=== PATIENT | male | born 1940 | race Caucasian/White ===

== ENCOUNTER 2022-04-19 12:48 | Emergency (ER) | payer MEDICARE, SELFPAY ==
--- NOTE | ~2022-04-19 | XR_ITS ---
Clinical Indication: Chest pain PA and lateral views of the chest: Comparison: None Findings: The lungs are clear, without evidence of focal consolidation or pleural effusion. Cardiome diastinal silhouette is within normal limits. Fracture of the posterior left eighth rib noted.. Impression: Posterior left eighth rib fracture, possibly acute. Correlate for point tenderness. Clear lungs. Reviewed, dictated and finalized at [facility]. Impression: Posterior left eighth rib fracture, possibly acute. Correlate for point tendern ess. Clear lungs.
--- NOTE | 2022-04-19 12:52 | ECG_ITS ---
Measurements Intervals [place] Rate: 122 P: 26 WI: 182 QRS: 7 QRSD: 82 T: 56 QT: 299 QTc: 428 Interpretive Statements SINUS TACHYCARDIA LOW QRS VOLTAGE IN PRECORDIAL LEADS ABNORMAL ECG NO PREVIOUS ECG AVAILABLE FOR COMPARISON Electronically Signed On 04-19-2022 13:22:03 CDT by Parminder Flores D.O.
[2022-04-19 12:53] VITALS: BP 155/84; PULSE 123; RESP 16; TEMP 37.3; O2SAT 99
[2022-04-19 13:11] LABS: Basophils Absolute Auto 0.1 K/mm3 (0.0-0.1); Basophils Percent Auto 0.6 % (0.2-1.2); Eosinophils Percent Auto 0.1 % (0-4.4); Hematocrit 39.6 % (42.0-52.0); Hemoglobin 13.5 g/dL (14.0-18.0); Immature Granulocyte Absolute 0.05 K/mm3 (0.00-0.031); Immature Granulocyte Percent A 0.5 % (0-0.5); Lymphocytes Absolute Auto 0.89 K/mm3 (0.9-3.2); Lymphocytes Percent Auto 8.6 % (18.3-44.2); Mean Corpuscular HGB Conc 34.1 g/dl (32-36); Mean Corpuscular Hemoglobin 34.6 pg (26-34); Mean Corpuscular Volume 101.5 fl (80-100); Mean Platelet Volume 9.6 fl (7.4-10.4); Monocytes Absolute Auto 0.9 K/mm3 (0.1-0.6); Neutrophils Absolute Auto 8.4 K/mm3 (1.3-6.7); Neutrophils Percent Auto 81.2 % (45.5-73.1); Platelet Count Result 250 k/mm3 (150-375); Red Cell Distribution Width 14.8 % (11.5-14.5); White Blood Count 10.3 K/mm3 (4.5-10.0)
[2022-04-19 13:25] LABS: Alanine Aminotransferase 11 U/L (6-50); Albumin Level 4.5 g/dL (3.5-5.1); Alkaline Phosphatase 73 U/L (38-126); Anion Gap 10 mmol/L (8-16); Aspartate Amino Transferase 27 U/L (17-59); Bilirubin,Total 1.3 mg/dL (0.2-1.3); Blood Urea Nitrogen 8 mg/dL (9-20); Calcium 8.7 mg/dL (8.4-10.2); Carbon Dioxide 25 mmol/L (22-30); Chloride 92 mmol/L (98-107); Estimated CRCL calculation 81 ml/min; Estimated Glomerular Filt Rate > 60; Glucose 102 mg/dL (65-110); Potassium 3.8 mmol/L (3.4-5.0); Sodium 127 mmol/L (137-145)
[2022-04-19 14:30] VITALS: BP 148/98; PULSE 98; RESP 16; O2SAT 100
[2022-04-19] MEDS: SODIUM CHLORIDE 0.9% IV 1,000 ML 999 ML IV CONT (15:00)
--- NOTE | 2022-04-19 15:11 | ED.GENADULT ---
HPI - General Adult General Chief complaint: Weakness Stated complaint: weak, dizzy Time Seen by Provider: 04/19/22 14:27 History of Present Illness HPI narrative: 81-year-old male presenting to the ED for evaluation of increased shakiness and weakness. Patient states he often does have some tremor but that the tremor has been acutely worsened today. Patient states this morning he was attempting to walk back to the bedroom when he felt dizzy lightheaded and fell striking his left chest on a chair. Patient reports he was ultimately able to stand up using his own strength and use the chair to get back to bed. Patient did rest for a period of time and later in the morning he went to go use a computer and noticed that he was having increased shakiness of bilateral hands. Patient called a friend to give him a ride to lunch and his friend brought him to the emergency department. Upon arrival to the ED patient states he does feel somewhat improved as far as his shakiness. Patient does complain of intermittent left-sided chest wall pain that is only exacerbated with movement. Patient denies any shortness of breath. Patient states he does have a history of urinary retention but denies any incidence of urinary tract infection. Patient reports he does take Flomax intermittently. Patient also has reported history of hyponatremia for which he does take increased salt. Related Data Home Medications Medication Instructions Recorded Confirmed etodolac 400 mg tablet mg 04/19/22 04/19/22 gabapentin 300 mg capsule mg 04/19/22 Allergies Allergy/AdvReac Type Severity Reaction Status Date / Time No Known Allergies Allergy Verified 04/19/22 15:09 Review of Systems Review of Systems: All systems reviewed & are unremarkable except as noted in HPI and below Exam Narrative: APPEARANCE: Well appearing, no pain, no distress, well-nourished. HEAD: normocephalic, atraumatic. EYES: PERRLA/EOMI, conjunctivae clear. NOSE: Normal no drainage EARS:TMS clear with good light reflex. THROAT: Pharynx clear, no exudate. NECK: Supple. No adenopathy, no masses. RESPIRATORY: Airway patent, respirations nonlabored. Clear to auscultation bilaterally, no rales, rhonchi, wheezing. CARDIOVASCULAR: Regular rate and rhythm without murmurs rubs or gallops. Minimal chest wall tenderness to palpation ABDOMINAL: Soft, nontender, nondistended, normal bowel sounds MUSCULOSKELETAL: Moves all extremities. Strength/ROM intact, No edema, No calf tenderness. NEURO: Alert. Cranial nerves II through XII intact. Grossly intact with no tremor in the emergency department. SKIN: Warm, dry. Normal Color Course Course Emergency Course: 81-year-old male with evaluation of increased shakiness. Patient is afebrile with no leukocytosis. Patient's hemoglobin is stable at 13.5. Patient is hyponatremic at 127, no other sodium levels are on file. Patient's creatinine is 0.6. Patient was tachycardic at 120s on arrival. EKG shows sinus tachycardia with low QRS voltage, no ectopy, normal axis, nonspecific ST changes. Patient was treated with 1 L of normal saline. UA was ordered along with a bladder scan to evaluate for acute urinary retention. UA showed no evidence of urinary obstruction. Patient did feel significantly improved with rehydration. Patient denies any shakiness or queasiness. Patient is afebrile but does have a leukocytosis of 10.3. Patient's potassium was 127 but this was prior to treatment with 1 L of normal saline. Patient also reports he does have prior history of hyponatremia. Patient was negative for influenza and RSV and for COVID. Chest x-ray does show evidence of a left eighth rib fracture. No evidence of pneumothorax or pneumonia. Patient was provided Tylenol 3 for pain control and incentive spirometer to help limit his risk for developing pneumonia. Both patient and friend were updated on the results of the work-up and on importance of close follow-up with her pr
[2022-04-19 15:38] LABS: Influenza A QL RT-PCR Negative (Negative); Influenza B QL RT-PCR Negative (Negative); RSV RNA, RT-PCR Negative (Negative); SARS-CoV-2 RNA PCR Negative
[2022-04-19 15:57] LABS: Appearance Urine Clear (Clear); Bacteria Urine None Seen /hpf; Bilirubin Urine Negative (Negative); Blood Urine Negative (Negative); Color Urine Yellow (Yellow); Glucose Urine UA Negative (Negative); Ketones Urine 1+ mg/dL (Negative); Leukocyte Esterase Ur 1+ LEU/UL (Negative); Need Manual Microscopic Reviewed; Nitrate Urine Negative (Negative); Non Pathogenic Casts 0-2; Protein Urine Trace mg/dL (Negative); RBC Urine 0-2 /hpf (0-2); Specific Grav Ur 1.016 (1.001-1.035); Squamous Epithelial Cell Urine Occasional /hpf (Few); WBC Urine 0-5 /hpf
[2022-04-19 15:58] LABS: Add Urine Microscopic? YES
[2022-04-19 16:00] VITALS: BP 150/90; PULSE 98; RESP 20; O2SAT 100
[2022-04-19] MEDS: ACETAMINOPHEN/CODEINE (*CRX) 300/30 MG TABLET 1 TAB PO (17:12)
[2022-04-19 17:25] VITALS: BP 153/99; PULSE 100; RESP 16; O2SAT 100
== END 2022-04-19 17:30 | disposition home or self-care (01) ==
PROVIDERS: Emergency Provider Emergency Medicine
DX: E87.1 Hypo-osmolality and hyponatremia (principal); S22.32XA Fracture of one rib, left side, initial encounter for closed fracture; R53.1 Weakness; Z20.822 Contact with and (suspected) exposure to COVID-19; W18.39XA Other fall on same level, initial encounter
CPT/HCPCS: 36415; 71046; 80053; 81001; 85025; 87637; 93005; 96360; 99283; A9270; J7030

== ENCOUNTER 2022-05-28 10:22 | Emergency (ER) | payer MEDICARE, SELFPAY ==
[2022-05-28] VITALS (23 sets, daily range): BP systolic 124–157; BP diastolic 76–103; PULSE 91–134; RESP 12–26; TEMP 36.8; O2SAT 97–100
--- NOTE | ~2022-05-28 | XR_ITS ---
AP view of the pelvis and AP and lateral views of the left hip Clinical history: Pain Findings: No acute fracture or dislocation is seen. Osseous alignment is anatomic. Minimal degenerati ve change noted of both hip joints. SI joints are intact. Vascular calcifications are noted. Impression: Minimal osteoarthritis of both hip joints. No fracture or dislocation. Reviewed, dictated and finalized at location . Impression: Minimal osteoarthritis of both hip joints. No fracture or dislocation.
--- NOTE | ~2022-05-28 | CT_ITS ---
EXAMINATION: CT pelvis w con DATE: 05/28/2022 13:23 INDICATION: Left hip pain after fall 2 weeks ago. Left hip swelling. TECHNIQUE: Computed tomography (CT) of the pelvis was performed with 100 cc Omnipaque 350 intravenous contrast. The dose-length product was 401.77 mGy-cm. Automated exposure control and iterative recons truction technique were employed. COMPARISON: Left hip series dated 05/28/2022 FINDINGS: There is a large soft tissue mass in the superficial soft tissues lateral to the left hip m easuring approximately 9.3 x 8.1 x 5.5 cm, consistent with hematoma. There is surrounding subcutaneou s edema. There are areas of serpiginous hyperdensity along the inferior margin of the mass, consisten t with active hemorrhage. There is mild-moderate osteoarthritis of the hips. There is advanced lower lumbar spondylosis partially visualized. The pelvic rings are intact. No acute fracture or traumatic malalignment. Nonobstructive bowel pattern. Prostate gland is enlarged. Mild bladder wall thickening, likely due to outlet obstruction. There is atherosclerosis of the aorta. No lymphadenopathy. No free air or free fluid. IMPRESSION: 1. Large soft tissue mass lateral to the left hip, consistent with hemorrhage with probable active ex travasation along the inferior aspect of the mass as evidenced by serpiginous contrast enhancement. 2: No acute fracture. Reviewed, dictated and finalized at location A. IMPRESSION: 1. Large soft tissue mass lateral to the left hip, consistent with hemorrhage w ith probable active extravasation along the inferior aspect of the mass as evid enced by serpiginous contrast enhancement. 2: No acute fracture.
--- NOTE | 2022-05-28 10:38 | ECG_ITS ---
Measurements Intervals [place] Rate: 128 P: 42 [place]: 185 QRS: 20 QRSD: 81 T: 67 QT: 278 QTc: 406 Interpretive Statements SINUS TACHYCARDIA WITH OCCASIONAL VENTRICULAR PREMATURE COMPLEXES LOW QRS VOLTAGE IN PRECORDIAL LEADS [QRS DEFLECTION < 1.0 mV IN CHEST LEADS] ABNORMAL RHYTHM ECG COMPARED TO ECG 04/19/2022 12:57:26 NO SIGNIFICANT CHANGES Electronically Signed On 05-28-2022 18:31:55 CDT by Cj Durán M.D.
--- NOTE | 2022-05-28 12:32 | ED.FALL ---
HPI - Fall General Chief Complaint: Fall <GUNNER Carey Last Filed: 05/28/22 18:16> Stated Complaint: left hip pain last PM, fall 2 weeks ago <GUNNER Carey Last Filed: 05/28/22 18:16> Time Seen by Provider: 05/28/22 11:28 <GUNNER Craey Last Filed: 05/28/22 18:16> Source: patient and old records reviewed <GUNNER Carey Last Filed: 05/28/22 18:16> Mode of arrival: ambulatory <GUNNER Carey Last Filed: 05/28/22 18:16> Limitations: no limitations <GUNNER Carey Last Filed: 05/28/22 18:16> History of Present Illness HPI Narrative: Patient is an 81-year-old male who presents to the ED with report of left lateral hip pain and swelling. Patient reports he was visiting his daughter in [place] 2 weeks ago and tripped and fell, landing on his left hip. He had pain for a couple of days then, but was able to ambulate normally. He states since then he has been feeling fine without significant pain. Last night while sleeping, patient woke up and had increased pain in his left hip with swelling noted to his left lateral hip. When he woke up this morning he states the swelling was improved, but then developed again later throughout the day, along with increased pain. He then decided to come to the ED. Patient denies any other injuries from the initial fall. Denies any further falls or injuries. Denies significant pain with movement of leg. Denies any numbness or tingling. He is not anticoagulated. Patient's heart rate was noted to be elevated in the 130s upon arrival. He reports that he chronically has tachycardia. Per records, does appear consistent with previous ED visits. Denies any chest pain, shortness of breath, palpitations. <GUNNER Carey Last Filed: 05/28/22 18:16> Related Data Home Medications: Home Medications Medication Instructions Recorded Confirmed etodolac 400 mg tablet mg 04/19/22 04/19/22 gabapentin 300 mg capsule mg 04/19/22 <Khadra Atkinson PA-C - Last Filed: 05/28/22 18:16> Allergies/Adverse Reactions: Allergies Allergy/AdvReac Type Severity Reaction Status Date / Time No Known Allergies Allergy Verified 04/19/22 15:09 <Khadra Atkinson PA-C - Last Filed: 05/28/22 18:16> Review of Systems Review of Systems: CONSTITUTIONAL: Denies fever, chills, or sweats. CARDIOVASCULAR: See HPI. RESPIRATORY: Denies dyspnea. SKIN: See HPI. MUSCULOSKELETAL: See HPI. NEUROLOGIC: Denies tingling, numbness, or weakness. <Khadra Atkinson PA-C - Last Filed: 05/28/22 18:16> All systems reviewed & are unremarkable except as noted in HPI and below <Khadra Atkinson PA-C - Last Filed: 05/28/22 18:16> PMFSH Past Medical History Medical History: Medical History BPH (benign prostatic hyperplasia) HTN (hypertension) <Khadra Atkinson PA-C - Last Filed: 05/28/22 18:16> Surgical History Surgical History: Surgical History No pertinent past surgical history <Khadra Atkinson PA-C - Last Filed: 05/28/22 18:16> Social History Social History: Social History Smoking status: Never smoker <Khadra Atkinson PA-C - Last Filed: 05/28/22 18:16> Exam Narrative: GENERAL: Well appearing, well-nourished, non-toxic, in no acute distress. HEAD: Normocephalic, atraumatic. NECK: Supple. No adenopathy, no masses. RESPIRATORY: Airway patent, respirations nonlabored. Clear to auscultation bilaterally, no rales, rhonchi, wheezing. CARDIOVASCULAR: Borderline tachycardic with regular rhythm without murmurs, rubs, or gallops. Pedal pulses 2+ and equal bilaterally. ABDOMINAL: Soft, no tenderness throughout abdomen, nondistended, no hepatosplenomegaly
[2022-05-28 12:41] LABS: Basophils Absolute Auto 0.1 K/mm3 (0.0-0.1); Basophils Percent Auto 0.6 % (0.2-1.2); Eosinophils Percent Auto 0.1 % (0-4.4); Hematocrit 38.6 % (42.0-52.0); Immature Granulocyte Absolute 0.04 K/mm3 (0.00-0.031); Immature Granulocyte Percent A 0.4 % (0-0.5); Lymphocytes Absolute Auto 1.12 K/mm3 (0.9-3.2); Lymphocytes Percent Auto 10.6 % (18.3-44.2); Mean Corpuscular HGB Conc 33.7 g/dl (32-36); Mean Corpuscular Hemoglobin 34.3 pg (26-34); Mean Corpuscular Volume 101.8 fl (80-100); Mean Platelet Volume 9.7 fl (7.4-10.4); Monocytes Absolute Auto 0.8 K/mm3 (0.1-0.6); Monocytes Percent Auto 7.3 % (2.6-8.5); Neutrophils Absolute Auto 8.5 K/mm3 (1.3-6.7); Platelet Count Result 266 k/mm3 (150-375); Red Blood Count 3.79 M/mm3 (4.6-6.20); Red Cell Distribution Width 13.7 % (11.5-14.5); White Blood Count 10.5 K/mm3 (4.5-10.0)
[2022-05-28] MEDS: SODIUM CHLORIDE 0.9% IV 1,000 ML 999 ML IV CONT (12:50)
[2022-05-28 12:51] LABS: Alanine Aminotransferase 15 U/L (6-50); Albumin Level 4.1 g/dL (3.5-5.1); Alkaline Phosphatase 93 U/L (38-126); Anion Gap 6 mmol/L (8-16); Aspartate Amino Transferase 25 U/L (17-59); Bilirubin,Total 1.5 mg/dL (0.2-1.3); Blood Urea Nitrogen 13 mg/dL (9-20); Calcium 8.9 mg/dL (8.4-10.2); Carbon Dioxide 32 mmol/L (22-30); Chloride 97 mmol/L (98-107); Estimated CRCL calculation 78 ml/min; Estimated Glomerular Filt Rate > 60; Glucose 113 mg/dL (65-110); Potassium 3.9 mmol/L (3.4-5.0); Sodium 135 mmol/L (137-145)
[2022-05-28 13:02] LABS: Magnesium 1.7 mg/dL (1.6-2.3)
[2022-05-28 15:27] LABS: Appearance Urine Clear (Clear); Bacteria Urine 2+ /hpf; Bilirubin Urine Negative (Negative); Blood Urine Negative (Negative); Color Urine Yellow (Yellow); Glucose Urine UA Negative (Negative); Ketones Urine Negative (Negative); Leukocyte Esterase Ur Trace LEU/UL (Negative); Nitrate Urine Negative (Negative); Non Pathogenic Casts 0-2; Protein Urine Negative (Negative); RBC Urine 0-2 /hpf (0-2); Squamous Epithelial Cell Urine Occasional /hpf (Few); pH Urine 7.5 (5.0-9.0)
[2022-05-28 15:29] LABS: Add Urine Microscopic? YES
== END 2022-05-28 17:00 | disposition short-term general hospital (02) ==
PROVIDERS: Emergency Provider Physician Assistant
DX: S70.02XA Contusion of left hip, initial encounter (principal); N30.00 Acute cystitis without hematuria; M16.0 Bilateral primary osteoarthritis of hip; W01.0XXA Fall on same level from slipping, tripping and stumbling without subsequent striking against object, initial encounter
CPT/HCPCS: 36415; 72193; 73502; 80053; 81001; 83735; 85025; 87086; 87088; 93005; 96361; 96365; 99285; J0696; J7030; Q9967

== ENCOUNTER 2022-07-17 09:47 | Emergency (ER) | payer OTHER, MEDICARE, SELFPAY ==
--- NOTE | ~2022-07-17 | CT_ITS ---
EXAMINATION: CT lumbar spine wo con DATE: 07/17/2022 10:43 INDICATION: Low back pain radiating to the legs. TECHNIQUE: Computed tomography (CT) of the lumbar spine was performed without intravenous contrast. A utomated exposure control and iterative reconstruction technique were employed. The dose-length produ ct was 905.22 mGy-cm. COMPARISON: None FINDINGS: There is 7 degrees levocurvature of lumbar spine. There is a compression fracture of inferi or endplate of L2 with 1/5 loss of height. There is a compression fracture of superior endplate of L3 with 2/5 loss of height centrally. There is mildly decreased disc height at L1-L2 and severely decre ased disc height from L2-L3 through L5-S1. The following disc levels are specifically discussed: L1-L2: The disc is bulging. There is severe right and moderate left facet joint osteoarthritis. There is mild bilateral neural foraminal stenosis. There is mild central canal stenosis. L2-L3: The disc is bulging. There is severe bilateral facet joint osteoarthritis. There is moderate b ilateral neural foraminal stenosis. There is mild central canal stenosis. L3-L4: The disc is bulging. There is severe right and moderate left facet joint osteoarthritis. There is moderate bilateral neural foraminal stenosis. There is mild central canal stenosis. L4-L5: The disc is bulging. There is severe bilateral facet joint osteoarthritis. There is moderate b ilateral neural foraminal stenosis. There is mild central canal stenosis. L5-S1: The disc is bulging. There is severe bilateral facet joint osteoarthritis. There is moderate b ilateral neural foraminal stenosis. There is mild central canal stenosis. IMPRESSION: 1. Compression fractures of L2 and L3, likely subacute or chronic. 2. Severe lumbar spondylosis. Reviewed, dictated and finalized at location A.
[2022-07-17 09:53] VITALS: BP 151/71; PULSE 112; RESP 18; TEMP 36.8; O2SAT 100
--- NOTE | 2022-07-17 10:03 | PC.NURSE ---
Pt has a hx of lower back pain and has received steroid injections for the issues. Pt states that last night the pain became so great that he had difficulty moving at all. States normally the pain is only felt when stopping movement or changing positions. States he used a heating pad, and used a prescribed steroid (prednisone 10mg) that he stopped taking last week due to medication running out with little relief. States he has been seeing a physical therapist for the issues. Pt needed a lot of assistance from one RN to transfer from wheelchair to bed. States he is taking an antibiotic for a UTI at this time.
--- NOTE | 2022-07-17 10:15 | PC.NURSE ---
States the weekend before [facility] this year, pt fell onto his left hip and had a hematoma develop on his left hip which he was seen at the ED here. States he was transferred to [facility] where pt was monitored and had a pressure bandage applied to the area.
--- NOTE | 2022-07-17 10:42 | ED.BACK ---
HPI - Back Pain/Injury General Chief Complaint: Back Pain/Injury Stated Complaint: back pain Time Seen by Provider: 07/17/22 09:55 History of Present Illness HPI Narrative: This very pleasant 81-year-old male patient with no significant past medical history related to today's complaint other than chronic back pain from chronic arthritis presents to the emergency room with complaints of having difficulty getting out of bed this morning secondary to the amount of pain he was experiencing in his back. He has most recently been seeing Dr. Schwab and has underwent injections in his back without notable relief of his discomfort. Patient has also been in physical therapy and has not had any notable relief with that as well. Patient denies any acute injury or acute exacerbation in any way. He states the pain is in the low back and this morning it did radiate down the outside the thigh on the left side but it stopped before wait any further. There is no loss of bowel or bladder control there is no saddle anesthesia. Patient has been taking [id number] medications at home for pain and he states that just has not been helping. He does note that he took a friend's hydrocodone x1 and it did relieve some of the pain however it quickly returns. He denies any other symptoms such as chest pain, dyspnea, nausea, vomiting, diarrhea, urinary complaints, dizziness, headache or lightheadedness. Related Data Home Medications Medication Instructions Recorded Confirmed etodolac 400 mg tablet mg 04/19/22 04/19/22 gabapentin 300 mg capsule mg 04/19/22 Allergies Allergy/AdvReac Type Severity Reaction Status Date / Time No Known Allergies Allergy Verified 07/17/22 10:01 Review of Systems Review of Systems: A full 12 point review of systems was completed and is otherwise negative except as not All systems reviewed & are unremarkable except as noted in HPI and below PMFSH Past Medical History Medical History BPH (benign prostatic hyperplasia) HTN (hypertension) Surgical History Surgical History No pertinent past surgical history Social History Social History Smoking status: Never smoker Exam Const: General: healthy appearing and alert Nutritional Appearance: well nourished Orientation/consciousness: patient oriented x3 Limitations: no limitations and No altered mental status HENMT: Head: normal to inspection Ears: external ears normal Face/Nose/Sinus: Normal external nose present and no nasal discharge noted Face and sinus: normal facial exam Mouth: Yes Normal oral and palatal mucosa present Eyes: Conjunctivae: conjunctivae normal Pupils: Equal, round and reactive pupils present Neck: Neck: normal visual inspection and no lymphadenopathy Chest: Chest palpation & inspection: normal inspection of the chest Resp: Effort & Inspection: normal respiratory effort Auscultation: clear to auscultation bilaterally Cardio: Rate: regular rate Rhythm: regular rhythm Heart sounds: no murmurs GI: Inspection: non-distended GI Palp: Yes Soft to palpation and No Tenderness to palpation present (GI) Auscultation: normal bowel sounds Back/Spine/Pelvis: Back: no CVA tenderness Other: There is bilateral paraspinal tenderness at the lumbar level. No palpable spasm. No midline tenderness appreciated. Skin: General skin exam: normal color Rashes: no rashes Wounds: no wounds Neuro: General: patient oriented x3, moves all extremities and no focal motor deficits Cranial nerves: Yes Nystagmus not present Speech: normal speech Gait exam (Neuro): Normal gait present Other: This provider witness patient walk from his room to the restroom without any deficits of gait Extrem: General: normal to inspection, no clubbing, cyanosis or edema and n
[2022-07-17] MEDS: ORPHENADRINE CITRATE 100 MG TABLET.ER PO (11:02)
[2022-07-17] MEDS: KETOROLAC 30 MG/ML VIAL (*BKC) 15 MG IM (11:04)
== END 2022-07-17 13:41 | disposition home or self-care (01) ==
PROVIDERS: Emergency Provider Nurse Practitioner Adult Health; PCP Family Medicine
DX: S32.020A Wedge compression fracture of second lumbar vertebra, initial encounter for closed fracture (principal); S32.030A Wedge compression fracture of third lumbar vertebra, initial encounter for closed fracture; M47.816 Spondylosis without myelopathy or radiculopathy, lumbar region; I10 Essential (primary) hypertension; N40.0 Benign prostatic hyperplasia without lower urinary tract symptoms; X58.XXXA Exposure to other specified factors, initial encounter
CPT/HCPCS: 72131; 96372; 99284; A9270; J1885

== ENCOUNTER 2022-07-18 08:50 | Emergency (ER) | payer OTHER, MEDICARE, SELFPAY ==
[2022-07-18 08:53] VITALS: BP 130/65; PULSE 112; RESP 18; TEMP 36.4; O2SAT 98
--- NOTE | 2022-07-18 09:29 | ED.GENADULT ---
HPI - General Adult General Chief complaint: Back Pain/Injury Stated complaint: back pain Time Seen by Provider: 07/18/22 09:02 History of Present Illness HPI narrative: Vincenzo Glaser is an 81 y/o male who presents today for continued lower back pain. He reports he was evaluated here yesterday diagnosed with two compression fractures. He was sent home with Flexeril 5mg every 8 hours, a TLSO brace and a referral with neurosurgery and pain management. He denies any new trauma/injury/fall since evaluation yesterday. He reports that when he got up this morning his pain felt worse and it takes several steps to start feeling any relief. He is concerned that the Flexeril is not helping his pain enough. Denies any loss of bowel or bladder, denies saddle paraesthesia. He reports he has made an appointment with Neuro surgery in 2 weeks, he has an appointment with his PCP in 5 days and he is planning on calling pain management Wednesday. Related Data Home Medications Medication Instructions Recorded Confirmed etodolac 400 mg tablet mg 04/19/22 04/19/22 gabapentin 300 mg capsule mg 04/19/22 Allergies Allergy/AdvReac Type Severity Reaction Status Date / Time No Known Allergies Allergy Verified 07/18/22 08:51 Review of Systems Review of Systems: CONSTITUTIONAL: Denies fever, chills, or sweats. EYES: Denies visual changes, redness, or discharge. ENT: Denies rhinorrhea, congestion, sore throat, or otalgia. CARDIOVASCULAR: Denies chest pain, palpitations, or edema. RESPIRATORY: Denies cough or dyspnea. GASTROINTESTINAL: Denies abdominal pain, nausea, vomiting, or diarrhea. GENITOURINARY: Denies dysuria or hematuria. SKIN: Denies rash or itching. MUSCULOSKELETAL: Reports with certain movements pain is to mid lower back , denies pain while sitting NEUROLOGIC: Denies headache, numbness, dizziness, or weakness. PSYCHIATRIC: Denies anxiety or depression. [facility] Past Medical History Medical History BPH (benign prostatic hyperplasia) HTN (hypertension) Surgical History Surgical History No pertinent past surgical history Social History Social History Smoking status: Never smoker Exam Narrative: GENERAL: Well-appearing, well-nourished, and in no acute distress. HEAD: Normocephalic, atraumatic. EYES: PERRLA and EOMI. ENT: Nares clear, no rhinorrhea or epistaxis. Mucous membranes moist. Oropharynx without tonsillar hypertrophy exudate or other lesions. NECK: Supple. No adenopathy or masses. No carotid bruits or JVD CHEST: Clear to auscultation. No respiratory distress. No wheezes rales or rhonchi HEART: Regular rate and rhythm. No murmur heard. Normal peripheral pulses. ABDOMEN: Soft, nontender, nondistended, normal active bowel sounds. EXTREMITIES: Normal range of motion. No edema. SKIN: Warm, dry, no rash. NEURO: No focal deficits. Alert and oriented x3. PSYCH: Normal mood and affect. Back/Spine/Pelvis: Other: Mid lower back pain, while resting on stretcher he reports the pain is not there, but with certain movements of his legs or early in the AM the pain feels worse. Course Vital Signs Vital signs: Vital Signs Temperature 36.4 C L 07/18/22 08:53 Pulse Rate 112 H 07/18/22 08:53 Respiratory Rate 18 07/18/22 08:53 Blood Pressure 130/65 07/18/22 08:53 Pulse Oximetry 98 07/18/22 08:53 Oxygen Delivery Room Air 07/18/22 08:53 Temperature 36.4 C L 07/18/22 08:53 Pulse Rate 112 H 07/18/22 08:53 Respiratory Rate 18 07/18/22 08:53 Blood Pressure 130/65 07/18/22 08:53 Pulse Oximetry 98 07/18/22 08:53 Oxygen Delivery Room Air 07/18/22 08:53 Vitals reviewed by me. Medical Decision Making MDM Narrative Medical decision making narrative: Patient is alert and oriented X4 Denies any numbness/tingling to
[2022-07-18] MEDS: LIDOCAINE 5% PATCH 1 PATCH TRANSDERM (09:39)
[2022-07-18] MEDS: MELOXICAM 7.5 MG TABLET 15 MG PO (09:40)
[2022-07-18] MEDS: CYCLOBENZAPRINE HCL 5 MG TABLET PO (09:40)
[2022-07-18] MEDS: HYDROcodone/acetaminophen (*CRX) 5-325 MG TABLET 1 TAB PO (09:40)
== END 2022-07-18 10:04 | disposition home or self-care (01) ==
PROVIDERS: Emergency Provider Nurse Practitioner Family; PCP Family Medicine
DX: M54.50 Low back pain, unspecified (principal); M48.56XA Collapsed vertebra, not elsewhere classified, lumbar region, initial encounter for fracture; I10 Essential (primary) hypertension; N40.0 Benign prostatic hyperplasia without lower urinary tract symptoms
CPT/HCPCS: 99283; A9270

== ENCOUNTER 2022-12-15 20:10 | Emergency (ER) | payer OTHER, MEDICARE, SELFPAY ==
[2022-12-15] VITALS (30 sets, daily range): BP systolic 70–134; BP diastolic 38–79; PULSE 81–107; RESP 11–20; TEMP 36.1; O2SAT 97–100
--- NOTE | ~2022-12-15 | XR_ITS ---
EXAMINATION: XR chest 1V portable Exam Date/Time: 12/15/2022 20:35 [employer]GER HISTORY: low blood pressure FEELING LETHARGIC X 1 DAY Comparison: 04/27/2022. RESULT: Lines, tubes, and devices: None. Lungs and pleura: Clear. Cardiomediastinal silhouette: Stable. Other: No acute osseous or upper abdominal finding. IMPRESSION: No acute cardiopulmonary process. Reviewed, dictated and finalized at location K. 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
--- NOTE | 2022-12-15 20:23 | ECG_ITS ---
Measurements Intervals [place] Rate: 102 P: -60 [place]: 189 QRS: -1 QRSD: 82 T: 59 QT: 346 QTc: 453 Interpretive Statements SINUS TACHYCARDIA EARLY PRECORDIAL R/S TRANSITION BASELINE ARTIFACT- III, AVR BORDERLINE ECG COMPARED TO ECG 05/28/2022 10:46:42 HEART RATE HAS DECREASED Electronically Signed On 12-16-2022 6:51:34 ENROLLER by Parminder Flores D.O.
[2022-12-15 20:40] LABS: Basophils Absolute Auto 0.1 K/mm3 (0.0-0.1); Basophils Percent Auto 0.8 % (0.2-1.2); Eosinophils Percent Auto 0.4 % (0-4.4); Hematocrit 37.5 % (42.0-52.0); Hemoglobin 12.4 g/dL (14.0-18.0); Immature Granulocyte Absolute 0.02 K/mm3 (0.00-0.031); Immature Granulocyte Percent A 0.3 % (0-0.5); Lymphocytes Absolute Auto 1.79 K/mm3 (0.9-3.2); Lymphocytes Percent Auto 25.1 % (18.3-44.2); Mean Corpuscular HGB Conc 33.1 g/dl (32-36); Mean Corpuscular Hemoglobin 33.7 pg (26-34); Mean Corpuscular Volume 101.9 fl (80-100); Mean Platelet Volume 9.7 fl (7.4-10.4); Monocytes Percent Auto 13.4 % (2.6-8.5); Neutrophils Absolute Auto 4.3 K/mm3 (1.3-6.7); Platelet Count Result 274 k/mm3 (150-375); Red Blood Count 3.68 M/mm3 (4.6-6.20); White Blood Count 7.1 K/mm3 (4.5-10.0)
[2022-12-15 20:47] LABS: Alanine Aminotransferase 10 U/L (6-50); Albumin Level 4.3 g/dL (3.5-5.1); Alkaline Phosphatase 56 U/L (38-126); Anion Gap 11 mmol/L (8-16); Aspartate Amino Transferase 22 U/L (17-59); Bilirubin,Total 1.5 mg/dL (0.2-1.3); Blood Urea Nitrogen 19 mg/dL (9-20); Calcium 8.8 mg/dL (8.4-10.2); Carbon Dioxide 26 mmol/L (22-30); Chloride 92 mmol/L (98-107); Estimated CRCL calculation 55 ml/min; Estimated Glomerular Filt Rate > 60; Glucose 95 mg/dL (65-110); Potassium 3.6 mmol/L (3.4-5.0); Sodium 129 mmol/L (137-145)
--- NOTE | 2022-12-15 21:04 | ED.GENADULT ---
HPI - General Adult General Chief complaint: Recheck/Abnormal Lab/Rx Stated complaint: low BP/high HR Time Seen by Provider: 12/15/22 20:22 History of Present Illness HPI narrative: this is an 82-year-old male presenting ED with chief complaint of low blood pressure. Patient checks his blood pressure every morning and it was normal when he woke up. However later that day started feel lightheaded and he had multiple readings that were around 7/40 with heart rate about 110. Patient denies fever chills chest pain difficulty breathing abdominal pain nausea vomiting diarrhea or urinary trouble. He says he has had low blood pressures like this 3 times in the last month. Patient does not know his medications but per the pharmacy records he is on losartan 100 mg once daily. Related Data Home Medications Medication Instructions Recorded Confirmed etodolac 400 mg tablet mg 04/19/22 11/25/22 gabapentin 300 mg capsule mg 04/19/22 11/25/22 acetaminophen 500 mg tablet 500 mg PO Q6H PRN 11/25/22 11/25/22 (Tylenol Extra Strength) ciprofloxacin HCl 500 mg tablet 500 mg PO Q12H 11/25/22 11/25/22 losartan 100 mg tablet 100 mg PO DAILY 11/25/22 11/25/22 pantoprazole 40 mg tablet,delayed 40 mg PO QAM 11/25/22 11/25/22 release prednisone 10 mg tablet 10 mg PO DIRECTED 11/25/22 11/25/22 tamsulosin 0.4 mg capsule 0.4 mg PO DAILY 11/25/22 11/25/22 valsartan 80 mg tablet 80 mg PO DAILY 11/25/22 11/25/22 Allergies Allergy/AdvReac Type Severity Reaction Status Date / Time No Known Allergies Allergy Verified 11/25/22 13:03 [facility] Past Medical History Medical History BPH (benign prostatic hyperplasia) HTN (hypertension) Surgical History Surgical History No pertinent past surgical history Family History Family History Father Heart attack Other Heart disease Social History Social History (Updated 11/25/22 @ 13:07 by [facility]enz [facility] Smoking status: Never smoker Alcohol intake: current Substance use: current Substance use type: marijuana Other substance usage details: gummies for sleep Lack of Transportation: No Lack of Food: Never True Current Housing: I Have Housing Concerned About Future Housing: No Difficulty Paying Gas/Electric Bills: No Difficulty Paying for Meds: No Currently Unemployed: No Education: Master's Degree or Higher Difficulty w/ Childcare or Family Care: No Living arrangements: alone Occupation/Education: retired Exam Narrative: APPEARANCE: No apparent distress. Head: atraumatic. EYES: EOMI, NOSE: Atraumatic NECK: Trachea midline RESPIRATORY: No increased rate of breathing Clear to auscultation CARDIOVASCULAR: RRR, no peripheral edema ABDOMINAL: Non-distended, soft nontender no guarding or rebound MUSCULOSKELETAl: No obvious deformities NEURO: Alert. Moving 4/4 extremities SKIN:: Warm, dry. Normal color PSYCHIATRIC: Normal affect point of care cardiac thoracic ultrasound: Poor cardiac windows, however the patient does have a flat IVC and internal jugular. Consistent with dehydration. Course Vital Signs Vital signs: Vital Signs Temperature 96.9 F L 12/15/22 20:14 Pulse Rate 107 H 12/15/22 20:14 Respiratory Rate 16 12/15/22 20:14 Blood Pressure 94/45 L 12/15/22 20:14 Pulse Oximetry 100 12/15/22 20:14 Oxygen Delivery Room Air 12/15/22 20:14 Temperature 96.9 F L 12/15/22 20:14 Pulse Rate 91 12/15/22 23:31 Respiratory Rate 14 12/15/22 23:31 Blood Pressure 122/71 12/15/22 23:31 Pulse Oximetry 98 12/15/22 23:31 Oxygen Delivery Room Air 12/15/22 20:14 Medical Decision Making [facility] Narrative Medical decision making narrative: -Course: 82-year-old male presenting with low blood pressure readings. Outside of some mild lightheadedness he
[2022-12-15] MEDS: SODIUM CHLORIDE 0.9% IV 2,000 ML 999 ML (21:05)
[2022-12-15 21:40] LABS: Lactic Acid Reflex 3.7 mmol/L (0.7-2.0)
[2022-12-15 22:06] LABS: Influenza A QL RT-PCR Negative (Negative); Influenza B QL RT-PCR Negative (Negative); RSV RNA, RT-PCR Negative (Negative); SARS-CoV-2 RNA PCR Negative (Negative)
--- NOTE | 2022-12-15 22:35 | PC.NURSE ---
Pt attempted to provided urine sample, unsuccessful.
[2022-12-15] MEDS: SODIUM CHLORIDE 0.9% IV 1,000 ML 999 ML IV CONT (22:36)
--- NOTE | 2022-12-15 23:24 | PC.NURSE ---
Pt ambulatory to restroom with steady gait for BM.
[2022-12-15 23:41] LABS: Appearance Urine Clear (Clear); Bacteria Urine Rare /hpf; Bilirubin Urine Negative (Negative); Blood Urine Negative (Negative); Color Urine Yellow (Yellow); Glucose Urine UA Negative (Negative); Ketones Urine Negative (Negative); Leukocyte Esterase Ur Trace LEU/UL (Negative); Nitrate Urine Negative (Negative); Protein Urine Negative (Negative); RBC Urine 0-2 /hpf (0-2); Specific Grav Ur 1.012 (1.001-1.035); Squamous Epithelial Cell Urine Occasional /hpf (Few); WBC Urine 0-5 /hpf; pH Urine 6.5 (5.0-9.0)
[2022-12-15 23:47] LABS: Add Urine Microscopic? YES
[2022-12-16] VITALS (12 sets, daily range): BP systolic 129–151; BP diastolic 75–87; PULSE 89–98; RESP 11–28; TEMP 36.6–37.1; O2SAT 96–99
[2022-12-16 00:28] LABS: Reflex Lactic Acid Yes or No Add Lactic
[2022-12-16 00:54] LABS: Lactic Acid Reflex 2.6 mmol/L (0.7-2.0)
--- NOTE | 2022-12-16 00:58 | PC.NURSE ---
Pt ambulatory with cane to restroom with steady gait.
== END 2022-12-16 01:28 | disposition home or self-care (01) ==
LOC: ANHED 21:36
PROVIDERS: Emergency Provider Emergency Medicine; PCP Family Medicine
DX: I95.9 Hypotension, unspecified (principal); E86.0 Dehydration; Z20.822 Contact with and (suspected) exposure to COVID-19; I10 Essential (primary) hypertension; N40.0 Benign prostatic hyperplasia without lower urinary tract symptoms; R00.0 Tachycardia, unspecified
CPT/HCPCS: 36415; 71045; 80053; 81001; 83605; 85025; 87040; 87147; 87181; 87186; 87637; 93005; 96360; 96361; 99283; J7030

== ENCOUNTER 2023-04-29 14:44 | Day surgery (SDC) | payer OTHER, MEDICARE, SELFPAY ==
[2023-04-29] VITALS (7 sets, daily range): BP systolic 116–151; BP diastolic 59–97; PULSE 86–120; RESP 16–23; TEMP 36.8; O2SAT 94–99
--- NOTE | 2023-04-29 17:21 | ECG_ITS ---
Measurements Intervals [place] Rate: 102 P: NC: 0 QRS: -6 QRSD: 76 T: 36 QT: 318 QTc: 414 Interpretive Statements SINUS TACHYCARDIA ATRIAL PREMATURE COMPLEXES BORDERLINE AV CONDUCTION DELAY BASELINE ARTIFACT- I, II, AVR, AVF ABNORMAL ECG COMPARED TO ECG 12/15/2022 20:28:18 ATRIAL PREMATURE COMPLEXES NOW PRESENT Electronically Signed On 04-29-2023 18:31:09 CDT by Parminder Flores D.O.
[2023-04-29] MEDS: GLUCAGON FOR INJ 1 MG VIAL IM (17:35)
--- NOTE | 2023-04-29 17:36 | ED.GENADULT ---
HPI - General Adult General Chief complaint: Skin/Abscess/Foreign Body Stated complaint: CHICKEN STUCK IN ESOPHAGUS Time Seen by Provider: 04/29/23 17:12 History of Present Illness HPI narrative: 82-year-old male presented to the emergency department for evaluation of difficulty swallowing. Patient does have history of GERD. Patient states that today at lunch she had some chicken and feels he is unable to pass the chicken. Patient is unable to handle his own secretions. Related Data Home Medications Medication Instructions Recorded Confirmed etodolac 400 mg tablet mg 04/19/22 04/14/23 gabapentin 300 mg capsule mg 04/19/22 04/14/23 acetaminophen 500 mg tablet 500 mg PO Q6H PRN 11/25/22 04/14/23 (Tylenol Extra Strength) losartan 100 mg tablet 100 mg PO DAILY 11/25/22 04/14/23 pantoprazole 40 mg tablet,delayed 40 mg PO QAM 11/25/22 04/14/23 release tamsulosin 0.4 mg capsule 0.4 mg PO DAILY 11/25/22 04/14/23 diclofenac sodium 75 mg 75 mg PO BID 01/13/23 04/14/23 tablet,delayed release hydrocodone 5 mg-acetaminophen 325 1 tablet PO Q8H PRN 01/13/23 04/14/23 mg tablet Allergies Allergy/AdvReac Type Severity Reaction Status Date / Time No Known Allergies Allergy Verified 04/29/23 19:16 Review of Systems Review of Systems: All systems reviewed & are unremarkable except as noted in HPI and below PMFSH Past Medical History Medical History (Updated 04/29/23 @ 23:31 by Jorge Luis Rodriguez MD) Alcohol abuse BPH (benign prostatic hyperplasia) Chronic a-fib Esophageal obstruction due to food impaction GERD (gastroesophageal reflux disease) HTN (hypertension) Primary osteoarthritis, right shoulder Surgical History Surgical History No pertinent past surgical history Family History Family History Father Heart attack Other Heart disease Social History Social History Smoking status: Never smoker Alcohol intake: current Substance use: current Substance use type: marijuana Other substance usage details: gummies for sleep Current Housing: Decline to Answer Concerned About Future Housing: Decline to Answer Difficulty Paying Gas/Electric Bills: Decline to Answer Difficulty Paying for Meds: Decline to Answer Currently Unemployed: Decline to Answer Education: Decline to Answer Difficulty w/ Childcare or Family Care: Decline to Answer Living arrangements: alone Occupation/Education: retired Exam Narrative: APPEARANCE: Well appearing, no pain, no distress, well-nourished. HEAD: normocephalic, atraumatic. EYES: PERRLA/EOMI, conjunctivae clear. NOSE: Normal no drainage EARS:TMS clear with good light reflex. THROAT: Not tolerating his own secretions NECK: Supple. No adenopathy, no masses. RESPIRATORY: Airway patent, respirations nonlabored. Clear to auscultation bilaterally, no rales, rhonchi, wheezing. CARDIOVASCULAR: Regular rate and rhythm without murmurs rubs or gallops. ABDOMINAL: Soft, nontender, nondistended, normal bowel sounds MUSCULOSKELETAL: Moves all extremities. Strength/ROM intact, No edema, No calf tenderness. NEURO: Alert. Cranial nerves II through XII intact. Good gait. Good coordination SKIN: Warm, dry. Normal Color Course Course Emergency Course: patient was transferred to the GI lab Vital Signs Vital signs: Vital Signs Temperature 98.2 F 04/29/23 14:45 Pulse Rate 120 H 04/29/23 14:45 Respiratory Rate 16 04/29/23 14:45 Blood Pressure 130/70 04/29/23 14:45 Pulse Oximetry 98 04/29/23 14:45 Oxygen Delivery Room Air 04/29/23 14:45 Temperature 98.2 F 04/29/23 19:26 Pulse Rate 104 H 04/29/23 20:11 Respiratory Rate 19 04/29/23 20:11 Blood Pressure 130/70 04/29/23 20:11 Pulse Oximetry 97 04/29/23 20:11 Oxygen Delivery Room Air 04/29/23 20:11
[2023-04-29 17:55] LABS: Basophils Absolute Auto 0.1 K/mm3 (0.0-0.1); Basophils Percent Auto 0.4 % (0.2-1.2); Eosinophils Percent Auto 0.1 % (0-4.4); Hematocrit 39.8 % (42.0-52.0); Hemoglobin 13.4 g/dL (14.0-18.0); Immature Granulocyte Absolute 0.06 K/mm3 (0.00-0.031); Immature Granulocyte Percent A 0.4 % (0-0.5); Lymphocytes Absolute Auto 0.91 K/mm3 (0.9-3.2); Lymphocytes Percent Auto 6.7 % (18.3-44.2); Mean Corpuscular HGB Conc 33.7 g/dl (32-36); Mean Corpuscular Hemoglobin 33.6 pg (26-34); Mean Corpuscular Volume 99.7 fl (80-100); Mean Platelet Volume 10.1 fl (7.4-10.4); Monocytes Absolute Auto 1.2 K/mm3 (0.1-0.6); Monocytes Percent Auto 8.9 % (2.6-8.5); Neutrophils Absolute Auto 11.3 K/mm3 (1.3-6.7); Neutrophils Percent Auto 83.5 % (45.5-73.1); Platelet Count Result 251 k/mm3 (150-375); Red Blood Count 3.99 M/mm3 (4.6-6.20); Red Cell Distribution Width 14.5 % (11.5-14.5); White Blood Count 13.5 K/mm3 (4.5-10.0)
[2023-04-29 18:10] LABS: Alanine Aminotransferase 10 U/L (6-50); Albumin Level 4.4 g/dL (3.5-5.1); Alkaline Phosphatase 62 U/L (38-126); Anion Gap 9 mmol/L (8-16); Aspartate Amino Transferase 23 U/L (17-59); Blood Urea Nitrogen 20 mg/dL (9-20); Calcium 9.3 mg/dL (8.4-10.2); Carbon Dioxide 26 mmol/L (22-30); Chloride 95 mmol/L (98-107); Estimated CRCL calculation 46 ml/min; Estimated Glomerular Filt Rate > 60; Glucose 100 mg/dL (65-110); Potassium 4.3 mmol/L (3.4-5.0); Sodium 130 mmol/L (137-145)
[2023-04-29] MEDS: LACTATED RINGERS 1,000 ML 150 ML IV CONT (19:28)
--- NOTE | 2023-04-29 19:28 | WPDANESEPP ---
Anes - Eval Pre Procedure Procedure: Operation Date: 04/29/23 07:30 Proposed Procedures p Esophagogastroduodenoscopy EGD - Sincere Campa MD Date/Time: 04/29/23 19:28 Surgeon: Daniel Preop Diagnosis: Esophageal food bolus Pre Op Diagnosis: CHICKEN STUCK IN ESOPHAGUS Patient Data Age: 82 Gender: M Height: 1.74 m Weight: 79.5 kg Last Vital Signs Temp 98.2 F 04/29/23 19:26 Pulse 120 H 04/29/23 19:26 Resp 18 04/29/23 19:26 BP 151/97 H 04/29/23 19:26 Pulse Ox 94 04/29/23 19:26 O2 Del Method Room Air 04/29/23 19:26 Allergies Allergy/AdvReac Type Severity Reaction Status Date / Time No Known Allergies Allergy Verified 04/29/23 19:16 Home Medications Medication Instructions Recorded Confirmed Type etodolac 400 mg tablet mg 04/19/22 04/14/23 History gabapentin 300 mg capsule mg 04/19/22 04/14/23 History acetaminophen 500 mg tablet 500 mg PO Q6H PRN 11/25/22 04/14/23 History (Tylenol Extra Strength) losartan 100 mg tablet 100 mg PO DAILY 11/25/22 04/14/23 History pantoprazole 40 mg tablet,delayed 40 mg PO QAM 11/25/22 04/14/23 History release tamsulosin 0.4 mg capsule 0.4 mg PO DAILY 11/25/22 04/14/23 History diclofenac sodium 75 mg 75 mg PO BID 01/13/23 04/14/23 History tablet,delayed release hydrocodone 5 mg-acetaminophen 325 1 tablet PO Q8H PRN 01/13/23 04/14/23 History mg tablet Laboratory Tests 04/29/23 17:34 WBC 13.5 H K/mm3 (4.5-10.0) RBC 3.99 L M/mm3 (4.6-6.20) Hgb 13.4 L g/dL (14.0-18.0) Hct 39.8 L % (42.0-52.0) MCV 99.7 fl (80-100) MCH 33.6 pg (26-34) MCHC 33.7 g/dl (32-36) RDW 14.5 % (11.5-14.5) Plt Count 251 k/mm3 (150-375) MPV 10.1 fl (7.4-10.4) Immature Gran % (Auto) 0.4 % (0-0.5) Neut % (Auto) 83.5 H % (45.5-73.1) Lymph % (Auto) 6.7 L % (18.3-44.2) [place] % (Auto) 8.9 H % (2.6-8.5) Eos % (Auto) 0.1 % (0-4.4) Baso % (Auto) 0.4 % (0.2-1.2) Lymph # (Auto) 0.91 K/mm3 (0.9-3.2) [place] # (Auto) 1.2 H K/mm3 (0.1-0.6) Eos # (Auto) 0.0 K/mm3 (0-0.3) Baso # (Auto) 0.1 K/mm3 (0.0-0.1) Abs Immat Gran (auto) 0.06 H K/mm3 (0.00-0.031) Absolute Neuts (auto) 11.3 H K/mm3 (1.3-6.7) Absolute Nucleated RBC 0.000 K/mm3 (0.0-0.012) Nucleated RBC % 0.0 % (0.0-0.2) Sodium 130 L mmol/L (137-145) Potassium 4.3 mmol/L (3.4-5.0) Chloride 95 L mmol/L (98-107) Carbon Dioxide 26 mmol/L (22-30) Anion Gap 9 mmol/L (8-16) BUN 20 mg/dL (9-20) Creatinine 1.10 mg/dL (0.7-1.3) Estim Creat Clear Calc 46 ml/min Estimated GFR > 60 (59 - ) Glucose 100 mg/dL (65-110) Calcium 9.3 mg/dL (8.4-10.2) Total Bilirubin 2.0 H mg/dL (0.2-1.3) AST 23 U/L (17-59) ALT 10 U/L (6-50) Alkaline Phosphatase 62 U/L (38-126) Total Protein 7.0 g/dL (6.3-8.2) Albumin 4.4 g/dL (3.5-5.1) Patient hx anesthesia problems: none Family hx anesthesia problems: none Results Review: All pre-operative results and documents have been reviewed as part of the pre-operative evaluation. [facility] Past Medical History Medical History Alcohol abuse BPH (benign prostatic hyperplasia) Chronic a-fib GERD (gastroesophageal reflux disease) HTN (hypertension) Primary osteoarthritis, right shoulder Surgical History Surgical History No pertinent past surgical history Family History Family History Father Heart attack Other Heart disease Social History Social History Smoking status: Never smoker Alcohol intake: current Substance use: current Substance use type: marijuana Other substance usage details: gummies for sleep Current Housing:
--- NOTE | 2023-04-29 19:37 | PM.HPGS ---
History of Present Illness History of Present Illness Consent: Risks, benefits, and alternatives have been discussed and questions answered. Patient agrees to proceed with procedure. Chief complaint: CHICKEN STUCK IN ESOPHAGUS Narrative: Vincenzo Glaser Sr. is a 82 year old male with intermittent dysphagia on pantoprazole, he had chicken for lunch and got stuck, he came to ER and still unable to handle own secretions, did not respond to medical management and now we are going to do urgent EGD. He thinks that had one more than 3 years ago. Review of Systems Review of Systems: All systems reviewed & are unremarkable except as noted in HPI and below PMFSH Past Medical History Medical History (Updated 04/29/23 @ 19:39 by Sincere Campa MD) Alcohol abuse BPH (benign prostatic hyperplasia) Chronic a-fib Esophageal obstruction due to food impaction GERD (gastroesophageal reflux disease) HTN (hypertension) Primary osteoarthritis, right shoulder Surgical History Surgical History No pertinent past surgical history Family History Family History Father Heart attack Other Heart disease Social History Social History Smoking status: Never smoker Alcohol intake: current Substance use: current Substance use type: marijuana Other substance usage details: gummies for sleep Current Housing: Decline to Answer Concerned About Future Housing: Decline to Answer Difficulty Paying Gas/Electric Bills: Decline to Answer Difficulty Paying for Meds: Decline to Answer Currently Unemployed: Decline to Answer Education: Decline to Answer Difficulty w/ Childcare or Family Care: Decline to Answer Living arrangements: alone Occupation/Education: retired Meds Home Medications and Allergies Home Medications Medication Instructions Recorded Confirmed Type etodolac 400 mg tablet mg 04/19/22 04/14/23 History gabapentin 300 mg capsule mg 04/19/22 04/14/23 History acetaminophen 500 mg tablet 500 mg PO Q6H PRN 11/25/22 04/14/23 History (Tylenol Extra Strength) losartan 100 mg tablet 100 mg PO DAILY 11/25/22 04/14/23 History pantoprazole 40 mg tablet,delayed 40 mg PO QAM 11/25/22 04/14/23 History release tamsulosin 0.4 mg capsule 0.4 mg PO DAILY 11/25/22 04/14/23 History diclofenac sodium 75 mg 75 mg PO BID 01/13/23 04/14/23 History tablet,delayed release hydrocodone 5 mg-acetaminophen 325 1 tablet PO Q8H PRN 01/13/23 04/14/23 History mg tablet Allergies Allergy/AdvReac Type Severity Reaction Status Date / Time No Known Allergies Allergy Verified 04/29/23 19:16 Vital Signs Vital Signs - 24 hr 04/29/23 14:45 04/29/23 17:13 04/29/23 18:47 Temperature 98.2 F Pulse Rate 120 H 104 H 115 H Respiratory Rate 16 19 16 Blood Pressure 130/70 144/82 H 122/90 Pulse Oximetry 98 99 99 Oxygen Delivery Room Air 04/29/23 19:26 Temperature 98.2 F Pulse Rate 120 H Respiratory Rate 18 Blood Pressure 151/97 H Pulse Oximetry 94 Oxygen Delivery Room Air Exam Const: General: no acute distress Other: unable to swallow own saliva HENMT: Face/Nose/Sinus: Normal nares present Eyes: General: appearance normal, both eyes and all related structures Neck: Neck: no JVD Resp: Auscultation: clear to auscultation bilaterally Cardio: Rate: regular rate Rhythm: regular rhythm GI: Inspection: non-distended GI Palp: Yes Soft to palpation Skin: General skin exam: normal color Neuro: General: gait normal Speech: normal speech Extrem: General: normal to inspection Psych: Mental Status: mental status grossly normal Assessment and Plan Assessment and plan (1) Esophageal obstruction due to food impaction: Code(s): T18.128A - Food in esophagus causing other injury, initial encounter; [id number].[id number] - F
== END 2023-04-29 20:21 | disposition home or self-care (01) ==
LOC: ANHED 18:05 → ANHENDO 19:13
PROVIDERS: Emergency Provider Emergency Medicine; PCP Family Medicine; Visit Provider Internal Medicine Gastroenterology
PROC: 0DJ08ZZ Inspection of Upper Intestinal Tract, Via Natural or Artificial Opening Endoscopic (ICD-10-PCS; CPT 43235; principal; 2023-04-29 07:30)
DX: T18.128A Food in esophagus causing other injury, initial encounter (principal); K29.50 Unspecified chronic gastritis without bleeding; W44.F3XA Food entering into or through a natural orifice, initial encounter; K22.2 Esophageal obstruction; K44.9 Diaphragmatic hernia without obstruction or gangrene; K21.9 Gastro-esophageal reflux disease without esophagitis; I48.20 Chronic atrial fibrillation, unspecified; I10 Essential (primary) hypertension; N40.0 Benign prostatic hyperplasia without lower urinary tract symptoms; F12.90 Cannabis use, unspecified, uncomplicated; Z79.891 Long term (current) use of opiate analgesic
CPT/HCPCS: 43247; 43239; 36415; 80053; 85025; 88305; 93005; 96372; 99285; J0330; J1610; J2704; J7120

== ENCOUNTER 2023-06-03 08:55 | Day surgery (SDC) | payer OTHER, MEDICARE, SELFPAY ==
[2023-04-30 11:02] VITALS: BMI 28.1
[2023-05-20 09:09] VITALS: BMI 26.6
[2023-06-03 09:44] VITALS: BP 140/85; PULSE 95; RESP 20; TEMP 37.2; O2SAT 100; BMI 27.1
--- NOTE | 2023-06-03 09:50 | WPDANESEPPF ---
Anes - Initial Pre Proc Eval Procedure: Operation Date: 06/03/23 10:30 Proposed Procedures p Esophagogastroduodenoscopy - Jim Beck MD Date/Time: 06/03/23 09:50 Surgeon: Jim Beck MD Pre Op Diagnosis: GERD without esophagitis Patient Data Age: 82 Gender: M Height: 1.73 m Weight: 80.9 kg Last Vital Signs Temp 37.2 C 06/03/23 09:44 Pulse 95 06/03/23 09:44 Resp 20 06/03/23 09:44 BP 140/85 06/03/23 09:44 Pulse Ox 100 06/03/23 09:44 O2 Del Method Room Air 06/03/23 09:44 Allergies Allergy/AdvReac Type Severity Reaction Status Date / Time No Known Allergies Allergy Verified 06/03/23 09:34 Home Medications Medication Instructions Recorded Confirmed Type etodolac 400 mg tablet 400 mg PO BID PRN Pain 04/19/22 06/03/23 History gabapentin 300 mg capsule 300 mg PO DAILY 04/19/22 06/03/23 History acetaminophen 500 mg tablet 500 mg PO Q6H PRN Pain 11/25/22 05/20/23 History (Tylenol Extra Strength) losartan 100 mg tablet 100 mg PO DAILY 11/25/22 06/03/23 History tamsulosin 0.4 mg capsule 0.4 mg PO DAILY 11/25/22 06/03/23 History diclofenac sodium 75 mg 75 mg PO DAILY 01/13/23 06/03/23 History tablet,delayed release hydrocodone 5 mg-acetaminophen 325 1 tablet PO Q8H PRN Pain 01/13/23 06/03/23 History mg tablet pantoprazole 40 mg tablet,delayed 40 mg PO QAM #30 tabs 04/30/23 06/03/23 Rx release omega-3 fatty acids 1,000 mg PO DAILY 05/20/23 06/03/23 History omeprazole 20 mg tablet,delayed 20 mg PO DAILY PRN Indigestion 05/20/23 06/03/23 History release Patient hx anesthesia problems: none Family hx anesthesia problems: none Results Review: All pre-operative results and documents have been reviewed as part of the pre-operative evaluation. [facility] Past Medical History Medical History (Updated 04/29/23 @ 23:31 by Jorge Luis Rodriguez MD) Alcohol abuse BPH (benign prostatic hyperplasia) Chronic a-fib Esophageal obstruction due to food impaction GERD (gastroesophageal reflux disease) HTN (hypertension) Primary osteoarthritis, right shoulder Surgical History Surgical History No pertinent past surgical history Family History Family History Father Heart attack Other Heart disease Social History Social History Smoking status: Never smoker Alcohol intake: current Alcohol use details: Daily- number of drinks depends; 2-8 drinks per day Substance use: current Substance use type: marijuana Other substance usage details: gummies for sleep Last use: for sleep occasionally Current Housing: Decline to Answer Concerned About Future Housing: Decline to Answer Difficulty Paying Gas/Electric Bills: Decline to Answer Difficulty Paying for Meds: Decline to Answer Currently Unemployed: Decline to Answer Education: Decline to Answer Difficulty w/ Childcare or Family Care: Decline to Answer Living arrangements: alone Occupation/Education: retired Spiritual care concerns: No Anes - Eval Final PreProcedure Day of Procedure 06/03/23 09:50 Patient weight: overweight Heart: regular rate and rhythm Lungs: clear to auscultation Airway: Mallampati scale class II Neurological: alert and oriented Last oral intake: >/= 8 hours ASA classification: III Emergent: no Anesthetic plan: proceed Anesthesia type and monitoring: general GIVS and standard monitoring Results Review: All pre-operative results and documents have been reviewed as part of the pre-operative evaluation. Informed Consent: The patient's anesthetic plan and its attendant risks and benefits were discussed with the patient/family/POA. Questions were solicited and answers provided to the satisfaction of the patient/family/POA.
[2023-06-03] MEDS: LACTATED RINGERS 1,000 ML 150 ML IV CONT (10:00)
--- NOTE | 2023-06-03 10:11 | PM.HPGS ---
History of Present Illness History of Present Illness Consent: Risks, benefits, and alternatives have been discussed and questions answered. Patient agrees to proceed with procedure. Chief complaint: GERD without esophagitis Narrative: Vincenzo Glaser Sr. is a 82 year old male presents for EGD. Patient has a history of food impaction 1 month ago. Food was disimpacted at [facility]. Patient reports a distant history of acid reflux. He has been maintained on omeprazole 20mg p.o. daily for 3-4 years. Currently denies any heartburn. He does have difficulty with bread and also larger pieces of meat. Family history noncontributory. Patient denies any weight loss or bleeding. Patient referred today for EGD. Review of Systems Review of Systems: Review of systems is noncontributory. [facility] Past Medical History Medical History (Updated 04/29/23 @ 23:31 by Jorge Luis Rodriguez MD) Alcohol abuse BPH (benign prostatic hyperplasia) Chronic a-fib Esophageal obstruction due to food impaction GERD (gastroesophageal reflux disease) HTN (hypertension) Primary osteoarthritis, right shoulder Surgical History Surgical History No pertinent past surgical history Family History Family History Father Heart attack Other Heart disease Social History Social History Smoking status: Never smoker Alcohol intake: current Alcohol use details: Daily- number of drinks depends; 2-8 drinks per day Substance use: current Substance use type: marijuana Other substance usage details: gummies for sleep Last use: for sleep occasionally Current Housing: Decline to Answer Concerned About Future Housing: Decline to Answer Difficulty Paying Gas/Electric Bills: Decline to Answer Difficulty Paying for Meds: Decline to Answer Currently Unemployed: Decline to Answer Education: Decline to Answer Difficulty w/ Childcare or Family Care: Decline to Answer Living arrangements: alone Occupation/Education: retired Spiritual care concerns: No Meds Home Medications and Allergies Home Medications Medication Instructions Recorded Confirmed Type etodolac 400 mg tablet 400 mg PO BID PRN Pain 04/19/22 06/03/23 History gabapentin 300 mg capsule 300 mg PO DAILY 04/19/22 06/03/23 History acetaminophen 500 mg tablet 500 mg PO Q6H PRN Pain 11/25/22 05/20/23 History (Tylenol Extra Strength) losartan 100 mg tablet 100 mg PO DAILY 11/25/22 06/03/23 History tamsulosin 0.4 mg capsule 0.4 mg PO DAILY 11/25/22 06/03/23 History diclofenac sodium 75 mg 75 mg PO DAILY 01/13/23 06/03/23 History tablet,delayed release hydrocodone 5 mg-acetaminophen 325 1 tablet PO Q8H PRN Pain 01/13/23 06/03/23 History mg tablet pantoprazole 40 mg tablet,delayed 40 mg PO QAM #30 tabs 04/30/23 06/03/23 Rx release omega-3 fatty acids 1,000 mg PO DAILY 05/20/23 06/03/23 History omeprazole 20 mg tablet,delayed 20 mg PO DAILY PRN Indigestion 05/20/23 06/03/23 History release Allergies Allergy/AdvReac Type Severity Reaction Status Date / Time No Known Allergies Allergy Verified 06/03/23 09:34 Vital Signs Vital Signs - 24 hr 06/03/23 09:44 Temperature 98.9 F Pulse Rate 95 Respiratory Rate 20 Blood Pressure 140/85 Pulse Oximetry 100 Oxygen Delivery Room Air Exam Narrative: Physical exam reveals patient vital signs stable. HEENT is unremarkable. Patient is anicteric. Lungs are clear to auscultation and to percussion this without murmur or extra sounds. Abdomen bowel sounds are present soft nontender with no organomegaly. Assessment and Plan Assessment and plan (1) GERD (gastroesophageal reflux disease): Code(s): K21.9 - Gastro-esophageal reflux disease without esophagitis Status: Acute Assessment and Plan: Patient
[2023-06-03 11:17] VITALS: BP 112/78; PULSE 78; RESP 17; O2SAT 100
--- NOTE | 2023-06-03 11:24 | WPDANESPN ---
Anes - Prog Note Post-Op Date/Time: 06/03/23 11:24 Cardiovascular status: normal Respiratory status: normal Airway patency: baseline Mental status: baseline Post-Op hydration status: normal Vital Signs: Last Vital Signs Temp 37.2 C 06/03/23 09:44 Pulse 78 06/03/23 11:17 Resp 17 06/03/23 11:17 BP 112/78 06/03/23 11:17 Pulse Ox 100 06/03/23 11:17 O2 Del Method Room Air 06/03/23 11:17 Pain Score (VAS): 0 I/O: Intake & Output 06/02/23 06/03/23 06/03/23 23:59 07:59 15:59 Intake Total 300 Balance 300 Post-procedural complaints: none Patient Feedback: Patient satisfied with anesthetic care. Other Findings: Patient vital signs back to baseline. Patient denies nausea and vomiting. Patient's pain under control. Patient OK for discharge.
[2023-06-03 11:27] VITALS: BP 155/79; PULSE 82; RESP 16; O2SAT 98
[2023-06-03 11:37] VITALS: BP 147/71; PULSE 83; RESP 16; O2SAT 100
== END 2023-06-03 11:41 | disposition home or self-care (01) ==
PROVIDERS: PCP Family Medicine; Visit Provider Internal Medicine Gastroenterology
PROC: 0DJ08ZZ Inspection of Upper Intestinal Tract, Via Natural or Artificial Opening Endoscopic (ICD-10-PCS; CPT 43235; principal; 2023-06-03 10:30)
DX: K21.9 Gastro-esophageal reflux disease without esophagitis (principal); R13.19 Other dysphagia; K22.2 Esophageal obstruction
CPT/HCPCS: 43450

== ENCOUNTER → 2023-07-20 15:32 | Outpatient (REF) | payer OTHER, MEDICARE, SELFPAY | LOC: ANHLAB 15:32 | PROVIDERS: PCP Family Medicine; Visit Provider Plastic Surgery | DX: C44.519 Basal cell carcinoma of skin of other part of trunk (principal) | CPT/HCPCS: 88305 ==

== ENCOUNTER 2023-08-20 15:09 | Emergency (ER) | payer MEDICARE, OTHER, SELFPAY ==
[2023-08-20 15:21] VITALS: BP 144/78; PULSE 108; RESP 16; TEMP 36.9; O2SAT 98
--- NOTE | 2023-08-20 15:52 | ED.SKABFB ---
HPI - Skin/Abscess/Foreign Bdy General Chief complaint: Skin/Abscess/Foreign Body Stated complaint: Bite Left Thigh Source: patient Mode of arrival: ambulatory Limitations: no limitations History of Present Illness HPI narrative: 82-year-old male presented for complaint of an insect bite to the left inner thigh for 3 days. He applied Prid ointment to the site at onset because it had a small white head but is unsure if it drained; also applied prescribed anti-itch cream. Denies significant itching or pain. Denies lip, tongue, or throat swelling, shortness of breath or wheezing. Denies changes to soap, detergent, lotion, or any other exposures. No one else in the house or any contacts with similar symptoms. Related Data Home Medications Medication Instructions Recorded Confirmed etodolac 400 mg tablet 400 mg PO BID PRN Pain 04/19/22 08/20/23 gabapentin 300 mg capsule 300 mg PO DAILY 04/19/22 08/20/23 acetaminophen 500 mg tablet 500 mg PO Q6H PRN Pain 11/25/22 08/20/23 (Tylenol Extra Strength) losartan 100 mg tablet 100 mg PO DAILY 11/25/22 08/20/23 tamsulosin 0.4 mg capsule 0.4 mg PO DAILY 11/25/22 08/20/23 diclofenac sodium 75 mg 75 mg PO DAILY 01/13/23 07/13/23 tablet,delayed release hydrocodone 5 mg-acetaminophen 325 1 tablet PO Q8H PRN Pain 01/13/23 08/20/23 mg tablet omega-3 fatty acids 1,000 mg PO DAILY 05/20/23 08/20/23 omeprazole 20 mg tablet,delayed 20 mg PO DAILY PRN Indigestion 05/20/23 08/20/23 release Allergies Allergy/AdvReac Type Severity Reaction Status Date / Time No Known Allergies Allergy Verified 08/20/23 15:42 Review of Systems Review of Systems: CONSTITUTIONAL: Denies body aches, fever, chills, or sweats. EYES: Denies visual changes, redness, or discharge. ENT: Denies rhinorrhea, congestion CARDIOVASCULAR: Denies chest pain, palpitations, or edema. RESPIRATORY: Denies cough or dyspnea. GASTROINTESTINAL: Denies abdominal pain, nausea, vomiting, or diarrhea. SKIN: reports insect bite left leg MUSCULOSKELETAL: Denies back pain, joint pain, or myalgia. NEUROLOGIC: Denies headache [facility] Past Medical History Medical History Alcohol abuse BPH (benign prostatic hyperplasia) Chronic a-fib Esophageal obstruction due to food impaction GERD (gastroesophageal reflux disease) HTN (hypertension) Primary osteoarthritis, right shoulder Surgical History Surgical History No pertinent past surgical history Family History Family History Father Heart attack Other Heart disease Social History Social History Smoking status: Never smoker Alcohol intake: current Alcohol use details: Daily- number of drinks depends; 2-8 drinks per day Substance use: current Substance use type: marijuana Other substance usage details: gummies for sleep Last use: for sleep occasionally Current Housing: Decline to Answer Concerned About Future Housing: Decline to Answer Difficulty Paying Gas/Electric Bills: Decline to Answer Difficulty Paying for Meds: Decline to Answer Currently Unemployed: Decline to Answer Education: Decline to Answer Difficulty w/ Childcare or Family Care: Decline to Answer Living arrangements: alone Occupation/Education: retired Spiritual care concerns: No Comments At time of signature, I have reviewed and agree with nursing past medical, surgical, social and family history unless otherwise noted. Please see nursing chart for further information. There is no relevant family history pertinent to the presenting complaint Exam Narrative: GENERAL: Well-appearing EYES: conjunctivae clear, and EOMI. ENT: Mucous membranes moist. Oropharynx without edema, erythema or lesions. NECK: Supple. No lymphadenopathy CHEST: Clear to ausculta
== END 2023-08-20 16:00 | disposition home or self-care (01) ==
PROVIDERS: Emergency Provider Nurse Practitioner Family; PCP Nurse Practitioner Family
DX: S70.362A Insect bite (nonvenomous), left thigh, initial encounter (principal); W57.XXXA Bitten or stung by nonvenomous insect and other nonvenomous arthropods, initial encounter; F12.90 Cannabis use, unspecified, uncomplicated; N40.0 Benign prostatic hyperplasia without lower urinary tract symptoms; I48.20 Chronic atrial fibrillation, unspecified; K21.9 Gastro-esophageal reflux disease without esophagitis; I10 Essential (primary) hypertension; M19.011 Primary osteoarthritis, right shoulder
CPT/HCPCS: 99211; G0463

== ENCOUNTER 2023-08-27 14:47 | Emergency (ER) | payer OTHER, MEDICARE, SELFPAY ==
[2023-08-27 14:56] VITALS: BP 127/79; PULSE 99; RESP 16; TEMP 36.7; O2SAT 99
--- NOTE | 2023-08-27 15:40 | ED.SKABFB ---
HPI - Skin/Abscess/Foreign Bdy General Chief complaint: Skin/Abscess/Foreign Body Stated complaint: INSECT BITE L LEG Time Seen by Provider: 08/27/23 15:36 Source: patient, family (Significant other) and RN notes reviewed Mode of arrival: ambulatory Limitations: no limitations History of Present Illness HPI narrative: Patient presents today complaining of a worsening wound to the left inner thigh. He was seen initially at [facility] on 08/20/2023 for same complaint. Review of note shows scabbed area was approximately 1 cm. Instructed to apply some topical Neosporin and monitor the area. Today patient states his scabbed area has become larger some redness around it. States the redness comes and goes. He did apply some Neosporin intermittently. He has not been cleaning the area. Related Data Home Medications Medication Instructions Recorded Confirmed etodolac 400 mg tablet 400 mg PO BID PRN Pain 04/19/22 08/27/23 gabapentin 300 mg capsule 300 mg PO DAILY 04/19/22 08/27/23 acetaminophen 500 mg tablet 500 mg PO Q6H PRN Pain 11/25/22 08/27/23 (Tylenol Extra Strength) losartan 100 mg tablet 100 mg PO DAILY 11/25/22 08/27/23 tamsulosin 0.4 mg capsule 0.4 mg PO DAILY 11/25/22 08/27/23 omega-3 fatty acids 1,000 mg PO DAILY 05/20/23 08/27/23 omeprazole 20 mg tablet,delayed 20 mg PO DAILY PRN Indigestion 05/20/23 08/27/23 release Allergies Allergy/AdvReac Type Severity Reaction Status Date / Time No Known Allergies Allergy Verified 08/27/23 15:08 Review of Systems Review of Systems: CONSTITUTIONAL: Denies body aches, fever, chills, or sweats. EYES: Denies visual changes, redness, or discharge. ENT: Denies rhinorrhea, congestion, sore throat, or otalgia. CARDIOVASCULAR: Denies chest pain, palpitations, or edema. RESPIRATORY: Denies cough or dyspnea. GASTROINTESTINAL: Denies abdominal pain, nausea, vomiting, or diarrhea. GENITOURINARY: Denies dysuria or hematuria. SKIN: + thigh wound MUSCULOSKELETAL: Denies back pain, joint pain, or myalgia. NEUROLOGIC: Denies headache, numbness, tingling, or weakness. PSYCH: Denies depression or anxiety. [facility] Past Medical History Medical History Alcohol abuse BPH (benign prostatic hyperplasia) Chronic a-fib Esophageal obstruction due to food impaction GERD (gastroesophageal reflux disease) HTN (hypertension) Primary osteoarthritis, right shoulder Surgical History Surgical History (Reviewed 08/27/23 @ 15:42 by Amaris Coello, [facility] [place], ) No pertinent past surgical history Family History Family History Father Heart attack Other Heart disease Social History Social History (Reviewed 08/27/23 @ 15:42 by Amaris Coello, [facility] [place], ) Smoking status: Never smoker Alcohol intake: current Alcohol use details: Daily- number of drinks depends; 2-8 drinks per day Substance use: current Substance use type: marijuana Other substance usage details: gummies for sleep Last use: for sleep occasionally Current Housing: Decline to Answer Concerned About Future Housing: Decline to Answer Difficulty Paying Gas/Electric Bills: Decline to Answer Difficulty Paying for Meds: Decline to Answer Currently Unemployed: Decline to Answer Education: Decline to Answer Difficulty w/ Childcare or Family Care: Decline to Answer Living arrangements: alone Occupation/Education: retired Spiritual care concerns: No Comments At time of signature, I have reviewed and agree with nursing past medical, surgical, social and family history unless otherwise noted. Please see nursing chart for further information. There is no relevant family history pertinent to the presenting complaint Exam Narrative: GENERAL: Well-appearing, well-nourished, and in no acute distress. HEAD: Normocephalic, atraumatic. EYES: EOMI. No redness or drainage. Conjun
== END 2023-08-27 15:47 | disposition home or self-care (01) ==
PROVIDERS: Emergency Provider Nurse Practitioner; PCP Nurse Practitioner Family
DX: L03.116 Cellulitis of left lower limb (principal); F12.90 Cannabis use, unspecified, uncomplicated; N40.0 Benign prostatic hyperplasia without lower urinary tract symptoms; I48.20 Chronic atrial fibrillation, unspecified; K21.9 Gastro-esophageal reflux disease without esophagitis; I10 Essential (primary) hypertension; M19.011 Primary osteoarthritis, right shoulder
CPT/HCPCS: 99213; G0463

== ENCOUNTER 2023-09-14 12:38 | Emergency (ER) | payer OTHER, MEDICARE, SELFPAY ==
[2023-09-14 12:49] VITALS: BP 144/75; PULSE 97; RESP 16; TEMP 37.1; O2SAT 99
--- NOTE | 2023-09-14 12:49 | ED.WOUNDLAC ---
HPI - Wound/Laceration General Chief Complaint: Wound/Laceration Stated Complaint: wound care Time Seen by Provider: 09/14/23 12:55 Source: patient and family Mode of arrival: ambulatory Limitations: no limitations History of Present Illness HPI narrative: Vincenzo is an 82-year-old male patient presenting to the clinic today with request for wound care to his right wrist and right forearm. He reports he had a ground level fall on concrete on Wednesday morning. Has a laceration to the right wrist and a skin tear to the right forearm. States his granddaughter cleaned it up and applied a gauze bandage at that time. He has not change the bandage since Wednesday at the time of injury. Bleeding is controlled does not take any blood thinners. Denies any wrist pain or forearm pain. Denies any other injury that occurred during his fall. Today is the 1st time he is seeking medical attention. Related Data Home Medications Medication Instructions Recorded Confirmed etodolac 400 mg tablet 400 mg PO BID PRN Pain 04/19/22 09/14/23 gabapentin 300 mg capsule 300 mg PO DAILY 04/19/22 09/14/23 losartan 100 mg tablet 100 mg PO DAILY 11/25/22 09/14/23 tamsulosin 0.4 mg capsule 0.4 mg PO DAILY 11/25/22 09/14/23 omega-3 fatty acids 1,000 mg PO DAILY 05/20/23 09/14/23 omeprazole 20 mg tablet,delayed 20 mg PO DAILY PRN Indigestion 05/20/23 09/14/23 release Allergies Allergy/AdvReac Type Severity Reaction Status Date / Time No Known Allergies Allergy Verified 09/14/23 12:50 Review of Systems Review of Systems: Pertinent positives per HPI. Patient denies any fever, chills, rash, headache, visual changes, dizziness, cough, runny nose, sore throat, shortness of breath, chest pain, palpitations, nausea, vomiting, diarrhea, constipation, abdominal pain, or any urinary issues. [facility] Past Medical History Medical History Alcohol abuse BPH (benign prostatic hyperplasia) Chronic a-fib Esophageal obstruction due to food impaction GERD (gastroesophageal reflux disease) HTN (hypertension) Primary osteoarthritis, right shoulder Surgical History Surgical History No pertinent past surgical history Family History Family History Father Heart attack Other Heart disease Social History Social History Smoking status: Never smoker Alcohol intake: current Alcohol use details: Daily- number of drinks depends; 2-8 drinks per day Substance use: current Substance use type: marijuana Other substance usage details: gummies for sleep Last use: for sleep occasionally Current Housing: Decline to Answer Concerned About Future Housing: Decline to Answer Difficulty Paying Gas/Electric Bills: Decline to Answer Difficulty Paying for Meds: Decline to Answer Currently Unemployed: Decline to Answer Education: Decline to Answer Difficulty w/ Childcare or Family Care: Decline to Answer Living arrangements: alone Occupation/Education: retired Spiritual care concerns: No Comments At the time of my signature, I reviewed and agree with the nursing past medical, surgical, social, and family history. There is no relevant family history pertinent to the patient complaint. Exam Narrative: General: Well-developed, well nourished, in no apparent distress Head: Normocephalic, atraumatic. Cardio: Regular rate and rhythm, s1 and s2 normal, no murmur appreciated. Resp: Clear to auscultation bilaterally, no rhonchi, rales, wheezing or rubs. Integumentary: [place], warm, and dry, 6.5 cm laceration by 1 cm gaped to the right volar wrist, 1 cm skin tear to the posterior mid forearm. No tenderness to palpation over the elbow, forearm, or wrist, has full range of motion of the wrist, forearm, and elbow, old
[2023-09-14] MEDS: TETANUS,DIPHTHERIA,AC PERTUSSIS ADULT (0.5 ML) BOOSTRIX IM (13:10)
== END 2023-09-14 13:30 | disposition home or self-care (01) ==
PROVIDERS: Emergency Provider Nurse Practitioner Family; PCP Nurse Practitioner Family
DX: S61.511A Laceration without foreign body of right wrist, initial encounter (principal); S51.811A Laceration without foreign body of right forearm, initial encounter; W19.XXXA Unspecified fall, initial encounter; Z23 Encounter for immunization; N40.0 Benign prostatic hyperplasia without lower urinary tract symptoms; I48.20 Chronic atrial fibrillation, unspecified; K21.9 Gastro-esophageal reflux disease without esophagitis; I10 Essential (primary) hypertension; M19.011 Primary osteoarthritis, right shoulder
CPT/HCPCS: 90471; 90715; 99213; G0463

== ENCOUNTER → 2023-09-20 11:26 | Outpatient (REF) | payer OTHER, MEDICARE, SELFPAY | LOC: ANHLAB 11:26 | PROVIDERS: PCP Nurse Practitioner Family; Visit Provider Physician Assistant Surgical | DX: C44.91 Basal cell carcinoma of skin, unspecified (principal) | CPT/HCPCS: 88305 ==

== ENCOUNTER 2023-11-08 12:21 | Emergency (ER) | payer OTHER, MEDICARE, SELFPAY ==
--- NOTE | ~2023-11-08 | CT_ITS ---
EXAMINATION: CT brain wo con DATE: 11/08/2023 14:21 INDICATION: Head injury. TECHNIQUE: Computed tomography (CT) of the head was performed without intravenous contrast. The mA wa s adjusted according to patient size. Iterative reconstruction technique was employed. The dose-lengt h product was 756.67 mGy-cm. COMPARISON: None FINDINGS: There are scattered areas of low attenuation in the cerebral white matter. There is no intr acranial hemorrhage, acute infarction, or abnormal intracranial mass lesion. 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 The ventricles are normal in size. There is mild mucosal thickening in the ethmoi d sinuses. There are likely changes of ocular lens replacement surgeries. The mastoid air cells are n ormal. There is a laceration of right frontal lateral scalp. IMPRESSION: 1. Old infarct in left cerebellum. 2. Moderate nonspecific cerebral white matter disease, which likely represents chronic small vessel i schemic disease. Reviewed, dictated and finalized at location A. IMPRESSION: 1. Old infarct in left cerebellum. 2. Moderate nonspecific cerebral white matter disease, which likely represents chronic small vessel ischemic disease.
[2023-11-08 12:22] VITALS: BP 179/88; PULSE 80; RESP 20; TEMP 36.8; O2SAT 99
--- NOTE | 2023-11-08 14:13 | ED.HEATRA ---
HPI - Head Injury General Chief complaint: Head Injury Stated complaint: fall, [place] - head lac Time Seen by Provider: 11/08/23 13:49 History of Present Illness HPI Narrative: Pt tripped over rug and fell and struck head causing laceration. tetanus UTD. Pt denies LOC or HANDLEY or neck pain. Pt has laceration above right eye and skin tear to elbow. Related Data Home Medications Medication Instructions Recorded Confirmed losartan 100 mg tablet 100 mg PO DAILY 11/25/22 09/21/23 tamsulosin 0.4 mg capsule 0.4 mg PO DAILY 11/25/22 09/21/23 omega-3 fatty acids 1,000 mg PO DAILY 05/20/23 09/21/23 ciprofloxacin HCl 500 mg tablet mg PO 10/18/23 cyclobenzaprine 5 mg tablet mg PO 10/18/23 erythromycin 5 mg/gram (0.5 %) eye 3.5 mg ophthalmic (eye) 10/18/23 ointment sucralfate 1 gram tablet PO 10/18/23 Allergies Allergy/AdvReac Type Severity Reaction Status Date / Time No Known Allergies Allergy Verified 10/18/23 14:35 Review of Systems Review of Systems: All systems reviewed & are unremarkable except as noted in HPI and below PMFSH Past Medical History Medical History Alcohol abuse BPH (benign prostatic hyperplasia) Chronic a-fib Esophageal obstruction due to food impaction Esophageal obstruction due to food impaction GERD (gastroesophageal reflux disease) HTN (hypertension) Primary osteoarthritis, right shoulder Surgical History Surgical History No pertinent past surgical history Family History Family History Father Heart attack Other Heart disease Social History Social History Smoking status: Never smoker Alcohol intake: current Alcohol use details: Daily- number of drinks depends; 2-8 drinks per day Substance use: current Substance use type: marijuana Other substance usage details: gummies for sleep Last use: for sleep occasionally Current Housing: Decline to Answer Concerned About Future Housing: Decline to Answer Difficulty Paying Gas/Electric Bills: Decline to Answer Difficulty Paying for Meds: Decline to Answer Currently Unemployed: Decline to Answer Education: Decline to Answer Difficulty w/ Childcare or Family Care: Decline to Answer Living arrangements: alone Occupation/Education: retired Spiritual care concerns: No Exam Const: General: healthy appearing and no acute distress Nutritional Appearance: well nourished Orientation/consciousness: patient oriented x3 Limitations: no limitations HENMT: Head: laceration Eyes: Conjunctivae: conjunctivae normal EOM: EOMs intact bilaterally Neck: Neck: normal visual inspection and no meningeal signs Other: no midline pain Resp: Effort & Inspection: normal respiratory effort Cardio: Rate: regular rate Rhythm: regular rhythm GI: GI Palp: Yes Soft to palpation and No Tenderness to palpation present (GI) Auscultation: normal bowel sounds Skin: Wounds: wounds noted (skin tear right elbow) Neuro: General: patient oriented x3, moves all extremities and no focal motor deficits Speech: normal speech Extrem: General: normal to inspection and no clubbing, cyanosis or edema Psych: Mental Status: mental status grossly normal Affect: normal affect Attitude: cooperative Course Vital Signs Vital signs: Vital Signs Temperature 98.2 F 11/08/23 12:22 Pulse Rate 80 11/08/23 12:22 Respiratory Rate 20 11/08/23 12:22 Blood Pressure 179/88 H 11/08/23 12:22 Pulse Oximetry 99 11/08/23 12:22 Oxygen Delivery Room Air 11/08/23 12:22 Temperature 98.2 F 11/08/23 12:22 Pulse Rate 88 11/08/23 14:24 Respiratory Rate 16 11/08/23 14:24 Blood Pressure 189/106 H 11/08/23 14:24 Pulse Oximetry 99 11/08/23 14:24 Oxygen Delivery Room Air 11/08/23 12:22
[2023-11-08 14:24] VITALS: BP 189/106; PULSE 88; RESP 16; O2SAT 99
== END 2023-11-08 16:11 | disposition home or self-care (01) ==
PROVIDERS: Emergency Provider Emergency Medicine; PCP Family Medicine
DX: S01.111A Laceration without foreign body of right eyelid and periocular area, initial encounter (principal); S51.011A Laceration without foreign body of right elbow, initial encounter; I48.20 Chronic atrial fibrillation, unspecified; I10 Essential (primary) hypertension; N40.0 Benign prostatic hyperplasia without lower urinary tract symptoms; K21.9 Gastro-esophageal reflux disease without esophagitis; M19.011 Primary osteoarthritis, right shoulder; W18.09XA Striking against other object with subsequent fall, initial encounter
CPT/HCPCS: 12013; 70450; 99284

== ENCOUNTER 2023-12-13 13:51 | Outpatient (CLI) | payer OTHER, MEDICARE, SELFPAY ==
--- NOTE | ~2023-12-13 | XR_ITS ---
Left Shoulder Technique: AP and scapular Y views were obtained. Clinical History: Pain Findings: No fracture or dislocation is seen. Osseous alignment is anatomic. The glenohumeral and AC joints demonstrate moderate degenerative change. Soft tissues are unremarkable. Impression: Degenerative change, as above. Reviewed, dictated and finalized at [facility]. ATRIC NURSE Impression: Degenerative change, as above.
--- NOTE | ~2023-12-13 | XR_ITS ---
[id number] Ordering provider: Steven Senior MD History: . RADICULOPATHY CERVICAL REGION . Comparison: None. FINDINGS: VERTEBRAL BODIES: Normal height and alignment. No visible fracture or subluxation. The dens is intact . DISK SPACES: Well maintained. Multilevel facet joint disease. PARASPINOUS SOFT TISSUES: No prevertebral soft tissue swelling. IMPRESSION: No acute osseous abnormality cervical spine. Multilevel facet joint disease. Reviewed, dictated and finalized at location A. LE PREP TECHNICIAN
--- NOTE | ~2023-12-13 | XR_ITS ---
Right Knee Technique: AP, lateral, and sunrise views were obtained. Clinical History: Pain Findings: No fracture or dislocation is seen. Osseous alignment is anatomic. Joint spaces are preserv ed without degenerative or erosive change. Soft tissues are unremarkable. No joint effusion is seen. Impression: Unremarkable right knee radiographs. Reviewed, dictated and finalized at location . RUCTIONAL MATERIAL DIRECTOR Impression: Unremarkable right knee radiographs.
--- NOTE | ~2023-12-13 | XR_ITS ---
XR shoulder RT min 2V Ordering provider: Steven Senior MD History: . GENERAL BILATERAL SHOULDER PAIN . Comparison: None. FINDINGS: BONES: No acute fracture or dislocation. JOINT SPACES: The acromioclavicular joint is normal. The glenohumeral joint shows osteoarthritic lockhart ges with inferior marginal osteophytes. SOFT TISSUES: Soft tissue calcification is seen in the area of the scapula. IMPRESSION: No acute osseous abnormality right shoulder. Osteoarthritic changes of the glenohumeral joint. Reviewed, dictated and finalized at location A. ADJUSTER
--- NOTE | ~2023-12-13 | XR_ITS ---
Thoracic spine: Clinical Indication: Radiculopathy AP and lateral views were performed. No fracture is seen. There is normal alignment of the vertebrae. There is moderate degenerative disc change throughout the thoracic spine. Paravertebral soft tissues appear normal. Impression: Moderate degenerative disc change throughout the thoracic spine. Reviewed, dictated and finalized at [facility]. CIATE VICE PRESIDENT Impression: Moderate degenerative disc change throughout the thoracic spine.
--- NOTE | ~2023-12-13 | XR_ITS ---
Lumbosacral Spine: AP and lateral views Clinical History: Pain Findings: The normal lordotic curve is maintained. No fracture or dislocation seen. There is severe d egenerative disc narrowing from L2 through S1. There is moderate degenerative disc narrowing at L1-L2 . There is moderate to advanced facet arthropathy throughout the lumbar spine, worst at L4-L5 and L5- S1. The sacroiliac joints are normally outlined. Impression: Severe degenerative spondylosis diffusely involving the lumbar spine, as above. Reviewed, dictated and finalized at location M. JOINER Impression: Severe degenerative spondylosis diffusely involving the lumbar spine, as above.
--- NOTE | ~2023-12-13 | XR_ITS ---
Left Knee Technique: AP, lateral, and sunrise views were obtained. Clinical History: Pain Findings: No fracture or dislocation is seen. Osseous alignment is anatomic. Joint spaces are preserv ed without degenerative or erosive change. Soft tissues are unremarkable. No joint effusion is seen. Impression: Unremarkable left knee radiographs. Reviewed, dictated and finalized at location . PROFESSIONAL Impression: Unremarkable left knee radiographs.
== END 2023-12-13 13:52 | disposition home or self-care (01) ==
PROVIDERS: PCP Family Medicine; Visit Provider Pain Medicine Interventional Pain Medicine
DX: F41.1 Generalized anxiety disorder (principal); F33.1 Major depressive disorder, recurrent, moderate; M51.34 Other intervertebral disc degeneration, thoracic region; M47.26 Other spondylosis with radiculopathy, lumbar region; M19.012 Primary osteoarthritis, left shoulder; M50.30 Other cervical disc degeneration, unspecified cervical region; M19.011 Primary osteoarthritis, right shoulder
CPT/HCPCS: 72040; 72072; 72100; 73030; 73562

== ENCOUNTER 2024-01-25 13:05 | Outpatient (CLI) | payer OTHER, MEDICARE, SELFPAY ==
[2024-01-25 13:39] LABS: Hematocrit 35.4 % (42.0-52.0); Hemoglobin 12.2 g/dL (14.0-18.0); Mean Corpuscular HGB Conc 34.5 g/dl (32-36); Mean Corpuscular Hemoglobin 32.6 pg (26-34); Mean Corpuscular Volume 94.7 fl (80-100); Mean Platelet Volume 9.4 fl (7.4-10.4); Platelet Count Result 306 k/mm3 (150-375); Red Blood Count 3.74 M/mm3 (4.6-6.20); Red Cell Distribution Width 14.1 % (11.5-14.5); White Blood Count 9.1 K/mm3 (4.5-10.0)
== END 2024-01-25 13:06 | disposition home or self-care (01) ==
PROVIDERS: PCP Family Medicine; Visit Provider Nurse Practitioner
DX: K21.9 Gastro-esophageal reflux disease without esophagitis (principal); K92.1 Melena
CPT/HCPCS: 36415; 85027

== ENCOUNTER 2024-03-15 14:49 | Outpatient (CLI) | payer OTHER, MEDICARE, SELFPAY ==
[2024-03-15 15:31] LABS: Add Urine Microscopic? YES; Appearance Urine Clear (Clear); Bacteria Urine 4+ /hpf; Bilirubin Urine Negative (Negative); Blood Urine Negative (Negative); Color Urine Yellow (Yellow); Glucose Urine UA Negative (Negative); Ketones Urine Negative (Negative); Leukocyte Esterase Ur 1+ LEU/UL (Negative); Nitrate Urine Positive (Negative); Non Pathogenic Casts 0-2; Protein Urine Negative (Negative); RBC Urine 0-2 /hpf (0-2); Specific Grav Ur 1.012 (1.001-1.035); Squamous Epithelial Cell Urine None Seen /hpf (Few); WBC Urine 21-50 /hpf (0-3)
--- OUTSIDE RECORDS SUMMARY | 2024-03-15 15:34 | XMS_ITS | Referral Summary ---
Author Organization [facility] Address [address] [place] [address] Care Team Providers Care Stunner Animal Name Role Phone Unavailable Primary Care Provider Unavailabl e Source Comments [facility],non-owned Affiliates and Associated Physician Practices is amultiple site organization consisting of ambulatory clinics and hospital sitesin [place], [place], [place] and [place]. This disclosure is being madepursuant to the Care Everywhere program and may not contain all information available regarding this patient. Last updated 17.[facility] [employer] Allergies No known active allergies Medications * Be aware that medications may not be up to date on this document. Alwaysverify current medications with the patient. Medication Sig Dispensed Refills Start Date End Date Status folic acid (Folvite) 1 MG tablet Take 1 (one) tablet by mouth once daily 05/31/2022 Active acetaminophen (Tylenol) 325 MG tablet Take 2 (two) tablets by mouth every 6 hours as needed Maximum allowable Acetaminophen amount = 4 Grams (4000 mg) / 24 hours. 05/30/2022 Active polyethylene glycol 3350 (Miralax) 17 g packet Take 17 (seventeen) g by mouth once daily as needed for Constipation 05/30/2022 Active Active Problems Problem Noted Date Diagnosed Date Macrocytic anemia 05/29/2022 Hypomagnesemia 05/29/2022 Hyponatremia 05/29/2022 Hematoma of left hip, initial encounter 05/29/19 Primary hypertension 05/28/2022 Benign prostatic hyperplasia without lower urinary tract symptoms 05/28/2022 Gastroesophageal reflux disease without esophagi tis 05/28/2022 Social History Tobacco Use Types Packs/Day Years Used Date Smoking Tobacco: Never Assessed AUDIT-C Answer Date Recorded Q1: How often do you have a drink containing alcohol? 4 or more times a week 05/30/2022 Q2: How many drinks containi ng alcohol do you have on a typical day when you are drinking? 3 or 4 3 Q3: How often do you have si x or more drinks on one occasion? Less than monthly 05/30/2022 Overall Financial Resource Strain (CARDIA) Answe r Date Recorded How hard is it for you to pa y for the very basics like food, housing, medical care, and heating? Not hard at all 05/30/2022 [facility] - Occupational Stress Questionnaire Answer Date Recorded Do you feel stress - tense, restless, nervous, or anxious, or unable to sleep at night because your mind is troubled all the time - these days? Not at all 05/30/2022 Hunger Vital Sign Answer Date Recorded Within the past 12 months, y ou worried that your food would run out before you got the money to buy more. Never true 05/31/19 23 Within the past 12 months, t he food you bought just didn't last and you didn't have money to get more. Never true 05/30/2022 PRAPARE - Transportation Answer Date Re corded In the past 12 months, has l ack of transportation kept you from medical appointments or from getting medications? No 05/10 In the past 12 months, has l ack of transportation kept you from meetings, work, or from getting things needed for daily living? No 05/30/2022 Housing Stability Vital Sign Answer Saul e Recorded In the last 12 months, was t here a time when you were not able to pay the mortgage or rent on time? No 05/30/2022 In the last 12 months, how many places have you lived? 1 05/30/2022 In the last 12 months, was t here a time when you did not have a steady place to sleep or slept in a senior care (including now)? No 05/30/2022 Sex and Gender Information Value Date Recorded Sex Assigned at Not on file Gender Identity Not on file Sexual Orientation Not on file Last Filed Vital Signs Vital Sign Reading Time Taken Comments Blood Pressure 141/83 05/30/2022 6:30 AM CDT Pulse 106 05/30/2022 6:30 AM CDT Temperature 36.7 C (98.1 F) 05/30/2022 6:30 AM CDT Respiratory Rate 18 05/30/2022 6:30 AM CDT Oxygen Saturation 100% 05/30/2022 6:30 AM CDT Inhaled Oxygen Concentration - - Weight 82.8 kg (182 lb 8 oz) 05/28/2022 7:10 PM CDT Height 175.3 cm (5' 9 ) 05/28/2022 7:10 PM CDT Body Mass Index 26.95 05/28/2022 7:10 PM CDT Functional Status Functional Status Response Date of Assess ment Is person deaf or have serious hearing difficult y? Yes 05/29/2022 Is person blind or have serious difficulty seein g? No 05/29/2022 Does person have serious dif ficulty walking/climbing stairs? No 05/29/2022 Does person have difficulty dressing/bathing? Ye s 05/29/2022 Does person have difficulty doing errands alone? No 05/29/2022 Cognitive Status Response Date of Assessm ent Does person have difficulty concentrating/remembering/making decisions? No 05/29/2022 Plan of Treatment Not on file Insurance Payer Benefit Plan / Group Subscriber ID Effective Dates Phone Address Type MEDICARE MEDICARE PART A AND B [id number] 11/08/2006-Pre sent [phone] [place] [address] Medicare [employer] UHC CHOICE/SELECT /CHOICE PLUS/ALL PAYORS [id number] 02/08/2023-Pres ent [address] [address] [place] [address] HMO SELF PAY NO INSURANCE SELF PAY NO INSURANCE Effective for all dates [place], [place] Self Pay MEDICARE MEDICARE PART A AND B [id number] Effective for all dates [phone] [place] [address] Medicare [employer] UHC MEDICARE SUPP GENERIC Effective for all dates Commercial MEDICARE MEDICARE PART A AND B [id number] Effective for all dates [phone] [address] [place] [address] Medicare [employer] UHC MEDICARE SUPP GENERIC Effective for all dates Commercial MEDICARE MEDICARE PART A AND B [id number] Effective for all dates [phone] [address] [place] [address] Medicare [employer] UHC MEDICARE SUPP GENERIC Effective for all dates Commercial [facility] MEDICARE SUPP GENERIC [id number] Effective for all dates Commercial MEDICARE MEDICARE PART A AND B Effective for all dates [address] [place] [address] Medicare [employer] UHC MEDICARE SUPP GENERIC [id number] Effective for all dates Commercial MEDICARE MEDICARE PART A AND B Effective for all dates [address] [place] [address] Medicare [employer] UHC MEDICARE SUPP GENERIC [id number] Effective for all dates Commercial MEDICARE MEDICARE PART A AND B Effective for all dates [address] [place] [address] Medicare [employer] UHC CHOICE/SELECT /CHOICE PLUS/ALL PAYORS [id number] 02/08/2022-Pres ent [address] [address] [place] [address] O MEDICARE WPS MEDICARE PART B [id number] 11/08/2006-Pre sent [address] [address] [place] [address] Medicare Advance Directives * Full Code (Latest Code Status on File) Date Activated Date Inactivated Comments 05/28/2022 6:57 PM 05/30/2022 9:34 AM
--- OUTSIDE RECORDS SUMMARY | 2024-03-15 15:34 | XMS_ITS | Clinical Summary ---
Author Organization [facility] Address [address] [place] [address] Care Team Providers Care Maintenance Person Name Role Phone Unavailable Primary Care Provider Unavailabl e Source Comments [facility],non-owned Affiliates and Associated Physician Practices is amultiple site organization consisting of ambulatory clinics and hospital sitesin [place], [place], [place] and [place]. This disclosure is being madepursuant to the Care Everywhere program and may not contain all information available regarding this patient. Last updated 17.[facility] [employer] Allergies No known active allergies Medications * [...] and heating? Not hard at all 05/30/2022 [facility] - Occupational Stress Questionnaire Answer Date [...] place to sleep or slept in a penitentiary (including now)? No 05/30/2022 Sex and Gender [...] Mass Index 26.95 05/28/2022 7:10 PM CDT Plan of Treatment Health Maintenance Due Date Last Done Comments MEDICARE AWV 12 MONTHS 1940 DTAP/TDAP/TD VACCINES (1 - Tdap) 1960 PNEUMOCOCCAL VACCINE 50+ (1 of 1 - PCV) 11/18/1991 ZOSTER VACCINE (1 of 2) 11/18/1991 Respiratory Syncytial Virus (RSV) Vaccine Pt: or over 60 yrs (1 - 1-dose 75+ series) 2016 COVID-19 VACCINE ( - 2023-2 5 season) 2023 INFLUENZA VACCINE (#1) 2023 DEPRESSION SCREENING 02/09/2024 HEPATITIS B VACCINE Aged Out No longe r eligible based on patient's age to complete this topic HIB VACCINE Aged Out No longer eligi ble based on patient's age to complete this topic HPV VACCINE Aged Out No longer eligi ble based on patient's age to complete this topic MENINGOCOCCAL (Group B) VACCINE Aged Out No longer eligible based on patient's age to complete this topic MENINGOCOCCAL VACCINE Aged Out No vonda georgiana eligible based on patient's age to complete this topic Insurance Payer Benefit Plan / Group Subscriber ID Effective Dates Phone Address Type MEDICARE MEDICARE PART A AND B [id number] 11/08/2006-Pre sent [phone] [place] [address] Medicare [employer] UHC CHOICE/SELECT /CHOICE PLUS/ALL PAYORS [id number] 02/08/2023-Pres ent [address] [address] [place] [address] HMO SELF PAY NO INSURANCE SELF PAY NO INSURANCE Effective for all dates [place] Self Pay MEDICARE MEDICARE PART A AND B [id number] Effective for all dates [address] [place] [address] Medicare [employer] UHC MEDICARE SUPP GENERIC Effective for all dates Commercial MEDICARE MEDICARE PART A AND B [id number] Effective for all dates [address] [place] [address] Medicare [employer] UHC MEDICARE SUPP GENERIC Effective for all dates Commercial MEDICARE MEDICARE PART A AND B [id number] Effective for all dates [address] [place] [address] Medicare [employer] UHC MEDICARE SUPP GENERIC Effective for all dates Commercial [facility] MEDICARE SUPP GENERIC [id number] Effective for all dates Commercial MEDICARE MEDICARE PART A AND B Effective for all dates [address] [place] [address] Medicare [employer] UHC MEDICARE SUPP GENERIC [id number] Effective for all dates Commercial MEDICARE MEDICARE PART A AND B Effective for all dates [address] [place] [address] Medicare [employer] UHC MEDICARE SUPP GENERIC [id number] Effective for all dates Commercial MEDICARE MEDICARE PART A AND B Effective for all dates [address] [place] [address] Medicare [employer] UHC CHOICE/SELECT /CHOICE PLUS/ALL PAYORS [id number] 02/08/2022-Pres ent [address] [address] [place] [address] O MEDICARE WPS MEDICARE PART B [id number] 11/08/2006-Pre sent [address] [address] [place] [address] Medicare Advance Directives * Full Code (Latest Code Status on File) Date Activated Date Inactivated Comments 05/28/2022 6:57 PM 05/30/2022 9:34 AM
--- OUTSIDE RECORDS SUMMARY | 2024-03-15 15:34 | XMS_ITS | Data Portability ---
Author Organization [facility], Main Office Address [address] [place] [address] Assessment No assessment recorded. Plan of Treatment Reminders Order Date Submit Date Provider Last Modified By Organization Details Last Modified Time Details Appointments None recorded. Lab CBC w/ auto diff [address] (Lab), [address] [place], [address], 4 09:46:38 BMP, serum or plasma [address] (Lab), [address] [place], [address], 4 09:46:48 lipid panel, serum [address] (Lab), [address] [place], [address], 4 09:46:59 TSH, serum or plasma [address] (Lab), [address] [place], [address], 4 09:47:10 vitamin B12, serum [address] (Lab), [address] [place], [address], 4 09:46:19 folate, serum [address] ([facility]), [address] [place], [address], 4 09:46:29 Referral None recorded. Procedures None recorded. Surgeries None recorded. Imaging None recorded. Medication Orders mupirocin 2 % topical ointment 2023 024 [id number], [address], [place], [id number], 4 09:25:44 doxycycline hyclate 100 mg tablet 2023 024 [facility][id number], [address], [place], [id number], 4 09:25:45 Patient TargetsNo targets recorded. Patient InstructionsNo instructions recorded. Reason for Referral None Reported. Results Created Date Observation Date Name Description Value Unit Range Abnormal Flag Note LastModifiedBy Organization Detail LastModifiedTime 07/18/19 24 07/18/2023 DRUG MONIT OR, PANEL 3, W/CON F, URINE amphetamines NEGATI VE CONFIR MED NG/mL <500 Not Available [employer] [facility] [address] [address] [place], [address], 07/18/2023 01:59:01 07/18/19 24 07/18/2023 DRUG MONIT OR, PANEL 3, W/CON F, URINE amphetamine NEGATI VE NG/mL <250 Not Available [employer] [address] [address] [place], [address], 07/18/2023 01:59:01 07/18/19 24 07/18/2023 DRUG MONIT OR, PANEL 3, W/CON F, URINE methamphetam ine NEGATI VE NG/mL <250 Not Available [employer] [address] [address] [place], [address], 07/18/2023 01:59:01 07/18/19 24 07/18/2023 DRUG MONIT OR, PANEL 3, W/CON F, URINE amphetamines comments See LDT Notes Not Available [address] [address], [place], [address], 07/18/2023 01:59:01 07/18/19 24 07/18/2023 DRUG MONIT OR, PANEL 3, W/CON F, URINE benzodiazepi jean-paul NEGATI VE NG/mL <100 Not Available [address] [address] [place], [address], 07/18/2023 01:59:01 07/18/19 24 07/18/2023 DRUG MONIT OR, PANEL 3, W/CON F, URINE cocaine metabolite NEGATI VE NG/mL <150 Not Available [address] , [place], [address], 07/18/2023 01:59:01 07/18/19 24 07/18/2023 DRUG MONIT OR, PANEL 3, W/CON F, URINE marijuana metabolite POSITI VE NG/mL <20 abnormal Not Available [address] [address] , [place], [address], 07/18/2023 01:59:01 07/18/19 24 07/18/2023 DRUG MONIT OR, PANEL 3, W/CON F, URINE marijuana metabolite 112 NG/mL <5 high Not Available [address] [address] [place], [address], 07/18/2023 01:59:01 07/18/19 24 07/18/2023 DRUG MONIT OR, PANEL 3, W/CON F, URINE marijuana comments See Nesha kim Notes , LDT Notes Not Available [address], [place], [address], 07/18/2023 01:59:01 07/18/19 24 07/18/2023 DRUG MONIT OR, PANEL 3, W/CON F, URINE opiates POSITI VE NG/mL <100 abnormal Not Available [address] [address] [place], [address], 07/18/2023 01:59:01 07/18/19 24 07/18/2023 DRUG MONIT OR, PANEL 3, W/CON F, URINE codeine NEGATI VE NG/mL <50 Not Available [address] , [place], [address], 07/18/2023 01:59:01 07/18/19 24 07/18/2023 DRUG MONIT OR, PANEL 3, W/CON F, URINE hydrocodone 411 NG/mL <50 high Not Available [address] , [place], [address], 07/18/2023 01:59:01 07/18/19 24 07/18/2023 DRUG MONIT OR, PANEL 3, W/CON F, URINE hydromorphon e 517 NG/mL <50 high Not Available [address] [address] [place], [address], 07/18/2023 01:59:01 07/18/19 24 07/18/2023 DRUG MONIT OR, PANEL 3, W/CON F, URINE morphine NEGATI VE NG/mL <50 Not Available [address] [address] [place], [address], 07/18/2023 01:59:01 07/18/19 24 07/18/2023 DRUG MONIT OR, PANEL 3, W/CON F, URINE norhydrocodo ne 445 NG/mL <50 high Not Available [address] [address] [place], [address], 07/18/2023 01:59:01 07/18/19 24 07/18/2023 DRUG MONIT OR, PANEL 3, W/CON F, URINE opiates comments See Opiat es Notes , LDT Notes Not Available [address] [address] [place], [address], 07/18/2023 01:59:01 07/18/19 24 07/18/2023 DRUG MONIT OR, PANEL 3, W/CON F, URINE oxycodone NEGATI VE NG/mL <100 Not Available [address] [address] [place], [address], 07/18/2023 01:59:01 07/18/19 24 07/18/2023 DRUG MONIT OR, PANEL 3, W/CON F, URINE creatinine 84.7 mg/dL > or = 20.0 Not Available [facility] [address] [address] [place], [address], 07/18/2023 01:59:01 07/18/19 24 07/18/2023 DRUG MONIT OR, PANEL 3, W/CON F, URINE pH 8.5 4.5-9. 0 Not Available [address] , [place], [address], 07/18/2023 01:59:01 07/18/19 24 07/18/2023 DRUG MONIT OR, PANEL 3, W/CON F, URINE oxidant NEGATI VE mcg/m L <200 Not Available [facility] [address] [address] [place], [address], 07/18/2023 01:59:01 07/18/1907/18/2023 DRUG MONIT ORING TEMPL ATE notes and comments This drug testi ng is for medic al treat ment only. Rosibel sis was perfo rmed as non-f orens ic testi ng and these resul ts shoul d be used only by healt hcare provi ders to rende r diagn osis or treat ment, or to monit or progr ess of medic al condi tions . Marij uana Notes : Marij uana Metab olite detec gus is consi stent with expos ure to Marij uana (THC) and/o r hemp deriv ed produ cts. Some juris dicti ons do not inclu de hemp withi n the defin ition of Marij uana. Opiat es Notes : [place] codon e, Norhy droco done, [place] morph one detec gus is consi stent with the use of the drug [place] codon e. [place] morph one detec gus is consi stent with the use of the drug [place] morph one. [place] morph one can be a presc ribed drug and is also a metab olite of [place] codon e. LDT Notes : Confi rmati on tests were devel oped and their rosibel tical perfo rmanc e barbra cteri stics have been deter mined by [facility] ostic s. It has not been clear ed or appro loy by the FDA. This assay has been valid ated pursu ant to the CLIA regul ation s and is used for clini alex purpo ses. Healt hcare Provi ders needi ng Inter preta tion анна tance , pleas e conta ct us at 1.877 .40.R XTOX (1.87 [phone] ) M-F, 8am to 10pm EST Not Available [employer] [address] [address] [place], [address], 07/18/2023 01:59:03 07/18/19 24 07/18/2023 DRUG MONIT OR, PANEL 3, W/CON F, URINE amphetamines NEGATI VE CONFIR MED NG/mL <500 Not Available [employer] [address] [address] [place], [address], 07/18/2023 01:59:04 07/18/19 24 07/18/2023 DRUG MONIT OR, PANEL 3, W/CON F, URINE amphetamine NEGATI VE NG/mL <250 Not Available [employer] [address] [address] [place], [address], 07/18/2023 01:59:04 07/18/19 24 07/18/2023 DRUG MONIT OR, PANEL 3, W/CON F, URINE methamphetam ine NEGATI VE NG/mL <250 Not Available [employer] [address] [address] [place], [address], 07/18/2023 01:59:04 07/18/19 24 07/18/2023 DRUG MONIT OR, PANEL 3, W/CON F, URINE amphetamines comments See LDT Notes Not Available [address] [address], [place], [address], 07/18/2023 01:59:04 07/18/19 24 07/18/2023 DRUG MONIT OR, PANEL 3, W/CON F, URINE benzodiazepi jean-paul NEGATI VE NG/mL <100 Not Available [address] [address] [place], [address], 07/18/2023 01:59:04 07/18/19 24 07/18/2023 DRUG MONIT OR, PANEL 3, W/CON F, URINE cocaine metabolite NEGATI VE NG/mL <150 Not Available [address] , [place], [address], 07/18/2023 01:59:04 07/18/19 24 07/18/2023 DRUG MONIT OR, PANEL 3, W/CON F, URINE marijuana metabolite POSITI VE NG/mL <20 abnormal Not Available [address], [place], [address], 07/18/2023 01:59:04 07/18/19 24 07/18/2023 DRUG MONIT OR, PANEL 3, W/CON F, URINE marijuana metabolite 112 NG/mL <5 high Not Available [address], [place], [address], 07/18/2023 01:59:04 07/18/19 24 07/18/2023 DRUG MONIT OR, PANEL 3, W/CON F, URINE marijuana comments See Nesha kim Notes , LDT Notes Not Available [address], [place], [address], 07/18/2023 01:59:04 07/18/19 24 07/18/2023 DRUG MONIT OR, PANEL 3, W/CON F, URINE opiates POSITI VE NG/mL <100 abnormal Not Available [address] [address] [place], [address], 07/18/2023 01:59:04 07/18/19 24 07/18/2023 DRUG MONIT OR, PANEL 3, W/CON F, URINE codeine NEGATI VE NG/mL <50 Not Available [address], [address], 07/18/2023 01:59:04 07/18/19 24 07/18/2023 DRUG MONIT OR, PANEL 3, W/CON F, URINE hydrocodone 411 NG/mL <50 high Not Available [address], [address], 07/18/2023 01:59:04 07/18/19 24 07/18/2023 DRUG MONIT OR, PANEL 3, W/CON F, URINE hydromorphon e 517 NG/mL <50 high Not Available [address], [address], 07/18/2023 01:59:04 07/18/19 24 07/18/2023 DRUG MONIT OR, PANEL 3, W/CON F, URINE morphine NEGATI VE NG/mL <50 Not Available [address], [address], 07/18/2023 01:59:04 07/18/19 24 07/18/2023 DRUG MONIT OR, PANEL 3, W/CON F, URINE norhydrocodo ne 445 NG/mL <50 high Not Available [address], [address], 07/18/2023 01:59:04 07/18/19 24 07/18/2023 DRUG MONIT OR, PANEL 3, W/CON F, URINE opiates comments See Opiat es Notes , LDT Notes Not Available [address], [address], 07/18/2023 01:59:04 07/18/19 24 07/18/2023 DRUG MONIT OR, PANEL 3, W/CON F, URINE oxycodone NEGATI VE NG/mL <100 Not Available [address] [address] [place], [address], 07/18/2023 01:59:04 07/18/19 24 07/18/2023 DRUG MONIT OR, PANEL 3, W/CON F, URINE creatinine 84.7 mg/dL > or = 20.0 Not Available [address] [address] [place], [address], 07/18/2023 01:59:04 07/18/19 24 07/18/2023 DRUG MONIT OR, PANEL 3, W/CON F, URINE pH 8.5 4.5-9. 0 Not Available [address] [address] [place], [address], 07/18/2023 01:59:04 07/18/19 24 07/18/2023 DRUG MONIT OR, PANEL 3, W/CON F, URINE oxidant NEGATI VE mcg/m L <200 Not Available [address] [address] [place], [address], 07/18/2023 01:59:04 03/10/19 24 03/11/2023 CBC WITH DIFFE RENTI AL/PL ATELE T WBC 6.2 x10e3 /uL 3.4-10 .8 Not Available [facility] ([facility]) [address] [place], [address], 03/11/2023 16:14:15 03/10/19 24 03/11/2023 CBC WITH DIFFE RENTI AL/PL ATELE T RBC 3.84 x10e6 /uL 4.14-5 .80 below low normal Not Available [facility] ([facility]) [address] [facility], [place], [address], 03/11/2023 16:14:15 03/10/19 24 03/11/2023 CBC WITH DIFFE RENTI AL/PL ATELE T hemoglobin 12.8 g/dL 13.0-1 7.7 below low normal Not Available [facility] ([facility]) [address] [facility], [place], [address], 03/11/2023 16:14:15 03/10/19 24 03/11/2023 CBC WITH DIFFE RENTI AL/PL ATELE T hematocrit 37.3 % 37.5-5 1.0 below low normal Not Available [facility] ([facility]) [address] [facility], [place], [address], 03/11/2023 16:14:15 03/10/19 24 03/11/2023 CBC WITH DIFFE RENTI AL/PL ATELE T MCV 97 fL 79-97 Not Available [facility] ([facility]) [address] [facility], [place], [address], 03/11/2023 16:14:15 03/10/19 24 03/11/2023 CBC WITH DIFFE RENTI AL/PL ATELE T MCH 33.3 pg 26.6-3 3.0 above high normal Not Available [facility] ([facility]) [address] [place], [address], 03/11/2023 16:14:15 03/10/19 24 03/11/2023 CBC WITH DIFFE RENTI AL/PL ATELE T MCHC 34.3 g/dL 31.5-3 5.7 Not Available [facility] ([facility]) [address] [facility], [place], [address], 03/11/2023 16:14:15 03/10/19 24 03/11/2023 CBC WITH DIFFE RENTI AL/PL ATELE T RDW 12.9 % 11.6-1 5.4 Not Available [facility] ([facility]) [address] [place], [address], 03/11/2023 16:14:15 03/10/19 24 03/11/2023 CBC WITH DIFFE RENTI AL/PL ATELE T platelets 249 x10e3 /uL 150-45 0 Not Available [facility] ([facility]) [address], [place], [address], 03/11/2023 16:14:15 03/10/19 24 03/11/2023 CBC WITH DIFFE RENTI AL/PL ATELE T neutrophils 74 % not estab. Not Available [facility] ([facility]) [address], [place], [address], 03/11/2023 16:14:15 03/10/19 24 03/11/2023 CBC WITH DIFFE RENTI AL/PL ATELE T lymphs 14 % not estab. Not Available [facility] ([facility]) [address] [facility], [place], [address], 03/11/2023 16:14:15 03/10/19 24 03/11/2023 CBC WITH DIFFE RENTI AL/PL ATELE T monocytes 11 % not estab. Not Available [facility] ([facility]) [address] [facility], [place], [address], 03/11/2023 16:14:15 03/10/19 24 03/11/2023 CBC WITH DIFFE RENTI AL/PL ATELE T eos 0 % not estab. Not Available [facility] ([facility]) [address] [facility], [place], [address], 03/11/2023 16:14:15 03/10/19 24 03/11/2023 CBC WITH DIFFE RENTI AL/PL ATELE T basos 1 % not estab. 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 0 Not Available [facility] ([facility]) [address] [facility], [place], [address], 03/11/2023 16:14:15 03/10/19 24 03/11/2023 CBC WITH DIFFE RENTI AL/PL ATELE T lymphs (absolute) 0.9 x10e3 /uL 0.7-3. 1 Not Available [facility] ([facility]) [address] [place], [address], 03/11/2023 16:14:15 03/10/19 24 03/11/2023 CBC WITH DIFFE RENTI AL/PL ATELE T monocytes(ab solute) 0.7 x10e3 /uL 0.1-0. 9 Not Available [facility] ([facility]) [address] [place], [address], 03/11/2023 16:14:15 03/10/19 24 03/11/2023 CBC WITH DIFFE RENTI AL/PL ATELE T eos (absolute) 0.0 x10e3 /uL 0.0-0. 4 Not Available [facility] ([facility]) [address] [place], [address], 03/11/2023 16:14:15 03/10/19 24 03/11/2023 CBC WITH DIFFE RENTI AL/PL ATELE T baso (absolute) 0.1 x10e3 /uL 0.0-0. 2 Not Available [facility] ([facility]) [address] [place], [address], 03/11/2023 16:14:15 03/10/19 24 03/11/2023 CBC WITH DIFFE RENTI AL/PL ATELE T immature granulocytes 0 % not estab. Not Available [facility] ([facility]) [address] [facility] [place], [address], 03/11/2023 16:14:15 03/10/19 24 03/11/2023 CBC WITH DIFFE RENTI AL/PL ATELE T immature grans (abs) 0.0 x10e3 /uL 0.0-0. 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 Not Available [facility] ([facility]) [address] [facility], [place], [address], 03/11/2023 16:14:15 03/10/19 24 03/11/2023 BASIC METAB OLIC PANEL (8) glucose 113 mg/dL 70-99 above high normal Not Available [facility] ([facility]) [address] [facility], [place], [address], 03/11/2023 16:14:16 03/10/19 24 03/11/2023 BASIC METAB OLIC PANEL (8) BUN 10 mg/dL 8-27 Not Available [facility] ([facility]) [address] [facility], [place], [address], 03/11/2023 16:14:16 03/10/19 24 03/11/2023 BASIC METAB OLIC PANEL (8) creatinine 1.03 mg/dL 0.76-1 .27 Not Available [facility] ([facility]) [address] [facility], [place], [address], 03/11/2023 16:14:16 03/10/19 24 03/11/2023 BASIC METAB OLIC PANEL (8) eGFR 73 mL/mi n/1.7 3 >59 Not Available [facility] ([facility]) [address] [facility], [place], [address], 03/11/2023 16:14:16 03/10/19 24 03/11/2023 BASIC METAB OLIC PANEL (8) BUN/creatini ne ratio 10 10-24 Not Available [facility] ([facility]) [address] [facility], [place], [address], 03/11/2023 16:14:16 03/10/19 24 03/11/2023 BASIC METAB OLIC PANEL (8) sodium 132 mmol/ L 134-14 4 below low normal Not Available [facility] ([facility]) [address] [facility], [place], [address], 03/11/2023 16:14:16 03/10/19 24 03/11/2023 BASIC METAB OLIC PANEL (8) potassium 4.1 mmol/ L 3.5-5. 2 Not Available [facility] ([facility]) [address] [facility], [place], [address], 03/11/2023 16:14:16 03/10/19 24 03/11/2023 BASIC METAB OLIC PANEL (8) chloride 94 mmol/ L 96-106 below low normal Not Available [facility] ([facility]) [address] [place], [address], 03/11/2023 16:14:16 03/10/19 24 03/11/2023 BASIC METAB OLIC PANEL (8) carbon dioxide, total 24 mmol/ L 20-29 Not Available [facility] ([facility]) [address] [place], [address], 03/11/2023 16:14:16 03/10/19 24 03/11/2023 BASIC METAB OLIC PANEL (8) calcium 9.1 mg/dL 8.6-10 .2 Not Available [facility] ([facility]) [address] [place], [address], 03/11/2023 16:14:16 03/10/19 24 03/11/2023 VITAM IN B12 AND FOLAT E vitamin B12 711 pg/mL 232-12 45 Not Available [facility] ([facility]) [address], [place], [address], 03/11/2023 16:14:18 03/10/19 24 03/11/2023 VITAM IN B12 AND FOLAT E folate (folic acid), serum 3.9 NG/mL >3.0 A serum folat e shay ntrat ion of less than 3.1 ng/mL is consi dered to repre sent clini alex defic iency . Not Available [facility] ([facility]) [address] [facility], [place], [address], 03/11/2023 16:14:18 03/10/19 24 03/11/2023 TSH TSH 1.740 uIU/m L 0.450- 4.500 Not Available [facility] ([facility]) [address] [facility], [place], [address], 03/11/2023 16:14:18 03/10/19 24 03/11/2023 SEDIM ENTAT ION RATE- WESTE RGREN sedimentatio n rate-westerg jessica 5 mm/HR 0-30 Not Available [facility] ([facility]) [address] [facility] [place], [address], 03/11/2023 16:14:19 03/18/19 24 03/19/2023 UA/M W/RFL X CULTU RE, ROUTI NE specific gravity 1.018 1.005- 1.030 Not Available [facility] ([facility]) [address] [facility] [place], [address], 03/20/2023 06:21:42 03/18/19 24 03/19/2023 UA/M W/RFL X CULTU RE, ROUTI NE pH 6.5 5.0-7. 5 Not Available [facility] ([facility]) [address] [place], [address], 03/20/2023 06:21:42 03/18/19 24 03/19/2023 UA/M W/RFL X CULTU RE, ROUTI NE urine-color YELLOW yellow Not Available [facility] ([facility]) [address] [place], [address], 03/20/2023 06:21:42 03/18/19 24 03/19/2023 UA/M W/RFL X CULTU RE, ROUTI NE appearance CLEAR clear Not Available [facility] ([facility]) [address] [facility], [place], [address], 03/20/2023 06:21:42 03/18/19 24 03/19/2023 UA/M W/RFL X CULTU RE, ROUTI NE WBC esterase TRACE negati ve abnormal Not Available [facility] ([facility]) [address] [place], [address], 03/20/2023 06:21:42 03/18/19 24 03/19/2023 UA/M W/RFL X CULTU RE, ROUTI NE protein NEGATI VE negati ve/tra ce Not Available [facility] ([facility]) [address] [place], [address], 03/20/2023 06:21:42 03/18/19 24 03/19/2023 UA/M W/RFL X CULTU RE, ROUTI NE glucose NEGATI VE negati ve Not Available [facility] ([facility]) [address] [place], [address], 03/20/2023 06:21:42 03/18/19 24 03/19/2023 UA/M W/RFL X CULTU RE, ROUTI NE ketones NEGATI VE negati ve Not Available [facility] ([facility]) [address] [place], [address], 03/20/2023 06:21:42 03/18/19 24 03/19/2023 UA/M W/RFL X CULTU RE, ROUTI NE occult blood NEGATI VE negati ve Not Available [facility] ([facility]) [address] [place], [address], 03/20/2023 06:21:42 03/18/19 24 03/19/2023 UA/M W/RFL X CULTU RE, ROUTI NE bilirubin NEGATI VE negati ve Not Available [facility] ([facility]) [address] [place], [address], 03/20/2023 06:21:42 03/18/19 24 03/19/2023 UA/M W/RFL X CULTU RE, ROUTI NE urobilinogen ,semi-qn 1.0 mg/dL 0.2-1. 0 Not Available [facility] ([facility]) [address] [place], [address], 03/20/2023 06:21:42 03/18/19 24 03/19/2023 UA/M W/RFL X CULTU RE, ROUTI NE nitrite, urine NEGATI VE negati ve Not Available [facility] ([facility]) [address] [place], [address], 03/20/2023 06:21:42 03/18/19 24 03/19/2023 UA/M W/RFL X CULTU RE, ROUTI NE microscopic examination SEE BELOW: Micro scopi c was indic ated and was perfo rmed. Not Available [facility] ([facility]) [address] [place], [address], 03/20/2023 06:21:42 03/18/19 24 03/19/2023 UA/M W/RFL X CULTU RE, ROUTI NE WBC 0-5 /hpf 0 - 5 Not Available [facility] ([facility]) [address] [facility], [place], [address], 03/20/2023 06:21:42 03/18/19 24 03/19/2023 UA/M W/RFL X CULTU RE, ROUTI NE RBC 0-2 /hpf 0 - 2 Not Available [facility] ([facility]) [address] [facility], [place], [address], 03/20/2023 06:21:42 03/18/19 24 03/19/2023 UA/M W/RFL X CULTU RE, ROUTI NE epithelial cells (non renal) 0-10 /hpf 0 - 10 Not Available [facility] ([facility]) [address] [facility], [place], [address], 03/20/2023 06:21:42 03/18/19 24 03/19/2023 UA/M W/RFL X CULTU RE, ROUTI NE epithelial cells (renal) [employer]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 Not Available [facility] ([facility]) [address] [facility], [place], [address], 03/20/2023 06:21:42 03/18/19 24 03/19/2023 UA/M W/RFL X CULTU RE, ROUTI NE casts NONE SEEN /lpf none seen Not Available [facility] ([facility]) [address] [facility], [place], [address], 03/20/2023 06:21:42 03/18/19 24 03/19/2023 UA/M W/RFL X CULTU RE, ROUTI NE cast type [employer]PER[employer] Not Available [facility] ([facility]) [address] [place], [address], 03/20/2023 06:21:42 03/18/19 24 03/19/2023 UA/M W/RFL X CULTU RE, ROUTI NE crystals [employer]PER[employer] Not Available [facility] ([facility]) [address] [place], [address], 03/20/2023 06:21:42 03/18/19 24 03/19/2023 UA/M W/RFL X CULTU REJOHN crystal type [employer] SUPER[employer]OR Not Available [facility] ([facility]) [address] [facility], [place], [address], 03/20/2023 06:21:42 03/18/19 24 03/19/2023 UA/M W/RFL X CULTU REJOHN NE mucus threads [employer] SUPER[employer] Not Available [facility] Lab) [address] [facility], [place], [address], 03/20/2023 06:21:42 03/18/19 24 03/19/2023 UA/M W/RFL X CULTU REJOHN NE bacteria NONE SEEN none seen/f ew Not Available [facility] ([facility]) [address] [facility], [place], [address], 03/20/2023 06:21:42 03/18/19 24 03/19/2023 UA/M W/RFL X CULTDolores REJOHN yeast [employer] Not Available [facility] ([facility]) [address] [facility], [place], [address], 03/20/2023 06:21:42 03/18/19 24 03/19/2023 UA/M W/RFL X CULTDolores REJOHN NE trichomonas [employer] Not Available [facility] ([facility]) [address] [facility], [place], [address], 03/20/2023 06:21:42 03/18/19 24 03/19/2023 UA/M W/RFL X CULTU REJOHN comment [employer] Not Available [facility] ([facility]) [address] [facility], [place], [address], 03/20/2023 06:21:42 03/18/19 24 03/19/2023 UA/M W/RFL X CULTU RE, ROUTI NE microscopic examination [employer] Not Available [facility] ([facility]) [address] [facility], [place], [address], 03/20/2023 06:21:42 03/18/19 24 03/19/2023 UA/M W/RFL X CULTU RE, ROUTI NE urinalysis reflex COMMEN T This speci men has refle xed to a Urine Cultu re. Not Available [facility] ([facility]) [address] [facility], [place], [address], 03/20/2023 06:21:42 03/18/19 24 03/20/2023 UA/M W/RFL X CULTU RE, ROUTI NE urine culture, routine FINAL REPORT Not Available [facility] ([facility]) [address] [facility], [place], [address], 03/20/2023 06:21:42 03/18/19 24 03/20/2023 UA/M W/RFL X CULTU RE, ROUTI NE result 1 COMMEN T Mixed uroge nital yogesh Less than 10,00 0 colon ies/m L Not Available [facility] ([facility]) [address] [facility], [place], [address], 03/20/2023 06:21:42 03/18/19 24 03/18/2023 urina lysis , dipst ick Leukocytes (reference range: negative holden/ l) Negati ve Not Available [address], [place], [address], 03/17/2023 12:21:37 03/18/19 24 03/18/2023 urina lysis , dipst ick Nitrite (reference rage: negative mg/dl) negati ve Not Available [address], [place], [address], 03/17/2023 12:21:37 02/08/03/18/2023 urina lysis , dipst ick Urobilinogen (reference range: 0.2-1 mg/dl) 1 Not Available [address], [place], [address], 03/17/2023 12:21:37 03/18/19 24 03/18/2023 urina lysis , dipst ick Protein (reference range: negative mg/dl) Negati ve Not Available [address], [place], [address], 03/17/2023 12:21:37 03/18/19 24 03/18/2023 urina lysis , dipst ick pH (reference range: 5-7) 6.0 Not Available [address], [place], [address], 03/17/2023 12:21:37 03/18/19 24 03/18/2023 urina lysis , dipst ick Blood (reference range: negative Morgan/ l) Negati ve Not Available [address], [place], [address], 03/17/2023 12:21:37 03/18/19 24 03/18/2023 urina lysis , dipst ick Specific Elk (reference range: 1.005-1.030) 1.020 Not Available [address], [place], [address], 03/17/2023 12:21:37 03/18/19 24 03/18/2023 urina lysis , dipst ick Ketone (reference range: negative mg/dl) Negati ve Not Available [address], [place], [address], 03/17/2023 12:21:37 03/18/19 24 03/18/2023 urina lysis , dipst ick Bilirubin (reference range: negative mg/dl) Negati ve Not Available [address], [place], [address], 03/17/2023 12:21:37 03/18/19 24 03/18/2023 urina lysis , dipst ick Glucose (reference range: negative mg/dl) Negati ve Not Available [address], [place], [address], 03/17/2023 12:21:37 03/18/19 24 03/18/2023 urina lysis , dipst ick Appearance Clear Not Available [address], [place], [address], 03/17/2023 12:21:37 03/18/19 24 03/18/2023 urina lysis , dipst ick Color Dark Yellow Not Available [address], [place], [address], 03/17/2023 12:21:37 07/26/19 24 07/21/2023 US, echoc ardio gram No observ ation record ed. [email or web address] [facility] [address], [place], [address], 08/03/2023 09:29:02 07/26/19 24 07/21/2023 US, echoc ardio gram No observ ation record ed. [email or web address] [facility] [address], [place], [address], 07/28/2023 12:54:18 07/26/19 24 07/26/2023 sleep study , diagn ostic (PROC ) No observ ation record ed. [facility] [address], [place], [address], 08/03/2023 09:29:46 07/26/19 24 07/26/2023 home sleep study No observ ation record ed. [facility] [address], [place], [address], 07/28/2023 12:54:38 Result Notes None recorded. Problems Name Problem SNOMED Code Status Onset Date Resolution Date Notes Provider Name and Address Organization Details Recorded Time Cobalamin deficiency 717508529 Active 2022 Not Available [facility] 3 02:04:14 Postural dizziness 389708522 Active Not Available [facility] 3 02:04:14 Nocturia 844721427 Active Not Available [facility] 3 02:04:14 Increased frequency of urination 968700449 Active 2021 Not Available [facility] 3 02:04:14 Serum vitamin B12 below reference range 637729786 Active 2016 Not Available [facility] 3 02:04:14 Localized, primary osteoarthr itis of the shoulder region 163779196 Active Not Available [facility] 3 02:04:14 Gastroesop hageal reflux disease 336285513 Active 2018 Not Available [facility] 3 02:04:14 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 386478632 Active 2021 Not Available [facility] 3 02:04:14 Benign prostatic hyperplasi a 060102799 Active Not Available [facility] 3 02:04:14 Shoulder joint pain 824025388 Active 2016 Not Available [facility] 3 02:04:14 Syncope 228755622 Active Not Available [facility] 3 02:04:14 Anemia 737178347 Active Not Available [facility] 3 02:04:14 Osteoarthr itis 561889805 Active Not Available [facility] 3 02:04:14 Nonexudati ve age-relate d macular degenerati on 987950545 Active 2019 Not Available [facility] 3 02:04:14 Vitamin B deficiency 81005457 Active 2022 Not Available [facility] 3 02:04:14 Dysuria 39644977 Active Not Available [facility] 3 02:04:14 Essential hypertensi on 38710525 Active Not Available [facility] 3 02:04:14 Urinary tract infectious disease 61755992 Active Not Available [facility] 3 02:04:14 Degenerati on of interverte bral disc 46055433 Active Not Available [facility] 3 02:04:14 Fatigue 48015670 Active Not Available [facility] 3 02:04:14 Gout 30474691 Active Not Available [facility] 3 02:04:15 Degenerati on of lumbar interverte bral disc 96475845 Active 2022 Not Available [facility] 3 02:04:14 Spasm 65333845 Active 2022 Not Available [facility] 3 02:04:14 Hyponatrem ia 15827363 Active 2022 Not Available [facility] 3 02:04:15 Skin lesion 34950152 Active 2022 Not Available [facility] 3 02:04:15 Chronic hyponatrem ia 03302685 Active 2022 Not Available [facility] 3 02:04:14 Orthostati c hypotensio n 22766487 Active 2022 Not Available [facility] 3 02:04:14 Pain of left hip joint 2253013443591 00 Active 2022 Not Available [facility] 3 02:04:14 Edema of lower extremity 911395108 Active 2022 Not Available [facility] 3 02:04:14 Low back pain 755435137 Active 2022 Not Available [facility] 3 02:04:14 Bilateral sacroiliac joint pain 1705253356446 9104 Active 2022 Not Available [facility] 3 02:04:14 Acute urinary tract infection 117352718 Active 2022 Not Available [facility] 3 02:04:14 Lumbar spondylosi s 452462633 Active 2022 Not Available [facility] 3 02:04:14 Compressio n fracture of lumbar spine 006980639 Active 2022 Not Available [facility] 3 02:04:14 Organism isolated in blood by culture 3159251291060 107 Active 2022 ZACH Flores [address], [place], [address] , [facility] 3 17:03:49 Bilateral hearing loss 26506618 Active 2022 Sharon Lombardi MD [address], [facility], [place], [address] , [facility] 3 10:17:38 Night sweats 58738896 Active 2023 Sharon Lombardi MD [address], [facility], [place], [address] , [employer] [facility] 4 14:41:19 Erythrocyt e sedimentat ion rate above reference range 204617628 Active 2023 Sharon Lombardi MD [address], [facility], [place], [address] , [facility] 4 14:42:03 Rib pain 220066084 Active 2023 Sharon Lombardi MD [address], [facility], [place], [address] , [facility] 4 14:21:26 Open wound 485223838 Active 2023 ZACH Flores [address], [address], [place], [address] , [facility] 4 09:21:14 Problem Notes None recorded. Procedures Surgical History Date Name Laterality Status Provider Name and Address Organization Details Recorded Time 3 Cystoscopy (male) completed Reji Javed MD [address], [address], [place], [address], [facility] [employer] 09/02/2022 12:05:22 3 Ortho - Cortisone Injection completed Bryan Schwab MD [address], [address], [place], [address], [facility] [employer] [facility] 06/25/2022 10:59:59 3 Transitional_Ca re_Management completed YULI Stratton [address], [place], [address], [facility] [employer] [facility] 06/05/2022 15:42:12 Imaging Results Imaging Date Name Status LastModified by Organization Details LastModified Time 07/21/2023 US, echocardiogram completed [email or web address] [facility] [address], [place], [address], 08/03/2023 09:29:02 07/21/2023 US, echocardiogram completed [email or web address] [facility] [address], [place], [address], 07/28/2023 12:54:18 07/26/2023 sleep study, diagnostic (PROC) completed [email or web address] [facility] [address], [place], [address], 08/03/2023 09:29:46 07/26/2023 home sleep study completed [email or web address] [facility] [address], [place], [address], 07/28/2023 12:54:38 Procedure Notes None recorded. Medical Equipment None Reported. Allergies No known drug allergies Medications Name Sig Start Date Stop Date Status Note LastModified by Organization Details LastModified Time losartan 50 mg tablet TK 1 T PO QD 05/13 completed Not Available Not Available Not Available cyclobenz aprine 10 mg tablet TAKE 1 TABLET BY MOUTH THREE TIMES DAILY NEEDED FOR MUSCLE SPASM 07/16 completed Not Available Not Available Not Available silver sulfadiaz ine 1 % topical cream APPLY 1/16 INCH THICK LAYER TOPICALL Y TO ENTIRE BURN AREA TWICE DAILY 06/25 completed Not Available Not Available Not Available prednison e 10 mg tablet active Not Available Not Available Not Available ketoconaz ole 2 % shampoo APPLY TO AA LATHER LEAVE IN PLACE FOR 5 MINUTES THEN RINSE OFF WITH WATER BY TOPICAL ROUTE QD active Not Available Not Available No t Available tizanidin e 2 mg tablet 06/25 completed Not Available Not Available Not Available hydrocodo ne 5 mg-acetam inophen 325 mg tablet TAKE 1 TABLET BY MOUTH EVERY 6 HOURS NEEDED FOR SEVERE PAIN active Not Available Not Available No t Available meloxicam 15 mg tablet TAKE 1 TABLET BY MOUTH DAILY 09/11 completed Not Available Not Available Not Available sucralfat e 1 gram tablet active Not Available Not Available Not Available prednison e 20 mg tablet TAKE 3 TABLETS BY MOUTH DAILY X3 DAYS, 2 TABLETS DAILY X3 DAYS, 1 TABLET DAILY X3 DAYS AND 1/2 TABLET DAILY X3 DAYS 07/22 completed Not Available Not Available Not Available Toprol XL 50 mg tablet,ex tended release Take 0.5 tablets every day by oral route. 05/14 completed [facility] Not Available Not Available Not Available valsartan 80 mg tablet 06/18 completed Not Available Not Available Not Available acetamino phen 300 mg-codein e 30 mg tablet TAKE 1 TABLET BY MOUTH EVERY 8 HOURS NEEDED FOR PAIN 05/05 completed Not Available Not Available Not Available allopurin ol 100 mg tablet Take 1 tablet(s ) every day by oral route. 12/05 completed Not Available Not Available Not Available ciproflox acin 500 mg tablet TAKE 1 TABLET BY MOUTH EVERY 12 HOURS FOR 14 DAYS active Not Available Not Available No t Available aspirin 81 mg tablet,de layed release Take 1 tablet every day by oral route. 08/01 completed Not Available Not Available Not Available doxycycli ne monohydra te 100 mg tablet TK 1 T PO BID Q TWELVE H active Not Available Not Available No t Available acyclovir 800 mg tablet TK 1 T PO BID active Not Available Not Available No t Available ketorolac 0.5 % eye drops INSTILL 1 DROP INTO LEFT EYE BID 06/25 completed Not Available Not Available Not Available prednison e 10 mg tablets in a dose pack Take 1 tab by mouth, 3 times a day for 3 daysTake 1 tab by mouth 2 times a day for 2 daysTake 1 tab by mouth once a day for 1 day 07/22 completed Not Available Not Available Not Available amoxicill in 875 mg tablet TAKE 1 TABLET BY MOUTH EVERY 12 HOURS FOR 7 DAYS 03/10 completed Not Available Not Available Not Available alprazola m 0.25 mg tablet Take 1 tablet by oral route as directed . 07/13 completed Not Available Not Available Not Available prednisol one acetate 1 % eye drops,[employer] INSTILL 1 DROP INTO THE OD QID 12/16 completed Not Available Not Available Not Available tamsulosi n 0.4 mg capsule TAKE 1 CAPSULE BY MOUTH AT BEDTIME active Not Available Not Available No t Available ciproflox acin 0.3 % eye drops 09/16 completed Not Available Not Available Not Available Kenalog 10 mg/mL suspensio n for injection Take 40 mg by injectio n route. 07/23 completed ND: [id number] Not Available Not Available Not Available cephalexi n 500 mg capsule TAKE 1 CAPSULE BY MOUTH EVERY 12 HOURS FOR 7 DAYS active Not Available Not Available No t Available pantopraz ole 40 mg tablet,de layed release TAKE 1 TABLET BY MOUTH TWICE DAILY active Not Available Not Available No t Available erythromy michael 5 mg/gram (0.5 %) eye ointment APPLY SMALL AMOUNT TO THE EYELID THREE TIMES DAILY AFTER SURGERY FOR 10 DAYS active Not Available Not Available No t Available cyanocoba denice (vit B-12) 1,000 mcg/mL injection solution Inject 1 mL every month by intramus cular route. 2023 active pt navneet well Not Available Not Available Not Available clotrimaz ole-betam ethasone 1 %-0.05 % topical cream APPLY SPARINGL Y TOPICALL Y TO THE AFFECTED AREA TWICE DAILY NEEDED active Not Available Not Available No t Available indometha imchael 50 mg capsule TAKE ONE CAPSULE BY MOUTH THREE TIMES DAILY active Not Available Not Available No t Available docusate sodium 100 mg capsule TAKE 1-2 CAPSULES BY MOUTH EVERY NIGHT AT BEDTIME FOR 15 DAYS active Not Available Not Available No t Available gabapenti n 300 mg capsule TAKE 1 CAPSULE BY MOUTH EVERY NIGHT AT BEDTIME active Not Available Not Available No t Available diclofena c sodium 75 mg tablet,de layed release TAKE 1 TABLET BY MOUTH ONCE DAILY WITH FOOD NEEDED FOR PAIN active Not Available Not Available No t Available folic acid 1 mg tablet TAKE 1 TABLET BY MOUTH DAILY active Not Available Not Available No t Available dorzolami de 22.3 mg-timolo l 6.8 mg/mL eye drops INT 1 GTT IN OU BID active Not Available Not Available No t Available etodolac 400 mg tablet TAKE 1 TABLET BY MOUTH TWICE DAILY NEEDED active Not Available Not Available No t Available hydrochlo rothiazid e 25 mg tablet TK 1 T PO QD 06/25 completed Not Available Not Available Not Available mupirocin 2 % topical ointment APPLY A SMALL AMOUNT TO THE AFFECTED AREA THREE TIMES DAILY active Not Available Not Available No t Available metoprolo l succinate ER 25 mg tablet,ex tended release 24 hr TK 02/09 T PO QD 06/25 completed Not Available Not Available Not Available ergocalci ferol (vitamin D2) 1,250 mcg (50,000 unit) capsule TK 1 C PO Q WEEK 04/24 completed Not Available Not Available Not Available Viagra 100 mg tablet Take 1 tablet every day by oral route. active Not Available Not Available No t Available polyethyl anna glycol 3350 17 gram/dose oral powder MIX 1 CAPFUL WITH LIQUID AND DRINK DAILY active Not Available Not Available No t Available methylpre dnisolone 4 mg tablets in a dose pack FOLLOW PACKAGE DIRECTIO NS 05/05 completed Not Available Not Available Not Available colchicin e 0.6 mg tablet Take 1 tablet twice a day by oral route. active Not Available Not Available No t Available indometha michael ER 75 mg capsule,e xtended release Take 1 capsule every day by oral route. active Not Available Not Available No t Available losartan 100 mg tablet TAKE 1 TABLET BY MOUTH EVERY DAY active Not Available Not Available No t Available doxycycli ne hyclate 100 mg tablet TAKE 1 TABLET BY MOUTH TWICE DAILY FOR 7 DAYS active Not Available Not Available No t Available finasteri de 5 mg tablet TK 1 T PO QD 08/01 completed Not Available Not Available Not Available amoxicill in 875 mg-potass ium clavulana te 125 mg tablet TAKE 1 TABLET BY MOUTH EVERY 12 HOURS FOR 7 DAYS 07/14 /2022 completed Not Available Not Available Not Available valsartan 160 mg tablet Take 1 tablet every day by oral route. active [facility] Not Available Not Available No t Available Benicar 40 mg tablet TK 1 T PO QD FOR 30 DAYS. 01/10 completed changed to Diovan Not Available Not Available Not Available cyclobenz aprine 5 mg tablet TAKE 1 TABLET BY MOUTH THREE TIMES DAILY active Not Available Not Available No t Available ketorolac 0.4 % eye drops 12/16 completed Not Available Not Available Not Available Prilosec OTC 20 mg tablet,de layed release Take by oral route. 12/10 completed Not Available Not Available Not Available Cialis 5 mg tablet TAKE 1 TABLET BY MOUTH EVERY DAY 04/14 completed Not Available Not Available Not Available acetamino phen active Not Available Not Available Not Available Dulcolax (bisacody l) 2018 active Not Available Not Available Not Avai lable sodium chloride 1,000 mg soluble tablet TAKE 1 TABLET BY MOUTH EVERY DAY active Not Available Not Available No t Available lidocaine 2 % mucosal jelly in applicato r Take by mucous route. 06/25 completed Not Available Not Available Not Available Durezol 0.05 % eye drops INT 1 GTT IN OD BID active Not Available Not Available No t Available Besivance 0.6 % eye drops,[employer] INSTILL 1 GTT INTO THE RIGHT EYE TID STARTING 2 DAYS PRIOR TO SURGERY active Not Available Not Available No t Available GaviLyte- G 236 gram-22.7 4 gram-6.74 gram-5.86 gram oral solution active Not Available Not Available Not Available ropivacai ne (PF) 5 mg/mL (0.5 %) injection solution Take 40 mg by injectio n route. 07/23 completed Not Available Not Available Not Available Lotemax 0.5 % eye gel drops INT 1 GTT IN LEFT EYE TID UTD active Not Available Not Available No t Available Prolensa 0.07 % eye drops INSTILL 1 DROP INTO OD D 09/16 completed Not Available Not Available Not Available PreserVis ion AREDS-2 03/14 completed Not Available Not Available Not Available Mitigare 0.6 mg capsule TK 1 T PO BID active Not Available Not Available No t Available Vitals Date Recorded Body height Provider Name an d Address Organization Details Last Updated DateTime 03/18/2023 172.72 cm Kika Jorgensen RN [facility] [email or web address] [facility] 03/18/2023 13:01:30 Date Recorded Body height Provider Name an d Address Organization Details Last Updated DateTime 09/14/2023 172.72 cm Ebony Belle RN [place] - [facility] [email or web address] [facility] 09/14/2023 11:56:38 Date Recorded Body height Body mass index (BMI) Body weight Body temperature Heart rate Oxygen saturation Oxygen saturation in Arterial blood by Pulse oximetry Systolic blood pressure Diastolic blood pressure Provider Name and Address Organization Details Last Updated DateTime 172.72 cm 27.5 kg/m2 14209.2 2 g 96.8 [degF] 94 /min 99 % 99 % 138 mm[Hg] 74 mm[Hg] Melanie Zhao RN [place] - [facility] [employer] [facility] 09:04:50 Social History Question Answer Notes LastModified by Organizat ion Details LastModified Time Tobacco Smoking Status Never Smoker Not Available [facility] 04/08/2022 02:34:01 What Is Your Level Of Alcohol Consumption? Heavy [email or web address] Information not available 06/25/2022 What Is Your Level Of Caffeine Consumption? Moderate [id number] Information not available 04/08/2022 In The 14 Days Before Symptom Onset, Have You Had Close Contact With A Laboratory-confirm ed COVID-19 While That Case Was Ill? No [id number] Information not available 04/08/2022 In The 14 Days Before Symptom Onset, Have You Had Close Contact With A Person Who Is Under Investigation For COVID-19 While That Person Was Ill? No [id number] Information not available 04/08/2022 What Type Of Diet Are You Following? REGULAR [id number] Information not available 04/08/2022 What Is Your Occupation? Retired [id number] Information not available 04/08/2022 Are There Any Guns Present In Your Home? No [id number] Information not available 04/08/2022 Have You Ever Been Counseled For Unhealthy Alcohol Use? No [email or web address] Information not available 06/05/2022 Do You Use Any Illicit Or Recreational Drugs? No [email or web address] Information not available 06/05/2022 Has Tobacco Cessation Counseling Been Provided? No [email or web address] Information not available 06/05/2022 Do You Have Any Dietary Restrictions? No [id number] Information not available 04/08/2022 Do You Or Have You Ever Used Any Other Forms Of Tobacco Or Nicotine? No [email or web address] Information not available 06/05/2022 Sex: Unknown Functional Status Question Answer Note LastModified by Organizat ion Details LastModified Time What is your exercise level? Occasional [id number] Information not available 04/08/2022 Mental Status None recorded. Family History Relationship Description Onset Age of this Age Resolved Age Notes LastModified by Organization Details LastModified Time Son Diabetes mellitus [id number] Not available 04/08/2022 02:34:26 Father Hypertensive disorder [email or web address] Not available 2022 10:35:49 Medical History Condition Response URINARY/BLADDER/KIDNEY PROBLEMS Y Immunizations Vaccine Type Date Status Note Provider Nam e and Address Organization Details Recorded Time Influenza, high-dose, quadrivalent, PF 10/23/2020 completed Not Available [facility] 3 02:04:15 Influenza, high-dose, quadrivalent, PF 01/08/2022 completed Not Available [facility] 3 02:04:15 Influenza, high-dose, quadrivalent, PF 11/15/2019 completed Not Available [facility] 3 02:04:15 Influenza, high-dose, quadrivalent, PF 10/21/2022 completed [facility]ph[facility] [place] [facility] 10/21/2022 09:44:01 Past Encounters Encounter ID Performer Location Encounter Start Date Encounter Closed Date Diagnosis/Indication Diagnosis SNOMED-CT Code Diagnosis ICD10 Code Diagnosis Note [id number] [facility] Raquel Woodward [address] [place] [address] 04/24/2020 00:00:00 04/24/2020 16:53:32 [id number] [facility] [address] [facility] [address] [place] [address] 05/08/2020 00:00:00 05/08/2020 09:27:10 [id number] [facility] [place] [address] [facility] [address] [place] [address] 07/10/2020 00:00:00 07/10/2020 13:52:33 [id number] [facility] [address] [address] 10/09/2020 00:00:00 10/09/2020 11:38:12 [id number] [facility] [place] [address] [facility] [address] [place] [address] 10/23/2020 00:00:00 11/06/2020 08:57:30 [id number] [facility] [address] [address] 11/20/2020 00:00:00 11/20/2020 10:48:43 [id number] [facility] [place] [address] [facility] [address] [place] [address] 01/14/2021 00:00:00 01/14/2021 12:10:15 [id number] [facility] [place] [address] [facility] [address] [place] [address] 02/20/2021 00:00:00 03/09/2021 21:45:58 [id number] [facility] [place] [address] [facility] [address] [place] [address] 08/21/2021 00:00:00 09/05/2021 12:08:52 [id number] [facility] [place] [address] [facility] [address] [place] [address] 01/08/2022 00:00:00 01/08/2022 10:06:00 [id number] [facility] [place] [address] [facility] [address] [place] [address] 02/19/2022 00:00:00 03/04/2022 14:53:31 [id number] Sharon Lombardi MD [facility] [place] [address] [place] [address] 04/08/2022 14:36:52 04/09/2022 10:55:47 Adult health examination 378003957 Z00.00 see paper note [id number] Sharon Lombardi MD [facility] Primary Care [address] [facility] [place] [address] 05/05/2022 13:58:18 05/05/2022 16:09:37 Degeneration of lumbar intervertebral disc 72426007 M51.36 R29.6 Cobalamin deficiency 190 699285 E53.8 Essential hypertension 75652717 I10 Spasm 14009808 R25.2 check labs [id number] Sharon Lombardi MD [facility] Primary Care [address] 140 [facility] [place] [address] 05/13/2022 12:13:04 05/13/2022 12:59:53 [id number] TYRONE Novoa [facility] Primary Care [address] [place] [address] 05/21/2022 13:58:28 05/21/2022 14:53:18 Skin lesion 26505873 L98.9 New problemLef t baarca (approx) 2cm x 1cmNot painful or itching; however, still very suspicious for melanoma.W ill refer to derm for further evaluation of lesion. Hyponatremia 12718931 E8 7.1 New problemNa 126 (05/13/22)9; 124 (05/05/22); 134 (01/08/22)W ill repeat BMP. Pt to continue with increased sodium intake pending new lab result. [id number] YULI Stratton [facility] Primary Care [address] 140 [facility] [place] [address] 06/05/2022 14:04:30 06/05/2022 15:50:04 Transition of care [id number] 105 Z75.8 U 05/28-. Chronic hyponatremia 503 22362 E87.1 He states while he was at the hospital it stabilized so he stopped taking the tablets. He has been adding salt to apples and different foods to just add salt into his diet.Reche ck BMP today, advised he may need to go back on sodium tablets. Essential hypertension 29708029 I10 He has been out of valsartan for the last week because insurance is not covering it. Will work on getting PA approved. Orthostati c hypotension 37996998 I95.1 Has seen fluctuatio ns mainly with positional changes. Advised to rise slowly from lying/sitt ing. Will check his sodium again today. Continue to monitor blood pressure. Will also plan to get him consult with cardiology due to symptoms for further evaluation . [id number] Sharon Lombardi MD [facility] Primary Care [facility] [address] [facility] [address] [place] [address] 06/18/2022 12:33:38 06/18/2022 13:15:30 Pain of left hip joint 5380635132 76507 M25.552 Degenerati on of lumbar intervertebral disc 64520114 M51.36 R29.6 Renewal of prescription 418352896 Z76.0 Edema of l ower extremity 529002724 R60.0 M79.605 M79.604 I73.9 Cobalamin deficiency 190 262532 E53.8 Hyponatremia 52045635 E8 7.1 Essential hypertension 70238657 I10 [id number] Bryan Schwab MD [facility] [place] [address] [place] [address] 06/25/2022 10:11:59 06/25/2022 10:58:51 Low back pain 690693799 M54.50 Pain of le ft hip joint 6437998930 64577 M25.552 Bilateral sacroiliac joint pain 8964668879 5660998 M53.3 [id number] YULI Stratton [facility] Primary Care [facility] [address] [facility] [address] [place] [address] 07/13/2022 12:34:36 07/13/2022 14:14:16 [id number] Reji Javed MD [facility] Urology [address], [address] [place] [address] 07/22/2022 12:26:30 07/22/2022 13:08:06 Increased frequency of urination 525100071 R35.0 : 1 Cysto - normal penile urethra; 16Fr membraneou s urethral narrowing, easily traversed, 40-50cc with trilobar hyperplasi a, but no ball-valve median lobe; large capacity bladder with severe trabeculat ions and multiple shallow diverticul ae; no bladder tumors---- ----Unclea r etiology for urinary symptoms at this time. In addition to potential etiologies of infection/ UTI or inflammati on, are a general failure to empty the bladder (BPH, Strictures , etc), or a failure to store urine (Overactiv e bladder/Bl adder Spasms). ACUTE WORKUP:-Ur inalysis (to rule out infection) ; will culture if UA concerning -Will hold on antibiotic s until culture data returns ETIOLOGY WORKUP:-To differenti ate failure to store vs. empty-PVR today Based on his history, UA, and bladder scan, his symptom etiology is not entirely clear at this time. Will send urine for culture, treat if positive, and plan for further diagnostic s. PLAN:-Last Visit, I discussed that based on Cysto findings, a bladder outlet procedure to get off BPH meds, then likely an addition of an OAB medication after, would likely yield reasonable improvemen ts. However, I also offered observatio n since he has dealt with this for years which has utilized to this point Nocturia 499433124 R35.1 :Discussed limiting night-time EtOH volume if he wishes to reduce his nocturia -- not bothered enough to limit it at this time Dysuria 89621138 R30.0 :Previous culture was skin contaminan tWill continue to monitor via UA and PVR Urinary tr act infectious disease 26220990 N39.0 :PLAN:-Kermit Miguel as outside prescriber wrote for-RTC for Cysto next available- If has interval UTI events, he will try and get us culture data [id number] Sharon Lombardi MD [facility] Primary Care Abiel [facility] [address] [facility] [address] [place] [address] 07/23/2022 09:17:26 07/23/2022 10:41:19 Degeneration of lumbar intervertebral disc 80786224 M51.36 R29.6 has appt with neurosurge ryrestart gabapentin 300 mg qhs Edema of l ower extremity 724078327 R60.0 M79.605 M79.604 I73.9 resolved Cobalamin deficiency 190 909226 E53.8 Hyponatremia 72648232 E8 7.1 [id number] Bryan Schwab MD [facility] [place] [address] [place] [address] 07/23/2022 11:26:56 07/23/2022 13:00:59 Low back pain 882305882 M54.50 Pain of le ft hip joint 9306281611 24198 M25.552 Bilateral sacroiliac joint pain 0219234459 3275932 M53.3 Lumbar spondylosis 80198 0009 M47.896 Compressio n fracture of lumbar spine 848653503 M48.56XA [id number] Bryan Schwab MD [facility] [place] [address] [place] [address] 08/03/2022 09:40:07 08/03/2022 11:18:03 Low back pain 714355559 M54.50 Pain of le ft hip joint 1357540280 06630 M25.552 Bilateral sacroiliac joint pain 9608114021 0273558 M53.3 Lumbar spondylosis 16158 0009 M47.896 [id number] Reji Javed MD [facility] Urology [address], [address] [place] [address] 09/02/2022 11:36:35 09/02/2022 12:31:28 Urinary tract infectious disease 13779804 N39.0 :PLAN:-Cys to today -- negative, though has an area that may represent a CV fistula if the clinical history fits the finding better-I explained to he and his associate that in order for us to be concerned about a colo-vesic al fistula, he would have recurrent, culture-pr oven, UTI's -- and may have pneumaturi a -- if his clinical concern for CV Fistula becomes higher, then would have him get evaluated by GenSurg for CV fistula (patient has history of Diverticul itis and hasn't had colonoscop y in awhile) -- they expressed good understand ing of this plan, and see his PCP next week-RTC 6 mos, sooner if needed-If has interval UTI events, he will try and get us culture data 09/02/2022 Cysto - normal penile urethra; 16Fr membraneou s urethral narrowing, easily traversed, 40-50cc with trilobar hyperplasi a, but no ball-valve median lobe; large capacity bladder with severe trabeculat ions and multiple shallow diverticul ae; no bladder tumors; does have a dome bladder tic that I was unable to scope into -- unlikely to be a fistula given lack of air, papillary changes, or erythema, but given the history and location, if he has recurrent UTI, will have to consider CV-fistula as an etiology I spent 33 minutes on this encounter (excluding cysto) including chart review, counseling , and documentat ion. Increased frequency of urination 376315208 R35.0 : 1 Cysto - normal penile urethra; 16Fr membraneou s urethral narrowing, easily traversed, 40-50cc with trilobar hyperplasi a, but no ball-valve median lobe; large capacity bladder with severe trabeculat ions and multiple shallow diverticul ae; no bladder tumors---- ----Unclea r etiology for urinary symptoms at this time. In addition to potential etiologies of infection/ UTI or inflammati on, are a general failure to empty the bladder (BPH, Strictures , etc), or a failure to store urine (Overactiv e bladder/Bl adder Spasms). ACUTE WORKUP:-Ur inalysis (to rule out infection) ; will culture if UA concerning -Will hold on antibiotic s until culture data returns ETIOLOGY WORKUP:-To differenti ate failure to store vs. empty-PVR today Based on his history, UA, and bladder scan, his symptom etiology is not entirely clear at this time. Will send urine for culture, treat if positive, and plan for further diagnostic s. PLAN:-Last Visit, I discussed that based on Cysto findings, a bladder outlet procedure to get off BPH meds, then likely an addition of an OAB medication after, would likely yield reasonable improvemen ts. However, I also offered observatio n since he has dealt with this for years which has utilized to this point Nocturia 938367211 R35.1 :Discussed limiting night-time EtOH volume if he wishes to reduce his nocturia -- not bothered enough to limit it at this time Dysuria 85075403 R30.0 :Previous culture was skin contaminan tWill continue to monitor via UA and PVR [id number] Sharon Lombardi MD [facility] Primary Care [facility] [address] [facility] [address] [place] [address] 09/11/2022 10:21:27 09/11/2022 11:01:32 Cobalamin deficiency 731578575 E53.8 Hyponatremia 63023967 E8 7.1 stablechec k labs Essential hypertension 02271050 I10 in excellent control Renewal of prescription 474949194 Z76.0 Lumbar spondylosis 26652 0009 M47.896 refills givenhas second opinion appt upcoming with neurosurge ry Dr. Dorsey [id number] Sharon Lombardi MD [facility] Primary Care [facility] [address] [facility] [address] [place] [address] 10/21/2022 08:47:32 10/21/2022 10:54:28 Hyponatremia 04356246 E87.1 stablechec k labs Administra tion of influenza vaccine 21763884 Z23 Cobalamin deficiency 190 170987 E53.8 Lumbar spondylosis 82763 0009 M47.896 has seen neurosurge ry and pain mgmthe is very active and will continue supportive careincrea se gabapentin 300 mg bidrefill hydrocodon e/apap-he uses this sparinglyc ontinue diclofenac 75 mg bidf/u in 3 months or sooner if needed [id number] Sharon Lombardi MD [facility] Primary Care [facility] [address] [place] [address] 03/10/2023 14:14:31 03/10/2023 15:36:45 Cobalamin deficiency 092217206 E53.8 Essential hypertension 28334477 I10 monitored daily by cardiology Night sweats 20167325 R6 1 check labs [id number] TYRONE Flores-C [facility] [place] [address] [place] [address] [address] [place] [address] 03/18/2023 12:25:42 03/18/2023 13:05:21 [id number] TYRONE Flores-C [facility] [place] [address] [place] [address] [address] [place] [address] 07/12/2023 10:36:37 07/12/2023 10:47:03 [id number] TYRONE Flores-C [facility] [place] [address] [facility] [address] [place] [address] 07/27/2023 12:12:25 07/27/2023 12:39:54 [id number] TYRONE Flores-C [facility] [place] [address] [place] [address] [address] [place] [address] 09/14/2023 11:54:56 09/14/2023 14:23:49 [id number] AZAEL FloresP-C [facility] [place] [address] [facility] [address] [place] [address] 09/23/2023 08:55:37 09/23/2023 09:27:28 Cobalamin deficiency 905748010 E53.8 chronic, stable Essential hypertension 54100428 I10 chronic, stable with [facility] f/u was July, next f/u is in Decemberlabs obtained Night sweats 66382020 R6 1 check labs Open wound 924604231 T14 .8XXA noted to right arm after a fallsome possible infection noted Health Concerns Section Related Observation LastModified by Organization Detai ls LastModified Time None Recorded Concern Status LastModified by Organization Details LastModified Time None Recorded Advance Directives Directive None Recorded Payers Encounter Date Sequence Insurance Name Policy Number Policy Ortiz Covered Member ID Ortiz Member ID Guarantor Name 03/18/2023 2 [place] Vincenzo Lunsford Wegrzyn [id number] Vincenzo Isatu Wegrzyn 03/18/2023 1 [facility] Vincenzo Lunsford Wegrzyn [id number] Vincenzo Isatu Wegrzyn 07/12/2023 2 [place] Vincenzo Lunsford Wegrzyn [id number] Vincenzo Isatu Wegrzyn 07/12/2023 1 [facility] [id number] Vincenzo Lunsford Wegrzyn [id number] Vincenzo Isatu Wegrzyn 07/27/2023 2 [place] Vincenzo Lunsford Wegrzyn [id number] Vicnenzo Lunsford Wegrzyn 07/27/2023 1 [facility] [id number] Vincenzo Lunsford Wegrzyn [id number] Vincenzo Isatu Wegrzyn 09/14/2023 2 [place] Vincenzo Lunsford Wegrzyn [id number] Vincenzo Isatu Wegrzyn 09/14/2023 1 [facility] [id number] Vincenzo Lunsford Wegrzyn [id number] Vincenzo Lunsford Wegrzyn 09/23/2023 2 [place] Vincenzo Lunsford Wegrzyn [id number] Vincenzo Lunsford Wegrzyn 09/23/2023 1 [facility] [id number] Vincenzo Lunsford Wegrzyn [id number] Vincenzo Lunsford Wegrzyn Notes Date Note Type Note Provider Name and Address Organization Details Recorded Time 09/23/2023 text/html Pt is here for f/u ZACH Flores [address] [facility], [facility] [address], [place], [address], [facility] 09/23/2023 09:26:18
--- OUTSIDE RECORDS SUMMARY | 2024-03-15 15:34 | XMS_ITS | Data Portability ---
Author Organization - Kyler Sow Address [address] [place] [address] Assessment Encounter Date Assessment Date Assessment LastModified by Organization Details LastModified Time 04/28/2022 04/28/2022 Treatment plan discussed with patient. Pt verbalizes understanding and verbalizes will comply with treatment therapies. Current safety practices and necessary precautions discussed. Discussed with patient when to seek ER treatment. Pt instructed to call back with any questions or concerns. Follow up with clinic or ED for worsening signs or symptoms. Pt lives in [place] and is driving back home today. States he has an appointment with his chiropractor tomorrow. Not available 04/28/2022 11:44:13 Plan of Treatment Reminders Order Date Submit Date Provider Last Modified By Organization Details Last Modified Time Details Appointments None recorded. Lab None recorded. Referral None recorded. Procedures None recorded. Surgeries None recorded. Imaging XR, sacroiliac joint(s) 2022 023 WOODY Not available 14:16:04 Medication Orders Medrol (Piotr) 4 mg tablets in a dose pack 2022 023 WOODY [facility] [address] [place], [address], 3 11:33:53 tizanidine 2 mg tablet 2022 023 WOODY [facility] [address], [place], [address], 3 11:33:49 naproxen 500 mg tablet 2022 023 WOODY [address], [place], [address], 11:33:52 Patient TargetsNo targets recorded. Patient Instructions Encounter Date Encounter Id Patient Instructions Last Modified By Organization Details Last Modified Time 04/28/2022 [id number] -Rest the affected side. -Be sure to take breaks from sitting in the car to move. -Take medications as prescribed. -Take ibuprofen as needed. -Ice area for 15-20 mins every 2-3 hours. -Return to clinic if symptoms do not improve or worsen. Not available 04/28/2022 11:44:52 Reason for Referral None Reported. Results Created Date Observation Date Name Description Value Unit Range Abnormal Flag Note LastModifiedBy Organization Detail LastModifiedTime 04/29/1904/28/2022 XR, sacro iliac joint (s) No observ ation record ed. Not Available 2022 14:16:04 Result Notes None recorded. Procedures Surgical History None recorded. Imaging Results Imaging Date Name Status LastModified by Organiz ation Details LastModified Time 04/28/2022 XR, sacroiliac joint(s) completed Information not available 04/28/2022 14:16:04 Procedure Notes None recorded. Medical Equipment None Reported. Allergies No known drug allergies Medications Name Sig Start Date Stop Date Status Note LastModified by Organization Details LastModified Time tizanidine 2 mg tablet Take 1 tablet every 6 hours by oral route as needed. 023 active Not Available Not Available Not Avai lable Medrol (Piotr) 4 mg tablets in a dose pack Take 1 dose pk by oral route. 023 active Not Available Not Available Not Avai lable naproxen 500 mg tablet Take 1 tablet twice a day by oral route with meals. 023 active Not Available Not Available Not Avai lable Vitals Date Recorded Body height Body mass index (BMI) Body weight Heart rate Respiratory rate Oxygen saturation Oxygen saturation in Arterial blood by Pulse oximetry Body temperature Systolic blood pressure Diastolic blood pressure Provider Name and Address Organization Details Last Updated DateTime 3 172.72 cm 26.6 kg/m2 21261.6 6 g 102 /min 18 /min 94 % 94 % 98 [degF] 166 mm[Hg] 95 mm[Hg] Alfonzo Vidal [place] [facility] 10:50:54 Social History None recorded. Functional Status None recorded. Mental Status None recorded. Family History Nothing Reported. Medical History No medical history recorded. Past Encounters Encounter ID Performer Location Encounter Start Date Encounter Closed Date Diagnosis/Indication Diagnosis SNOMED-CT Code Diagnosis ICD10 Code Diagnosis Note [id number] WAGNER STEVE NP [facility] [address] [place] [address] 04/28/2022 10:30:10 04/28/2022 11:36:06 Pain in right hip joint 3862440694 36920 M25.551 Health Concerns Section Related Observation LastModified by Organization Detai ls LastModified Time None Recorded Concern Status LastModified by Organization Details LastModified Time None Recorded Advance Directives Directive None Recorded Payers Encounter Date Sequence Insurance Name Policy Number Policy Ortiz Covered Member ID Ortiz Member ID Guarantor Name 04/28/2022 2 [place] Vincenzo Glaser [id number] Vincenzo Glaser 04/28/2022 1 [facility] [id number] Vincenzo Glaser [id number] Vincenzo Glaser Notes Date Note Type Note Provider Name and Address Organization Details Recorded Time 04/28/2022 text/html Pt reports right hip/leg pain x 1 day. Reports he was sitting on the edge of the bed and tried to move forward and felt a sharp pain in his right lower back that has since traveled down his hip and into his upper leg. Reports tingling in his thigh. Pt states he tried biofreeze with no relief. WAGNER STEVE NP [address] [facility],[address], [place], [address], [place] - [facility] 04/28/2022 11:45:21
--- OUTSIDE RECORDS SUMMARY | 2024-03-15 15:34 | XMS_ITS | CONTINUITY OF CARE DOCUMENT ---
Author Name eddie morgan Address Unknown Organization [facility] Address [address] [place] [address] Phone [phone] Care Team Providers Care Fixed Wing Pilot Name Role Phone Ninfa SANDERS, Jaime Camacho Unavailable SHALA SANDERS, RADNY Unavailable [phone] SHALA SANDERS, RANDY Unavailable [phone] PROBLEMS Condition Status Date Provider Notes HTN essential active Jaime Ocasio MD Abnormal electrocardiogram active Jaime Ocasio MD Irregular rhythm active Jaime Ocasio MD Cardiology examination active Jaime hernandez MD Cardiology examination active Jaime hernandez MD Syncope active Jaime Ocasio MD CVA - NOS active Jaime Ocasio MD Sleep disorder active Jaime Ocasio MD AV block 1st degree active Jaime Ocasio MD Osteoarthritis, hip active Jaime Ocasio MD Benign prostatic hyperplasia (BPH) active S luis Ocasio MD Orthostatic hypotension active Jaime anaya MD Hyponatremia active Jaime Ocasio MD Dizziness active Jaime Ocasio MD Alcohol consumption regular active Jaime Ocasio MD ENCOUNTERS Date Type Provider Location Encounter Diag nosis - In-person encounter Office Visit Jaime Ocasio MD [facility] CVA - NOSSyncope - In-person encounter Office Visit Jaime Ocasio MD [facility] Cardiology examinationAV block 1st degreeSleep disorder - In-person encounter Office Visit Jaime Ocasio MD [facility] Office - In-person encounter Office Visit Jaime Ocasio MD [facility] Cardiology examinationDizzinessHyponatremiaOrthostatic hypotensionBenign prostatic hyperplasia (BPH)Osteoarthritis, hip - In-person encounter Office Visit Jaime Ocasio MD [facility] - In-person encounter Office Visit Jaime Ocasio MD [facility] - In-person encounter Office Visit Jaime Ocasio MD [facility] - In-person encounter Office Visit Jaime Ocasio MD [facility] HTN essentialAbnormal electrocardiogramIrregular rhythmAlcohol consumption regular VITAL SIGNS Date Observation Value Provider Body Mass Index (Ratio) 27.67 kg/m2 Prasad Ocasio MD blood pressure, diastolic 102 mm[Hg] Briseida Wallis blood pressure, systolic 180 mm[Hg] Ely Wallis oxygen saturation, oximetry 98 % Sherri Wallis respiratory rate E&M 12 /min Sherri Wallis pulse rate 87 /min Sherri Wallis weight E&M 182 [lb_av] Sherri Wallis height E&M 68 [in_i] Sherri Wallis blood pressure, cuff size regular Briseida Wallis Body Mass Index (Ratio) 26.76 kg/m2 Prasad Ocasio MD blood pressure, cuff size regular Cecil Jones blood pressure, diastolic 80 mm[Hg] Ta siva Jones blood pressure, systolic 140 mm[Hg] Clive arias Jones pulse rate 85 /min Ember Jones oxygen saturation, oximetry 100 % Ember Jones respiratory rate E&M 12 /min Ember Jones weight E&M 176 [lb_av] Ember Jones height E&M 68 [in_i] Ember Jones Body Mass Index (Ratio) 27.82 kg/m2 Prasad Ocasio MD blood pressure, diastolic 83 mm[Hg] Nicolette benderLogsasha blood pressure, systolic 148 mm[Hg] Mleany Marcumogsasha blood pressure, diastolic 83 mm[Hg] St accristy Yen blood pressure, systolic 148 mm[Hg] Dominick Yen oxygen saturation, oximetry 98 % Angy Farshad pulse rate 86 /min Angy Farshad respiratory rate E&M 16 /min Angy D bibiana weight E&M 183 [lb_av] Angy Farshad height E&M 68 [in_i] Angy Farshad Body Mass Index (Ratio) 27.21 kg/m2 Prasad Ocasio MD blood pressure, diastolic 79 mm[Hg] Nicolette benderLogsasha blood pressure, systolic 159 mm[Hg] Melany Marcumogsasha blood pressure, diastolic 79 mm[Hg] St acy Farshad blood pressure, systolic 159 mm[Hg] Sta cy Farshad oxygen saturation, oximetry 98 % Angy Farshad pulse rate 108 /min Angy Farshad respiratory rate E&M 18 /min Angy D bibiana weight E&M 179 [lb_av] Angy Farshad height E&M 68 [in_i] Nagy Farshad Body Mass Index (Ratio) 30.71 kg/m2 Prasad Ocasio MD blood pressure, diastolic 95 mm[Hg] To ns Busch respiratory rate E&M 18 /min Tonsha Busch blood pressure, systolic 163 mm[Hg] Ton [facility] Busch oxygen saturation, oximetry 98 % Tonsha Busch weight E&M 202 [lb_av] Tonsha Busch pulse rate 113 /min Tonsha Busch height E&M 68 [in_i] Tonsha Busch Body Mass Index (Ratio) 30.71 kg/m2 Leonides Plurad blood pressure, diastolic 80 mm[Hg] Ki lleen Quesada blood pressure, systolic 130 mm[Hg] Kil mayank Quesada oxygen saturation, oximetry 98 % Nikunj Quesada respiratory rate E&M 16 /min Tipton Quesada pulse rate 114 /min Tipton Quesada weight E&M 202 [lb_av] Tipton Quesada height E&M 68 [in_i] Nikunj Quesada Body Mass Index (Ratio) 30.25 kg/m2 Elder Beasley blood pressure, cuff size regular Ke rri Gruenenfelder blood pressure, diastolic 90 mm[Hg] Ke rri Gruenenfelder blood pressure, systolic 162 mm[Hg] Ker ri Makedanenfmilier oxygen saturation, oximetry 98 % Lara Grselenanenfmilier respiratory rate E&M 20 /min Lara G alvaroenenfmaría elena pulse rate 122 /min Lara Gruenenfe lder weight E&M 199 [lb_av] Lara Gruenenfe lder height E&M 68 [in_i] Lara Gruenenfe lder Body Mass Index (Ratio) 31.11 kg/m2 Prasad Ocasio MD blood pressure, resting Yes Isabel Fam blood pressure, diastolic 101 mm[Hg] Tc Fam blood pressure, systolic 157 mm[Hg] Claudia Fam oxygen saturation, oximetry 96 % Orin Fam respiratory rate E&M 18 /min Tamia Fam pulse rate 100 /min Orin hays weight E&M 204.6 [lb_av] Orin crenshaw height E&M 68 [in_i] Orin hays ALLERGIES No Known Drug Allergies RESULTS Date Observation Value Provider Reference Range Interpretation Location 0 pro brain natriuretic peptide 263 pg/mL [facility] 0-486 0 B-type natriuretic peptide 46.7 pg/mL [facility] 0.0-100.0 0 hemoglobin A1C, blood, as % of total hemoglobin 4.9 % [facility] 4.8-5.6 0 prothrombin time (patient) 10.5 s [facility] 9.1-12.0 0 international normalized ratio (INR) 1.0 [facility] 0.8-1.2 0 free thyroxine index 2.0 [facility] 1.2-4.9 0 triiodothyronine resin uptake 31 % [facility] 24-39 0 thyroxine, serum, total 6.5 ug/dL [facility] 4.5-12.0 0 thyroid stimulating hormone, serum 1.450 u[IU]/mL [facility] 0.450-4.500 0 lipoprotein, beta, serum, point, quantitative, calculated 69 mg/dL [facility] 0-99 0 very low density lipoproteins 12 mg/dL [facility] 5-40 0 HDL cholesterol, serum 68 mg/dL [facility] >39 0 triglyceride, serum, random 58 mg/dL [facility] 0-149 0 cholesterol, serum 149 mg/dL [facility] 298-769 9353/03/3 0 calcium, serum 9.2 mg/dL [facility] 8.6-10.2 0 carbon dioxide, venous blood 25 mmol/L [facility] 18-29 0 chloride, serum 95 mmol/L [facility] 96-106 Low 0 potassium, serum 4.5 mmol/L [facility] 3.5-5.2 0 sodium, serum 136 mmol/L [facility] 241-145 7714/03/3 0 urea nitrogen/creatinine ratio, serum 15 [facility] 10-24 0 eGFR if 102 mL/min/{1 .73_m2} [facility] >59 0 eGFR if not 88 mL/min/{1 .73_m2} [facility] >59 0 creatinine, serum 0.78 mg/dL [facility] 0.76-1.27 0 urea nitrogen, blood 12 mg/dL [facility] 8-27 0 blood glucose, random 101 mg/dL [facility] 65-99 High 0 platelet count 357 X10E3/UL [facility] 105-733 6992/03/3 0 red blood cell distribution width 13.4 % [facility] 12.3-15.4 0 mean corpuscular hemoglobin concentration, RBC 34.6 G/DL [facility] 31.5-35.7 0 mean corpuscular hemoglobin, RBC 34.5 pg [facility] 26.6-33.0 High 0 mean corpuscular volume, RBC 100 fL [facility] 79-97 High 0 hematocrit, blood 39.3 % [facility] 37.5-51.0 0 hemoglobin, blood 13.6 g/dL [facility] 13.0-17.7 0 erythrocyte (RBC) count 3.94 X10E6/UL [facility] 4.14-5.80 Low 0 leukocyte count, blood 7.9 X10E3/UL [facility] 3.4-10.8 HISTORY OF MEDICATION USE Medication Status Instructions Dates Provider Indications Com ments telmisartan 20 mg tablet active Take 1 tablet by mouth once a day 02/22 Jaime Ocasio MD Adult Low Dose Aspirin 81 mg tablet,delayed release (DR/EC) active TAKE 1 TABLET BY MOUTH EVERY DAY 02/21 Jaime Ocasio MD Lipitor 40 mg tablet active TAKE 1 TABLET BY MOUTH EVERY DAY 02/21 Jaime Ocasio MD hydrocodone-acetami nophen 5-325 mg tablet active Sherri Wallis meloxicam 15 mg tablet active Olga Silva RN cyclobenzaprine 10 mg tablet active Olga Silva RN Tylenol 500 Tab active Take 2 tablet by mouth every six to eight hours Olga Silva RN lidocaine 5% cream active Olga putnam RN Cipro 500 mg tablet active Olga mcneal RN clotrimazole-betame thasone 1-0.05% cream active Constance Avery NP sodium chloride 1,000 mg tablet,soluble active TAKE 1 TABLET BY MOUTH EVERY DAY FOR 10 DAYS Angy Yen clotrimazole-betame thasone 1-0.05% cream completed - 07/03 Constance Avery NP pantoprazole 40 mg tablet,delayed release (DR/EC) active Angy Yen tamsulosin 0.4 mg capsule active Angy Yen prednisone 20 mg tablet active Angy Yen etodolac 400 mg tablet active Angy Yen valsartan 80 mg tablet completed TAKE 1 TABLET BY MOUTH EVERY DAY - 02/22 Jaime Ocasio MD gabapentin 300 mg capsule active Angy Yen tizanidine 2 mg tablet active Angy Yen metoprolol succinate 25 mg tablet extended release 24 hr active Take 0.5 tablet by mouth once a day 09/27 Jaime Ocasio MD hydrochlorothiazide 25 mg tablet active 1 tablet once a day 02/17 Jaime Ocasio MD Diovan 80 mg tablet completed 02/17 - 07/03 Constance Avery NP Toprol XL 25 mg tablet extended release 24 hr completed 0.5 tablet once a day 05/13 - 07/03 Constance Avery NP etodolac 400 mg tablet completed Take 1 tablet by mouth twice a day as needed 05/11 - 07/03 Constance Mcfarlandmagdalena UTILITY OPERATOR #60, 30 days supply, Prescribed by GRANT NICOLAS, Filled 05/11/2018 VITAMIN D TABLET completed once a week 05/28 - 07/03 Constance Bennie LAM CALCIUM CAPSULE completed Take 1 once a day 05/28 - 07/03 Wesgisele Bennie LAM pantoprazole 20 mg tablet,delayed release (DR/EC) completed Take 1 once a day 05/28 - 07/03 Constance Bennie LAM aspirin 81 mg tablet,delayed release (DR/EC) completed 1 tablet by mouth once a day 05/28 - 07/03 Constance Bennie LAM Vitamin B-12 1,000 mcg tablet active every 2 months 05/[address] VALSARTAN 160 MG ORAL TABLET completed one tab by mouth once daily - 05/13 Nikunj Quesada SOCIAL HISTORY Date Observation Value Provider drug use no Jaime willoughby MD alcohol use yes Jaime willoughby MD passive cigarette sm dom exposure no Jaime Ocasio MD chewing tobacco use Never Jaime Ocasio MD smoking status Never smoker Jaiem hernandez MD drug use no Jaime willoughby MD alcohol use yes Jaime willoughby MD passive cigarette sm dom exposure no Jaime Ocasio MD chewing tobacco use Never Jaime Ocasio MD smoking status Never smoker Jaime hernandez MD social history E&M S moking History: Romeo salazar has never smoked. Jaime Ocasio MD social history reviewed E&M revi ewed - no changes required Jaime Ocasio MD passive cigarette sm dom exposure no Angy Yen chewing tobacco use Never Angy Da vis smoking status Never smoker Angy Yen social history reviewed E&M revi ewed - no changes required Constance Mcfarlandmagdalena UTILITY OPERATOR social history E&M S moking History: Romeo salazar has never smoked. Constance Mcfarlandmagdalena UTILITY OPERATOR drug use no Constance Avery UTILITY OPERATOR alcohol use yes Constance Avery UTILITY OPERATOR passive cigarette sm dom exposure no Angy Farshad chewing tobacco use Never Angy Da vis smoking status Never smoker Angy Farshad social history E&M S moking History: Romeo salazar has never smoked. Jaime Ocasio MD social history reviewed E&M revi ewed - no changes required Jaime Ocasio MD smoking status Never smoker Jaime hernandez MD social history reviewed E&M revi ewed - no changes required Jaime Ocasio MD social history E&M S moking History: Romeo salazar has never smoked. Jaime Ocasio MD smoking status Never smoker Nikunj mitchell social history reviewed E&M revi ewed - no changes required Jaime Ocasio MD social history E&M S moking History: Romeo salazar has never smoked. Jaime Ocasio MD smoking status Never smoker Lara nieto number of grandchildren Jaime Ocasio MD social history reviewed E&M revi ewed - no changes required Jaime Ocasio MD social history E&M S moking History: Romeo salazar has never smoked. Jaime Ocasio MD smoking status Never smoker Orinanshul Gonzalez FAMILY HISTORY Family Member Condition First Degree Blood Relative No Known Fam faviola History INSURANCE PROVIDERS Payer name Policy type / Coverage type [place] red democrat ID [facility] Other [id number] [place]IC[place] [id number] ADVANCE DIRECTIVES Name Date DISCUSSED - NO DECISION MADE TREATMENT PLAN Date Name Performer [id number],C,M ay be taking losartan and valsartan together. May be worthwhile to review his med list and discuss taking only one of the two consistently. His updated medication list for this problem includes: Metoprolol Succinate 25 Mg Tablet Extended Release 24 Hr (Metoprolol succinate) ..... Take 0.5 tablet by mouth once a day Hydrochlorothiazide 25 Mg Tablet (Hydrochlorothiazide) ..... 1 tablet once a day Valsartan 80 Mg Tablet (Valsartan) ..... Take 1 tablet by mouth every day Jaime Ocasio MD [id number] JUAN on 07/20/22: 1 . Normal left ventricular systolic function. Normal left ventricular size. Normal left ventricular wall thickness. There is E to A w ave reversal consistent with impaired LV relaxation. E/E': 11.0 Left ventricular ejection fraction is measured at 60 %. 2 . There is mild enlargement of the left atrium. 3 . No significant valvular abnormalities. 4 . Technically difficult study, secondary to poor acoustic windows. E lectronically signed by Sarah Beth Rosenbaum MD on 07/20/2022 at 4:15 PM Jaime Ocasio MD [id number],C,N ovember 2022 M ost likely took both valsartan and losartan on one given day, and ended up at the [facility]. Jaime Ocasio MD [id number],CP atient has been symptomatic for a few months now though he reports improveemnt in the last few weeks Constance Avery NP [id number],C, S R on tele monitor and had occasional ectopics, SVTs, PVCs. No afib. May 13, 2018 S inus tachy on EKG. Typically runs on higher HR. May be worthwhile for him to be on a touch of a beta luis to help control HR. July 03, 2022 N O NEW AFIB WILL ARRANGE TELE FOR 48 HRS TO EVAL FOR AFIB Constance Avery NP [id number],C,F lucinda with urology. O n Tamsulosin Constance Avery UTILITY OPERATOR [id number],C,A s reported per PCP PROBABLY RELATED TO HYPONATREMIA WHCIH IS NOW RESOLVED Constance Avery UTILITY OPERATOR [id number],C,N a was as 118 but now improved to 136 (06/05/22). He is on sodium tablets HYPONATREMIA WHCIH IS NOW RESOLVED Constance Avery UTILITY OPERATOR [id number],C,C URRENTLY ONLY TAKING DIOVAN The following medications were removed from the medication list: Toprol Xl 25 Mg Tablet Extended Release 24 Hr (Metoprolol succinate) ..... 0.5 tablet once a day Aspirin 81 Mg Tablet,delayed Release (dr/ec) (Aspirin) ..... 1 tablet by mouth once a day Diovan 80 Mg Tablet (Valsartan) His updated medication list for this problem includes: Metoprolol Succinate 25 Mg Tablet Extended Release 24 Hr (Metoprolol succinate) ..... Take 0.5 tablet by mouth once a day Hydrochlorothiazide 25 Mg Tablet (Hydrochlorothiazide) ..... 1 tablet once a day Valsartan 80 Mg Tablet (Valsartan) ..... Take 1 tablet by mouth every day Constance Sparrowjose antonio LAM Cardiology:Tripped and fell Prasad Ocasio MD Cardiology: 5 -6 shots of vodka daily. R eduction advised. 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 May 13, 2018 H as reduced down to 2-4 shots per day. Left ventricular ejection fraction is estimated at 70 %. June 30, 2023 l ast echo EF was 07/20/2022 with 60% Jaime Ocasio MD Cardiology: sheree rinks alcohol before sleep, intermittently taking marijuana gummies, cbd thc. reviwed with him risk of over sedation. will arrange for sleep study to eval for JESSICA Jaime Ocasio MD Cardiology:This visi t has been a part of the consistent, comprehensive, and ongoing management of the chronic medical condition(s) listed above for the patient. BP today: 180/102 P rior BP: 140/80 (06/30/2023) Labs Reviewed: C reat: 0.78 (05/07/2017) C hol: 149 (05/07/2017) HDL: 68 (05/07/2017) LDL: 69 (05/07/2017) T (05/07/2017) His updated medication list for this problem includes: Metoprolol Succinate 25 Mg Tablet Extended Release 24 Hr (Metoprolol succinate) ..... Take 0.5 tablet by mouth once a day Hydrochlorothiazide 25 Mg Tablet (Hydrochlorothiazide) ..... 1 tablet once a day Valsartan 80 Mg Tablet (Valsartan) ..... Take 1 tablet by mouth every day T his visit has been a part of the consistent, comprehensive, and ongoing management of the chronic medical condition(s) listed above for the patient. Jaime Ocasio MD Cardiology:Fell down and had head CT which was abnormal. Check carotid doppler. Will check tele monitor to rule out afib Jaime Ocasio MD Cardiology:drinks al cohol before sleep, intermittently taking marijuana gummies, cbd thc. reviwed with him risk of over sedation. will arrange for sleep study to eval for JESSICA Jaime Ocasio MD Cardiology: S R on tele monitor and had occasional ectopics, SVTs, PVCs. No afib. May 13, 2018 S inus tachy on EKG. Typically runs on higher HR. May be worthwhile for him to be on a touch of a beta luis to help control HR. July 03, 2022 N O NEW AFIB WILL ARRANGE TELE FOR 48 HRS TO EVAL FOR AFIB June 30, 2023 brayan leonard tele Jaime Ocasio MD Cardiology: N a was as 118 but now improved to 136 (06/05/22). He is on sodium tablets HYPONATREMIA WHCIH IS NOW RESOLVED June 30, 2023 n eed updated labs to eval for hyponatremia Jaime Ocasio MD Cardiology: 5 -6 shots of vodka daily. R eduction advised. 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 May 13, 2018 H as reduced down to 2-4 shots per day. Left ventricular ejection fraction is estimated at 70 %. June 30, 2023 l ast echo EF was 07/20/2022 with 60% Jaime Ocasio MD Cardiology: H is updated medication list for this problem includes: Metoprolol Succinate 25 Mg Tablet Extended Release 24 Hr (Metoprolol succinate) ..... Take 0.5 tablet by mouth once a day Hydrochlorothiazide 25 Mg Tablet (Hydrochlorothiazide) ..... 1 tablet once a day Valsartan 80 Mg Tablet (Valsartan) ..... Take 1 tablet by mouth every day BP today: 140/80 P rior BP: 148/83 (12/22/2022) Labs Reviewed: C reat: 0.78 (05/07/2017) C hol: 149 (05/07/2017) HDL: 68 (05/07/2017) LDL: 69 (05/07/2017) T (05/07/2017) Jaime Ocasio MD Cardiology: E CHO on 07/20/22: 1 . Normal left ventricular systolic function. Normal left ventricular size. Normal left ventricular wall thickness. There is E to A w ave reversal consistent with impaired LV relaxation. E/E': 11.0 Left ventricular ejection fraction is measured at 60 %. 2 . There is mild enlargement of the left atrium. 3 . No significant valvular abnormalities. 4 . Technically difficult study, secondary to poor acoustic windows. E lectronically signed by Sarah Beth Rosenbaum MD on 07/20/2022 at 4:15 PM Jaime Ocasio MD Cardiology:He has de veloped some prolongation of DC interval, okay to conitnue with Metoprolol 25 mg His updated medication list for this problem includes: Metoprolol Succinate 25 Mg Tablet Extended Release 24 Hr (Metoprolol succinate) ..... Take 0.5 tablet by mouth once a day Jaime Ocasio MD Cardiology:May be ta pro losartan and valsartan together. May be worthwhile to review his med list and discuss taking only one of the two consistently. His updated medication list for this problem includes: Metoprolol Succinate 25 Mg Tablet Extended Release 24 Hr (Metoprolol succinate) ..... Take 0.5 tablet by mouth once a day Hydrochlorothiazide 25 Mg Tablet (Hydrochlorothiazide) ..... 1 tablet once a day Valsartan 80 Mg Tablet (Valsartan) ..... Take 1 tablet by mouth every day Jaime Ocasio MD Cardiology:ECHO on : 1 . Normal left ventricular systolic function. Normal left ventricular size. Normal left ventricular wall thickness. There is E to A w ave reversal consistent with impaired LV relaxation. E/E': 11.0 Left ventricular ejection fraction is measured at 60 %. 2 . There is mild enlargement of the left atrium. 3 . No significant valvular abnormalities. 4 . Technically difficult study, secondary to poor acoustic windows. E lectronically signed by Sarah Beth Rosenbaum MD on 07/20/2022 at 4:15 PM Jaime Ocasio MD Cardiology:December 22, 2022 M ost likely took both valsartan and losartan on one given day, and ended up at the [facility]. Jaime Ocasio MD Cardiology:Patient h as been symptomatic for a few months now though he reports improveemnt in the last few weeks Constance Avery NP Cardiology: S R on tele monitor and had occasional ectopics, SVTs, PVCs. No afib. May 13, 2018 S inus tachy on EKG. Typically runs on higher HR. May be worthwhile for him to be on a touch of a beta luis to help control HR. July 03, 2022 N O NEW AFIB WILL ARRANGE TELE FOR 48 HRS TO EVAL FOR AFIB Constance Avery NP Cardiology:Follows w [facility]. O n Tamsulosin Constance Avery NP Cardiology:As report ed per PCP PROBABLY RELATED TO HYPONATREMIA WHCIH IS NOW RESOLVED Constance Avery NP Cardiology:Na was as 118 but now improved to 136 (06/05/22). He is on sodium tablets HYPONATREMIA WHCIH IS NOW RESOLVED Constance Avery NP Cardiology:CURRENTLY ONLY TAKING DIOVAN The following medications were removed from the medication list: Toprol Xl 25 Mg Tablet Extended Release 24 Hr (Metoprolol succinate) ..... 0.5 tablet once a day Aspirin 81 Mg Tablet,delayed Release (dr/ec) (Aspirin) ..... 1 tablet by mouth once a day Diovan 80 Mg Tablet (Valsartan) His updated medication list for this problem includes: Metoprolol Succinate 25 Mg Tablet Extended Release 24 Hr (Metoprolol succinate) ..... Take 0.5 tablet by mouth once a day Hydrochlorothiazide 25 Mg Tablet (Hydrochlorothiazide) ..... 1 tablet once a day Valsartan 80 Mg Tablet (Valsartan) ..... Take 1 tablet by mouth every day Constance Avery NP Cardiology: S R on tele monitor and had occasional ectopics, SVTs, PVCs. No afib. May 13, 2018 S inus tachy on EKG. Typically runs on higher HR. May be worthwhile for him to be on a touch of a beta luis to help control HR. Jaime Ocasio MD Cardiology:80 mg of Diavan daily. Will add HCTZ 25 mg to see how that works with his BP management. Jaime Ocasio MD Cardiology:Currently on BP medication at home. Alternative to valsartan due to recall. T he following medications were removed from the medication list: Valsartan 160 Mg Oral Tablet (Valsartan) ..... One tab by mouth once daily His updated medication list for this problem includes: Toprol Xl 25 Mg Oral Tablet Extended Release 24 Hour (Metoprolol succinate) ..... One half tab daily, 12.5 mg once daily Aspirin Adult Low Dose 81 Mg Oral Tablet Delayed Release (Aspirin) ..... One tab by mouth daily Jaime Ocasio MD Cardiology:Sinus tac h. May benefit from low dose beta luis. H is updated medication list for this problem includes: Toprol Xl 25 Mg Oral Tablet Extended Release 24 Hour (Metoprolol succinate) ..... One half tab daily, 12.5 mg once daily Aspirin Adult Low Dose 81 Mg Oral Tablet Delayed Release (Aspirin) ..... One tab by mouth daily Jaime Ocasio MD Cardiology: S R on tele monitor and had occasional ectopics, SVTs, PVCs. No afib. May 13, 2018 S inus tachy on EKG. Typically runs on higher HR. May be worthwhile for him to be on a touch of a beta luis to help control HR. Jaime Ocasio MD Cardiology: 5 -6 shots of vodka daily. R eduction advised. 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 May 13, 2018 H as reduced down to 2-4 shots per day. Left ventricular ejection fraction is estimated at 70 %. Jaime Ocasio MD Cardiology Follow up :Better con trolled on med rx. [facility] Cardiology Follow up :Negative stress for ischemia. Diaphragm attenuation noted. Normal LV fxn based on echo ans stress. [facility] Cardiology Follow up :SR on tele monitor and had occasional ectopics, SVTs, PVCs. No afib. [facility] Cardiology:5-6 shots of vodka daily. R eduction advised. 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 Jaime Ocasio MD Cardiology: B P today: 157/101. H as not taken valsartan today. His updated medication list for this problem includes: Valsartan 160 Mg Oral Tablet (Valsartan) ..... One tab by mouth once daily Jaime Ocasio MD Cardiology:Plan for noninvasive workup. W ill check nuclear stress test to evaluate for ischemia. Check echo for LV function. Jaime Ocasio MD Date Name LIPID PANEL COMPREHENSIVE METABO LIC PANEL, W/EGFR Monitor - Telemetry (Mobile Cardiac) Sleep Study Home Holter Monitor 48 hr Complete Echo Holter Monitor 48 hr Complete Echo HEMOGLOBIN A1c PROTHROMBIN TIME WIT H INR PROBNP, N TERMINAL HEMOGLOBIN A1c PROTHROMBIN TIME WIT H INR CBC (H/H, RBC, INDIC ES, WBC, PLT) B TYPE NATRIURETIC P EPTIDE (BNP) THYROID PANEL WITH T SH, 3RD GENERATION LIPID PANEL BASIC METABOLIC PANE L W/EGFR Holter Monitor 24 Hr STR - Nuclear Carotid Duplex Bilat eral Complete Echo Cardiolite, 2 units SPECT Images Stress EKG HISTORY OF PROCEDURES Procedure Date Procedure Name Provider Procedure Notes S tatus Complex e/m visit add on Jaime Ocasio MD completed EKG Jaime Ocasio MD compl eted EKG Jaime Ocasio MD compl eted EKG Jaime Ocasio MD compl eted EKG Jaime Ocasio MD compl eted EKG Jaime Ocasio MD compl eted EKG Jaime Ocasio MD compl eted Regadenoson, 4 units Jaime Ocasio MD completed Cardiolite, 2 units Jaime Ocasio MD completed SPECT Images Sarah Beth Rosenbaum MD complet ed Stress EKG Sarah Beth Rosenbaum MD completed ZIO Holter [facility] Jaime Ocasio MD completed
--- OUTSIDE RECORDS SUMMARY | 2024-03-15 15:34 | XMS_ITS | Patient Health Summary ---
Author Organization [facility] Address [address] [place] [address] Care Team Providers Care Senior Net Software Developer Name Role Phone Unavailable Primary Care Provider Unavailabl e Note from [facility],non-owned Affiliates and Associated Physician Practices is amultiple site organization consisting of ambulatory clinics and hospital sitesin [place], [place], [place] and [place]. This disclosure is being madepursuant to the Care Everywhere program and may not contain all information available regarding this patient. Last updated 17.[facility] Allergies No known active allergies Medications * Be aware that medications may not be up to date on this document. Alwaysverify current medications with the patient. * folic acid (Folvite) 1 MG tablet(Started 05/31/2022) Take 1 (one) tablet by mouth once daily * acetaminophen (Tylenol) 325 MG tablet(Started 05/30/2022) Take 2 (two) tablets by mouth every 6 hours as needed Maximum allowable Acetaminophen amount = 4 Grams (4000 mg) / 24 hours. * polyethylene glycol 3350 (Miralax) 17 g packet(Started 05/30/2022) Take 17 (seventeen) g by mouth once daily as needed for Constipation Active Problems Problem Noted Date Diagnosed Date [...] and heating? Not hard at all 05/30/2022 [facility] [place] [facility] Occupat ional Health - Occupational Stress Questionnaire Answer Date Recorded [...] place to sleep or slept in a half-way (including now)? No 05/30/2022 Sex and Gender [...] Mass Index 26.95 05/28/2022 7:10 PM CDT Procedures * CBC W/O DIFFERENTIAL(Performed 05/30/2022) Performed for Hematoma of left hip, initial encounter * CBC W/O DIFFERENTIAL(Performed 05/30/2022) Performed for Hematoma of left hip, initial encounter * CBC W/O DIFFERENTIAL(Performed 05/29/2022) Performed for Hematoma of left hip, initial encounter * CBC W/O DIFFERENTIAL(Performed 05/29/2022) Performed for Hematoma of left hip, initial encounter * CBC W/O DIFFERENTIAL(Performed 05/29/2022) Performed for Hematoma of left hip, initial encounter * URINALYSIS REFLEX TO MICROSCOPIC NO CULTURE(Performed 05/29/2022) Performed for Hematoma of left hip, initial encounter * PT EVAL AND TREAT(Performed 05/28/2022) * BLOOD TYPE VERIFICATION(Performed 05/28/2022) * TYPE + SCREEN PANEL(Performed 05/28/2022) * CBC W/O DIFFERENTIAL(Performed 05/28/2022) Performed for Hematoma of left hip, initial encounter * COMPREHENSIVE METABOLIC PANEL(Performed 05/28/2022) Performed for Hematoma of left hip, initial encounter * PT-INR [facility](Performed 05/28/2022) Performed for Hematoma of left hip, initial encounter * MAGNESIUM BLOOD(Performed 05/28/2022) Performed for Hematoma of left hip, initial encounter * COMPREHENSIVE METABOLIC PANEL(Performed 05/28/2022) Performed for Hematoma of left hip, initial encounter Results * (ABNORMAL) CBC W/O DIFFERENTIAL (05/30/2022 6:40 AM CDT) Only the most recent of6 resultswithin the time period is included. WBC 9.5 3.5 - 10.5 10 3/uL 05/30/2022 6:51 AM CDT [facility] RBC 2.61(L) 4.30 - 5.70 10 6/uL 05/30/2022 6:51 AM [facility] Hemoglobin 8.9(L) 12.0 - 17.6 g/dL 05/30/2022 6:51 AM [facility] Hematocrit 26.0(L) 35.2 - 51.7 % 05/30/2022 6:51 AM [facility] MCV 99.6(H) 80.7 - 98.3 fL 05/30/2022 6:51 AM [facility] MCH 34.1(H) 26.7 - 34.0 pg 05/30/2022 6:51 AM [facility] MCHC 34.2 30.8 - 35.9 g/dL 05/30/2022 6:51 AM [facility] RDW-SD 49.1 36.0 - 50.0 fL 05/30/2022 6:51 AM [facility] RDW-CV 13.5 11.2 - 14.8 % 05/30/2022 6:51 AM [facility] Platelet Count 192 150 - 400 10 3/uL 05/30/2022 6:51 AM [facility] MPV 10.1 9.4 - 12.9 fL 05/30/2022 6:51 AM [facility] nRBC Absolute 0.00 0 10 3/uL 05/30/2022 6:51 AM [facility] nRBC Auto 0.0 0 /100 WBC 05/30/2022 6:51 AM [facility] Blood BLOOD SPECIMEN / Unknown Venipuncture / Unknown 05/30/2022 6:40 AM CDT 05/30/2022 6:44 AM CDT Mathieu Murillo PA-C LAB - HEMATOLOGY ORDERABLES Performing Organization Address City/State/[facility] Co de Phone Number [facility] [address] [place] [address], [facility] [phone] * (ABNORMAL) URINALYSIS REFLEX TO MICROSCOPIC NO CULTURE (05/29/2022 2:12 AM CDT) Color UA Adelina(A) Straw, Yellow 05/29/2022 2:45 AM [facility] Clarity UA Clear Clear 05/29/2022 2:45 AM [facility] Specific [place] UA >1.060(H) 1.005 - 1.030 05/29/2022 2:45 AM [facility] pH UA 5.0 5.0 - 8.0 pH 05/29/2022 2:45 AM [facility] Protein UA Negative Negative 05/29/2022 2:45 AM [facility] Glucose UA Negative Negative 05/29/2022 2:45 AM [facility] Ketone UA Trace(A) Negative 05/29/2022 2:45 AM [facility] Bilirubin UA 2+(A) Negative 05/29/2022 2:45 AM [facility] Comment:Urine Bilirubin resu lt confirmed by manual Ictotest. Blood UA Negative Negative 05/29/2022 2:45 AM [facility] Nitrite UA Negative Negative 05/29/2022 2:45 AM [facility] Leukocyte Esterase Negative Negative 05/29/2022 2:45 AM [facility] Urobilinogen UA 4.0(A) Negative mg/dL 05/29/2022 2:45 AM [facility] RBC UA 0-2 None Seen, 0-2, 3-5 /HPF 05/29/2022 2:45 AM [facility] WBC UA 6-10(A) None Seen, 0-5 /HPF 05/29/2022 2:45 AM [facility] Squamous Epithelial Cells UA 3-5 None Seen, 0-2, 3-5 /HPF 05/29/2022 2:45 AM [facility] Mucus UA 1+ /LPF 05/29/2022 2:45 AM [facility] Urine URINE SPECIMEN OBTAINED BY CLEAN CATCH PROCEDURE / Unknown Collection / Unknown 05/29/2022 2:12 AM CDT 05/29/2022 2:16 AM [facility] - 05/29/2022 2:45 AM CDT Mathieu Murillo PA-C LAB - URINALYSIS ORDERABLES [facility] [address] [place] [address], [place] [phone] * BLOOD TYPE VERIFICATION (05/28/2022 9:08 PM CDT) ABO Rh B POS 05/28/2022 9:5 1 PM CDT [facility] Blood Bank BLOOD SPECIMEN / Unknown 05/28/2022 9:08 PM CDT 05/28/2022 9:18 PM CDT Rachel Hernandez MD LAB - BLOOD BANK ORD ERABLES Performing Organization Address City/[facility]/ZIP Co de Phone Number [facility] [address] [place] [address], [place] [phone] * PT-INR [facility] (05/28/2022 8:48 PM CDT) Pathologist [facility] PT 13.6 12.1 - 14.8 Seconds 05/28/2022 9:24 PM CDT [facility] INR 1.0 See Comment 05/28/2022 9:24 PM CDT [facility] Comment:The suggested therap eutic range for standard coumadin (warfarin) therapy is an INR of 2.0-3.0. For high-risk patients (Mechanical Mitral Valve Prosthesis, etc.), the suggested prophylactic therapeutic range is an INR of 2.5-3.5. Blood BLOOD SPECIMEN / Unknown Venipuncture / Unknown 05/28/2022 8:48 PM CDT 05/28/2022 9:02 PM CDT Mathieu Murillo PA-C LAB - COAGULATION ORDERABLES [address] [address], [place] [phone] * TYPE + SCREEN PANEL (05/28/2022 8:48 PM CDT) Antibody Screen NEG 9:51 PM CDT [facility] ABO Rh B POS 05/28/2022 9:51 PM CDT [facility] Blood Bank BLOOD SPECIMEN / Unknown Venipuncture / Unknown 05/28/2022 8:48 PM CDT 05/28/2022 9:02 PM CDT Mathieu Murillo PA-C LAB - BLOOD BANK ORDERABLES [facility] [address] [place] [address], [facility] [phone] * (ABNORMAL) COMPREHENSIVE METABOLIC PANEL (05/28/2022 8:48 PM CDT) Only the most recent of2 resultswithin the time period is included. BUN 14 7 - 26 mg/dL 05/28/2022 9:28 PM [facility] Creatinine 0.56(L) 0.71 - 1.16 mg/dL 05/28/2022 9:28 PM [facility] Sodium 133(L) 136 - 145 mmol/L 05/28/2022 9:28 PM [facility] Potassium 3.6 3.5 - 4.5 mmol/L 05/28/2022 9:28 PM [facility] Chloride 101 98 - 107 mmol/L 05/28/2022 9:28 PM [facility] CO2 23 22 - 29 mmol/L 05/28/2022 9:28 PM [facility] Glucose 159(H) 70 - 115 mg/dL 05/28/2022 9:28 PM [facility] Calcium 8.8 8.4 - 10.2 mg/dL 05/28/2022 9:28 PM [facility] Protein Total 6.0 6.0 - 8.3 g/dL 05/28/2022 9:28 PM [facility] Albumin 3.5 3.4 - 5.0 g/dL 05/28/2022 9:28 PM [facility] Bilirubin Total 1.5(H) 0.2 - 1.2 mg/dL 05/28/2022 9:28 PM [facility] Alkaline Phosphatase 81 40 - 150 U/L 05/28/2022 9:28 PM [facility] ALT 6 5 - 55 U/L 05/28/2022 9:28 PM [facility] AST 15 5 - 34 U/L 05/28/2022 9:28 PM [facility] Anion Gap 13 8 - 18 05/28/2022 9:28 PM [facility] BUN/Creatinine Ratio 25(H) 7 - 23 05/28/2022 9:28 PM [facility] Osmolality Calculated 280 270 - 300 mOsm/kg 05/28/2022 9:28 PM [facility] Albumin/Globulin Ratio 1.4 1.1 - 2.3 05/28/2022 9:28 PM [facility] eGFR by CKD-EPI >90 >=90 mL/min/1.7 3 m2 05/28/2022 9:28 PM [facility] Blood BLOOD SPECIMEN / Unknown Venipuncture / Unknown 05/28/2022 8:48 PM CDT 05/28/2022 9:02 PM CDT Mathieu Murillo PA-C LAB - CHEMISTRY O RDERABLES [address] [address], [facility] [phone] * (ABNORMAL) MAGNESIUM BLOOD (05/28/2022 8:48 PM CDT) Magnesium 1.5(L) 1.6 - 2.6 mg/dL 05/28/2022 9:28 PM T [facility] Blood BLOOD SPECIMEN / Unknown Venipuncture / Unknown 05/28/2022 8:48 PM CDT 05/28/2022 9:02 PM CDT Mathieu Tarango-C LAB - CHEMISTRY O RDERABLES [address] [address], [facility] [phone]
--- OUTSIDE RECORDS SUMMARY | 2024-03-15 15:34 | XMS_ITS | Clinical Summary ---
Author Organization [facility] Address [address] [place] [address] Care Team Providers Care Traffic Police Officer Name Role Phone Unavailable Primary Care Provider Unavailabl e Social History Tobacco Use Types Packs/Day Years Used Date Smoking Tobacco: Never Assessed Sex and Gender Information Value Date Recorded Sex Assigned at Not on file Legal Sex Male 8:24 PM CDT Gender Identity Not on file Sexual Orientation Not on file Plan of Treatment Health Maintenance Due Date Last Done Comments DTaP, Tdap and Td Vaccines ( 1 - Tdap) 1960 Zoster Vaccines (1 of 2) 11/18/1991 Pneumococcal Vaccine: 65+ Ye ars (1 of 1 - PCV) 2006 RSV Immunization or 60+ Years (1 - 1-dose 75+ series) 2016 COVID-19 Vaccine (2023-2 5 season) 2023 Influenza Adult (#1) 2023 Meningococcal B Vaccine Aged Out No l onger eligible based on patient's age to complete this topic Meningococcal Vaccine Aged Out No vonda georgiana eligible based on patient's age to complete this topic RSV Immunizations Under 20 Months Aged Out No longer eligible based on patient's age to complete this topic
== END 2024-03-15 14:50 | disposition home or self-care (01) ==
LOC: ANHLAB 14:53
PROVIDERS: PCP Family Medicine; Visit Provider Nurse Practitioner Family
DX: R39.9 Unspecified symptoms and signs involving the genitourinary system (principal)
CPT/HCPCS: 81001; 87086; 87181

== ENCOUNTER 2024-04-03 14:06 | Outpatient (CLI) | payer OTHER, MEDICARE, SELFPAY ==
[2024-04-03 15:23] LABS: Alanine Aminotransferase 11 U/L (6-50); Albumin Level 3.9 g/dL (3.5-5.1); Alkaline Phosphatase 66 U/L (38-126); Anion Gap 11 mmol/L (4-12); Aspartate Amino Transferase 22 U/L (17-59); Bilirubin,Total 2.4 mg/dL (0.2-1.3); Blood Urea Nitrogen 10 mg/dL (9-20); Calcium 8.9 mg/dL (8.4-10.2); Carbon Dioxide 26 mmol/L (22-30); Chloride 94 mmol/L (98-107); Cholesterol 100 mg/dL (0-200); Estimated Glomerular Filt Rate > 60; Glucose 98 mg/dL (65-110); HDL Direct 74 mg/dL; Potassium 4.2 mmol/L (3.4-5.0); Sodium 131 mmol/L (137-145); Triglycerides 35 mg/dL (<150)
--- OUTSIDE RECORDS SUMMARY | 2024-04-03 16:28 | XMS_ITS | Clinical Summary ---
Author Organization [facility] Address [address] [place] [address] Care Team Providers Care Locomotive Inspector Name Role Phone Unavailable Primary Care Provider Unavailabl e Source Comments [facility],non-owned Affiliates and Associated Physician Practices is amultiple site organization consisting of ambulatory clinics and hospital sitesin [place], [place], [place] and [place]. This disclosure is being madepursuant to the Care Everywhere program and may not contain all information available regarding this patient. Last updated 17.[facility] [employer] Allergies No known active allergies Medications * [...] and heating? Not hard at all 05/30/2022 [facility] of Occupat ional [facility] - Occupational Stress Questionnaire Answer Date Recorded [...] place to sleep or slept in a snf (including now)? No 05/30/2022 Sex and Gender [...] Type MEDICARE MEDICARE PART A AND B [id number] 11/08/2006-Pre sent [address] [place] [address] Medicare [employer] UHC CHOICE/SELECT /CHOICE PLUS/ALL PAYORS [id number] 02/08/2023-Pres ent [address] [address] [place] [address] HMO SELF PAY NO INSURANCE SELF PAY NO INSURANCE Effective for all dates [place] Self Pay MEDICARE MEDICARE PART A AND B [id number] Effective for all dates [address] [place] [address] Medicare [employer] UHC MEDICARE SUPP GENERIC Effective for all dates Commercial MEDICARE MEDICARE PART A AND B [id number] Effective for all dates [address] [place] [address] Medicare [employer] UHC MEDICARE SUPP GENERIC Effective for all dates Commercial MEDICARE MEDICARE PART A AND B [id number] Effective for all dates [address] [place] [address] Medicare [employer] UHC MEDICARE SUPP GENERIC Effective for all dates Commercial [facility] MEDICARE SUPP GENERIC [id number] Effective for all dates Commercial MEDICARE MEDICARE PART A AND B Effective for all dates [address] [place] [address] Medicare [employer] UHC MEDICARE SUPP GENERIC [id number] Effective for all dates Commercial MEDICARE MEDICARE PART A AND B Effective for all dates [address] [place] [address] Medicare [employer] UHC MEDICARE SUPP GENERIC [id number] Effective for all dates Commercial MEDICARE MEDICARE PART A AND B Effective for all dates [address] [place] [address] Medicare [employer] UHC CHOICE/SELECT /CHOICE PLUS/ALL PAYORS [id number] 02/08/2022-Pres ent [address] [address] [place] [address] O MEDICARE WPS MEDICARE PART B [id number] 11/08/2006-Pre sent [address] [address] [place] [address] Medicare Advance Directives * Full Code (Latest Code Status on File) Date Activated Date Inactivated Comments 05/28/2022 6:57 PM 05/30/2022 9:34 AM
--- OUTSIDE RECORDS SUMMARY | 2024-04-03 16:28 | XMS_ITS | CONTINUITY OF CARE DOCUMENT ---
Author Name eddie morgan Address Unknown Organization [facility] Address [address] [place] [address] Phone [phone] Care Team Providers Care Wholesale Manager Name Role Phone Ninfa SANDERS, Jaime Camacho Unavailable SHALA SANDERS, RANDY Unavailable [phone] SHALA SANDERS, RANDY Unavailable [phone] PROBLEMS Condition Status Date Provider Notes Syncope active Jaime Ocasio MD CVA - NOS active Jaime Ocasio MD Sleep disorder active Jaime Ocasio MD AV block 1st degree active Jaime Ocasio MD Cardiology examination active Jaime hernandez MD Osteoarthritis, hip active Jaime Ocasio MD Benign prostatic hyperplasia (BPH) active S luis Ocasio MD Orthostatic hypotension active Jaime anaya MD Hyponatremia active Jaime Ocasio MD Dizziness active Jaime Ocasio MD Cardiology examination active Jaime hernandez MD Alcohol consumption regular active Jaime Ocasio MD Irregular rhythm active Jaime Ocasio MD Abnormal electrocardiogram active Jaime Ocasio MD HTN essential active Jaime Ocasio MD ENCOUNTERS Date Type Provider Location Encounter Diag nosis - In-person encounter Office Visit Jaime Ocasio MD [facility] CVA - NOSSyncope - In-person encounter Office Visit Jaime Ocasio MD [facility] Cardiology examinationAV block 1st degreeSleep disorder - In-person encounter Office Visit Jaime Ocasio MD [facility] Office - In-person encounter Office Visit Jaime Ocasio MD [facility] Cardiology examinationDizzinessHyponatremiaOrthostatic hypotensionBenign prostatic hyperplasia (BPH)Osteoarthritis, hip - In-person encounter Office Visit Jaime Ocasio MD [place] - In-person encounter Office Visit Jaime Ocasio MD [facility] - In-person encounter Office Visit Jaime Ocasio MD [facility] - In-person encounter Office Visit Jaime Ocasio MD [facility] HTN essentialAbnormal electrocardiogramIrregular rhythmAlcohol consumption regular [...] Nicolette benderLogsasha blood pressure, systolic 148 mm[Hg] Melany Marcumogsasah blood pressure, diastolic 83 mm[Hg] St accristy Yen blood pressure, systolic 148 mm[Hg] Dominick Yen oxygen saturation, oximetry 98 % Angy Farshad pulse rate 86 /min Angy Farshad respiratory rate E&M 16 /min Angy D bibiana weight E&M 183 [lb_av] Angy Farshad height E&M 68 [in_i] Angy Farshad Body Mass Index (Ratio) 27.21 kg/m2 Prasad Ocasio MD blood pressure, diastolic 79 mm[Hg] Nioclette benderLogsasha blood pressure, systolic 159 mm[Hg] Melany Marcumogsasha blood pressure, diastolic 79 mm[Hg] St acy Farshad blood pressure, systolic 159 mm[Hg] Sta cy Farshad oxygen saturation, oximetry 98 % Angy Farshad pulse rate 108 /min Angy Farshad respiratory rate E&M 18 /min Angy D bibiana weight E&M 179 [lb_av] Angy Farshad height E&M 68 [in_i] Angy Farshad Body Mass Index (Ratio) 30.71 kg/m2 Prasad Ocasio MD blood pressure, diastolic 95 mm[Hg] To ns Busch respiratory rate E&M 18 /min Tonsha Busch blood pressure, systolic 163 mm[Hg] Ton [facility] Busch oxygen saturation, oximetry 98 % Tonsha Busch weight E&M 202 [lb_av] Tonsha Busch pulse rate 113 /min Tonsha Busch height E&M 68 [in_i] Tonsha Busch Body Mass Index (Ratio) 30.71 kg/m2 Leonides Plurad blood pressure, diastolic 80 mm[Hg] Ki lleen Quesada blood pressure, systolic 130 mm[Hg] Kil mayank Quesada oxygen saturation, oximetry 98 % Sabinal Quesada respiratory rate E&M 16 /min Nikunj Quesada pulse rate 114 /min Nikunj Quesada weight E&M 202 [lb_av] Sabinal Quesada height E&M 68 [in_i] Nikunj Quesada Body Mass Index (Ratio) 30.25 kg/m2 Elder Beasley blood pressure, cuff size regular Ke rri Gruenenfelder blood pressure, diastolic 90 mm[Hg] Ke rri Gruenenfelder blood pressure, systolic 162 mm[Hg] Ker ri Makedanenfmilier oxygen saturation, oximetry 98 % Lara Grselenanenfimlier respiratory rate E&M 20 /min Lara G [...] 0-149 0 cholesterol, serum 149 mg/dL [employer] [phone]/03/3 0 calcium, serum 9.2 mg/dL [employer] 8.6-10.2 0 carbon dioxide, venous blood 25 mmol/L [employer] 18-29 0 chloride, serum 95 mmol/L [employer] 96-106 Low 0 potassium, serum 4.5 mmol/L [employer] 3.5-5.2 0 sodium, serum 136 mmol/L [employer] [phone]/03/3 0 urea nitrogen/creatinine ratio, serum 15 [employer] 10-24 0 eGFR if 102 mL/min/{1 .73_m2} [employer] >59 0 eGFR if not 88 mL/min/{1 .73_m2} [employer] >59 0 creatinine, serum 0.78 mg/dL [employer] 0.76-1.27 0 urea nitrogen, blood 12 mg/dL [employer] 8-27 0 blood glucose, random 101 mg/dL [employer] 65-99 High 0 platelet count 357 X10E3/UL [employer] [phone]/03/3 0 red blood cell distribution width 13.4 [...] as needed 05/11 - 07/03 Constance Mcfarlandmagdalena PHOTOGRAPHS CURATOR #60, 30 days supply, Prescribed by GRANT [...] smoking status Never smoker Jaime hernandez MD drug use no Jaime willoughby [...] ewed - no changes required Constance Mcfarlandmagdalena PHOTOGRAPHS CURATOR social history E&M S moking History: Romeo salazar has never smoked. Constance Mcfarlandmagdalena PHOTOGRAPHS CURATOR drug use no Constance Avery PHOTOGRAPHS CURATOR alcohol use yes Constance Avery PHOTOGRAPHS CURATOR passive cigarette sm dom exposure no Angy [...] Payer name Policy type / Coverage type Orange red alliance party ID [facility] Other [id number] [place] [id number] ADVANCE DIRECTIVES Name Date DISCUSSED - NO DECISION MADE TREATMENT PLAN Date Name Performer [id number],C,M ay be taking losartan and valsartan together. [...] by mouth every day Jaime Ocasio MD [id number] JUAN on 07/20/22: 1 . Normal left [...] 07/20/2022 at 4:15 PM Jaime Ocasio MD [id number],C,N ovember 2022 M ost likely took both valsartan and losartan on one given day, and ended up at the [facility]. Jaime Ocasio MD [id number],CP atient has been symptomatic for a few months now though he reports improveemnt in the last few weeks Constance Avery NP [id number],C, S R on tele monitor and had occasional ectopics, SVTs, PVCs. No afib. May 13, 2018 S inus tachy on EKG. Typically runs on higher HR. May be worthwhile for him to be on a touch of a beta luis to help control HR. July 03, 2022 N O NEW AFIB WILL ARRANGE TELE FOR 48 HRS TO EVAL FOR AFIB Constance Avrey NP [id number],C,F lucinda with urology. O n Tamsulosin Constance Avery PHOTOGRAPHS CURATOR [id number],C,A s reported per PCP PROBABLY RELATED TO HYPONATREMIA WHCIH IS NOW RESOLVED Constance Avery PHOTOGRAPHS CURATOR [id number],C,N a was as 118 but now improved to 136 (06/05/22). He is on sodium tablets HYPONATREMIA WHCIH IS NOW RESOLVED Constance Avery PHOTOGRAPHS CURATOR [id number],C,C URRENTLY ONLY TAKING DIOVAN The following medications [...] Cardiology:He has de veloped some prolongation of FL interval, okay to conitnue with Metoprolol 25 [...] given day, and ended up at the [place] [facility]. Jaime Ocasio MD Cardiology:Patient h as [...] up :Better con trolled on med rx. [facility] Follow up :Negative stress for ischemia. Diaphragm attenuation noted. Normal LV fxn based on echo ans stress. [facility] Follow up :SR on tele monitor and had occasional ectopics, SVTs, PVCs. No afib. [facility]:5-6 shots of vodka daily. R eduction [...] Sarah Beth Rosenbaum MD completed [facility] Jaime Ocasio MD completed
--- OUTSIDE RECORDS SUMMARY | 2024-04-03 16:28 | XMS_ITS | Clinical Summary ---
Author Organization [facility] Address [address] [place] [address] Care Team Providers Care Chemical Processing Technician Name Role Phone Unavailable Primary Care Provider [...]
--- OUTSIDE RECORDS SUMMARY | 2024-04-03 16:28 | XMS_ITS | Patient Health Summary ---
Author Organization [facility] Address [address] [place] [address] Care Team Providers Care Defensive Fire Control Systems Operator Name Role Phone Unavailable Primary Care Provider Unavailabl e Note from [facility],non-owned Affiliates and Associated Physician Practices is amultiple site organization consisting of ambulatory clinics and hospital sitesin [place], [place], [place] and [place]. This disclosure is being madepursuant to the Care Everywhere program and may not contain all information available regarding this patient. Last updated 17.[facility] Allergies No known active allergies Medications * [...] and heating? Not hard at all 05/30/2022 [facility] of Occupat ional Health - Occupational Stress [...] place to sleep or slept in a long-term (including now)? No 05/30/2022 Sex and Gender [...] of left hip, initial encounter * PT-INR [facility](Performed 05/28/2022) Performed for Hematoma of left hip, [...] 10.5 10 3/uL 05/30/2022 6:51 AM CDT [facility] RBC 2.61(L) 4.30 - 5.70 10 6/uL 05/30/2022 6:51 AM [facility] Hemoglobin 8.9(L) 12.0 - 17.6 g/dL 05/30/2022 6:51 AM [facility] Hematocrit 26.0(L) 35.2 - 51.7 % 05/30/2022 6:51 AM [facility] MCV 99.6(H) 80.7 - 98.3 fL 05/30/2022 6:51 AM [facility] MCH 34.1(H) 26.7 - 34.0 pg 05/30/2022 6:51 AM [facility] MCHC 34.2 30.8 - 35.9 g/dL 05/30/2022 6:51 AM [facility] RDW-SD 49.1 36.0 - 50.0 fL 05/30/2022 6:51 AM [facility] RDW-CV 13.5 11.2 - 14.8 % 05/30/2022 6:51 AM [facility] Platelet Count 192 150 - 400 10 3/uL 05/30/2022 6:51 AM [facility] MPV 10.1 9.4 - 12.9 fL 05/30/2022 6:51 AM [facility] nRBC Absolute 0.00 0 10 3/uL 05/30/2022 6:51 AM [facility] nRBC Auto 0.0 0 /100 WBC 05/30/2022 6:51 AM [facility] Blood BLOOD SPECIMEN / Unknown Venipuncture / Unknown 05/30/2022 6:40 AM CDT 05/30/2022 6:44 AM CDT Mathieu Murillo PA-C LAB - HEMATOLOGY ORDERABLES Performing Organization Address City/State/[facility] Co de Phone Number [facility] [address] [place] [address], [facility] [phone] * (ABNORMAL) URINALYSIS REFLEX TO MICROSCOPIC NO CULTURE (05/29/2022 2:12 AM CDT) Color UA Adelina(A) Straw, Yellow 05/29/2022 2:45 AM [facility] Clarity UA Clear Clear 05/29/2022 2:45 AM [facility] Specific Jbphh UA >1.060(H) 1.005 - 1.030 05/29/2022 2:45 AM [facility] pH UA 5.0 5.0 - 8.0 pH 05/29/2022 2:45 AM [facility] Protein UA Negative Negative 05/29/2022 2:45 AM [facility] Glucose UA Negative Negative 05/29/2022 2:45 AM [facility] Ketone UA Trace(A) Negative 05/29/2022 2:45 AM [facility] Bilirubin UA 2+(A) Negative 05/29/2022 2:45 AM [facility] Comment:Urine Bilirubin resu lt confirmed by manual Ictotest. Blood UA Negative Negative 05/29/2022 2:45 AM [facility] Nitrite UA Negative Negative 05/29/2022 2:45 AM [facility] Leukocyte Esterase Negative Negative 05/29/2022 2:45 AM [facility] Urobilinogen UA 4.0(A) Negative mg/dL 05/29/2022 2:45 AM [facility] RBC UA 0-2 None Seen, 0-2, 3-5 /HPF 05/29/2022 2:45 AM [facility] WBC UA 6-10(A) None Seen, 0-5 /HPF 05/29/2022 2:45 AM [facility] Squamous Epithelial Cells UA 3-5 None Seen, 0-2, 3-5 /HPF 05/29/2022 2:45 AM [facility] Mucus UA 1+ /LPF 05/29/2022 2:45 AM [facility] Urine URINE SPECIMEN OBTAINED BY CLEAN CATCH PROCEDURE / Unknown Collection / Unknown 05/29/2022 2:12 AM CDT 05/29/2022 2:16 AM [facility] - 05/29/2022 2:45 AM CDT Mathieu Murillo PA-C LAB - URINALYSIS ORDERABLES [facility] [address] [place] [address], [place] [phone] * BLOOD TYPE VERIFICATION (05/28/2022 9:08 PM CDT) ABO Rh B POS 05/28/2022 9:5 1 PM CDT [facility] BLOOD BANK LAB Blood Bank BLOOD SPECIMEN / Unknown 05/28/2022 9:08 PM CDT 05/28/2022 9:18 PM CDT Rachel Hernandez MD LAB - BLOOD BANK ORD ERABLES Performing Organization Address City/[facility]/ZIP Co de Phone Number [facility] BLOOD BANK LAB [address] [place] [address], [place] [phone] * PT-INR [facility] (05/28/2022 8:48 PM CDT) Pathologist [facility] PT 13.6 12.1 - 14.8 Seconds 05/28/2022 9:24 PM CDT [facility] INR 1.0 See Comment 05/28/2022 9:24 PM CDT [facility] Comment:The suggested therap eutic range for standard coumadin (warfarin) therapy is an INR of 2.0-3.0. For high-risk patients (Mechanical Mitral Valve Prosthesis, etc.), the suggested prophylactic therapeutic range is an INR of 2.5-3.5. Blood BLOOD SPECIMEN / Unknown Venipuncture / Unknown 05/28/2022 8:48 PM CDT 05/28/2022 9:02 PM CDT Mathieu Murillo PA-C LAB - COAGULATION ORDERABLES [address] [address], [place] [phone] * TYPE + SCREEN PANEL (05/28/2022 8:48 PM CDT) Antibody Screen NEG 9:51 PM CDT [facility] BLOOD BANK LAB ABO Rh B POS 05/28/2022 9:51 PM CDT [facility] BLOOD BANK LAB Blood Bank BLOOD SPECIMEN / Unknown Venipuncture / Unknown 05/28/2022 8:48 PM CDT 05/28/2022 9:02 PM CDT Mathieu Murillo PA-C LAB - BLOOD BANK ORDERABLES [facility] BLOOD [facility]ANK LAB [address] [place] [address], [facility] [phone] * (ABNORMAL) COMPREHENSIVE METABOLIC PANEL (05/28/2022 8:48 PM CDT) Only the most recent of2 resultswithin the time period is included. BUN 14 7 - 26 mg/dL 05/28/2022 9:28 PM [facility] Creatinine 0.56(L) 0.71 - 1.16 mg/dL 05/28/2022 9:28 PM [facility] Sodium 133(L) 136 - 145 mmol/L 05/28/2022 9:28 PM [facility] Potassium 3.6 3.5 - 4.5 mmol/L 05/28/2022 9:28 PM [facility] Chloride 101 98 - 107 mmol/L 05/28/2022 9:28 PM [facility] CO2 23 22 - 29 mmol/L 05/28/2022 9:28 PM [facility] Glucose 159(H) 70 - 115 mg/dL 05/28/2022 9:28 PM [facility] Calcium 8.8 8.4 - 10.2 mg/dL 05/28/2022 9:28 PM [facility] Protein Total 6.0 6.0 - 8.3 g/dL 05/28/2022 9:28 PM [facility] Albumin 3.5 3.4 - 5.0 g/dL 05/28/2022 9:28 PM [facility] Bilirubin Total 1.5(H) 0.2 - 1.2 mg/dL 05/28/2022 9:28 PM [facility] Alkaline Phosphatase 81 40 - 150 U/L 05/28/2022 9:28 PM [facility] ALT 6 5 - 55 U/L 05/28/2022 9:28 PM [facility] AST 15 5 - 34 U/L 05/28/2022 9:28 PM [facility] Anion Gap 13 8 - 18 05/28/2022 9:28 PM [facility] BUN/Creatinine Ratio 25(H) 7 - 23 05/28/2022 9:28 PM [facility] Osmolality Calculated 280 270 - 300 mOsm/kg 05/28/2022 9:28 PM [facility] Albumin/Globulin Ratio 1.4 1.1 - 2.3 05/28/2022 9:28 PM [facility] eGFR by CKD-EPI >90 >=90 mL/min/1.7 3 m2 05/28/2022 9:28 PM [facility] Blood BLOOD SPECIMEN / Unknown Venipuncture / Unknown 05/28/2022 8:48 PM CDT 05/28/2022 9:02 PM CDT Mathieu Murillo PA-C LAB - CHEMISTRY O RDERABLES [address] [address], [facility] [phone] * (ABNORMAL) MAGNESIUM BLOOD (05/28/2022 8:48 PM CDT) Magnesium 1.5(L) 1.6 - 2.6 mg/dL 05/28/2022 9:28 PM T [facility] Blood BLOOD SPECIMEN / Unknown Venipuncture / Unknown 05/28/2022 8:48 PM CDT 05/28/2022 9:02 PM CDT Mathieu Tarango-C LAB - CHEMISTRY O RDERABLES [address] [address], [facility] [phone]
--- OUTSIDE RECORDS SUMMARY | 2024-04-03 16:28 | XMS_ITS | Referral Summary ---
Author Organization [facility] Address [address] [place] [address] Care Team Providers Care Qa Architect Name Role Phone Unavailable Primary Care Provider Unavailabl e Source Comments [facility],non-owned Affiliates and Associated Physician Practices is amultiple site organization consisting of ambulatory clinics and hospital sitesin [place], [place], [place] and [place]. This disclosure is being madepursuant to the Care Everywhere program and may not contain all information available regarding this patient. Last updated 17.[facility] [employer] Allergies No known active allergies Medications * [...] and heating? Not hard at all 05/30/2022 [facility] of Occupat ional [facility] - Occupational Stress Questionnaire Answer Date [...] Type MEDICARE MEDICARE PART A AND B [id number] 11/08/2006-Pre sent [phone] [place] [address] Medicare [employer] UHC CHOICE/SELECT /CHOICE PLUS/ALL PAYORS [id number] 02/08/2023-Pres ent [address] [address] [place] [address] HMO SELF PAY NO INSURANCE SELF PAY NO INSURANCE Effective for all dates [place] Self Pay MEDICARE MEDICARE PART A AND B [id number] Effective for all dates [phone] [address] [place] [address] Medicare [employer] UHC MEDICARE SUPP GENERIC Effective for all dates Commercial MEDICARE MEDICARE PART A AND B [id number] Effective for all dates [phone] [address] [place] [address] Medicare [employer] UHC MEDICARE SUPP GENERIC Effective for all dates Commercial MEDICARE MEDICARE PART A AND B [id number] Effective for all dates [phone] [address] [place] [address] Medicare [employer] UHC MEDICARE SUPP GENERIC Effective for all dates Commercial [facility] MEDICARE SUPP GENERIC [id number] Effective for all dates Commercial MEDICARE MEDICARE PART A AND B Effective for all dates [address] [place] [address] Medicare [employer] UHC MEDICARE SUPP GENERIC [id number] Effective for all dates Commercial MEDICARE MEDICARE PART A AND B Effective for all dates [address] [place] [address] Medicare [employer] UHC MEDICARE SUPP GENERIC [id number] Effective for all dates Commercial MEDICARE MEDICARE PART A AND B Effective for all dates [address] [place] [address] Medicare [employer] UHC CHOICE/SELECT /CHOICE PLUS/ALL PAYORS [id number] 02/08/2022-Pres ent [address] [address] [place] [address] O MEDICARE WPS MEDICARE PART B [id number] 11/08/2006-Pre sent [address] [address] [place] [address] Medicare Advance Directives * Full Code (Latest Code Status on File) Date Activated Date Inactivated Comments 05/28/2022 6:57 PM 05/30/2022 9:34 AM
--- OUTSIDE RECORDS SUMMARY | 2024-04-03 16:29 | XMS_ITS | Data Portability ---
Author Organization - [facility] Address [address] [place] [address] Assessment Encounter Date Assessment Date Assessment LastModified [...] worsening signs or symptoms. Pt lives in [place] and is driving back home today. States [...] [address] [place], [address], 3 11:33:53 tizanidine 2 mg tablet 2022 [address]23 [address] [employer] [address], [place], [address], 3 11:33:49 naproxen 500 mg tablet 2022 023 [address], [place], [address], 11:33:52 Patient TargetsNo targets recorded. Patient Instructions Encounter Date Encounter Id Patient Instructions Last Modified By Organization Details Last Modified Time 04/28/2022 [id number] -Rest the affected side. -Be sure to [...] Updated DateTime 3 172.72 cm 26.6 kg/m2 20225.6 6 g 102 /min 18 /min 94 % 94 % 98 [degF] 166 mm[Hg] 95 mm[Hg] Alfonzo Vidal [place] - [facility] [employer] [facility] 10:50:54 Social History None recorded. Functional Status None recorded. Mental Status None recorded. Family History Nothing Reported. Medical History No medical history recorded. Past Encounters Encounter ID Performer Location Encounter Start Date Encounter Closed Date Diagnosis/Indication Diagnosis SNOMED-CT Code Diagnosis ICD10 Code Diagnosis Note [id number] WAGNER STEVE NP [facility] [address] [place] [address] 04/28/2022 10:30:10 04/28/2022 11:36:06 Pain in right hip joint [id number] 15864 M25.551 Health Concerns Section Related Observation LastModified by Organization Detai ls LastModified Time None Recorded Concern Status LastModified by Organization Details LastModified Time None Recorded Advance Directives Directive None Recorded Payers Encounter Date Sequence Insurance Name Policy Number Policy Ortiz Covered Member ID Ortiz Member ID Guarantor Name 04/28/2022 2 [place] Vincenzo Glaser [id number] Vincenzo Glaser 04/28/2022 1 [facility] [id number] Vincenzo Glaser [id number] Vincenzo Glaser Notes Date Note Type Note [...] biofreeze with no relief. WAGNER STEVE NP [address] [facility],[address], [place], [address], [place] - [facility] 04/28/2022 11:45:21
[2024-04-03 16:37] LABS: LDL Cholesterol Direct < 30 mg/dL
== END 2024-04-03 14:07 | disposition home or self-care (01) ==
LOC: ANHLAB 14:09
PROVIDERS: PCP Family Medicine; Visit Provider Internal Medicine Cardiovascular Disease
DX: E87.1 Hypo-osmolality and hyponatremia (principal); G47.9 Sleep disorder, unspecified; I10 Essential (primary) hypertension; I44.0 Atrioventricular block, first degree; I49.9 Cardiac arrhythmia, unspecified; I63.9 Cerebral infarction, unspecified; I95.1 Orthostatic hypotension; M16.9 Osteoarthritis of hip, unspecified; N40.0 Benign prostatic hyperplasia without lower urinary tract symptoms; R42 Dizziness and giddiness; R68.89 Other general symptoms and signs; R94.31 Abnormal electrocardiogram [ECG] [EKG]; Z13.6 Encounter for screening for cardiovascular disorders
CPT/HCPCS: 36415; 80053; 80061

== ENCOUNTER 2024-05-15 10:36 | Outpatient (CLI) | payer OTHER, MEDICARE, SELFPAY ==
--- OUTSIDE RECORDS SUMMARY | 2024-05-11 14:58 | XMS_ITS | CONTINUITY OF CARE DOCUMENT ---
Author Name eddie morgan Address Unknown Organization [facility] Address [address] [place] [address] Phone [phone] Care Team Providers Care File Drawer Finisher Name Role Phone Ninfa SANDERS, Jaime Camacho Unavailable [phone] SHALA SANDERS, RANDY Unavailable [phone] SHALA SANDERS, RANDY Unavailable [phone] PROBLEMS Condition Status Date Provider Notes HTN essential active Jaime Ocasio MD Abnormal electrocardiogram active Jaime Ocasio MD Irregular rhythm active Jaime Ocasio MD Alcohol consumption regular active Jaime Ocasio MD Cardiology examination active Jaime hernandez MD Dizziness active Jaime Ocasio MD Hyponatremia active Jaime Ocasio MD Orthostatic hypotension active Jaime anaya MD Benign prostatic hyperplasia (BPH) active S luis Ocasio MD Osteoarthritis, hip active Jaime Ocasio MD Cardiology examination active Jaime hernandez MD AV block 1st degree active Jaime Ocasio MD Sleep disorder active Jaime Ocasio MD CVA - NOS active Jaime Ocasio MD Syncope active Jaime Ocasio MD ENCOUNTERS Date Type Provider Location Encounter Diag nosis - In-person encounter Office Visit Jaime Ocasio MD [facility] CVA - NOSSyncope - In-person encounter Office Visit Jaime Ocasio MD [facility] Cardiology examinationAV block 1st degreeSleep disorder - In-person encounter Office Visit Jaime Ocasio MD [facility] Office - In-person encounter Office Visit Jaime Ocasio MD [facility] Cardiology examinationDizzinessHyponatremiaOrthostatic hypotensionBenign prostatic hyperplasia (BPH)Osteoarthritis, hip - In-person encounter Office Visit Jaime Ocasio MD [facility] - In-person encounter Office Visit Jaime Ocasio MD [facility] - In-person encounter Office Visit Jaime Ocasio MD [facility] - In-person encounter Office Visit Jaime Ocasio MD [facility] HTN essentialAbnormal electrocardiogramIrregular rhythmAlcohol consumption regular [...] benderLogsasha blood pressure, systolic 148 mm[Hg] Melany Marcumogsasha blood pressure, diastolic 83 mm[Hg] St [...] Busch blood pressure, systolic 163 mm[Hg] Ton [facility] Busch oxygen saturation, oximetry 98 % Tonsha Busch weight E&M 202 [lb_av] Tonsha Busch pulse rate 113 /min Tonsha Busch height E&M 68 [in_i] Tonsha Busch Body Mass Index (Ratio) 30.71 kg/m2 Leonides Plurad blood pressure, diastolic 80 mm[Hg] Ki lleen Quesada blood pressure, systolic 130 mm[Hg] Kil mayank Quesada oxygen saturation, oximetry 98 % Fleming Quesada respiratory rate E&M 16 /min Nikunj Quesada pulse rate 114 /min Fleming Quesada weight E&M 202 [lb_av] Fleming Quesada height E&M 68 [in_i] Nikunj Quesada [...] 0-149 0 cholesterol, serum 149 mg/dL [employer] 119-350 8016/03/3 0 calcium, serum 9.2 mg/dL [employer] 8.6-10.2 0 carbon dioxide, venous blood 25 mmol/L [employer] 18-29 0 chloride, serum 95 mmol/L [employer] 96-106 Low 0 potassium, serum 4.5 mmol/L [employer] 3.5-5.2 0 sodium, serum 136 mmol/L [employer] 455-706 8771/03/3 0 urea nitrogen/creatinine ratio, serum 15 [employer] 10-24 0 eGFR if 102 mL/min/{1 .73_m2} [employer] >59 0 eGFR if not 88 mL/min/{1 .73_m2} [employer] >59 0 creatinine, serum 0.78 mg/dL [employer] 0.76-1.27 0 urea nitrogen, blood 12 mg/dL [employer] 8-27 0 blood glucose, random 101 mg/dL [employer] 65-99 High 0 platelet count 357 X10E3/UL [employer] 423-692 7593/03/3 0 red blood cell distribution width 13.4 [...] as needed 05/11 - 07/03 Constance Mcfarlandmagdalena CLIENT APPLICATION SUPPORT ENGINEER #60, 30 days supply, Prescribed by GRANT [...] ewed - no changes required Constance Mcfarlandmagdalena CLIENT APPLICATION SUPPORT ENGINEER social history E&M S moking History: Romeo salazar has never smoked. Constance Mcfarlandmagdalena CLIENT APPLICATION SUPPORT ENGINEER drug use no Constance Avery CLIENT APPLICATION SUPPORT ENGINEER alcohol use yes Constance Avery CLIENT APPLICATION SUPPORT ENGINEER passive cigarette sm dom exposure no Angy [...] Payer name Policy type / Coverage type [place] [employer] party ID [facility] Other [id number] [place] [id number] ADVANCE DIRECTIVES Name Date DISCUSSED - NO DECISION MADE TREATMENT PLAN Date Name Performer [id number],C,M ay be taking losartan and valsartan together. [...] by mouth every day Jaime Ocasio MD [id number] JUAN on 07/20/22: 1 . Normal left [...] 07/20/2022 at 4:15 PM Jaime Ocasio MD [id number],C,N ovember 2022 M ost likely took both valsartan and losartan on one given day, and ended [facility]. Jaime Ocasio MD [id number],CP atient has been symptomatic for a few months now though he reports improveemnt in the last few weeks Constance Avery NP [id number],C, S R on tele monitor and had [...] TO EVAL FOR AFIB Constance Avery NP [id number],C,F lucinda with urology. O n Tamsulosin Constance Avery CLIENT APPLICATION SUPPORT ENGINEER [id number],C,A s reported per PCP PROBABLY RELATED TO HYPONATREMIA WHCIH IS NOW RESOLVED Constance Avery CLIENT APPLICATION SUPPORT ENGINEER [id number],C,N a was as 118 but now improved to 136 (06/05/22). He is on sodium tablets HYPONATREMIA WHCIH IS NOW RESOLVED Constance Avery CLIENT APPLICATION SUPPORT ENGINEER [id number],C,C URRENTLY ONLY TAKING DIOVAN The following medications [...] sleep study to eval for JESSICA Jaime Ocaiso MD Cardiology: S R on tele monitor [...] Cardiology:He has de veloped some prolongation of GA interval, okay to conitnue with Metoprolol 25 [...] given day, and ended up at the [facility]. Jaime Ocasio MD Cardiology:Patient h as [...] up :Better con trolled on med rx. [facility] Follow up :Negative stress for ischemia. Diaphragm attenuation noted. Normal LV fxn based on echo ans stress. [facility] Follow up :SR on tele monitor and had occasional ectopics, SVTs, PVCs. No afib. [facility]:5-6 shots of vodka daily. R eduction [...] Sarah Beth Rosenbaum MD completed [facility] Jaime Ocasio MD completed
--- OUTSIDE RECORDS SUMMARY | 2024-05-11 14:58 | XMS_ITS | Clinical Summary ---
Author Organization [facility] Address [address] [place] [address] Care Team Providers Care Veneer Slicing Machine Operator Name Role Phone Unavailable Primary Care [...]
--- OUTSIDE RECORDS SUMMARY | 2024-05-11 14:58 | XMS_ITS | Clinical Summary ---
Author Organization [facility] Address [address] [place] [address] Care Team Providers Care Form Setter Supervisor Name Role Phone Unavailable Primary Care Provider Unavailabl e Source Comments [facility],non-owned Affiliates and Associated Physician Practices is amultiple site organization consisting of ambulatory clinics and hospital sitesin [place], [place], [place] and [place]. This disclosure is being madepursuant to the Care Everywhere program and may not contain all information available regarding this patient. Last updated 17.[facility] [employer] Allergies No known active allergies Medications * [...] and heating? Not hard at all 05/30/2022 [facility] of Occupat ional [facility] - Occupational Stress Questionnaire Answer Date Recorded [...] VACCINE ( - 2023-2 5 season) 2023 DEPRESSION SCREENING 02/09/2024 INFLUENZA VACCINE (Season Ended) 2024 HEPATITIS B VACCINE Aged Out No longe r eligible based on patient's age to complete this topic HIB VACCINE Aged Out No longer eligi ble based on patient's age to complete this topic HPV VACCINE Aged Out No longer eligi ble based on patient's age to complete this topic MENINGOCOCCAL (Group B) VACC INE SHARED DECISION-MAKING Aged Out No longer eligibl e based on patient's age to complete this topic MENINGOCOCCAL GROUPS A/C/Y/W VACCINE Aged Out No longer eligible b ased on patient's age to complete this topic Insurance Payer Benefit Plan / Group Subscriber ID Effective Dates Phone Address Type MEDICARE MEDICARE PART A AND B [id number] 11/08/2006-Pre sent [address] [place] [address] Medicare [employer] UHC CHOICE/SELECT /CHOICE PLUS/ALL PAYORS [id number] 02/08/2023-Pres ent [address] [address] [place] [address] HMO SELF PAY NO INSURANCE SELF PAY NO INSURANCE Effective for all dates [place], [place] Self Pay MEDICARE MEDICARE PART A AND B [id number] Effective for all dates [address] [place] [address] Medicare [employer] UHC MEDICARE SUPP GENERIC Effective for all dates Commercial MEDICARE MEDICARE PART A AND B [id number] Effective for all dates [address] [place] [address] Medicare [employer] UHC MEDICARE SUPP GENERIC Effective for all dates Commercial MEDICARE MEDICARE PART A AND B [id number] Effective for all dates [address] [place] [address] Medicare [employer] UHC MEDICARE SUPP GENERIC Effective for all dates Commercial [facility] MEDICARE SUPP GENERIC [id number] Effective for all dates Commercial MEDICARE MEDICARE PART A AND B Effective for all dates [address] [place] [address] Medicare [employer] UHC MEDICARE SUPP GENERIC [id number] Effective for all dates Commercial MEDICARE MEDICARE PART A AND B Effective for all dates [address] [place] [address] Medicare [employer] UHC MEDICARE SUPP GENERIC [id number] Effective for all dates Commercial MEDICARE MEDICARE PART A AND B Effective for all dates [address] [place] [address] Medicare [employer] UHC CHOICE/SELECT /CHOICE PLUS/ALL PAYORS [id number] 02/08/2022-Pres ent [address] [address] [place] [address] O MEDICARE WPS MEDICARE PART B [id number] 11/08/2006-Pre sent [address] [address] [place] [address] Medicare Advance Directives * Full Code (Latest Code Status on File) Date Activated Date Inactivated Comments 05/28/2022 6:57 PM 05/30/2022 9:34 AM
--- OUTSIDE RECORDS SUMMARY | 2024-05-11 14:58 | XMS_ITS | Data Portability ---
Author Organization - Kyler Sow Address [address] [place] [address] Assessment Encounter Date Assessment Date Assessment LastModified [...] worsening signs or symptoms. Pt lives in [place] and is driving back home today. States [...] [address], [place], [address], 3 11:33:53 tizanidine 2 mg tablet 2022 [address]23 [address] [employer] [address], [place], [address], 3 11:33:49 naproxen 500 mg tablet 2022 023 [address], [place], [address], 11:33:52 Patient TargetsNo targets recorded. Patient Instructions Encounter Date Encounter Id Patient Instructions Last Modified By Organization Details Last Modified Time 04/28/2022 [id number] -Rest the affected side. -Be sure to [...] Updated DateTime 3 172.72 cm 26.6 kg/m2 08896.6 6 g 102 /min 18 /min 94 % 94 % 98 [degF] 166 mm[Hg] 95 mm[Hg] [facility] [place] [facility] 10:50:54 Social History None recorded. Functional Status None recorded. Mental Status None recorded. Family History Nothing Reported. Medical History No medical history recorded. Past Encounters Encounter ID Performer Location Encounter Start Date Encounter Closed Date Diagnosis/Indication Diagnosis SNOMED-CT Code Diagnosis ICD10 Code Diagnosis Note [id number] WAGNER STEVE NP [facility] [address] [place] [address] 04/28/2022 10:30:10 04/28/2022 11:36:06 Pain in right hip joint [id number] 01221 M25.551 Health Concerns Section Related Observation LastModified by Organization Detai ls LastModified Time None Recorded Concern Status LastModified by Organization Details LastModified Time None Recorded Advance Directives Directive None Recorded Payers Encounter Date Sequence Insurance Name Policy Number Policy Ortiz Covered Member ID Ortiz Member ID Guarantor Name 04/28/2022 2 [place] Vincenzo Glaser [id number] Vincenzo Glaser 04/28/2022 1 [facility] [id number] Vincenzo Glaser [id number] Vincenzo Glaser Notes Date Note Type Note [...] biofreeze with no relief. WAGNER STEVE NP [address] [facility],[address], [place], [address], [place] - [facility] 04/28/2022 11:45:21
--- OUTSIDE RECORDS SUMMARY | 2024-05-11 14:59 | XMS_ITS | Data Portability ---
Author Organization [facility] [employer], Main Office Address [address] [place] [address] Assessment No assessment recorded. Plan of Treatment Reminders Order Date Submit Date Provider Last Modified By Organization Details Last Modified Time Details Appointments None recorded. Lab CBC w/ auto diff [address] (Lab), [address] [place], [address], 4 09:46:38 BMP, serum or plasma [address] (Lab), [address] [place], [address], 4 09:46:48 lipid panel, serum [address] (Lab), [address] [place], [address], 4 09:46:59 TSH, serum or plasma [address] (Lab), [address] [place], [address], 4 09:47:10 vitamin B12, serum [address] (Lab), [address] [place], [address], 4 09:46:19 folate, serum [address] ([facility]), [address] [place], [address], 4 09:46:29 Referral None recorded. Procedures None recorded. Surgeries None recorded. Imaging None recorded. Medication Orders mupirocin 2 % topical ointment 2023 024 [id number], [address], [place], [id number], 4 09:25:44 doxycycline hyclate 100 mg tablet 2023 024 [facility] #[id number], [address], [place], [id number], 4 09:25:45 Patient TargetsNo targets recorded. Patient InstructionsNo instructions recorded. Reason for Referral None Reported. Results Created Date Observation Date Name Description Value Unit Range Abnormal Flag Note LastModifiedBy Organization Detail LastModifiedTime 07/18/19 24 07/18/2023 DRUG MONIT OR, PANEL 3, W/CON F, URINE amphetamines NEGATI VE CONFIR MED NG/mL <500 Not Available [address] [address] [address] [place], [address], 07/18/2023 01:59:01 07/18/19 24 07/18/2023 DRUG MONIT OR, PANEL 3, W/CON F, URINE amphetamine NEGATI VE NG/mL <250 Not Available [address] [address] [place], [address], 07/18/2023 01:59:01 07/18/19 24 07/18/2023 DRUG MONIT OR, PANEL 3, W/CON F, URINE methamphetam ine NEGATI VE NG/mL <250 Not Available [address] [address] [place], [address], 07/18/2023 01:59:01 07/18/19 24 07/18/2023 DRUG MONIT OR, PANEL 3, W/CON F, URINE amphetamines comments See LDT Notes Not Available [address] [address] [address], [place], [address], 07/18/2023 01:59:01 07/18/19 24 07/18/2023 DRUG MONIT OR, PANEL 3, W/CON F, URINE benzodiazepi jean-paul NEGATI VE NG/mL <100 Not Available [address] [address] [place], [address], 07/18/2023 01:59:01 07/18/19 24 07/18/2023 DRUG MONIT OR, PANEL 3, W/CON F, URINE cocaine metabolite NEGATI VE NG/mL <150 Not Available [address] [address] [address] , [place], [address], 07/18/2023 01:59:01 07/18/19 24 07/18/2023 DRUG MONIT OR, PANEL 3, W/CON F, URINE marijuana metabolite POSITI VE NG/mL <20 abnormal Not Available [address] [address] [address] , [place], [address], 07/18/2023 01:59:01 07/18/19 24 07/18/2023 DRUG MONIT OR, PANEL 3, W/CON F, URINE marijuana metabolite 112 NG/mL <5 high Not Available [address] [address] [place], [address], 07/18/2023 01:59:01 07/18/19 24 07/18/2023 DRUG MONIT OR, PANEL 3, W/CON F, URINE marijuana comments See Nesha kim Notes , LDT Notes Not Available [address] [address] [address], [place], [address], 07/18/2023 01:59:01 07/18/19 24 07/18/2023 DRUG MONIT OR, PANEL 3, W/CON F, URINE opiates POSITI VE NG/mL <100 abnormal Not Available [address] [address] [place], [address], 07/18/2023 01:59:01 07/18/19 24 07/18/2023 DRUG MONIT OR, PANEL 3, W/CON F, URINE codeine NEGATI VE NG/mL <50 Not Available [address] [address] , [place], [address], 07/18/2023 01:59:01 07/18/19 24 07/18/2023 DRUG MONIT OR, PANEL 3, W/CON F, URINE hydrocodone 411 NG/mL <50 high Not Available [address] [address] [address] , [place], [address], 07/18/2023 01:59:01 07/18/19 24 07/18/2023 DRUG MONIT OR, PANEL 3, W/CON F, URINE hydromorphon e 517 NG/mL <50 high Not Available [address] [address] [place], [address], 07/18/2023 01:59:01 07/18/19 24 07/18/2023 DRUG MONIT OR, PANEL 3, W/CON F, URINE morphine NEGATI VE NG/mL <50 Not Available [address] [address] [place], [address], 07/18/2023 01:59:01 07/18/19 24 07/18/2023 DRUG MONIT OR, PANEL 3, W/CON F, URINE norhydrocodo ne 445 NG/mL <50 high Not Available [address] [address] [place], [address], 07/18/2023 01:59:01 07/18/19 24 07/18/2023 DRUG MONIT OR, PANEL 3, W/CON F, URINE opiates comments See Opiat es Notes , LDT Notes Not Available [address] [address] [place], [address], 07/18/2023 01:59:01 07/18/19 24 07/18/2023 DRUG MONIT OR, PANEL 3, W/CON F, URINE oxycodone NEGATI VE NG/mL <100 Not Available [address] [address] [place], [address], 07/18/2023 01:59:01 07/18/19 24 07/18/2023 DRUG MONIT OR, PANEL 3, W/CON F, URINE creatinine 84.7 mg/dL > or = 20.0 Not Available [facility] [address] [address] [place], [address], 07/18/2023 01:59:01 07/18/19 24 07/18/2023 DRUG MONIT OR, PANEL 3, W/CON F, URINE pH 8.5 4.5-9. 0 Not Available [address] [address] [address] , [place], [address], 07/18/2023 01:59:01 07/18/19 24 07/18/2023 DRUG MONIT OR, PANEL 3, W/CON F, URINE oxidant NEGATI VE mcg/m L <200 Not Available [facility] [address] [address] [place], [address], 07/18/2023 01:59:01 07/18/1907/18/2023 DRUG MONIT ORING TEMPL [...] of Marij uana. Opiat es Notes : Ames codon e, Norhy droco done, Ames morph one detec gus is consi stent with the use of the drug Ames codon e. Ames morph one detec gus is consi stent with the use of the drug Ames morph one. Ames morph one can be a presc ribed drug and is also a metab olite of Ames codon e. LDT Notes : Confi rmati on tests were devel oped and their rosibel tical perfo rmanc e barbra cteri stics have been deter mined by [facility] ostic s. It has not been clear [...] M-F, 8am to 10pm EST Not Available [facility] [address] [address] [place], [address], 07/18/2023 01:59:03 07/18/19 24 07/18/2023 DRUG MONIT OR, PANEL 3, W/CON F, URINE amphetamines NEGATI VE CONFIR MED NG/mL <500 Not Available [facility] [address] [address] [place], [address], 07/18/2023 01:59:04 07/18/19 24 07/18/2023 DRUG MONIT OR, PANEL 3, W/CON F, URINE amphetamine NEGATI VE NG/mL <250 Not Available [address] [address] [place], [address], 07/18/2023 01:59:04 07/18/19 24 07/18/2023 DRUG MONIT OR, PANEL 3, W/CON F, URINE methamphetam ine NEGATI VE NG/mL <250 Not Available [address] [address] [place], [address], 07/18/2023 01:59:04 07/18/19 24 07/18/2023 DRUG MONIT OR, PANEL 3, W/CON F, URINE amphetamines comments See LDT Notes Not Available [address] [address] [address], [place], [address], 07/18/2023 01:59:04 07/18/19 24 07/18/2023 DRUG MONIT OR, PANEL 3, W/CON F, URINE benzodiazepi jean-paul NEGATI VE NG/mL <100 Not Available [address] [address] [place], [address], 07/18/2023 01:59:04 07/18/19 24 07/18/2023 DRUG MONIT OR, PANEL 3, W/CON F, URINE cocaine metabolite NEGATI VE NG/mL <150 Not Available [address] [address] [address] , [place], [address], 07/18/2023 01:59:04 07/18/19 24 07/18/2023 DRUG MONIT OR, PANEL 3, W/CON F, URINE marijuana metabolite POSITI VE NG/mL <20 abnormal Not Available [address] [address] [address], [place], [address], 07/18/2023 01:59:04 07/18/19 24 07/18/2023 DRUG MONIT OR, PANEL 3, W/CON F, URINE marijuana metabolite 112 NG/mL <5 high Not Available [address] [address] [address], [place], [address], 07/18/2023 01:59:04 07/18/19 24 07/18/2023 DRUG MONIT OR, PANEL 3, W/CON F, URINE marijuana comments See Nesha kim Notes , LDT Notes Not Available [address] [address] [address], [place], [address], 07/18/2023 01:59:04 07/18/19 24 07/18/2023 DRUG MONIT OR, PANEL 3, W/CON F, URINE opiates POSITI VE NG/mL <100 abnormal Not Available [address] [address] [place], [address], 07/18/2023 01:59:04 07/18/19 24 07/18/2023 DRUG MONIT OR, PANEL 3, W/CON F, URINE codeine NEGATI VE NG/mL <50 Not Available [address], [address], 07/18/2023 01:59:04 07/18/19 24 07/18/2023 DRUG MONIT OR, PANEL 3, W/CON F, URINE hydrocodone 411 NG/mL <50 high Not Available [address], [address], 07/18/2023 01:59:04 07/18/19 24 07/18/2023 DRUG MONIT OR, PANEL 3, W/CON F, URINE hydromorphon e 517 NG/mL <50 high Not Available [address], [address], 07/18/2023 01:59:04 07/18/19 24 07/18/2023 DRUG MONIT OR, PANEL 3, W/CON F, URINE morphine NEGATI VE NG/mL <50 Not Available [address], [address], 07/18/2023 01:59:04 07/18/19 24 07/18/2023 DRUG MONIT OR, PANEL 3, W/CON F, URINE norhydrocodo ne 445 NG/mL <50 high Not Available [address], [address], 07/18/2023 01:59:04 07/18/19 24 07/18/2023 DRUG MONIT OR, PANEL 3, W/CON F, URINE opiates comments See Opiat es Notes , LDT Notes Not Available [address], [address], 07/18/2023 01:59:04 07/18/19 24 07/18/2023 DRUG MONIT OR, PANEL 3, W/CON F, URINE oxycodone NEGATI VE NG/mL <100 Not Available [address] [address] [place], [address], 07/18/2023 01:59:04 07/18/19 24 07/18/2023 DRUG MONIT OR, PANEL 3, W/CON F, URINE creatinine 84.7 mg/dL > or = 20.0 Not Available [address] [address] [place], [address], 07/18/2023 01:59:04 07/18/19 24 07/18/2023 DRUG MONIT OR, PANEL 3, W/CON F, URINE pH 8.5 4.5-9. 0 Not Available [address] [address] [place], [address], 07/18/2023 01:59:04 07/18/19 24 07/18/2023 DRUG MONIT OR, PANEL 3, W/CON F, URINE oxidant NEGATI VE mcg/m L <200 Not Available [address] [address] [place], [address], 07/18/2023 01:59:04 03/10/19 24 03/11/2023 CBC WITH DIFFE RENTI AL/PL ATELE T WBC 6.2 x10e3 /uL 3.4-10 .8 Not Available [facility] ([facility]) [address] [place], [address], 03/11/2023 16:14:15 03/10/19 24 03/11/2023 CBC WITH DIFFE RENTI AL/PL ATELE T RBC 3.84 x10e6 /uL 4.14-5 .80 below low normal Not Available [facility] ([facility]) [address] [facility], [place], [address], 03/11/2023 16:14:15 03/10/19 24 03/11/2023 CBC WITH DIFFE RENTI AL/PL ATELE T hemoglobin 12.8 g/dL 13.0-1 7.7 below low normal Not Available [facility] ([facility]) [address] [facility], [place], [address], 03/11/2023 16:14:15 03/10/19 24 03/11/2023 CBC WITH DIFFE RENTI AL/PL ATELE T hematocrit 37.3 % 37.5-5 1.0 below low normal Not Available [facility] ([facility]) [address] [facility], [place], [address], 03/11/2023 16:14:15 03/10/19 24 03/11/2023 CBC WITH DIFFE RENTI AL/PL ATELE T MCV 97 fL 79-97 Not Available [facility] ([facility]) [address] [facility], [place], [address], 03/11/2023 16:14:15 03/10/19 24 03/11/2023 CBC WITH DIFFE RENTI AL/PL ATELE T MCH 33.3 pg 26.6-3 3.0 above high normal Not Available [facility] ([facility]) [address] [place], [address], 03/11/2023 16:14:15 03/10/19 24 03/11/2023 CBC WITH DIFFE RENTI AL/PL ATELE T MCHC 34.3 g/dL 31.5-3 5.7 Not Available [facility] ([facility]) [address] [facility], [place], [address], 03/11/2023 16:14:15 03/10/19 24 03/11/2023 CBC WITH DIFFE RENTI AL/PL ATELE T RDW 12.9 % 11.6-1 5.4 Not Available [facility] ([facility]) [address] [place], [address], 03/11/2023 16:14:15 03/10/19 24 03/11/2023 CBC WITH DIFFE RENTI AL/PL ATELE T platelets 249 x10e3 /uL 150-45 0 Not Available [facility] ([facility]) [address], [place], [address], 03/11/2023 16:14:15 03/10/19 24 03/11/2023 CBC WITH DIFFE RENTI AL/PL ATELE T neutrophils 74 % not estab. Not Available [facility] ([facility]) [address], [place], [address], 03/11/2023 16:14:15 03/10/19 24 03/11/2023 CBC WITH DIFFE RENTI AL/PL ATELE T lymphs 14 % not estab. Not Available [facility] ([facility]) [address] [facility], [place], [address], 03/11/2023 16:14:15 03/10/19 24 03/11/2023 CBC WITH DIFFE RENTI AL/PL ATELE T monocytes 11 % not estab. Not Available [facility] ([facility]) [address] [facility], [place], [address], 03/11/2023 16:14:15 03/10/19 24 03/11/2023 CBC WITH DIFFE RENTI AL/PL ATELE T eos 0 % not estab. Not Available [facility] ([facility]) [address] [facility], [place], [address], 03/11/2023 16:14:15 03/10/19 24 03/11/2023 CBC WITH DIFFE RENTI AL/PL ATELE T basos 1 % not estab. Not Available [facility] ([facility]) [address] [facility], [place], [address], 03/11/2023 16:14:15 03/10/19 24 03/11/2023 CBC WITH DIFFE RENTI AL/PL ATELE T immature cells CLINICAL SCIENCE CONSULTANT Not Available [facility] ([facility]) [address] [facility], [place], [address], 03/11/2023 16:14:15 03/10/19 24 03/11/2023 CBC WITH DIFFE RENTI AL/PL ATELE T neutrophils (absolute) 4.6 x10e3 /uL 1.4-7. 0 Not Available [facility] ([facility]) [address] [facility], [place], [address], 03/11/2023 16:14:15 03/10/19 24 03/11/2023 CBC WITH DIFFE RENTI AL/PL ATELE T lymphs (absolute) 0.9 x10e3 /uL 0.7-3. 1 Not Available [facility] ([facility]) [address] [place], [address], 03/11/2023 16:14:15 03/10/19 24 03/11/2023 CBC WITH DIFFE RENTI AL/PL ATELE T monocytes(ab solute) 0.7 x10e3 /uL 0.1-0. 9 Not Available [facility] ([facility]) [address] [place], [address], 03/11/2023 16:14:15 03/10/19 24 03/11/2023 CBC WITH DIFFE RENTI AL/PL ATELE T eos (absolute) 0.0 x10e3 /uL 0.0-0. 4 Not Available [facility] ([facility]) [address] [place], [address], 03/11/2023 16:14:15 03/10/19 24 03/11/2023 CBC WITH DIFFE RENTI AL/PL ATELE T baso (absolute) 0.1 x10e3 /uL 0.0-0. 2 Not Available [facility] ([facility]) [address] [place], [address], 03/11/2023 16:14:15 03/10/19 24 03/11/2023 CBC WITH DIFFE RENTI AL/PL ATELE T immature granulocytes 0 % not estab. Not Available [facility] ([facility]) [address] [place], [address], 03/11/2023 16:14:15 03/10/19 24 03/11/2023 CBC WITH DIFFE RENTI AL/PL ATELE T immature grans (abs) 0.0 x10e3 /uL 0.0-0. 1 Not Available [facility] ([facility]) [address] [facility], [place], [address], 03/11/2023 16:14:15 03/10/19 24 03/11/2023 CBC WITH DIFFE RENTI AL/PL ATELE T NRBC CLINICAL SCIENCE CONSULTANT Not Available [facility] ([facility]) [address] [facility], [place], [address], 03/11/2023 16:14:15 03/10/19 24 03/11/2023 CBC WITH DIFFE RENTI AL/PL ATELE T hematology comments: CLINICAL SCIENCE CONSULTANT Not Available [facility] ([facility]) [address] [facility], [place], [address], 03/11/2023 16:14:15 03/10/19 24 03/11/2023 BASIC METAB OLIC PANEL (8) glucose 113 mg/dL 70-99 above high normal Not Available [facility] ([facility]) [address] [facility], [place], [address], 03/11/2023 16:14:16 03/10/19 24 03/11/2023 BASIC METAB OLIC PANEL (8) BUN 10 mg/dL 8-27 Not Available [facility] ([facility]) [address] [facility], [place], [address], 03/11/2023 16:14:16 03/10/19 24 03/11/2023 BASIC METAB OLIC PANEL (8) creatinine 1.03 mg/dL 0.76-1 .27 Not Available [facility] ([facility]) [address] [facility], [place], [address], 03/11/2023 16:14:16 03/10/19 24 03/11/2023 BASIC METAB OLIC PANEL (8) eGFR 73 mL/mi n/1.7 3 >59 Not Available [facility] ([facility]) [address] [facility], [place], [address], 03/11/2023 16:14:16 03/10/19 24 03/11/2023 BASIC METAB OLIC PANEL (8) BUN/creatini ne ratio 10 10-24 Not Available [facility] ([facility]) [address] [facility], [place], [address], 03/11/2023 16:14:16 03/10/19 24 03/11/2023 BASIC METAB OLIC PANEL (8) sodium 132 mmol/ L 134-14 4 below low normal Not Available [facility] ([facility]) [address] [facility], [place], [address], 03/11/2023 16:14:16 03/10/19 24 03/11/2023 BASIC METAB OLIC PANEL (8) potassium 4.1 mmol/ L 3.5-5. 2 Not Available [facility] ([facility]) [address] [facility], [place], [address], 03/11/2023 16:14:16 03/10/19 24 03/11/2023 BASIC METAB OLIC PANEL (8) chloride 94 mmol/ L 96-106 below low normal Not Available [facility] ([facility]) [address] [place], [address], 03/11/2023 16:14:16 03/10/19 24 03/11/2023 BASIC METAB OLIC PANEL (8) carbon dioxide, total 24 mmol/ L 20-29 Not Available [facility] ([facility]) [address] [place], [address], 03/11/2023 16:14:16 03/10/19 24 03/11/2023 BASIC METAB OLIC PANEL (8) calcium 9.1 mg/dL 8.6-10 .2 Not Available [facility] ([facility]) [address] [place], [address], 03/11/2023 16:14:16 03/10/19 24 03/11/2023 VITAM IN B12 AND FOLAT E vitamin B12 711 pg/mL 232-12 45 Not Available [facility] ([facility]) [address], [place], [address], 03/11/2023 16:14:18 03/10/19 24 03/11/2023 VITAM IN B12 AND FOLAT E folate (folic acid), serum 3.9 NG/mL >3.0 A serum folat e shay ntrat ion of less than 3.1 ng/mL is consi dered to repre sent clini alex defic iency . Not Available [facility] ([facility]) [address] [facility], [place], [address], 03/11/2023 16:14:18 03/10/19 24 03/11/2023 TSH TSH 1.740 uIU/m L 0.450- 4.500 Not Available [facility] ([facility]) [address] [facility], [place], [address], 03/11/2023 16:14:18 03/10/19 24 03/11/2023 SEDIM ENTAT ION RATE- WESTE RGREN sedimentatio n rate-westerg jessica 5 mm/HR 0-30 Not Available [facility] ([facility]) [address] [place], [address], 03/11/2023 16:14:19 03/18/19 24 03/19/2023 UA/M W/RFL X CULTU RE, ROUTI NE specific gravity 1.018 1.005- 1.030 Not Available [facility] ([facility]) [address] [place], [address], 03/20/2023 06:21:42 03/18/19 24 03/19/2023 UA/M W/RFL X CULTU RE, ROUTI NE pH 6.5 5.0-7. 5 Not Available [facility] ([facility]) [address] [place], [address], 03/20/2023 06:21:42 03/18/19 24 03/19/2023 UA/M W/RFL X CULTU RE, ROUTI NE urine-color YELLOW yellow Not Available [facility] ([facility]) [address] [place], [address], 03/20/2023 06:21:42 03/18/19 24 03/19/2023 UA/M W/RFL X CULTU RE, ROUTI NE appearance CLEAR clear Not Available [facility] ([facility]) [address] [facility], [place], [address], 03/20/2023 06:21:42 03/18/19 24 03/19/2023 UA/M W/RFL X CULTU RE, ROUTI NE WBC esterase TRACE negati ve abnormal Not Available [facility] ([facility]) [address] [place], [address], 03/20/2023 06:21:42 03/18/19 24 03/19/2023 UA/M W/RFL X CULTU RE, ROUTI NE protein NEGATI VE negati ve/tra ce Not Available [facility] ([facility]) [address] [place], [address], 03/20/2023 06:21:42 03/18/19 24 03/19/2023 UA/M W/RFL X CULTU RE, ROUTI NE glucose NEGATI VE negati ve Not Available [facility] ([facility]) [address] [place], [address], 03/20/2023 06:21:42 03/18/19 24 03/19/2023 UA/M W/RFL X CULTU RE, ROUTI NE ketones NEGATI VE negati ve Not Available [facility] ([facility]) [address] [place], [address], 03/20/2023 06:21:42 03/18/19 24 03/19/2023 UA/M W/RFL X CULTU RE, ROUTI NE occult blood NEGATI VE negati ve Not Available [facility] ([facility]) [address] [place], [address], 03/20/2023 06:21:42 03/18/19 24 03/19/2023 UA/M W/RFL X CULTU RE, ROUTI NE bilirubin NEGATI VE negati ve Not Available [facility] ([facility]) [address] [place], [address], 03/20/2023 06:21:42 03/18/19 24 03/19/2023 UA/M W/RFL X CULTU RE, ROUTI NE urobilinogen ,semi-qn 1.0 mg/dL 0.2-1. 0 Not Available [facility] ([facility]) [address] [place], [address], 03/20/2023 06:21:42 03/18/19 24 03/19/2023 UA/M W/RFL X CULTU RE, ROUTI NE nitrite, urine NEGATI VE negati ve Not Available [facility] ([facility]) [address] [place], [address], 03/20/2023 06:21:42 03/18/19 24 03/19/2023 UA/M W/RFL X CULTU RE, ROUTI NE microscopic examination SEE BELOW: Micro scopi c was indic ated and was perfo rmed. Not Available [facility] ([facility]) [address] [place], [address], 03/20/2023 06:21:42 03/18/19 24 03/19/2023 UA/M W/RFL X CULTU RE, ROUTI NE WBC 0-5 /hpf 0 - 5 Not Available [facility] ([facility]) [address] [facility], [place], [address], 03/20/2023 06:21:42 03/18/19 24 03/19/2023 UA/M W/RFL X CULTU RE, ROUTI NE RBC 0-2 /hpf 0 - 2 Not Available [facility] ([facility]) [address] [facility], [place], [address], 03/20/2023 06:21:42 03/18/19 24 03/19/2023 UA/M W/RFL X CULTU RE, ROUTI NE epithelial cells (non renal) 0-10 /hpf 0 - 10 Not Available [facility] ([facility]) [address] [facility], [place], [address], 03/20/2023 06:21:42 03/18/19 24 03/19/2023 UA/M W/RFL X CULTU RE, ROUTI NE epithelial cells (renal) CLINICAL SCIENCE CONSULTANT Not Available [facility] ([facility]) [address] [facility], [place], [address], 03/20/2023 06:21:42 03/18/19 24 03/19/2023 UA/M W/RFL X CULTU RE, ROUTI NE casts NONE SEEN /lpf none seen Not Available [facility] ([facility]) [address] [facility], [place], [address], 03/20/2023 06:21:42 03/18/19 24 03/19/2023 UA/M W/RFL X CULTU RE, ROUTI NE cast type CLINICAL SCIENCE CONSULTANT Not Available [facility] ([facility]) [address] [place], [address], 03/20/2023 06:21:42 03/18/19 24 03/19/2023 UA/M W/RFL X CULTU RE, ROUTI NE crystals CLINICAL SCIENCE CONSULTANT Not Available [facility] ([facility]) [address] [place], [address], 03/20/2023 06:21:42 03/18/19 24 03/19/2023 UA/M W/RFL X CULTU REJOHN crystal type CLINICAL SCIENCE CONSULTANT Not Available [facility] ([facility]) [address] [facility], [place], [address], 03/20/2023 06:21:42 03/18/19 24 03/19/2023 UA/M W/RFL X CULTU REJOHN NE mucus threads CLINICAL SCIENCE CONSULTANT Not Available [facility] ([facility]) [address] [facility], [place], [address], 03/20/2023 06:21:42 03/18/19 24 03/19/2023 UA/M W/RFL X CULTU REJOHN NE bacteria NONE SEEN none seen/f ew Not Available [facility] ([facility]) [address], [place], [address], 03/20/2023 06:21:42 03/18/19 24 03/19/2023 UA/M W/RFL X CULTDolores REJOHN yeast CLINICAL SCIENCE CONSULTANT Not Available [facility] ([facility]) [address], [place], [address], 03/20/2023 06:21:42 03/18/19 24 03/19/2023 UA/M W/RFL X CULTDolores REJOHN NE trichomonas CLINICAL SCIENCE CONSULTANT Not Available [facility] ([facility]) [address], [place], [address], 03/20/2023 06:21:42 03/18/19 24 03/19/2023 UA/M W/RFL X CULTU REJOHN comment CLINICAL SCIENCE CONSULTANT Not Available [facility] ([facility]) [address], [place], [address], 03/20/2023 06:21:42 03/18/19 24 03/19/2023 UA/M W/RFL X CULTU RE, ROUTI NE microscopic examination CLINICAL SCIENCE CONSULTANT Not Available [facility] ([facility]) [address], [place], [address], 03/20/2023 06:21:42 03/18/19 24 03/19/2023 UA/M W/RFL X CULTU RE, ROUTI NE urinalysis reflex COMMEN T This speci men has refle xed to a Urine Cultu re. Not Available [facility] ([facility]) [address], [place], [address], 03/20/2023 06:21:42 03/18/19 24 03/20/2023 UA/M W/RFL X CULTU RE, ROUTI NE urine culture, routine FINAL REPORT Not Available [facility] ([facility]) [address], [place], [address], 03/20/2023 06:21:42 03/18/19 24 03/20/2023 UA/M W/RFL X CULTU RE, ROUTI NE result 1 COMMEN T Mixed uroge nital yogesh Less than 10,00 0 colon ies/m L Not Available [facility] ([facility]) [address], [place], [address], 03/20/2023 06:21:42 03/18/19 24 03/18/2023 urina lysis , dipst ick Leukocytes (reference range: negative holden/ l) Negati ve Not Available [address], [place], [address], 03/17/2023 12:21:37 03/18/19 24 03/18/2023 urina lysis , dipst ick Nitrite (reference rage: negative mg/dl) negati ve Not Available [address], [place], [address], 03/17/2023 12:21:37 02/08/03/18/2023 urina lysis , dipst ick Urobilinogen (reference range: 0.2-1 mg/dl) 1 Not Available [address], [place], [address], 03/17/2023 12:21:37 03/18/19 24 03/18/2023 urina lysis , dipst ick Protein (reference range: negative mg/dl) Negati ve Not Available [address], [place], [address], 03/17/2023 12:21:37 03/18/19 24 03/18/2023 urina lysis , dipst ick pH (reference range: 5-7) 6.0 Not Available [address], [place], [address], 03/17/2023 12:21:37 03/18/19 24 03/18/2023 urina lysis , dipst ick Blood (reference range: negative Morgan/ l) Negati ve Not Available [address], [place], [address], 03/17/2023 12:21:37 03/18/19 24 03/18/2023 urina lysis , dipst ick Specific Wilson (reference range: 1.005-1.030) 1.020 Not Available [address], [place], [address], 03/17/2023 12:21:37 03/18/19 24 03/18/2023 urina lysis , dipst ick Ketone (reference range: negative mg/dl) Negati ve Not Available [address], [place], [address], 03/17/2023 12:21:37 03/18/19 24 03/18/2023 urina lysis , dipst ick Bilirubin (reference range: negative mg/dl) Negati ve Not Available [address], [place], [address], 03/17/2023 12:21:37 03/18/19 24 03/18/2023 urina lysis , dipst ick Glucose (reference range: negative mg/dl) Negati ve Not Available [address], [place], [address], 03/17/2023 12:21:37 03/18/19 24 03/18/2023 urina lysis , dipst ick Appearance Clear Not Available [address], [place], [address], 03/17/2023 12:21:37 03/18/19 24 03/18/2023 urina lysis , dipst ick Color Dark Yellow Not Available [address], [place], [address], 03/17/2023 12:21:37 07/26/19 24 07/21/2023 US, echoc ardio gram No observ ation record ed. [facility] [address], [place], [address], 08/03/2023 09:29:02 07/26/19 24 07/21/2023 US, echoc ardio gram No observ ation record ed. [email or web address] [facility] [address], [place], [address], 07/28/2023 12:54:18 07/26/19 24 07/26/2023 sleep study , diagn ostic (PROC ) No observ ation record ed. [email or web address] [facility] [address], [place], [address], 08/03/2023 09:29:46 07/26/19 24 07/26/2023 home sleep study No observ ation record ed. [email or web address] [facility] [address], [place], [address], 07/28/2023 12:54:38 Result Notes None recorded. Problems Name Problem SNOMED Code Status Onset Date Resolution Date Notes Provider Name and Address Organization Details Recorded Time Cobalamin deficiency 416752660 Active 2022 Not Available [facility] 3 02:04:14 Postural dizziness 119089501 Active Not Available [facility] 3 02:04:14 Nocturia 766411419 Active Not Available [facility] 3 02:04:14 Increased frequency of urination 420547693 Active 2021 Not Available [facility] 3 02:04:14 Serum vitamin B12 below reference range 233530674 Active 2016 Not Available [facility] 3 02:04:14 Localized, primary osteoarthr itis of the shoulder region 056083011 Active Not Available [facility] 3 02:04:14 Gastroesop hageal reflux disease 611765261 Active 2018 Not Available [facility] 3 02:04:14 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 056510076 Active 2021 Not Available [facility] 3 02:04:14 Benign prostatic hyperplasi a 760793716 Active Not Available [facility] 3 02:04:14 Shoulder joint pain 916762660 Active 2016 Not Available [facility] 3 02:04:14 Syncope 826425139 Active Not Available [facility] 3 02:04:14 Anemia 112477266 Active Not Available [facility] 3 02:04:14 Osteoarthr itis 536341624 Active Not Available [facility] 3 02:04:14 Nonexudati ve age-relate d macular degenerati on 205487135 Active 2019 Not Available [facility] 3 02:04:14 Vitamin B deficiency 73985405 Active 2022 Not Available [facility] 3 02:04:14 Dysuria 82525586 Active Not Available [facility] 3 02:04:14 Essential hypertensi on 53824519 Active Not Available [facility] 3 02:04:14 Urinary tract infectious disease 28954640 Active Not Available [facility] 3 02:04:14 Degenerati on of interverte bral disc 87846069 Active Not Available [facility] 3 02:04:14 Fatigue 98056280 Active Not Available [facility] 3 02:04:14 Gout 75819957 Active Not Available [facility] 3 02:04:15 Degenerati on of lumbar interverte bral disc 04244228 Active 2022 Not Available [facility] 3 02:04:14 Spasm 30079456 Active 2022 Not Available [facility] 3 02:04:14 Hyponatrem ia 43958890 Active 2022 Not Available [facility] 3 02:04:15 Skin lesion 03858808 Active 2022 Not Available [facility] 3 02:04:15 Chronic hyponatrem ia 17429141 Active 2022 Not Available [facility] 3 02:04:14 Orthostati c hypotensio n 59422589 Active 2022 Not Available [facility] 3 02:04:14 Pain of left hip joint 7194668549921 00 Active 2022 Not Available [facility] 3 02:04:14 Edema of lower extremity 719619596 Active 2022 Not Available [facility] 3 02:04:14 Low back pain 953184499 Active 2022 Not Available [facility] 3 02:04:14 Bilateral sacroiliac joint pain 2399164511843 9104 Active 2022 Not Available [facility] 3 02:04:14 Acute urinary tract infection 222830114 Active 2022 Not Available [facility] 3 02:04:14 Lumbar spondylosi s 766881098 Active 2022 Not Available [facility] 3 02:04:14 Compressio n fracture of lumbar spine 570563992 Active 2022 Not Available [facility] 3 02:04:14 Organism isolated in blood by culture 1381264174022 107 Active 2022 ZACH Flores [address], [place], [address] , [employer] 3 17:03:49 Bilateral hearing loss 90593848 Active 2022 Sharon Lombardi MD [address], [employer], [place], [address] , [employer] 3 10:17:38 Night sweats 14702714 Active 2023 Sharon Lombardi MD [address], [employer], [place], [address] , [employer] 4 14:41:19 Erythrocyt e sedimentat ion rate above reference range 079352441 Active 2023 Sharon Lombardi MD [address], [employer], [place], [address] , [employer] 4 14:42:03 Rib pain 410102768 Active 2023 Sharon Lombardi MD [address], [employer], [place], [address] , [employer] 4 14:21:26 Open wound 986547856 Active 2023 ZACH Flores [address], [address], [place], [address] , [employer] 4 09:21:14 Problem Notes None recorded. Procedures Surgical History Date Name Laterality Status Provider Name and Address Organization Details Recorded Time 3 Cystoscopy (male) completed Reji Javed MD [address], [address], [place], [address], [facility] [email or web address] 09/02/2022 12:05:22 3 Ortho - Cortisone Injection completed Bryan Schwab MD [address], [address], [place], [address], [facility] [employer] [facility] [employer] 06/25/2022 10:59:59 3 Transitional_Ca re_Management completed YULI Stratton [address], [place], [address], [facility] [employer] 06/05/2022 15:42:12 Imaging Results Imaging Date Name Status LastModified by Organization Details LastModified Time 07/21/2023 US, echocardiogram completed [email or web address] [facility] [address], [place], [address], 08/03/2023 09:29:02 07/21/2023 US, echocardiogram completed [email or web address] [facility] [address], [place], [address], 07/28/2023 12:54:18 07/26/2023 sleep study, diagnostic (PROC) completed [email or web address] [facility] [address], [place], [address], 08/03/2023 09:29:46 07/26/2023 home sleep study completed [email or web address] [facility] [address], [place], [address], 07/28/2023 12:54:38 Procedure Notes None recorded. Medical [...] Not Available No t Available indometha michael 50 mg capsule TAKE ONE CAPSULE BY [...] DateTime 03/18/2023 172.72 cm Kika Jorgensen RN [facility] [employer] [facility] 03/18/2023 13:01:30 Date Recorded Body height Provider Name an d Address Organization Details Last Updated DateTime 09/14/2023 172.72 cm Ebony Belle RN [place] - [facility] [employer] [facility] 09/14/2023 11:56:38 Date Recorded Body height Body mass index (BMI) Body weight Body temperature Heart rate Oxygen saturation Oxygen saturation in Arterial blood by Pulse oximetry Systolic blood pressure Diastolic blood pressure Provider Name and Address Organization Details Last Updated DateTime 172.72 cm 27.5 kg/m2 21903.2 2 g 96.8 [degF] 94 /min 99 % 99 % 138 mm[Hg] 74 mm[Hg] Melanie Zhao RN [place] - [facility] [employer] [facility] 09:04:50 Social History Question Answer Notes LastModified by Organizat ion Details LastModified Time Tobacco Smoking Status Never Smoker Not Available [facility] 04/08/2022 02:34:01 What Is Your Level Of Alcohol Consumption? Heavy [email or web address] Information not available 06/25/2022 What Is Your Level Of Caffeine Consumption? Moderate [id number] Information not available 04/08/2022 In The 14 Days Before Symptom Onset, Have You Had Close Contact With A Laboratory-confirm ed COVID-19 While That Case Was Ill? No [id number] Information not available 04/08/2022 In The 14 Days Before Symptom Onset, Have You Had Close Contact With A Person Who Is Under Investigation For COVID-19 While That Person Was Ill? No [id number] Information not available 04/08/2022 What Type Of Diet Are You Following? REGULAR [id number] Information not available 04/08/2022 What Is Your Occupation? Retired [id number] Information not available 04/08/2022 Are There Any Guns Present In Your Home? No [id number] Information not available 04/08/2022 Have You Ever Been Counseled For Unhealthy Alcohol Use? No [email or web address] Information not available 06/05/2022 Do You Use Any Illicit Or Recreational Drugs? No Information not available 06/05/2022 Has Tobacco Cessation Counseling Been Provided? No [email or web address] Information not available 06/05/2022 Do You Have Any Dietary Restrictions? No [id number] Information not available 04/08/2022 Do You Or Have You Ever Used Any Other Forms Of Tobacco Or Nicotine? No Information not available 06/05/2022 Sex: Unknown Functional Status Question Answer Note LastModified by Organizat ion Details LastModified Time What is your exercise level? Occasional [id number] Information not available 04/08/2022 Mental Status None recorded. Family History Relationship Description Onset Age of this Age Resolved Age Notes LastModified by Organization Details LastModified Time Son Diabetes mellitus [id number] Not available 04/08/2022 02:34:26 Father Hypertensive disorder [email or web address] Not available 2022 10:35:49 Medical History Condition Response URINARY/BLADDER/KIDNEY PROBLEMS Y Immunizations Vaccine Type Date Status Note Provider Nam e and Address Organization Details Recorded Time Influenza, high-dose, quadrivalent, PF 10/23/2020 completed Not Available [facility] 3 02:04:15 Influenza, high-dose, quadrivalent, PF 01/08/2022 completed Not Available [facility] 3 02:04:15 Influenza, high-dose, quadrivalent, PF 11/15/2019 completed Not Available [facility] 3 02:04:15 Influenza, high-dose, quadrivalent, PF 10/21/2022 completed Stephani Sevilla RN [facility], [place] [facility] 10/21/2022 09:44:01 Past Encounters Encounter ID Performer Location Encounter Start Date Encounter Closed Date Diagnosis/Indication Diagnosis SNOMED-CT Code Diagnosis ICD10 Code Diagnosis Note [id number] [facility] Raquel Woodward [address] [place] [address] 04/24/2020 00:00:00 04/24/2020 16:53:32 [id number] [facility] [address] [facility] [address] [place] [address] 05/08/2020 00:00:00 05/08/2020 09:27:10 [id number] [facility] [place] [address] [place] [address] 07/10/2020 00:00:00 07/10/2020 13:52:33 [id number] [facility] E[facility] [address] [address] 10/09/2020 00:00:00 10/09/2020 11:38:12 [id number] [facility] [place] [address] [facility] [address] [place] [address] 10/23/2020 00:00:00 11/06/2020 08:57:30 [id number] [facility] [place] [address] [place] [address] 11/20/2020 00:00:00 11/20/2020 10:48:43 [id number] [facility] [place] [address] [facility] [address] [place] [address] 01/14/2021 00:00:00 01/14/2021 12:10:15 [id number] [facility] [place] [address] [place] [address] 02/20/2021 00:00:00 03/09/2021 21:45:58 [id number] [facility] [place] [address] [place] [address] 08/21/2021 00:00:00 09/05/2021 12:08:52 [id number] [facility] [place] [address] [place] [address] 01/08/2022 00:00:00 01/08/2022 10:06:00 [id number] [facility] [place] [address] [place] [address] 02/19/2022 00:00:00 03/04/2022 14:53:31 [id number] Sharon Lombardi MD [facility] [place] [address] [place] [address] 04/08/2022 14:36:52 04/09/2022 10:55:47 Adult health examination 377846358 Z00.00 see paper note [id number] Sharon Lombardi MD [facility] Primary Care [address] [place] [address] 05/05/2022 13:58:18 05/05/2022 16:09:37 Degeneration of lumbar intervertebral disc 63399286 M51.36 R29.6 Cobalamin deficiency 190 461715 E53.8 Essential hypertension 38596132 I10 Spasm 51223762 R25.2 check labs [id number] Sharon Lombardi MD [facility] [address] [place] [address] 05/13/2022 12:13:04 05/13/2022 12:59:53 [id number] TYRONE Novoa [facility] [address] [place] [address] 05/21/2022 13:58:28 05/21/2022 14:53:18 Skin lesion 99130495 L98.9 New problemLef t abarca (approx) 2cm x 1cmNot painful or itching; however, still very suspicious for melanoma.W ill refer to derm for further evaluation of lesion. Hyponatremia 06425934 E8 7.1 New problemNa 126 (05/13/22)9; 124 (05/05/22); 134 (01/08/22)W ill repeat BMP. Pt to continue with increased sodium intake pending new lab result. [id number] YULI Stratton [facility] Primary Care [address] [place] [address] 06/05/2022 14:04:30 06/05/2022 15:50:04 Transition of care 7276778881 105 Z75.8 U 05/28-. Chronic hyponatremia 503 44097 E87.1 He states while he was at the hospital it stabilized so he stopped taking the tablets. He has been adding salt to apples and different foods to just add salt into his diet.Armando AMATO today, advised he may need to go back on sodium tablets. Essential hypertension 23847315 I10 He has been out of valsartan for the last week because insurance is not covering it. Will work on getting PA approved. Orthostati c hypotension 26484283 I95.1 Has seen fluctuatio ns mainly with positional changes. Advised to rise slowly from lying/sitt ing. Will check his sodium again today. Continue to monitor blood pressure. Will also plan to get him consult with cardiology due to symptoms for further evaluation . [id number] Sharon Lombardi MD [facility] [place] [address] [employer] [facility] [address] [place] [address] 06/18/2022 12:33:38 06/18/2022 13:15:30 Pain of left hip joint 9417282044 20878 M25.552 Degenerati on of lumbar intervertebral disc 94471642 M51.36 R29.6 Renewal of prescription 975823678 Z76.0 Edema of l ower extremity 270029844 R60.0 M79.605 M79.604 I73.9 Cobalamin deficiency 190 134411 E53.8 Hyponatremia 58251997 E8 7.1 Essential hypertension 54021288 I10 [id number] Bryan Schwab MD [facility]o [place] [address] [place] [address] 06/25/2022 10:11:59 06/25/2022 10:58:51 Low back pain 584248462 M54.50 Pain of le ft hip joint 7519280177 02067 M25.552 Bilateral sacroiliac joint pain 3665923734 1229143 M53.3 [id number] YULI Stratton [facility] Primary [facility] [address] [employer] [facility] [address] [place] [address] 07/13/2022 12:34:36 07/13/2022 14:14:16 [id number] Reji Javed MD [facility] [address] [facility] [address] [place] [address] 07/22/2022 12:26:30 07/22/2022 13:08:06 Increased frequency of urination 304264078 R35.0 : 1 Cysto - normal penile [...] which has utilized to this point Nocturia 646857325 R35.1 :Discussed limiting night-time EtOH volume if he wishes to reduce his nocturia -- not bothered enough to limit it at this time Dysuria 39245288 R30.0 :Previous culture was skin contaminan tWill continue to monitor via UA and PVR Urinary tr act infectious disease 47500951 N39.0 :PLAN:-Con tinue Cipro as outside prescriber wrote for-RTC for Cysto next available- If has interval UTI events, he will try and get us culture data [id number] Sharon Lombardi MD [facility] Primary Care Abiel [place] [address] [facility] [address] [place] [address] 07/23/2022 09:17:26 07/23/2022 10:41:19 Degeneration of lumbar intervertebral disc 70479164 M51.36 R29.6 has appt with neurosurge ryrestart gabapentin 300 mg qhs Edema of l ower extremity 021412900 R60.0 M79.605 M79.604 I73.9 resolved Cobalamin deficiency 190 175567 E53.8 Hyponatremia 09478652 E8 7.1 [id number] Bryan Schwab MD [facility] [place] [address] [place] [address] 07/23/2022 11:26:56 07/23/2022 13:00:59 Low back pain 537060533 M54.50 Pain of le ft hip joint 3165677721 26174 M25.552 Bilateral sacroiliac joint pain 2032484371 8181748 M53.3 Lumbar spondylosis 46674 0009 M47.896 Compressio n fracture of lumbar spine 307320987 M48.56XA [id number] Bryan Schwab MD [facility]o [place] [address] [place] [address] 08/03/2022 09:40:07 08/03/2022 11:18:03 Low back pain 683264529 M54.50 Pain of le ft hip joint 1728083764 16433 M25.552 Bilateral sacroiliac joint pain 2480099837 1349913 M53.3 Lumbar spondylosis 23672 0009 M47.896 [id number] Reji Javed MD [facility] [place] [address] [facility] [address] [place] [address] 09/02/2022 11:36:35 09/02/2022 12:31:28 Urinary tract infectious disease 00567671 N39.0 :PLAN:-Cys to today -- negative, though [...] and documentat ion. Increased frequency of urination 727301042 R35.0 : 1 Cysto - normal penile [...] which has utilized to this point Nocturia 267360726 R35.1 :Discussed limiting night-time EtOH volume if he wishes to reduce his nocturia -- not bothered enough to limit it at this time Dysuria 68836000 R30.0 :Previous culture was skin contaminan tWill continue to monitor via UA and PVR [id number] Sharon Lombardi MD [facility] Primary Care [facility] [address] [facility] [address] [place] [address] 09/11/2022 10:21:27 09/11/2022 11:01:32 Cobalamin deficiency 839606951 E53.8 Hyponatremia 68734846 E8 7.1 stablechec k labs Essential hypertension 01018493 I10 in excellent control Renewal of prescription 117780707 Z76.0 Lumbar spondylosis 25853 0009 M47.896 refills givenhas second opinion appt upcoming with neurosurge ry Dr. Dorsey [id number] Sharon Lombardi MD [facility] Primary Care [facility] [address] [facility] [address] [place] [address] 10/21/2022 08:47:32 10/21/2022 10:54:28 Hyponatremia 44043761 E87.1 stablechec k labs Administra tion of influenza vaccine 37461476 Z23 Cobalamin deficiency 190 186297 E53.8 Lumbar spondylosis 62678 0009 M47.896 has seen neurosurge ry and pain mgmthe is very active and will continue supportive careincrea se gabapentin 300 mg bidrefill hydrocodon e/apap-he uses this sparinglyc ontinue diclofenac 75 mg bidf/u in 3 months or sooner if needed [id number] Sharon Lombardi MD [facility] [address] [place] [address] [address] [facility] [place] [address] 03/10/2023 14:14:31 03/10/2023 15:36:45 Cobalamin deficiency 526520987 E53.8 Essential hypertension 00172236 I10 monitored daily by cardiology Night sweats 83460137 R6 1 check labs [id number] TYRONE Flores-C [facility] Primary [facility] [address] [place] [address] [address] [facility] [place] [address] 03/18/2023 12:25:42 03/18/2023 13:05:21 [id number] TYRONE Flores-C [facility] Primary Care [facility] [address] [place] [address] [address] [facility] [place] [address] 07/12/2023 10:36:37 07/12/2023 10:47:03 [id number] TYRONE Flores-C [facility] Primary [facility] [place] [facility] [address] [place] [address] [address] [facility] [place] [address] 07/27/2023 12:12:25 07/27/2023 12:39:54 [id number] CARLOS FloresC [facility] [address] [place] [address] [address] [place] [address] 09/14/2023 11:54:56 09/14/2023 14:23:49 [id number] AZAEL FloresP-C [facility] Primary [facility] [place] [facility] [address] [place] [address] [address] [place] [address] 09/23/2023 08:55:37 09/23/2023 09:27:28 Cobalamin deficiency 556653630 E53.8 chronic, stable Essential hypertension 28245255 I10 chronic, stable with [facility] cardiology f/u was July, next f/u is in Decemberlabs obtained Night sweats 87033144 R6 1 check labs Open wound 641134946 T14 .8XXA noted to right arm after a fallsome possible infection noted Health Concerns Section Related Observation LastModified by Organization Detai ls LastModified Time None Recorded Concern Status LastModified by Organization Details LastModified Time None Recorded Advance Directives Directive None Recorded Payers Encounter Date Sequence Insurance Name Policy Number Policy Ortiz Covered Member ID Ortiz Member ID Guarantor Name 03/18/2023 2 [place] Vincenzo Lunsford Wegrzyn [id number] Vincenzo Isatu Wegrzyn 03/18/2023 1 [facility] Vincenzo Lunsford Wegrzyn [id number] Vincenzo Lunsford Wegrzyn 07/12/2023 2 [place] Vincenzo Lunsford Wegrzyn [id number] Vincenzo Isatu Wegrzyn 07/12/2023 1 [facility] [id number] Vincenzo T Wegrzyn [id number] Vincenzo T Wegrzyn 07/27/2023 2 [place] Vincenzo Lunsford Wegrzyn [id number] Vincenzo T Wegrzyn 07/27/2023 1 [facility] [id number] Vincenzo T Wegrzyn [id number] Vincenzo T Wegrzyn 09/14/2023 2 [place] (MEDICARE) Vincenzo T Wegrzyn [id number] Vincenzo Lunsford Wegrzyn 09/14/2023 1 [facility] [id number] Vincenzo T Wegrzyn [id number] Vincenzo T Wegrzyn 09/23/2023 2 [place] Vincenzo Isatu Wegrzyn [id number] Vincenzo T Wegrzyn 09/23/2023 1 [facility] [id number] Vincenzo T Wegrzyn [id number] Vincenzo T Wegrzyn Notes Date Note Type Note Provider Name and Address Organization Details Recorded Time 09/23/2023 text/html Pt is here for f/u ZACH Flores [address] [facility], [facility] [address], [place], [address], [facility] [employer] [facility] 09/23/2023 09:26:18
[2024-05-15 11:37] LABS: Iron 93 ug/dL (49-181)
[2024-05-15 11:47] LABS: Percent Iron Saturation 30 % (20-50)
[2024-05-15 12:17] LABS: Prostate Specific Antigen 3.4 ng/mL (< OR = 4.0)
--- OUTSIDE RECORDS SUMMARY | 2024-05-15 12:19 | XMS_ITS | CONTINUITY OF CARE DOCUMENT ---
Author Name eddie morgan Address Unknown Organization [facility] Address [address] [place] [address] Phone [phone] Care Team Providers Care Consulting Application Engineer Name Role Phone Ninfa SANDERS, Jaime Camacho Unavailable [phone] SHALA SANDERS, RANDY Unavailable [phone] SHALA SANDERS, RANDY Unavailable [phone] PROBLEMS Condition Status Date Provider Notes HTN [...] In-person encounter Office Visit Jaime Ocasio MD [place] [facility] CVA - NOSSyncope - In-person encounter Office Visit Jaime Ocasio MD [facility] Cardiology examinationAV block 1st degreeSleep disorder - In-person encounter Office Visit Jaime Ocasio MD [facility] Office - In-person encounter Office Visit Jaime Ocasio MD [place] [facility] Cardiology examinationDizzinessHyponatremiaOrthostatic hypotensionBenign prostatic hyperplasia (BPH)Osteoarthritis, hip - In-person encounter Office Visit Jaime Ocasio MD [place] [facility] - In-person encounter Office Visit Jaime Ocasio MD [place] [facility] - In-person encounter Office Visit Jaime Ocasio MD [place] [facility] - In-person encounter Office Visit Jaime Ocasio MD [facility] HTN essentialAbnormal electrocardiogramIrregular rhythmAlcohol consumption regular [...] Busch blood pressure, systolic 163 mm[Hg] Ton [facility] Busch oxygen saturation, oximetry 98 % Tonsha Busch weight E&M 202 [lb_av] Tonsha Busch pulse rate 113 /min Tonsha Busch height E&M 68 [in_i] Tonsha Busch Body Mass Index (Ratio) 30.71 kg/m2 Leonides Plurad blood pressure, diastolic 80 mm[Hg] Ki lleen Quesada blood pressure, systolic 130 mm[Hg] Kil mayank Quesada oxygen saturation, oximetry 98 % [place] Quesada respiratory rate E&M 16 /min Nikunj Quesada pulse rate 114 /min [place] Quesada weight E&M 202 [lb_av] [place] Quesada height E&M 68 [in_i] Nikunj Quesada [...] 0-149 0 cholesterol, serum 149 mg/dL Link[employer] 650-397 9722/03/3 0 calcium, serum 9.2 mg/dL [employer] 8.6-10.2 0 carbon dioxide, venous blood 25 mmol/L [employer] 18-29 0 chloride, serum 95 mmol/L [employer] 96-106 Low 0 potassium, serum 4.5 mmol/L [employer] 3.5-5.2 0 sodium, serum 136 mmol/L [employer] 245-204 2283/03/3 0 urea nitrogen/creatinine ratio, serum 15 [employer] 10-24 0 eGFR if 102 mL/min/{1 .73_m2} [employer] >59 0 eGFR if not 88 mL/min/{1 .73_m2} [employer]ic >59 0 creatinine, serum 0.78 mg/dL [employer] 0.76-1.27 0 urea nitrogen, blood 12 mg/dL [employer] 8-27 0 blood glucose, random 101 mg/dL [employer] 65-99 High 0 platelet count 357 X10E3/UL [employer] 945-000 5195/03/3 0 red blood cell distribution width 13.4 [...] tablet by mouth once a day 09/27 Jaiem Ocasio MD hydrochlorothiazide 25 mg tablet active [...] as needed 05/11 - 07/03 Constance Mcfarlandmagdalena CERTIFIED SURGICAL TECHNOLOGIST #60, 30 days supply, Prescribed by GRANT [...] ewed - no changes required Constance Mcfarlandmagdalena CERTIFIED SURGICAL TECHNOLOGIST social history E&M S moking History: Romeo salazar has never smoked. Constance Mcfarlandmagdalena CERTIFIED SURGICAL TECHNOLOGIST drug use no Constance Avery CERTIFIED SURGICAL TECHNOLOGIST alcohol use yes Constance Avery CERTIFIED SURGICAL TECHNOLOGIST passive cigarette sm dom exposure no Angy [...] Payer name Policy type / Coverage type [place] red constitution party ID [facility] Other [id number] MEDICARE SECONDARY [place] Medicare [id number] ADVANCE DIRECTIVES Name Date DISCUSSED - NO DECISION MADE TREATMENT PLAN Date Name Performer [id number],C,M ay be taking losartan and valsartan together. [...] by mouth every day Jaime Ocasio MD [id number] JUAN on 07/20/22: 1 . Normal left [...] 07/20/2022 at 4:15 PM Jaime Ocasio MD [id number],C,N ovember 2022 M ost likely took both valsartan and losartan on one given day, and [facility]. Jaime Ocasio MD [id number],CP atient has been symptomatic for a few months now though he reports improveemnt in the last few weeks Constance Avery NP [id number],C, S R on tele monitor and had [...] TO EVAL FOR AFIB Constance Avery NP [id number],C,F lucinda with urology. O n Tamsulosin Constance Avery CERTIFIED SURGICAL TECHNOLOGIST [id number],C,A s reported per PCP PROBABLY RELATED TO HYPONATREMIA WHCIH IS NOW RESOLVED Constance Avery CERTIFIED SURGICAL TECHNOLOGIST [id number],C,N a was as 118 but now improved to 136 (06/05/22). He is on sodium tablets HYPONATREMIA WHCIH IS NOW RESOLVED Constance Avery CERTIFIED SURGICAL TECHNOLOGIST [id number],C,C URRENTLY ONLY TAKING DIOVAN The following medications [...] Cardiology:He has de veloped some prolongation of CO interval, okay to conitnue with Metoprolol 25 [...] given day, and ended up at the [place] [facility]. Jaime Ocasio MD Cardiology:Patient h as [...] up :Better con trolled on med rx. [facility] Cardiology Follow up :Negative stress for ischemia. Diaphragm attenuation noted. Normal LV fxn based on echo ans stress. [facility] Cardiology Follow up :SR on tele monitor and had occasional ectopics, SVTs, PVCs. No afib. [facility] Cardiology:5-6 shots of vodka daily. R eduction [...] Sarah Beth Rosenbaum MD completed [facility] Jaime Ocasio MD completed
--- OUTSIDE RECORDS SUMMARY | 2024-05-15 12:19 | XMS_ITS | Clinical Summary ---
Author Organization [facility] Address [address] [place] [address] Care Team Providers Care Care Trainer Name Role Phone Unavailable Primary Care Provider Unavailabl e Source Comments [facility],non-owned Affiliates and Associated Physician Practices is amultiple site organization consisting of ambulatory clinics and hospital sitesin [place], [place], [place] and [place]. This disclosure is being madepursuant to the Care Everywhere program and may not contain all information available regarding this patient. Last updated 17.[facility] [employer] Allergies No known active allergies Medications * [...] and heating? Not hard at all 05/30/2022 [facility] Occupat ional [facility] - Occupational Stress Questionnaire Answer Date [...] place to sleep or slept in a custodial (including now)? No 05/30/2022 Sex and Gender [...] Type MEDICARE MEDICARE PART A AND B [id number] 11/08/2006-Pre sent [address] [place] [address] Medicare [employer] UHC CHOICE/SELECT /CHOICE PLUS/ALL PAYORS [id number] 02/08/2023-Pres ent [address] [address] [place] [address] HMO SELF PAY NO INSURANCE SELF PAY NO INSURANCE Effective for all dates [place], [place] Self Pay MEDICARE MEDICARE PART A AND B [id number] Effective for all dates [address] [place] [address] Medicare [employer] UHC MEDICARE SUPP GENERIC Effective for all dates Commercial MEDICARE MEDICARE PART A AND B [id number] Effective for all dates [address] [place] [address] Medicare [employer] UHC MEDICARE SUPP GENERIC Effective for all dates Commercial MEDICARE MEDICARE PART A AND B [id number] Effective for all dates [address] [place] [address] Medicare [employer] UHC MEDICARE SUPP GENERIC Effective for all dates Commercial [facility] MEDICARE SUPP GENERIC [id number] Effective for all dates Commercial MEDICARE MEDICARE PART A AND B Effective for all dates [address] [place] [address] Medicare [employer] UHC MEDICARE SUPP GENERIC [id number] Effective for all dates Commercial MEDICARE MEDICARE PART A AND B Effective for all dates [address] [place] [address] Medicare [employer] UHC MEDICARE SUPP GENERIC [id number] Effective for all dates Commercial MEDICARE MEDICARE PART A AND B Effective for all dates [address] [place] [address] Medicare [employer] UHC CHOICE/SELECT /CHOICE PLUS/ALL PAYORS [id number] 02/08/2022-Pres ent [address] [address] [place] [address] O MEDICARE WPS MEDICARE PART B [id number] 11/08/2006-Pre sent [address] [address] [place] [address] Medicare Advance Directives * Full Code (Latest Code Status on File) Date Activated Date Inactivated Comments 05/28/2022 6:57 PM 05/30/2022 9:34 AM
--- OUTSIDE RECORDS SUMMARY | 2024-05-15 12:19 | XMS_ITS | Clinical Summary ---
Author Organization [facility] Address [address] [place] [address] Care Team Providers Care Premises Technician Name Role Phone Unavailable Primary Care [...] - 1-dose 75+ series) 2016 COVID-19 Vaccine ( - 2023-2 5 season) 2023 Meningococcal B Vaccine Aged Out No l onger eligible based on patient's age to complete this topic Meningococcal Vaccine Aged Out No vonda georgiana eligible based on patient's age to complete this topic RSV Immunizations Under 20 Months Aged Out No longer eligible based on patient's age to complete this topic
== END 2024-05-15 10:37 | disposition home or self-care (01) ==
PROVIDERS: PCP Family Medicine; Referring Provider Nurse Practitioner Family; Visit Provider Family Medicine
DX: R79.89 Other specified abnormal findings of blood chemistry (principal); D51.8 Other vitamin B12 deficiency anemias; D50.9 Iron deficiency anemia, unspecified; E55.9 Vitamin D deficiency, unspecified; R10.2 Pelvic and perineal pain
CPT/HCPCS: 36415; 82306; 82607; 82728; 83540; 83550; 84153; G0103

== ENCOUNTER 2024-07-27 14:37 | Outpatient (CLI) | payer OTHER, MEDICARE, SELFPAY ==
--- OUTSIDE RECORDS SUMMARY | 2024-07-27 14:50 | XMS_ITS | CONTINUITY OF CARE DOCUMENT ---
Author Name eddie morgan Address Unknown Organization [facility] Address [address] [place] [address] Phone [phone] Care Team Providers Care Beauty Culture Teacher Name Role Phone Ninfa SANDERS, Jaime Camacho Unavailable SHALA SANDERS, RANDY Unavailable [phone] SHALA SANDERS, RANDY Unavailable [phone] PROBLEMS Condition Status Date Provider Notes HTN [...] In-person encounter Office Visit Jaime Ocasio MD [place] [facility] - In-person encounter Office Visit Jaime Ocasio MD [place] [facility] CVA - NOSSyncope - In-person encounter Office Visit Jaime Ocasio MD [place] [facility] Cardiology examinationAV block 1st degreeSleep disorder - In-person encounter Office Visit Jaime Ocasio MD [facility] Office - In-person encounter Office Visit Jaime Ocasio MD [place] [facility] Cardiology examinationDizzinessHyponatremiaOrthostatic hypotensionBenign prostatic hyperplasia (BPH)Osteoarthritis, hip - In-person encounter Office Visit Jaime Ocasio MD [place] [facility] - In-person encounter Office Visit Jaime Ocasio MD [place] [facility] - In-person encounter Office Visit Jaime Ocasio MD [place] [facility] - In-person encounter Office Visit Jaime Ocasio MD [place] [facility] HTN essentialAbnormal electrocardiogramIrregular rhythmAlcohol consumption regular VITAL SIGNS Date Observation Value Provider Body Mass Index (Ratio) 26.30 kg/m2 Prasad Ocasio MD blood pressure, diastolic 77 mm[Hg] Briseida Wallis blood pressure, systolic 151 mm[Hg] Ely Wallis oxygen saturation, oximetry 98 % Sherri Wallis pulse rate 89 /min Sherri Wallis respiratory rate E&M 12 /min Sherri Wallis weight E&M 173 [lb_av] Sherri Wallis height E&M 68 [in_i] Sherri Wallis blood pressure, cuff size regular Briseida Wallis Body Mass Index (Ratio) 27.67 kg/m2 Prasad Ocasio MD blood pressure, diastolic 102 mm[Hg] Briseida guadalupe Wallis blood pressure, systolic 180 mm[Hg] Ely gardner Wallis oxygen saturation, oximetry 98 % Sherri Wallis respiratory rate E&M 12 /min Sherri Wallis pulse rate 87 /min Sherri Brooklyn weight E&M 182 [lb_av] Sherri Brooklyn height E&M 68 [in_i] Sherri Brooklyn blood pressure, cuff size regular Briseida guadalupe Wallis Body Mass Index (Ratio) 26.76 kg/m2 Prasad Ocasio MD blood pressure, cuff size regular Cecil paniagua Jones blood pressure, diastolic 80 mm[Hg] Cecil paniagua Jones blood pressure, systolic 140 mm[Hg] Clive ithcase Jones pulse rate 85 /min Ember Atkinson oxygen saturation, oximetry 100 % Ember Jones respiratory rate E&M 12 /min Ember Jones weight E&M 176 [lb_av] Ember Jones height E&M 68 [in_i] Ember Jones Body Mass Index (Ratio) 27.82 kg/m2 Prasad Ocasio MD blood pressure, diastolic 83 mm[Hg] Nicolette nkLogsasha blood pressure, systolic 148 mm[Hg] Melany Marcumogsasha blood pressure, diastolic 83 mm[Hg] St usman Yen blood pressure, systolic 148 mm[Hg] Dominick Yen oxygen saturation, oximetry 98 % Angy Yen pulse rate 86 /min Angy Yen respiratory rate E&M 16 /min Angy mccarty weight E&M 183 [lb_av] Angy Yen height E&M 68 [in_i] [facility] Body Mass Index (Ratio) 27.21 kg/m2 Prasad Ocasio MD blood pressure, diastolic 79 mm[Hg] Li nkLogic blood pressure, systolic 159 mm[Hg] Melany Marcumog blood pressure, diastolic 79 mm[Hg] St mary Farshad blood pressure, systolic 159 mm[Hg] Dominick mckinney Farshad oxygen saturation, oximetry 98 % Angy Farshad pulse rate 108 /min [facility] respiratory rate E&M 18 /min Angy Sheree bibiana weight E&M 179 [lb_av] [facility] height E&M 68 [in_i] [facility] Body Mass Index (Ratio) 30.71 kg/m2 Prasad Ocasio MD blood pressure, diastolic 95 mm[Hg] To nsha Busch respiratory rate E&M 18 /min Tonsha Busch blood pressure, systolic 163 mm[Hg] Ton sha Busch oxygen saturation, oximetry 98 % Tonsha Busch weight E&M 202 [lb_av] Tonsha Busch pulse rate 113 /min Tonsha Busch height E&M 68 [in_i] Tonsha Busch Body Mass Index (Ratio) 30.71 kg/m2 Leonides Plurad blood pressure, diastolic 80 mm[Hg] Ki lleen Quesada blood pressure, systolic 130 mm[Hg] Kil mayank Quesada oxygen saturation, oximetry 98 % Nikunj Quesada respiratory rate E&M 16 /min Nikunj Quesada pulse rate 114 /min Nikunj Quesada weight E&M 202 [lb_av] Nikunj Quesada height E&M 68 [in_i] [place] Quesada Body Mass Index (Ratio) 30.25 kg/m2 Elder Beasley blood pressure, cuff size regular Ke rri Rayna blood pressure, diastolic 90 mm[Hg] Ke rri Javierelder blood pressure, systolic 162 mm[Hg] Harley Way oxygen saturation, oximetry 98 % Lara Way respiratory rate E&M 20 /min Lara G alvaroenegeorginaeldteddy pulse rate 122 /min Lara Todd er weight E&M 199 [lb_av] Lara Todd [facility] height E&M 68 [in_i] Lara Peyton [facility] Body Mass Index (Ratio) 31.11 kg/m2 Prasad Ocasio MD blood pressure, resting Yes LovelyEva Fam blood pressure, diastolic 101 mm[Hg] Tc [...] 0-149 0 cholesterol, serum 149 mg/dL [facility] 353-211 1011/03/3 0 calcium, serum 9.2 mg/dL [facility] 8.6-10.2 0 carbon dioxide, venous blood 25 mmol/L [facility] 18-29 0 chloride, serum 95 mmol/L [facility] 96-106 Low 0 potassium, serum 4.5 mmol/L [facility] 3.5-5.2 0 sodium, serum 136 mmol/L [facility] 605-810 0619/03/3 0 urea nitrogen/creatinine ratio, serum 15 [facility] 10-24 0 eGFR if 102 mL/min/{1 .73_m2} [facility]ic >59 0 eGFR if not 88 mL/min/{1 .73_m2} [facility] >59 0 creatinine, serum 0.78 mg/dL [facility] 0.76-1.27 0 urea nitrogen, blood 12 mg/dL [facility] 8-27 0 blood glucose, random 101 mg/dL [facility] 65-99 High 0 platelet count 357 X10E3/UL [facility] 374-953 8082/03/3 0 red blood cell distribution width 13.4 [...] Yen etodolac 400 mg tablet active Angy Farshad valsartan 80 mg tablet completed TAKE 1 TABLET BY MOUTH EVERY DAY - 02/22 Jaime Ocasio MD gabapentin 300 mg capsule active Angy Farshad tizanidine 2 mg tablet active Angy Farshad metoprolol succinate 25 mg tablet extended release [...] day as needed 05/11 - 07/03 Constance Avery NP #60, 30 days supply, Prescribed by GRANT NICOLAS, Filled 05/11/2018 VITAMIN D TABLET completed once a week 05/28 - 07/03 Constance Avery NP CALCIUM CAPSULE completed Take 1 once a day 05/28 - 07/03 Constance Avery NP pantoprazole 20 mg tablet,delayed release (DR/EC) completed Take 1 once a day 05/28 - 07/03 Constance Avery NP aspirin 81 mg tablet,delayed release (DR/EC) completed 1 tablet by mouth once a day 05/28 - 07/03 Constance Avery NP Vitamin B-12 1,000 mcg tablet active every 2 months 05/[address] VALSARTAN 160 MG ORAL TABLET completed one tab by mouth once daily - 05/13 [facility] SOCIAL HISTORY Date Observation Value Provider drug use no Jaime willoughby MD alcohol use yes Jaime willoughby MD passive cigarette sm dmo exposure no Jaiem Ocasio MD chewing tobacco use Never Jaime [...] revi ewed - no changes required Constance Avery NP social history E&M S moking History: Romeo salazar has never smoked. Constance Avery NP drug use no Constance Avery NP alcohol use yes Constance Avery NP passive cigarette sm dom exposure no Angyfaye Yen chewing tobacco use Never Angy Da vis smoking status Never smoker Angy Yen social history E&M S moking History: Romeo [...] revi ewed - no changes required Jaime cOasio MD social history E&M S moking History: Romeo salazar has never smoked. Jaime Ocasio MD smoking status Never smoker Orin Gonzaelz FAMILY HISTORY Family Member Condition First Degree Blood Relative No Known Fam faviola History INSURANCE PROVIDERS Payer name Policy type / Coverage type [place] red green party ID C Other [id number] MEDICARE SECONDARY [place] Medicare [id number] ADVANCE DIRECTIVES Name Date DISCUSSED - NO DECISION MADE TREATMENT PLAN Date Name Performer [id number],YaminiM ay be taking losartan and valsartan together. [...] by mouth every day Jaime Ocasio MD [id number] E CHO on 07/20/22: 1 . Normal [...] 07/20/2022 at 4:15 PM Jaime Ocasio MD [id number],C,N ovember 2022 M ost likely took both valsartan and losartan on one given day, and ended up at the [facility]. Jaime Ocasio MD [id number],C,P atient has been symptomatic for a few months now though he reports improveemnt in the last few weeks Constance Avery NP [id number],C, S R on tele monitor and had [...] TO EVAL FOR AFIB Constance Avery NP [id number],YaminiF lucinda with urology. O n Tamsulosin Constance Avery NP [id number],C,A s reported per PCP PROBABLY RELATED TO HYPONATREMIA WHCIH IS NOW RESOLVED Constance Avery NP [id number],C,N a was as 118 but now improved to 136 (06/05/22). He is on sodium tablets HYPONATREMIA WHCIH IS NOW RESOLVED Constance Avery NP [id number],C,C URRENTLY ONLY TAKING DIOVAN The following medications [...] mouth every day Constance Sparrowjose antonio LAM Cardiology:CONCLUSIO NS: 1 . Technically difficult study, limited views secondary to poor acoustic windows. Interpretation is based on available limited v iews. Normal left ventricular systolic function. Normal left ventricular size. Mild concentric left ventricular hypertrophy. T here is E to A wave reversal consistent with impaired LV relaxation. E/E': 10.3. Left ventricular ejection fraction is measured a t 60 %. 2 . No significant valvular abnormalities. E lectronically Signed By: Candida Ocasio MD, [facility] 2 024-06-17 11:06:23 CDT C C: Jaime Ocasio MD, [facility] Jaime Ocasio MD Cardiology:Discussio n of benefits for remote patient monitoring took place. Patient gives consent for remote monitoring of physiologic parameters including, but not limited to, weight, blood pressure, pulse oximetry, respiratory flow rate. T his visit has been a part of the consistent, comprehensive, and ongoing management of the chronic medical condition(s) listed above for the patient. & #13;His updated medication list for this problem includes: Telmisartan 20 Mg Tablet (Telmisartan) ..... Take 1 tablet by mouth once a day Metoprolol Succinate 25 Mg Tablet Extended Release 24 Hr (Metoprolol succinate) ..... Take 0.5 tablet by mouth once a day Hydrochlorothiazide 25 Mg Tablet (Hydrochlorothiazide) ..... 1 tablet once a day BP today: 151/77 P rior BP: 180/102 (12/23/2023) Labs Reviewed: C reat: 0.78 (05/07/2017) C hol: 149 (05/07/2017) HDL: 68 (05/07/2017) LDL: 69 (05/07/2017) T (05/07/2017) Jaime Ocasio MD Cardiology: 5 -6 shots of vodka daily. R eduction advised. 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 May 13, 2018 H as reduced down to 2-4 shots per day. Left ventricular ejection fraction is estimated at 70 %. June 30, 2023 l ast echo EF was 07/20/2022 with 60% June 20, 2024 d marino TITOS vodka has reduced consumption Jaime Ocasio MD Cardiology: F ashley down and had head CT which was abnormal. Check carotid doppler. Will check tele monitor to rule out afib June 20, 2024 n o afib on tele monitor from 12/2023 Jaime Ocasio MD Cardiology:tele m on otor from 12/2023 S inus Rhythm with occasional Ventricular ectopics and o ccasional Supraventricular ectopics. The average heart rate w as 83bpm with a maximum rate of 132bpm and a minimum rate o f 67bpm. VE?s were documented as triplets, couplets, and i solated beats with a burden of 1.45%. SVE?s were documented a s triplets, couplets, and isolated beats with a burden of 1 .06% Jaime Ocasio MD Cardiology:Tripped and fell Prasad Ocasio MD Cardiology: 5 -6 shots of vodka daily. R eduction advised. 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 May 13, 2018 H as reduced down to 2-4 shots per day. Left ventricular ejection fraction is estimated at 70 %. June 30, 2023 l ast echo EF was 07/20/2022 with 60% Jaime Ocasio MD Cardiology: sheree pichardo alcohol before sleep, intermittently taking marijuana gummies, [...] TO EVAL FOR AFIB June 30, 2023 c aisha tele Jaime Ocasio MD Cardiology: N a [...] (05/07/2017) T (05/07/2017) Jaime Ocasio MD Cardiology: Ernie MARTINEZ on 07/20/22: 1 . Normal left ventricular [...] Cardiology:He has de veloped some prolongation of ID interval, okay to conitnue with Metoprolol 25 [...] given day, and ended up at the [facility]. Jaime Ocasio MD Cardiology:Patient h as been [...] FOR AFIB Constance Avery NP Cardiology:Follows w [facility] urology. O n Tamsulosin Constance Avery NP [...] mouth every day Constance Sparrowjose antonio LAM Cardiology: S R on tele monitor and [...] up :Better con trolled on med rx. Sandra Bealsey Cardiology Follow up :Negative stress for ischemia. Diaphragm attenuation noted. Normal LV fxn based on echo ans stress. Sandra Beasley Cardiology Follow up :SR on tele monitor and had occasional ectopics, SVTs, PVCs. No afib. Sandra Beasley Cardiology:5-6 shots of vodka daily. R eduction [...] Procedure Name Provider Procedure Notes S tatus EKG Jaime Ocasio MD compl eted Complex e/m visit add on Jaime Ocasio [...] Stress EKG Sarah Beth Rosenbaum MD completed VEL Ocasio MD completed
--- OUTSIDE RECORDS SUMMARY | 2024-07-27 14:50 | XMS_ITS | Clinical Summary ---
Author Organization [facility] Address [address] [place] [address] Care Team Providers Care Basket Sorter Name Role Phone Unavailable Primary Care Provider [...] Td Vaccines ( 1 - Tdap) 1959 Pneumococcal Vaccine: 50+ Ye ars (1 of 1 - PCV) 11/18/1991 Zoster Vaccines (1 of 2) 11/18/1991 RSV Immunization or 60+ Years (1 - 1-dose 75+ series) 2016 COVID-19 Vaccine (2023-2 5 season) 2023 Meningococcal B Vaccine Aged Out No l onger eligible based on patient's age to complete this topic Meningococcal Vaccine Aged Out No vonda georgiana eligible based on patient's age to complete this topic RSV Immunizations Under 20 Months Aged Out No longer eligible based on patient's age to complete this topic
--- OUTSIDE RECORDS SUMMARY | 2024-07-27 14:50 | XMS_ITS | Data Portability ---
Author Organization - [facility] Sow Address [address] [place] [address] Assessment Encounter Date Assessment Date Assessment LastModified [...] worsening signs or symptoms. Pt lives in [place] and is driving back home today. States he has an appointment with his chiropractor tomorrow. Not available 04/28/2022 11:44:13 Plan of Treatment Reminders Order Date Submit Date Provider Last Modified By Organization Details Last Modified Time Details Appointments None recorded. Lab None recorded. Referral None recorded. Procedures None recorded. Surgeries None recorded. Imaging XR, sacroiliac joint(s) 2022 023 [facility] Not available 3 14:16:04 Medication Orders Medrol (Piotr) 4 mg tablets in a dose pack 2022 023 [facility] [id number], [address], [place], [address], 3 11:33:53 tizanidine 2 mg tablet 2022 023 [facility] [id number], [address], [place], [address], 3 11:33:49 naproxen 500 mg tablet 2022 023 [facility] [id number], [address], [place], [address], 11:33:52 Patient TargetsNo targets recorded. Patient Instructions Encounter Date Encounter Id Patient Instructions Last Modified By Organization Details Last Modified Time 04/28/2022 [id number] -Rest the affected side. -Be sure to [...] Available 2022 14:16:04 Result Notes None recorded. Medical Equipment None Reported. [...] Updated DateTime 3 172.72 cm 26.6 kg/m2 44313.6 6 g 102 /min 18 /min 94 % 94 % 98 [degF] 166 mm[Hg] 95 mm[Hg] Gerbergisselle Brandonyoni [facility] - [facility] 10:50:54 Social History None recorded. Functional Status None recorded. Mental Status None recorded. Family History Nothing Reported. Medical History No medical history recorded. Past Encounters Encounter ID Performer Location Encounter Start Date Encounter Closed Date Diagnosis/Indication Diagnosis SNOMED-CT Code Diagnosis ICD10 Code Diagnosis Note [id number] WAGNER STEVE NP [facility] [address] [place] [address] 04/28/2022 10:30:10 04/28/2022 11:36:06 Pain of right hip joint 8737242667 73654 M25.551 Health Concerns Section Related Observation LastModified by Organization Detai ls LastModified Time None Recorded Concern Status LastModified by Organization Details LastModified Time None Recorded Advance Directives Directive None Recorded Payers Insurance Date Sequence Insurance Name Policy Number Policy Ortiz Covered Member ID Ortiz Member ID Guarantor Name 04/28/2022 2 [place] Vincenzo Glaser [id number] Vincenzo Glaser 04/28/2022 1 [facility] [id number] Vincenzo Glaser [id number] Vincenzo Glaser Notes Date Note Type Note [...] biofreeze with no relief. WAGNER STEVE NP [address] [address], [place], [address], [place] [facility] - [facility] 04/28/2022 11:45:21
--- OUTSIDE RECORDS SUMMARY | 2024-07-27 14:50 | XMS_ITS | Data Portability ---
Author Organization [facility] [employer] Main Office Address [address] [place] [address] Assessment No assessment recorded. Plan of Treatment Reminders Order Date Submit Date Provider Last Modified By Organization Details Last Modified Time Details Appointments None recorded. Lab CBC w/ auto diff [address] (Lab), [address] [place], [address], 4 09:46:38 BMP, serum or plasma [address] (Lab), [address] [place], [address], 4 09:46:48 lipid panel, serum [address] (Lab), [address] [place], [address], 4 09:46:59 TSH, serum or plasma [address] (Lab), [address] [place], [address], 4 09:47:10 vitamin B12, serum [address] (Lab), [address] [place], [address], 4 09:46:19 folate, serum [address] ([facility]), [address] [place], [address], 4 09:46:29 Referral None recorded. Procedures None recorded. Surgeries None recorded. Imaging None recorded. Medication Orders mupirocin 2 % topical ointment 2023 024 [facility] [employer] [id number], [address], [place], [id number], 4 09:25:44 doxycycline hyclate 100 mg tablet 2023 024 [facility] [employer] [facility][id number], [address], [place], [id number], 4 09:25:45 Patient TargetsNo targets recorded. Patient InstructionsNo instructions recorded. Reason for Referral None Reported. Results Created Date Observation Date Name Description Value Unit Range Abnormal Flag Note LastModifiedBy Organization Detail LastModifiedTime 07/18/19 24 07/18/2023 DRUG MONIT OR, PANEL 3, W/CON F, URINE amphetamines NEGATI VE CONFIR MED NG/mL <500 Not Available [employer] [address] [address] [place], [address], 07/18/2023 01:59:01 07/18/19 24 07/18/2023 DRUG MONIT OR, PANEL 3, W/CON F, URINE amphetamine NEGATI VE NG/mL <250 Not Available [employer] [address] [address] [place], [address], 07/18/2023 01:59:01 07/18/19 24 07/18/2023 DRUG MONIT OR, PANEL 3, W/CON F, URINE methamphetam ine NEGATI VE NG/mL <250 Not Available [employer] [address] [address] [place], [address], 07/18/2023 01:59:01 07/18/19 24 07/18/2023 DRUG MONIT OR, PANEL 3, W/CON F, URINE amphetamines comments See LDT Notes Not Available [address] [address] [address], [place], [address], 07/18/2023 01:59:01 07/18/19 24 07/18/2023 DRUG MONIT OR, PANEL 3, W/CON F, URINE benzodiazepi jean-paul NEGATI VE NG/mL <100 Not Available [address] [address] [place], [address], 07/18/2023 01:59:01 07/18/19 24 07/18/2023 DRUG MONIT OR, PANEL 3, W/CON F, URINE cocaine metabolite NEGATI VE NG/mL <150 Not Available [address] [address] [address] , [place], [address], 07/18/2023 01:59:01 07/18/19 24 07/18/2023 DRUG MONIT OR, PANEL 3, W/CON F, URINE marijuana metabolite POSITI VE NG/mL <20 abnormal Not Available [address] [address] [address] , [place], [address], 07/18/2023 01:59:01 07/18/19 24 07/18/2023 DRUG MONIT OR, PANEL 3, W/CON F, URINE marijuana metabolite 112 NG/mL <5 high Not Available [address] [address] [place], [address], 07/18/2023 01:59:01 07/18/19 24 07/18/2023 DRUG MONIT OR, PANEL 3, W/CON F, URINE marijuana comments See Nesha kim Notes , LDT Notes Not Available [address] [address] [address], [place], [address], 07/18/2023 01:59:01 07/18/19 24 07/18/2023 DRUG MONIT OR, PANEL 3, W/CON F, URINE opiates POSITI VE NG/mL <100 abnormal Not Available [address] [address] [place], [address], 07/18/2023 01:59:01 07/18/19 24 07/18/2023 DRUG MONIT OR, PANEL 3, W/CON F, URINE codeine NEGATI VE NG/mL <50 Not Available [address] [address] [address] , [place], [address], 07/18/2023 01:59:01 07/18/19 24 07/18/2023 DRUG MONIT OR, PANEL 3, W/CON F, URINE hydrocodone 411 NG/mL <50 high Not Available [address] [address] [address] , [place], [address], 07/18/2023 01:59:01 07/18/19 24 07/18/2023 DRUG MONIT OR, PANEL 3, W/CON F, URINE hydromorphon e 517 NG/mL <50 high Not Available [address] [address] [place], [address], 07/18/2023 01:59:01 07/18/19 24 07/18/2023 DRUG MONIT OR, PANEL 3, W/CON F, URINE morphine NEGATI VE NG/mL <50 Not Available [address] [address] [place], [address], 07/18/2023 01:59:01 07/18/19 24 07/18/2023 DRUG MONIT OR, PANEL 3, W/CON F, URINE norhydrocodo ne 445 NG/mL <50 high Not Available [address] [address] [place], [address], 07/18/2023 01:59:01 07/18/19 24 07/18/2023 DRUG MONIT OR, PANEL 3, W/CON F, URINE opiates comments See Opiat es Notes , LDT Notes Not Available [address] [address] [place], [address], 07/18/2023 01:59:01 07/18/19 24 07/18/2023 DRUG MONIT OR, PANEL 3, W/CON F, URINE oxycodone NEGATI VE NG/mL <100 Not Available [address] [address] [place], [address], 07/18/2023 01:59:01 07/18/19 24 07/18/2023 DRUG MONIT OR, PANEL 3, W/CON F, URINE creatinine 84.7 mg/dL > or = 20.0 Not Available [facility] [address] [address] [place], [address], 07/18/2023 01:59:01 07/18/19 24 07/18/2023 DRUG MONIT OR, PANEL 3, W/CON F, URINE pH 8.5 4.5-9. 0 Not Available [address] [address] [address] , [place], [address], 07/18/2023 01:59:01 07/18/19 24 07/18/2023 DRUG MONIT OR, PANEL 3, W/CON F, URINE oxidant NEGATI VE mcg/m L <200 Not Available [facility] [address] [address] [place], [address], 07/18/2023 01:59:01 07/18/1907/18/2023 DRUG MONIT ORING TEMPL [...] of Marij uana. Opiat es Notes : [place] codon e, Norhy droco done, [place] morph one detec gus is consi stent with the use of the drug [place] codon e. [place] morph one detec gus is consi stent with the use of the drug [place] morph one. [place] morph one can be a presc ribed drug and is also a metab olite of [place] codon e. LDT Notes : Confi rmati on tests were devel oped and their rosibel tical perfo rmanc e barbra cteri stics have been deter mined by [employer] [facility]. It has not been clear [...] M-F, 8am to 10pm EST Not Available [facility] [address] [address] [place], [address], 07/18/2023 01:59:03 07/18/19 24 07/18/2023 DRUG MONIT OR, PANEL 3, W/CON F, URINE amphetamines NEGATI VE CONFIR MED NG/mL <500 Not Available [facility] [address] [address] [place], [address], 07/18/2023 01:59:04 07/18/19 24 07/18/2023 DRUG MONIT OR, PANEL 3, W/CON F, URINE amphetamine NEGATI VE NG/mL <250 Not Available [employer] [address] [address] [place], [address], 07/18/2023 01:59:04 07/18/19 24 07/18/2023 DRUG MONIT OR, PANEL 3, W/CON F, URINE methamphetam ine NEGATI VE NG/mL <250 Not Available [facility] [address] [address] [place], [address], 07/18/2023 01:59:04 07/18/19 24 07/18/2023 DRUG MONIT OR, PANEL 3, W/CON F, URINE amphetamines comments See LDT Notes Not Available [address] [address] [address], [place], [address], 07/18/2023 01:59:04 07/18/19 24 07/18/2023 DRUG MONIT OR, PANEL 3, W/CON F, URINE benzodiazepi jean-paul NEGATI VE NG/mL <100 Not Available [address] [address] [place], [address], 07/18/2023 01:59:04 07/18/19 24 07/18/2023 DRUG MONIT OR, PANEL 3, W/CON F, URINE cocaine metabolite NEGATI VE NG/mL <150 Not Available [address] [address] [address] , [place], [address], 07/18/2023 01:59:04 07/18/19 24 07/18/2023 DRUG MONIT OR, PANEL 3, W/CON F, URINE marijuana metabolite POSITI VE NG/mL <20 abnormal Not Available [address] [address] [address], [place], [address], 07/18/2023 01:59:04 07/18/19 24 07/18/2023 DRUG MONIT OR, PANEL 3, W/CON F, URINE marijuana metabolite 112 NG/mL <5 high Not Available [address] [address] [address], [place], [address], 07/18/2023 01:59:04 07/18/19 24 07/18/2023 DRUG MONIT OR, PANEL 3, W/CON F, URINE marijuana comments See Nesha kim Notes , LDT Notes Not Available [address] [address] [address], [place], [address], 07/18/2023 01:59:04 07/18/19 24 07/18/2023 DRUG MONIT OR, PANEL 3, W/CON F, URINE opiates POSITI VE NG/mL <100 abnormal Not Available [address] [address] [place], [address], 07/18/2023 01:59:04 07/18/19 24 07/18/2023 DRUG MONIT OR, PANEL 3, W/CON F, URINE codeine NEGATI VE NG/mL <50 Not Available [address], [address], 07/18/2023 01:59:04 07/18/19 24 07/18/2023 DRUG MONIT OR, PANEL 3, W/CON F, URINE hydrocodone 411 NG/mL <50 high Not Available [address], [address], 07/18/2023 01:59:04 07/18/19 24 07/18/2023 DRUG MONIT OR, PANEL 3, W/CON F, URINE hydromorphon e 517 NG/mL <50 high Not Available [address], [address], 07/18/2023 01:59:04 07/18/19 24 07/18/2023 DRUG MONIT OR, PANEL 3, W/CON F, URINE morphine NEGATI VE NG/mL <50 Not Available [address], [address], 07/18/2023 01:59:04 07/18/19 24 07/18/2023 DRUG MONIT OR, PANEL 3, W/CON F, URINE norhydrocodo ne 445 NG/mL <50 high Not Available [address], [address], 07/18/2023 01:59:04 07/18/19 24 07/18/2023 DRUG MONIT OR, PANEL 3, W/CON F, URINE opiates comments See Opiat es Notes , LDT Notes Not Available [address], [address], 07/18/2023 01:59:04 07/18/19 24 07/18/2023 DRUG MONIT OR, PANEL 3, W/CON F, URINE oxycodone NEGATI VE NG/mL <100 Not Available [address] [address] [place], [address], 07/18/2023 01:59:04 07/18/19 24 07/18/2023 DRUG MONIT OR, PANEL 3, W/CON F, URINE creatinine 84.7 mg/dL > or = 20.0 Not Available [address] [address] [place], [address], 07/18/2023 01:59:04 07/18/19 24 07/18/2023 DRUG MONIT OR, PANEL 3, W/CON F, URINE pH 8.5 4.5-9. 0 Not Available [address] [address] [place], [address], 07/18/2023 01:59:04 07/18/19 24 07/18/2023 DRUG MONIT OR, PANEL 3, W/CON F, URINE oxidant NEGATI VE mcg/m L <200 Not Available [address] [address] [place], [address], 07/18/2023 01:59:04 03/10/19 24 03/11/2023 CBC WITH DIFFE RENTI AL/PL ATELE T WBC 6.2 x10e3 /uL 3.4-10 .8 Not Available [facility] ([facility]) [address] [place], [address], 03/11/2023 16:14:15 03/10/19 24 03/11/2023 CBC WITH DIFFE RENTI AL/PL ATELE T RBC 3.84 x10e6 /uL 4.14-5 .80 below low normal Not Available [facility] ([facility]) [address] [facility], [place], [address], 03/11/2023 16:14:15 03/10/19 24 03/11/2023 CBC WITH DIFFE RENTI AL/PL ATELE T hemoglobin 12.8 g/dL 13.0-1 7.7 below low normal Not Available [facility] ([facility]) [address] [facility], [place], [address], 03/11/2023 16:14:15 03/10/19 24 03/11/2023 CBC WITH DIFFE RENTI AL/PL ATELE T hematocrit 37.3 % 37.5-5 1.0 below low normal Not Available [facility] ([facility]) [address] [facility], [place], [address], 03/11/2023 16:14:15 03/10/19 24 03/11/2023 CBC WITH DIFFE RENTI AL/PL ATELE T MCV 97 fL 79-97 Not Available [facility] ([facility]) [address] [facility], [place], [address], 03/11/2023 16:14:15 03/10/19 24 03/11/2023 CBC WITH DIFFE RENTI AL/PL ATELE T MCH 33.3 pg 26.6-3 3.0 above high normal Not Available [facility] ([facility]) [address] [place], [address], 03/11/2023 16:14:15 03/10/19 24 03/11/2023 CBC WITH DIFFE RENTI AL/PL ATELE T MCHC 34.3 g/dL 31.5-3 5.7 Not Available [facility] ([facility]) [address] [facility], [place], [address], 03/11/2023 16:14:15 03/10/19 24 03/11/2023 CBC WITH DIFFE RENTI AL/PL ATELE T RDW 12.9 % 11.6-1 5.4 Not Available [facility] ([facility]) [address] [place], [address], 03/11/2023 16:14:15 03/10/19 24 03/11/2023 CBC WITH DIFFE RENTI AL/PL ATELE T platelets 249 x10e3 /uL 150-45 0 Not Available [facility] ([facility]) [address], [place], [address], 03/11/2023 16:14:15 03/10/19 24 03/11/2023 CBC WITH DIFFE RENTI AL/PL ATELE T neutrophils 74 % not estab. Not Available [facility] ([facility]) [address], [place], [address], 03/11/2023 16:14:15 03/10/19 24 03/11/2023 CBC WITH DIFFE RENTI AL/PL ATELE T lymphs 14 % not estab. Not Available [facility] ([facility]) [address] [facility], [place], [address], 03/11/2023 16:14:15 03/10/19 24 03/11/2023 CBC WITH DIFFE RENTI AL/PL ATELE T monocytes 11 % not estab. Not Available [facility] ([facility]) [address] [facility], [place], [address], 03/11/2023 16:14:15 03/10/19 24 03/11/2023 CBC WITH DIFFE RENTI AL/PL ATELE T eos 0 % not estab. Not Available [facility] ([facility]) [address] [facility], [place], [address], 03/11/2023 16:14:15 03/10/19 24 03/11/2023 CBC WITH DIFFE RENTI AL/PL ATELE T basos 1 % not estab. Not Available [facility] ([facility]) [address] [facility], [place], [address], 03/11/2023 16:14:15 03/10/19 24 03/11/2023 CBC WITH DIFFE RENTI AL/PL ATELE T immature cells [employer] Not Available [facility] ([facility]) [address] [facility], [place], [address], 03/11/2023 16:14:15 03/10/19 24 03/11/2023 CBC WITH DIFFE RENTI AL/PL ATELE T neutrophils (absolute) 4.6 x10e3 /uL 1.4-7. 0 Not Available [facility] ([facility]) [address] [facility], [place], [address], 03/11/2023 16:14:15 03/10/19 24 03/11/2023 CBC WITH DIFFE RENTI AL/PL ATELE T lymphs (absolute) 0.9 x10e3 /uL 0.7-3. 1 Not Available [facility] ([facility]) [address] [place], [address], 03/11/2023 16:14:15 03/10/19 24 03/11/2023 CBC WITH DIFFE RENTI AL/PL ATELE T monocytes(ab solute) 0.7 x10e3 /uL 0.1-0. 9 Not Available [facility] ([facility]) [address] [place], [address], 03/11/2023 16:14:15 03/10/19 24 03/11/2023 CBC WITH DIFFE RENTI AL/PL ATELE T eos (absolute) 0.0 x10e3 /uL 0.0-0. 4 Not Available [facility] ([facility]) [address] [place], [address], 03/11/2023 16:14:15 03/10/19 24 03/11/2023 CBC WITH DIFFE RENTI AL/PL ATELE T baso (absolute) 0.1 x10e3 /uL 0.0-0. 2 Not Available [facility] ([facility]) [address] [place], [address], 03/11/2023 16:14:15 03/10/19 24 03/11/2023 CBC WITH DIFFE RENTI AL/PL ATELE T immature granulocytes 0 % not estab. Not Available [facility] ([facility]) [address] [facility] [place], [address], 03/11/2023 16:14:15 03/10/19 24 03/11/2023 CBC WITH DIFFE RENTI AL/PL ATELE T immature grans (abs) 0.0 x10e3 /uL 0.0-0. 1 Not Available [facility] ([facility]) [address] [facility], [place], [address], 03/11/2023 16:14:15 03/10/19 24 03/11/2023 CBC WITH DIFFE RENTI AL/PL ATELE T NRBC [employer] Not Available [facility] ([facility]) [address] [facility], [place], [address], 03/11/2023 16:14:15 03/10/19 24 03/11/2023 CBC WITH DIFFE RENTI AL/PL ATELE T hematology comments: [employer] Not Available [facility] ([facility]) [address] [facility], [place], [address], 03/11/2023 16:14:15 03/10/19 24 03/11/2023 BASIC METAB OLIC PANEL (8) glucose 113 mg/dL 70-99 above high normal Not Available [facility] ([facility]) [address] [facility], [place], [address], 03/11/2023 16:14:16 03/10/19 24 03/11/2023 BASIC METAB OLIC PANEL (8) BUN 10 mg/dL 8-27 Not Available [facility] ([facility]) [address] [facility], [place], [address], 03/11/2023 16:14:16 03/10/19 24 03/11/2023 BASIC METAB OLIC PANEL (8) creatinine 1.03 mg/dL 0.76-1 .27 Not Available [facility] ([facility]) [address] [facility], [place], [address], 03/11/2023 16:14:16 03/10/19 24 03/11/2023 BASIC METAB OLIC PANEL (8) eGFR 73 mL/mi n/1.7 3 >59 Not Available [facility] ([facility]) [address] [facility], [place], [address], 03/11/2023 16:14:16 03/10/19 24 03/11/2023 BASIC METAB OLIC PANEL (8) BUN/creatini ne ratio 10 10-24 Not Available [facility] ([facility]) [address] [facility], [place], [address], 03/11/2023 16:14:16 03/10/19 24 03/11/2023 BASIC METAB OLIC PANEL (8) sodium 132 mmol/ L 134-14 4 below low normal Not Available [facility] ([facility]) [address] [facility], [place], [address], 03/11/2023 16:14:16 03/10/19 24 03/11/2023 BASIC METAB OLIC PANEL (8) potassium 4.1 mmol/ L 3.5-5. 2 Not Available [facility] ([facility]) [address] [facility], [place], [address], 03/11/2023 16:14:16 03/10/19 24 03/11/2023 BASIC METAB OLIC PANEL (8) chloride 94 mmol/ L 96-106 below low normal Not Available [facility] ([facility]) [address] [place], [address], 03/11/2023 16:14:16 03/10/19 24 03/11/2023 BASIC METAB OLIC PANEL (8) carbon dioxide, total 24 mmol/ L 20-29 Not Available [facility] ([facility]) [address] [place], [address], 03/11/2023 16:14:16 03/10/19 24 03/11/2023 BASIC METAB OLIC PANEL (8) calcium 9.1 mg/dL 8.6-10 .2 Not Available [facility] ([facility]) [address] [place], [address], 03/11/2023 16:14:16 03/10/19 24 03/11/2023 VITAM IN B12 AND FOLAT E vitamin B12 711 pg/mL 232-12 45 Not Available [facility] ([facility]) [address], [place], [address], 03/11/2023 16:14:18 03/10/19 24 03/11/2023 VITAM IN B12 AND FOLAT E folate (folic acid), serum 3.9 NG/mL >3.0 A serum folat e shay ntrat ion of less than 3.1 ng/mL is consi dered to repre sent clini alex defic iency . Not Available [facility] ([facility]) [address] [facility], [place], [address], 03/11/2023 16:14:18 03/10/19 24 03/11/2023 TSH TSH 1.740 uIU/m L 0.450- 4.500 Not Available [facility] ([facility]) [address] [facility], [place], [address], 03/11/2023 16:14:18 03/10/19 24 03/11/2023 SEDIM ENTAT ION RATE- WESTE RGREN sedimentatio n rate-westerg jessica 5 mm/HR 0-30 Not Available [facility] ([facility]) [address] [facility] [place], [address], 03/11/2023 16:14:19 03/18/19 24 03/19/2023 UA/M W/RFL X CULTU RE, ROUTI NE specific gravity 1.018 1.005- 1.030 Not Available [facility] ([facility]) [address] [facility] [place], [address], 03/20/2023 06:21:42 03/18/19 24 03/19/2023 UA/M W/RFL X CULTU RE, ROUTI NE pH 6.5 5.0-7. 5 Not Available [facility] ([facility]) [address] [place], [address], 03/20/2023 06:21:42 03/18/19 24 03/19/2023 UA/M W/RFL X CULTU RE, ROUTI NE urine-color YELLOW yellow Not Available [facility] ([facility]) [address] [place], [address], 03/20/2023 06:21:42 03/18/19 24 03/19/2023 UA/M W/RFL X CULTU RE, ROUTI NE appearance CLEAR clear Not Available [facility] ([facility]) [address] [facility], [place], [address], 03/20/2023 06:21:42 03/18/19 24 03/19/2023 UA/M W/RFL X CULTU RE, ROUTI NE WBC esterase TRACE negati ve abnormal Not Available [facility] ([facility]) [address] [place], [address], 03/20/2023 06:21:42 03/18/19 24 03/19/2023 UA/M W/RFL X CULTU RE, ROUTI NE protein NEGATI VE negati ve/tra ce Not Available [facility] ([facility]) [address] [place], [address], 03/20/2023 06:21:42 03/18/19 24 03/19/2023 UA/M W/RFL X CULTU RE, ROUTI NE glucose NEGATI VE negati ve Not Available [facility] ([facility]) [address] [place], [address], 03/20/2023 06:21:42 03/18/19 24 03/19/2023 UA/M W/RFL X CULTU RE, ROUTI NE ketones NEGATI VE negati ve Not Available [facility] ([facility]) [address] [place], [address], 03/20/2023 06:21:42 03/18/19 24 03/19/2023 UA/M W/RFL X CULTU RE, ROUTI NE occult blood NEGATI VE negati ve Not Available [facility] ([facility]) [address] [place], [address], 03/20/2023 06:21:42 03/18/19 24 03/19/2023 UA/M W/RFL X CULTU RE, ROUTI NE bilirubin NEGATI VE negati ve Not Available [facility] ([facility]) [address] [place], [address], 03/20/2023 06:21:42 03/18/19 24 03/19/2023 UA/M W/RFL X CULTU RE, ROUTI NE urobilinogen ,semi-qn 1.0 mg/dL 0.2-1. 0 Not Available [facility] ([facility]) [address] [place], [address], 03/20/2023 06:21:42 03/18/19 24 03/19/2023 UA/M W/RFL X CULTU RE, ROUTI NE nitrite, urine NEGATI VE negati ve Not Available [facility] ([facility]) [address] [place], [address], 03/20/2023 06:21:42 03/18/19 24 03/19/2023 UA/M W/RFL X CULTU RE, ROUTI NE microscopic examination SEE BELOW: Micro scopi c was indic ated and was perfo rmed. Not Available [facility] ([facility]) [address] [place], [address], 03/20/2023 06:21:42 03/18/19 24 03/19/2023 UA/M W/RFL X CULTU RE, ROUTI NE WBC 0-5 /hpf 0 - 5 Not Available [facility] ([facility]) [address] [facility], [place], [address], 03/20/2023 06:21:42 03/18/19 24 03/19/2023 UA/M W/RFL X CULTU RE, ROUTI NE RBC 0-2 /hpf 0 - 2 Not Available [facility] ([facility]) [address] [facility], [place], [address], 03/20/2023 06:21:42 03/18/19 24 03/19/2023 UA/M W/RFL X CULTU RE, ROUTI NE epithelial cells (non renal) 0-10 /hpf 0 - 10 Not Available [facility] ([facility]) [address] [facility], [place], [address], 03/20/2023 06:21:42 03/18/19 24 03/19/2023 UA/M W/RFL X CULTU RE, ROUTI NE epithelial cells (renal) [employer] Not Available [facility] ([facility]) [address] [facility], [place], [address], 03/20/2023 06:21:42 03/18/19 24 03/19/2023 UA/M W/RFL X CULTU RE, ROUTI NE casts NONE SEEN /lpf none seen Not Available [facility] ([facility]) [address] [facility], [place], [address], 03/20/2023 06:21:42 03/18/19 24 03/19/2023 UA/M W/RFL X CULTU RE, ROUTI NE cast type [employer] Not Available [facility] ([facility]) [address] [place], [address], 03/20/2023 06:21:42 03/18/19 24 03/19/2023 UA/M W/RFL X CULTU RE, ROUTI NE crystals [employer] Not Available [facility] (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) [address] [facility], [place], [address], 03/20/2023 06:21:42 03/18/19 24 03/19/2023 UA/M W/RFL X CULTU REJOHN NE bacteria NONE SEEN none seen/f ew Not Available [facility] (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) [address] [facility], [place], [address], 03/20/2023 06:21:42 03/18/19 24 03/19/2023 UA/M W/RFL X CULTU REJOHN comment [employer]UXILI[employer] EQUIPMENT TENDER Not Available [facility] (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) [address] [facility], [place], [address], 03/20/2023 06:21:42 03/18/19 24 03/19/2023 UA/M W/RFL X CULTU RE, ROUTI NE urinalysis reflex COMMEN T This speci men has refle xed to a Urine Cultu re. Not Available [facility] ([facility]) [address] [facility], [place], [address], 03/20/2023 06:21:42 03/18/19 24 03/20/2023 UA/M W/RFL X CULTU RE, ROUTI NE urine culture, routine FINAL REPORT Not Available [facility] ([facility]) [address] [facility], [place], [address], 03/20/2023 06:21:42 03/18/19 24 03/20/2023 UA/M W/RFL X CULTU RE, ROUTI NE result 1 COMMEN T Mixed uroge nital yogesh Less than 10,00 0 colon ies/m L Not Available [facility] ([facility]) [address] [facility], [place], [address], 03/20/2023 06:21:42 03/18/19 24 03/18/2023 urina lysis , dipst ick Leukocytes (reference range: negative holden/ l) Negati ve Not Available [address], [place], [address], 03/17/2023 12:21:37 03/18/19 24 03/18/2023 urina lysis , dipst ick Nitrite (reference rage: negative mg/dl) negati ve Not Available [address], [place], [address], 03/17/2023 12:21:37 02/08/03/18/2023 urina lysis , dipst ick Urobilinogen (reference range: 0.2-1 mg/dl) 1 Not Available [address], [place], [address], 03/17/2023 12:21:37 03/18/19 24 03/18/2023 urina lysis , dipst ick Protein (reference range: negative mg/dl) Negati ve Not Available [address], [place], [address], 03/17/2023 12:21:37 03/18/19 24 03/18/2023 urina lysis , dipst ick pH (reference range: 5-7) 6.0 Not Available [address], [place], [address], 03/17/2023 12:21:37 03/18/19 24 03/18/2023 urina lysis , dipst ick Blood (reference range: negative Morgan/ l) Negati ve Not Available [address], [place], [address], 03/17/2023 12:21:37 03/18/19 24 03/18/2023 urina lysis , dipst ick Specific [place] (reference range: 1.005-1.030) 1.020 Not Available [address], [place], [address], 03/17/2023 12:21:37 03/18/19 24 03/18/2023 urina lysis , dipst ick Ketone (reference range: negative mg/dl) Negati ve Not Available [address], [place], [address], 03/17/2023 12:21:37 03/18/19 24 03/18/2023 urina lysis , dipst ick Bilirubin (reference range: negative mg/dl) Negati ve Not Available [address], [place], [address], 03/17/2023 12:21:37 03/18/19 24 03/18/2023 urina lysis , dipst ick Glucose (reference range: negative mg/dl) Negati ve Not Available [address], [place], [address], 03/17/2023 12:21:37 03/18/19 24 03/18/2023 urina lysis , dipst ick Appearance Clear Not Available [address], [place], [address], 03/17/2023 12:21:37 03/18/19 24 03/18/2023 urina lysis , dipst ick Color Dark Yellow Not Available [address], [place], [address], 03/17/2023 12:21:37 07/26/19 24 07/21/2023 US, echoc ardio gram No observ ation record ed. [email or web address] [facility] [address], [place], [address], 08/03/2023 09:29:02 07/26/19 24 07/21/2023 US, echoc ardio gram No observ ation record ed. [email or web address] [facility] [address], [place], [address], 07/28/2023 12:54:18 07/26/19 24 07/26/2023 sleep study , diagn ostic (PROC ) No observ ation record ed. [email or web address] [facility] [address], [place], [address], 08/03/2023 09:29:46 07/26/19 24 07/26/2023 home sleep study No observ ation record ed. [email or web address] [facility] [address], [place], [address], 07/28/2023 12:54:38 Result Notes None recorded. Problems Name Problem SNOMED Code Status Onset Date Resolution Date Notes Provider Name and Address Organization Details Recorded Time Cobalamin deficiency 380215221 Active 2022 Not Available [facility] 3 02:04:14 Postural dizziness 992007479 Active Not Available [facility] 3 02:04:14 Nocturia 153954127 Active Not Available [facility] 3 02:04:14 Increased frequency of urination 619728588 Active 2021 Not Available [facility] 3 02:04:14 Serum vitamin B12 below reference range 548848763 Active 2016 Not Available [facility] 3 02:04:14 Localized, primary osteoarthr itis of the shoulder region 301590556 Active Not Available [facility] 3 02:04:14 Gastroesop hageal reflux disease 893803781 Active 2018 Not Available [facility] 3 02:04:14 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 847938498 Active 2021 Not Available [facility] 3 02:04:14 Benign prostatic hyperplasi a 411363614 Active Not Available [facility] 3 02:04:14 Shoulder joint pain 482531626 Active 2016 Not Available [facility] 3 02:04:14 Syncope 738665627 Active Not Available [facility] 3 02:04:14 Anemia 371960252 Active Not Available [facility] 3 02:04:14 Osteoarthr itis 513182160 Active Not Available [facility] 3 02:04:14 Nonexudati ve age-relate d macular degenerati on 978574031 Active 2019 Not Available [facility] 3 02:04:14 Vitamin B deficiency 06487226 Active 2022 Not Available [facility] 3 02:04:14 Dysuria 36291110 Active Not Available [facility] 3 02:04:14 Essential hypertensi on 87729698 Active Not Available [facility] 3 02:04:14 Urinary tract infectious disease 93493664 Active Not Available [facility] 3 02:04:14 Degenerati on of interverte bral disc 49466102 Active Not Available [facility] 3 02:04:14 Fatigue 72305814 Active Not Available [facility] 3 02:04:14 Gout 79330192 Active Not Available [facility] 3 02:04:15 Degenerati on of lumbar interverte bral disc 72663458 Active 2022 Not Available [facility] 3 02:04:14 Spasm 82474340 Active 2022 Not Available [facility] 3 02:04:14 Hyponatrem ia 12978463 Active 2022 Not Available [facility] 3 02:04:15 Skin lesion 89971383 Active 2022 Not Available [facility] 3 02:04:15 Chronic hyponatrem ia 11313766 Active 2022 Not Available [facility] 3 02:04:14 Orthostati c hypotensio n 01777583 Active 2022 Not Available [facility] 3 02:04:14 Pain of left hip joint 4519022650183 00 Active 2022 Not Available [facility] 3 02:04:14 Edema of lower extremity 602797932 Active 2022 Not Available [facility] 3 02:04:14 Low back pain 000160454 Active 2022 Not Available [facility] 3 02:04:14 Bilateral sacroiliac joint pain 9326324822519 9104 Active 2022 Not Available [facility] 3 02:04:14 Acute urinary tract infection 649407469 Active 2022 Not Available [facility] 3 02:04:14 Lumbar spondylosi s 992679916 Active 2022 Not Available [facility] 3 02:04:14 Compressio n fracture of lumbar spine 898593776 Active 2022 Not Available [facility] 3 02:04:14 Organism isolated in blood by culture 4488441606412 107 Active 2022 ZACH Flores [address], [place], [address] , [employer] 3 17:03:49 Bilateral hearing loss 46623416 Active 2022 Sharon Lombardi MD [address], [place], [address] , [employer] 3 10:17:38 Night sweats 73389841 Active 2023 Sharon Lombardi MD [address], [place], [address] , [employer] 4 14:41:19 Erythrocyt e sedimentat ion rate above reference range 653303990 Active 2023 Sharon Lombardi MD [address], [place], [address] , [employer] 4 14:42:03 Rib pain 406383685 Active 2023 Sharon Lombardi MD [address], [place], [address] , [employer] 4 14:21:26 Open wound 123188858 Active 2023 ZACH Flores [address], [place], [address] , [employer] 4 09:21:14 Problem Notes None recorded. Procedures Surgical History Date Name Laterality Status Provider Name and Address Organization Details Recorded Time 3 Cystoscopy (male) completed Reji Javed MD [address] [facility], [place], [address], [employer] [employer] [facility] 09/02/2022 12:05:22 3 Ortho - Cortisone Injection completed Bryan Schwab MD [address] [facility], [place], [address], [facility] [employer] [facility] 06/25/2022 10:59:59 3 Transitional_Ca re_Management completed YULI Stratton [address] [facility], [place], [address], [facility] [employer] [facility] 06/05/2022 15:42:12 Imaging Results None recorded. Procedure Notes None recorded. Medical Equipment None [...] mg by injectio n route. 07/23 completed [facility]: [id number] 4-20 Not Available Not Available Not [...] mg tablet,ex tended release 24 hr TK 1/2 T PO QD 06/25 completed Not Available [...] MOUTH EVERY 12 HOURS FOR 7 DAYS 08/21 completed Not Available Not Available Not Available [...] DateTime 03/18/2023 172.72 cm Kika Jorgensen RN [facility] 03/18/2023 13:01:30 Date Recorded Body height Provider Name an d Address Organization Details Last Updated DateTime 09/14/2023 172.72 cm Ebony Belle RN [facility] 09/14/2023 11:56:38 Date Recorded Body height Body mass index (BMI) Body weight Body temperature Heart rate Oxygen saturation Oxygen saturation in Arterial blood by Pulse oximetry Systolic blood pressure Diastolic blood pressure Provider Name and Address Organization Details Last Updated DateTime 172.72 cm 27.5 kg/m2 70483.2 2 g 96.8 [degF] 94 /min 99 % 99 % 138 mm[Hg] 74 mm[Hg] Melanie Zhao RN [facility] [employer] 09:04:50 Social History Question Answer Notes LastModified by Organizat ion Details LastModified Time Tobacco Smoking Status Never Smoker Not Available [facility] 04/08/2022 02:34:01 What Is Your Level Of Caffeine Consumption? Moderate [id number] Information not available 04/08/2022 In The 14 Days Before Symptom Onset, Have You Had Close Contact With A Laboratory-confirm ed COVID-19 While That Case Was Ill? No [id number] Information not available 04/08/2022 In The 14 Days Before Symptom Onset, Have You Had Close Contact With A Person Who Is Under Investigation For COVID-19 While That Person Was Ill? No [id number] Information not available 04/08/2022 What Type Of Diet Are You Following? REGULAR [id number] Information not available 04/08/2022 Are There Any Guns Present In Your Home? No [id number] Information not available 04/08/2022 Have You Ever Been Counseled For Unhealthy Alcohol Use? No Information not available 06/05/2022 Has Tobacco Cessation Counseling Been Provided? No [email or web address] Information not available 06/05/2022 Do You Have Any Dietary Restrictions? No [id number] Information not available 04/08/2022 Sex: Unknown Functional Status Question Answer Note LastModified by Organizat ion Details LastModified Time Do you use any illicit or recreational drugs? No [email or web address] Information not available 06/05/2022 Do you or have you ever used any other forms of tobacco or nicotine? No [email or web address] Information not available 06/05/2022 What is your level of alcohol consumption? Heavy [email or web address] Information not available 06/25/2022 What is your occupation? retired [id number] Information not available 04/08/2022 What is your exercise level? Occasional [id number] Information not available 04/08/2022 Mental Status None recorded. Family History Relationship Description Onset Age of this Age Resolved Age Notes LastModified by Organization Details LastModified Time Son Diabetes mellitus [id number] Not available 04/08/2022 02:34:26 Father Hypertensive disorder [email or web address] Not available 2022 10:35:49 Medical History Condition Response URINARY/BLADDER/KIDNEY PROBLEMS Y Immunizations Vaccine Type Date Status Note Provider Nam e and Address Organization Details Recorded Time Influenza, high-dose, quadrivalent, PF 10/23/2020 completed Not Available [facility] 3 02:04:15 Influenza, high-dose, quadrivalent, PF 01/08/2022 completed Not Available [facility] 3 02:04:15 Influenza, high-dose, quadrivalent, PF 11/15/2019 completed Not Available [facility] 3 02:04:15 Influenza, high-dose, quadrivalent, PF 10/21/2022 completed Stephani Sevilla RN [facility], [place] - [facility] 10/21/2022 09:44:01 Past Encounters Encounter ID Performer Location Encounter Start Date Encounter Closed Date Diagnosis/Indication Diagnosis SNOMED-CT Code Diagnosis ICD10 Code Diagnosis Note [id number] [facility] [place] [address] [place] [address] 04/24/2020 00:00:00 04/24/2020 16:53:32 [id number] Sharon Lombardi MD [facility] [address] [place] [address] 05/08/2020 00:00:00 05/08/2020 09:27:10 [id number] TYRONE Novoa [facility] Primary Care [address] [place] [address] 07/10/2020 00:00:00 07/10/2020 13:52:33 [id number] Reji Javed MD [facility] [address] [address] 10/09/2020 00:00:00 10/09/2020 11:38:12 [id number] Sharon Lombardi MD [facility] [address] [place] [address] 10/23/2020 00:00:00 11/06/2020 08:57:30 [id number] Reji Javed MD [facility] [address] [address] 11/20/2020 00:00:00 11/20/2020 10:48:43 [id number] YULI Stratton [facility] Primary [facility] [place] [address] [place] [address] 01/14/2021 00:00:00 01/14/2021 12:10:15 [id number] Sharon Lombardi MD [facility] Primary Care [place] [address] [place] [address] 02/20/2021 00:00:00 03/09/2021 21:45:58 [id number] Sharon Lombardi MD [facility] Primary Care [place] [address] [place] [address] 08/21/2021 00:00:00 09/05/2021 12:08:52 [id number] Sharon Lombardi MD [facility] Primary Care [place] [address] [place] [address] 01/08/2022 00:00:00 01/08/2022 10:06:00 [id number] Sharon Lombardi MD [facility] Primary Care [place] [address] [place] [address] 02/19/2022 00:00:00 03/04/2022 14:53:31 [id number] Sharon Lombardi MD [facility] Primary Care [place] [address] [place] [address] 04/08/2022 14:36:52 04/09/2022 10:55:47 Adult health examination 305919398 Z00.00 see paper note [id number] Sharon Lombardi MD [facility] Primary Care [place] [address] [place] [address] 05/05/2022 13:58:18 05/05/2022 16:09:37 Degeneration of lumbar intervertebral disc 93636409 M51.36 R29.6 Cobalamin deficiency 190 050754 E53.8 Essential hypertension 65741998 I10 Spasm 81739846 R25.2 check labs [id number] Sharon Lombardi MD [facility] Primary Care [facility] [address] [facility] [address] [place] [address] 05/13/2022 12:13:04 05/13/2022 12:59:53 [id number] TYRONE Novoa [facility] Primary Care [facility] [address] [facility] [address] [place] [address] 05/21/2022 13:58:28 05/21/2022 14:53:18 Skin lesion 71445777 L98.9 New problemLef t abarca (approx) 2cm x 1cmNot painful or itching; however, still very suspicious for melanoma.W ill refer to derm for further evaluation of lesion. Hyponatremia 93904118 E8 7.1 New problemNa 126 (05/13/22)9; 124 (05/05/22); 134 (01/08/22)W ill repeat BMP. Pt to continue with increased sodium intake pending new lab result. [id number] YULI Stratton [facility] Primary Care [facility] [address] [facility] [address] [place] [address] 06/05/2022 14:04:30 06/05/2022 15:50:04 Transition of care 8366471704 105 Z75.8 U 05/28-. Chronic hyponatremia 503 93232 E87.1 He states while he was at the hospital it stabilized so he stopped taking the tablets. He has been adding salt to apples and different foods to just add salt into his diet.Reche ck BMP today, advised he may need to go back on sodium tablets. Essential hypertension 90444666 I10 He has been out of valsartan for the last week because insurance is not covering it. Will work on getting PA approved. Orthostati c hypotension 41834358 I95.1 Has seen fluctuatio ns mainly with positional changes. Advised to rise slowly from lying/sitt ing. Will check his sodium again today. Continue to monitor blood pressure. Will also plan to get him consult with cardiology due to symptoms for further evaluation . [id number] Sharon Lombardi MD [facility] Primary Care [facility] [address] [facility] [address] [place] [address] 06/18/2022 12:33:38 06/18/2022 13:15:30 Pain of left hip joint 5671779861 09368 M25.552 Degenerati on of lumbar intervertebral disc 26111670 M51.36 R29.6 Renewal of prescription 400659853 Z76.0 Edema of l ower extremity 984081059 R60.0 M79.605 M79.604 I73.9 Cobalamin deficiency 190 444959 E53.8 Hyponatremia 36896315 E8 7.1 Essential hypertension 70400730 I10 [id number] Bryan Schwab MD [facility] [place] [address] [place] [address] 06/25/2022 10:11:59 06/25/2022 10:58:51 Low back pain 067478818 M54.50 Pain of le ft hip joint 5202675850 77629 M25.552 Bilateral sacroiliac joint pain 6084524494 7756173 M53.3 [id number] Sharon Lombardi MD [facility] Primary Care [facility] [address] [facility] [address] [place] [address] 07/13/2022 12:34:36 07/13/2022 14:14:16 [id number] Reji Javed MD [facility] [address] [facility] [address] [place] [address] 07/22/2022 12:26:30 07/22/2022 13:08:06 Increased frequency of urination 380074993 R35.0 : 1 Cysto - normal penile [...] which has utilized to this point Nocturia 989383349 R35.1 :Discussed limiting night-time EtOH volume if he wishes to reduce his nocturia -- not bothered enough to limit it at this time Dysuria 07763987 R30.0 :Previous culture was skin contaminan tWill continue to monitor via UA and PVR Urinary tr act infectious disease 61732366 N39.0 :PLAN:-Kermit Miguel as outside prescriber wrote for-RTC for Cysto next available- If has interval UTI events, he will try and get us culture data [id number] Sharon Lombardi MD [facility] Primary Care [place] [address] [facility] [address] [facility] [place] [address] 07/23/2022 09:17:26 07/23/2022 10:41:19 Degeneration of lumbar intervertebral disc 85185868 M51.36 R29.6 has appt with neurosurge ryrestart gabapentin 300 mg qhs Edema of l ower extremity 248234729 R60.0 M79.605 M79.604 I73.9 resolved Cobalamin deficiency 190 912296 E53.8 Hyponatremia 29055411 E8 7.1 [id number] Bryan Schwab MD [facility] [place] [address] [place] [address] 07/23/2022 11:26:56 07/23/2022 13:00:59 Low back pain 121353021 M54.50 Pain of le ft hip joint 1446226758 81225 M25.552 Bilateral sacroiliac joint pain 2037684045 8957450 M53.3 Lumbar spondylosis 66444 0009 M47.896 Compressio n fracture of lumbar spine 940554477 M48.56XA [id number] Bryan Schwab MD [facility] [place] [address] [place] [address] 08/03/2022 09:40:07 08/03/2022 11:18:03 Low back pain 538377272 M54.50 Pain of le ft hip joint 9710103737 62767 M25.552 Bilateral sacroiliac joint pain 1250166264 5811346 M53.3 Lumbar spondylosis 49857 0009 M47.896 [id number] Reji Javed MD [facility] [place] [address] [facility] [address] [place] [address] 09/02/2022 11:36:35 09/02/2022 12:31:28 Urinary tract infectious disease 97608870 N39.0 :PLAN:-Cys to today -- negative, though [...] and documentat ion. Increased frequency of urination 426050474 R35.0 : 1 Cysto - normal penile [...] which has utilized to this point Nocturia 564205067 R35.1 :Discussed limiting night-time EtOH volume if he wishes to reduce his nocturia -- not bothered enough to limit it at this time Dysuria 50310480 R30.0 :Previous culture was skin contaminan tWill continue to monitor via UA and PVR [id number] Sharon Lombardi MD [facility] Primary Care [facility] [address] [facility] [address] [place] [address] 09/11/2022 10:21:27 09/11/2022 11:01:32 Cobalamin deficiency 864240369 E53.8 Hyponatremia 93479041 E8 7.1 stablechec k labs Essential hypertension 36273750 I10 in excellent control Renewal of prescription 108496129 Z76.0 Lumbar spondylosis 37494 0009 M47.896 refills givenhas second opinion appt upcoming with neurosurge ry Dr. Dorsey [id number] Sharon Lombardi MD [facility] Primary Care [address] [place] [address] 10/21/2022 08:47:32 10/21/2022 10:54:28 Hyponatremia 17584559 E87.1 stablechec k labs Administra tion of influenza vaccine 00822991 Z23 Cobalamin deficiency 190 489209 E53.8 Lumbar spondylosis 54889 0009 M47.896 has seen neurosurge ry and pain mgmthe is very active and will continue supportive careincrea se gabapentin 300 mg bidrefill hydrocodon e/apap-he uses this sparinglyc ontinue diclofenac 75 mg bidf/u in 3 months or sooner if needed [id number] Sharon Lombardi MD [facility] Primary Care [facility] [address] [facility] [address] [place] [address] 03/10/2023 14:14:31 03/10/2023 15:36:45 Cobalamin deficiency 359422722 E53.8 Essential hypertension 02119904 I10 monitored daily by cardiology Night sweats 91354918 R6 1 check labs [id number] Grady Malikd, [employer] [place] [address] [place] [address] 03/18/2023 12:25:42 03/18/2023 13:05:21 [id number] Grady Malikd, [employer] [facility] [place] [address] [place] [address] 07/12/2023 10:36:37 07/12/2023 10:47:03 [id number] Grady Malikd, [employer] [facility] [place] [address] [place] [address] 07/27/2023 12:12:25 07/27/2023 12:39:54 [id number] YULI Shrestha [facility] [place] [address] [place] [address] 09/14/2023 11:54:56 09/14/2023 14:23:49 [id number] Grady Malikd, [employer] [facility] [place] [address] [place] [address] 09/23/2023 08:55:37 09/23/2023 09:27:28 Cobalamin deficiency 560832609 E53.8 chronic, stable Essential hypertension 21263267 I10 chronic, stable with [facility] cardiology f/u was July, next f/u is in Decemberlabs obtained Night sweats 11885080 R6 1 check labs Open wound 049037246 T14 .8XXA noted to right arm after a fallsome possible infection noted Health Concerns Section Related Observation LastModified by Organization Detai ls LastModified Time None Recorded Concern Status LastModified by Organization Details LastModified Time None Recorded Advance Directives Directive None Recorded Payers Insurance Date Sequence Insurance Name Policy Number Policy Ortiz Covered Member ID Ortiz Member ID Guarantor Name 07/12/[address] [facility] Vincenzo Glaser [id number] Vincenzo Glaser 07/12/[address] [facility] (MEDICARE REPLACEMENT/A DVANTAGE - PPO) Vincenzo Lunsford Jailyn [id number] Vincenzo Lunsford Jailyn 09/23/[address] [facility] [id number] Vincenzo Lunsford Jailyn [id number] Vincenzo Lunsford Jailyn 07/12/[address] [facility] [id number] Vincenzo Lunsford Jailyn [id number] Vincenzo Lunsford Jailyn 10/13/2023 2 [facility] (MEDICARE) Vincenzo Lunsford Jailyn [id number] Vincenzo Lunsford Jailyn Notes Date Note Type Note Provider Name and Address Organization Details Recorded Time 09/23/2023 text/html Pt is here for f/u TYRONE Flores-Yamini [address] [address], [place], [address], [facility] 09/23/2023 09:26:18
--- OUTSIDE RECORDS SUMMARY | 2024-07-27 14:50 | XMS_ITS | Clinical Summary ---
Author Organization [facility] Address [address] [place] [address] Care Team Providers Care Residential Support Specialist Name Role Phone Unavailable Primary Care Provider Unavailabl e Source Comments [facility],non-owned Affiliates and Associated Physician Practices is amultiple site organization consisting of ambulatory clinics and hospital sitesin [place], [place], [place] and [place]. This disclosure is being madepursuant to the Care Everywhere program and may not contain all information available regarding this patient. Last updated 17.[facility] [employer] Allergies No known active allergies Medications * Be aware that medications may not be up to date on this document. Alwaysverify current medications with the patient. folic acid (Folvite) 1 MG tablet Take 1 (one) tablet by mouth once daily 3 Active acetaminophen (Tylenol) 325 MG tablet Take 2 (two) tablets by mouth every 6 hours as needed Maximum allowable Acetaminophen amount = 4 Grams (4000 mg) / 24 hours. 3 Active polyethylene glycol 3350 (Miralax) 17 g packet Take 17 (seventeen) g by mouth once daily as needed for Constipation 3 Active Active Problems Problem Noted Date Diagnosed [...] and heating? Not hard at all 05/30/2022 [facility] - Occupational Stress [...] place to sleep or slept in a group home (including now)? No 05/30/2022 Sex and Gender Information Value Date Recorded Sex Assigned at Not on file Legal Sex Male 6:31 AM EP TECH Gender Identity Not on file Sexual Orientation [...] 7:10 PM CDT Height 175.3 cm (5' 9) 05/28/2022 7:10 PM CDT Body Mass Index [...] patient's age to complete this topic Insurance MEDICARE SELF PAY NO INSURANCE Member Subscriber Plan / Payer (Ef fective for All Dates) Name:Vincenzo Glaser Member ID:Not on file Relation to Subscriber:Not on file Name:VINCENZO GLASER Subscriber ID:Not on file (Home) Address: [address] [place] [id number] Payer ID:Not on file Group ID:Not on file Type:Self Pay Address: [facility] CARE [facility] CARE MEDICARE MEDICARE Member Subscriber Plan / Payer (Ef fective for All Dates) Name:Vincenzo Glaser Member ID:Not on file Relation to Subscriber:Self Name:Vincenzo Glaser Subscriber ID:Not on file Payer ID:Not on file Group ID:Not on file Type:Medicare Address: [place] [phone] MEDICARE Member Subscriber Plan / Payer (Ef fective for All Dates) Name:Vincenzo Glaser Member ID:Not on file Relation to Subscriber:Self Name:Vincenzo Glaser Subscriber ID:Not on file Payer ID:Not on file Group ID:Not on file Type:Medicare Address: [place] [phone] MEDICARE * Guarantor: VILMAEduardoVINCENZO AHMADI Account Type Relation to Patient Date of Phone Billing Address Personal/Family [address] [place] [address] MEDICARE Member Subscriber Plan / Payer (Ef fective for All Dates) Name:Vincenzo Glaser Member ID:[id number] Relation to Subscriber:Self Name:Vincenzo Glaser Subscriber ID:[id number] Payer ID:Not on file Group ID:Not on file Type:Medicare Address: [address] * Guarantor: NEHEMIASVINCENZO Account Type Relation to Patient Date of Phone Billing Address Personal/Family [address] [place] [address] MEDICARE Member Subscriber Plan / Payer (Ef fective for All Dates) Name:Vincenzo Glaser Member ID:[id number] Relation to Subscriber:Self Name:Vincenzo Glaser Subscriber ID:[id number] Payer ID:Not on file Group ID:Not on file Type:Medicare Address: [address] CARE * Guarantor: VINCENZO GLASER Account Type Relation to Patient Date of Phone Billing Address Personal/Family [address] [place] [address] MEDICARE [facility] Advance Directives * Full Code (Latest Code Status on File) Date Activated Date Inactivated Comments 05/28/2022 6:57 PM 05/30/2022 9:34 AM
[2024-07-27 17:59] LABS: Folic Acid 2.9 ng/mL (2.76->20)
== END 2024-07-27 14:38 | disposition home or self-care (01) ==
PROVIDERS: PCP Nurse Practitioner Family; Visit Provider Nurse Practitioner Family
DX: E53.8 Deficiency of other specified B group vitamins (principal)
CPT/HCPCS: 36415; 82607; 82746

== ENCOUNTER 2024-10-30 13:14 | Outpatient (CLI) | payer OTHER, MEDICARE, SELFPAY ==
--- NOTE | ~2024-10-30 | XR_ITS ---
EXAMINATION: XR elbow RT min 3V, 10/30/2024 13:58 CDT HISTORY: M25.521 - Pain in right elbow COMPARISON: No comparisons available. Findings: No acute fracture or malalignment. No significant degenerative changes. Soft tissues unremarkable. Impression: No acute fracture or malalignment. Reviewed, dictated and finalized at location A. Impression: No acute fracture or malalignment.
[2024-10-30 13:59] LABS: Hematocrit 40.0 % (42.0-52.0); Hemoglobin 13.3 g/dL (14.0-18.0); Immature Granulocyte Percent A 0.6 % (0-0.5); Lymphocytes Absolute Auto 1.43 K/mm3 (0.9-3.2); Mean Corpuscular HGB Conc 33.3 g/dl (32-36); Mean Corpuscular Hemoglobin 32.6 pg (26-34); Mean Corpuscular Volume 98.0 fl (80-100); Nucleated Red Blood Cells Absolute Auto 0.000 K/mm3 (0.0-0.012); Nucleated Red Blood Cells Perc 0.0 % (0.0-0.2); Platelet Count Result 302 k/mm3 (150-375); Red Blood Count 4.08 M/mm3 (4.6-6.20); White Blood Count 9.3 K/mm3 (4.5-10.0)
[2024-10-30 14:07] LABS: Alanine Aminotransferase 12 U/L (6-50); Albumin Level 4.2 g/dL (3.5-5.1); Alkaline Phosphatase 68 U/L (38-126); Anion Gap 8 mmol/L (4-12); Aspartate Amino Transferase 27 U/L (17-59); Bilirubin,Total 1.6 mg/dL (0.2-1.3); Blood Urea Nitrogen 15 mg/dL (9-20); Calcium 8.9 mg/dL (8.4-10.2); Carbon Dioxide 32 mmol/L (22-30); Chloride 88 mmol/L (98-107); Estimated Glomerular Filt Rate > 60; Glucose 128 mg/dL (65-110); Potassium 3.9 mmol/L (3.4-5.0); Sodium 128 mmol/L (137-145); Total Protein 7.2 g/dL (6.3-8.2)
[2024-10-30 15:10] LABS: Vitamin B12 > 1000.0 pg/mL (239-931)
== END 2024-10-30 13:15 | disposition home or self-care (01) ==
LOC: ANHLAB 13:19
PROVIDERS: PCP Family Medicine; Visit Provider Family Medicine
DX: M25.521 Pain in right elbow (principal); I10 Essential (primary) hypertension; I48.20 Chronic atrial fibrillation, unspecified; E53.8 Deficiency of other specified B group vitamins; E55.9 Vitamin D deficiency, unspecified; K21.9 Gastro-esophageal reflux disease without esophagitis; Z00.00 Encounter for general adult medical examination without abnormal findings; R30.0 Dysuria
CPT/HCPCS: 36415; 73080; 80053; 82172; 82306; 82607; 85025

== ENCOUNTER 2024-10-31 15:57 | Outpatient (CLI) | payer OTHER, MEDICARE, SELFPAY ==
--- OUTSIDE RECORDS SUMMARY | 2024-10-31 16:01 | XMS_ITS | Clinical Summary ---
Author Organization [facility] Address [address] [place] [address] Care Team Providers Care Exercise Manager Name Role Phone Unavailable Primary Care Provider [...] COVID-19 Vaccine ( - 2023-2 5 season) 2024 Meningococcal B Vaccine Aged Out No l onger eligible based on patient's age to complete this topic Meningococcal Vaccine Aged Out No vonda georgiana eligible based on patient's age to complete this topic RSV Immunizations Under 20 Months Aged Out No longer eligible based on patient's age to complete this topic
--- OUTSIDE RECORDS SUMMARY | 2024-10-31 16:01 | XMS_ITS | Clinical Summary ---
Author Organization [facility] Address [address] 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 This disclosure is being madepursuant to the Care Everywhere program and may not contain all information available regarding this patient. Last updated 17.[facility] [employer] Allergies No known active allergies Medications * [...] and heating? Not hard at all 05/30/2022 [facility] [place] of Occupat ional Health - Occupational Stress [...] on file Legal Sex Male 6:31 AM [employer] Gender Identity Not on file Sexual Orientation [...] yrs (1 - 1-dose 75+ series) 2016 DEPRESSION SCREENING 02/09/2024 COVID-19 VACCINE (1 - 2023-2 5 season) 2024 INFLUENZA VACCINE (#1) 2024 HEPATITIS B VACCINE Aged Out No [...] GLASER Subscriber ID:Not on file (Home) Address: [address] [place] [phone] Payer ID:Not on file Group ID:Not on file Type:Self Pay Address: [facility] CARE [facility] CARE MEDICARE MEDICARE Member Subscriber Plan / Payer (Ef fective for All Dates) Name:Vincenzo Glaser Member ID:Not on file Relation to Subscriber:Self Name:Vincenzo Glaser Subscriber ID:Not on file Payer ID:Not on file Group ID:Not on file Type:Medicare Address: [place] [phone] MEDICARE Member Subscriber Plan / Payer (Ef fective for All Dates) Name:Vincenzo Glaser Member ID:Not on file Relation to Subscriber:Self Name:Vincenzo Glaser Subscriber ID:Not on file Payer ID:Not on file Group ID:Not on file Type:Medicare Address: [place] [phone] MEDICARE * Guarantor: VILMAEduardoVINCENZO AHMADI Account Type Relation to Patient Date of Phone Billing Address Personal/Family [address] [place] [address] MEDICARE Member Subscriber Plan / Payer (Ef fective for All Dates) Name:Vincenzo Glaser Member ID:[id number] Relation to Subscriber:Self Name:Vincenzo Glaser Subscriber ID:[id number] Payer ID:Not on file Group ID:Not on file Type:Medicare Address: [address] * Guarantor: NEHEMIASVINCENZO Account Type Relation to Patient Date of Phone Billing Address Personal/Family [address] [place] [address] MEDICARE Member Subscriber Plan / Payer (Ef fective for All Dates) Name:Vincenzo Glaser Member ID:[id number] Relation to Subscriber:Self Name:Vincenzo Glaser Subscriber ID:[id number] Payer ID:Not on file Group ID:Not on file Type:Medicare Address: [address] CARE * Guarantor: VINCENZO GLASER Account Type Relation to Patient Date of Phone Billing Address Personal/Family [address] [place] [address] MEDICARE [facility] Advance Directives * Full Code (Latest Code Status on File) Date Activated Date Inactivated Comments 05/28/2022 6:57 PM 05/30/2022 9:34 AM
[2024-10-31 16:37] LABS: Add Urine Microscopic? YES; Appearance Urine Cloudy (Clear); Glucose Urine UA Negative (Negative); Leukocyte Esterase Ur Trace LEU/UL (Negative); Need Manual Microscopic Reviewed; Nitrate Urine Negative (Negative); Specific Grav Ur 1.019 (1.001-1.035)
== END 2024-10-31 15:58 | disposition home or self-care (01) ==
LOC: ANHLAB 15:59
PROVIDERS: PCP Family Medicine; Visit Provider Family Medicine
DX: R30.0 Dysuria (principal)
CPT/HCPCS: 81001

== ENCOUNTER 2024-11-05 17:18 | Emergency (ER) | payer OTHER, MEDICARE, SELFPAY ==
[2024-11-05] VITALS (11 sets, daily range): BP systolic 104–117; BP diastolic 54–72; PULSE 51–73; RESP 17–20; TEMP 36.6; O2SAT 93–98
--- NOTE | 2024-11-05 18:05 | ED.RECABL ---
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 Patient states that he checked his blood pressure this morning like he normally does and saw there was 160s/90s so he took his blood pressure medicines as prescribed. When he went to lunch with his friend he was complaining of lightheadedness so he checked his blood pressure and it was 90s/60s. This prompted friend to bring him to the ED for further evaluation. AT this time, patient reports that his light headedness feels better. Denies chest pain, shortness of breath, nausea vomiting, diarrhea, constipation, abdominal pain. Friend notes that patient was diagnosed with the UTI earlier this week and started medications for this 3 days ago and still has 4 days left. Related Data Home Medications ?Medication ?Instructions ?Recorded ?Confirmed ?Last Taken ?Type tamsulosin 0.4 mg capsule 0.4 mg PO DAILY 11/25/22 07/26/24 03/13/24 History metoprolol succinate 25 mg 12.5 mg PO DAILY 09/06/24 Unknown History tablet,extended release 24 hr Allergies Allergy/AdvReac Type Severity Reaction Status Date / Time No Known Allergies Allergy Verified 11/05/24 17:25 Review of Systems Review of Systems: Gen.: Denies fevers or chills Eyes: Denies eye pain or visual change ENT: Denies congestion Respiratory: Denies shortness of breath or cough CV: Denies chest pain or palpitations GI: Denies abdominal pain nausea, emesis or diarrhea denies burning, urgency, frequency or hematuria Musculoskeletal: Denies back pain or muscle pain Neuro: Denies numbness, tingling, weakness or focal weakness Skin: Denies rash Except as documented, all other systems reviewed and negative [facility] Past Medical History Medical History Esophageal obstruction due to food impaction Esophageal obstruction due to food impaction Chronic a-fib Alcohol abuse GERD (gastroesophageal reflux disease) Primary osteoarthritis, right shoulder BPH (benign prostatic hyperplasia) HTN (hypertension) Surgical History Surgical History No pertinent past surgical history Family History Family History Father Heart attack Other Heart disease Social History Social History Smoking status: Never smoker Alcohol intake: current Drinks per week: 8 Alcohol use details: Daily- number of drinks depends; 2-8 drinks per day Substance use: current Substance use type: marijuana Other substance usage details: gummies for sleep Last use: for sleep occasionally Current Housing: Decline to Answer Concerned About Future Housing: Decline to Answer Difficulty Paying Gas/Electric Bills: Decline to Answer Difficulty Paying for Meds: Decline to Answer Currently Unemployed: Decline to Answer Education: Decline to Answer Difficulty w/ Childcare or Family Care: Decline to Answer Living arrangements: alone Occupation/Education: retired Spiritual care concerns: No Exam Narrative: APPEARANCE: No acute distress, nontoxic, resting in bed EYES: EOMI HEENT: Normocephalic, atraumatic, OMM RESPIRATORY: No respiratory distress Clear to auscultation bilaterally with no rhonchi wheezing or rales. CARDIOVASCULAR: Regular rate and rhythm without murmurs rubs or gallops. ABDOMINAL: Soft, nontender, nondistended, no rebound or guarding MUSCULOSKELETAL: Moves all extremities. No clubbing, cyanosis or edema. NEURO: Awake and alert. Following commands, speech normal, no focal deficits SKIN:: Warm, dry. No rashes lesions or abrasions PSYCHIATRIC: Normal affect/mood, Course Vital Signs Vital signs: Vital Signs Temperature 97.8 F 11/05/24 17:20 Pulse Rate 73 11/05/24 17:20 Respiratory Rate 18 11/05/24 17:20 Blood Pressure 116/60 11/05/24 17:20 Pulse Oximetry 97 11/05/24 17:20 Oxygen Delivery Room Air 11/05/24 17:20 Temperature 97.8 F 11/05/24 17:20 Pulse Rate 63 11/05/24 18:31 Respiratory Rate 17 11/05/24 17:40 Blood Pressure 114/65 11/05/24 18:31 Pulse Oximetry 97 11/05/24 17:20 Oxygen Delivery Room Air 11/05/24 17:20 MDM - Recheck/Abnormal Lab/Rx MDM Narrative Medical decision making narrative: 83-year-old male presenting for concerns for hypotension. On initial evaluation, patient was in no acute distress, afebrile and hemodynamically stable. He was asymptomatic on my initial evaluation. Orthostatic blood pressures were obtained and were negative. Patient was given 1 L NS bolus. He remained asymptomatic throughout his ED course and was able to ambulate to the bathroom without any difficulties. Suspected the patient did have a medication side effect to his antihypertensives. He was recently started on an antibiotic for UTI which may be interacting with some of his medications. Advised him to call his diamond broker tomorrow to discuss his antihypertensive regimen. Patient and family were agreeable to this plan. Given strict return precautions. Differential Diagnosis Differential diagnosis: Likely other (medication side effect, anemia, orthostatic hypotension) Medical Records Attestation: I reviewed the patient's medical records. Discharge Plan Discharge Clinical Impression: Drug side effects Patient Disposition: Home Condition: Stable Instructions: Antibiotic Form, Lightheadedness (ED) Additional Instructions: I believe her lightheadedness and transient lower blood pressure was due to your medications for your high blood pressure. Call your diamond broker to discuss possibly changing your medications. Return to the ED for any new or worsening symptoms. Patient Language: Kazakh Prescriptions: No Action tamsulosin 0.4 mg capsule 0.4 mg PO DAILY pantoprazole 40 mg tablet,delayed release (DR/EC) 40 mg PO BID Qty: 180 3RF Linzess 72 mcg capsule 72 mcg PO DAILY Qty: 90 0RF cholecalciferol (vitamin D3) 1,250 mcg (50,000 unit) tablet 1,250 mcg PO WEEKLY Qty: 14 1RF clotrimazole-betamethasone 1-0.05 % cream 1 applic topical BID PRN (Reason: rash) 14 Days Qty: 45 1RF mecobalamin (vitamin B12) 10,000 mcg recon soln 1,000 mcg IM MONTHLY Qty: 9 1RF gabapentin 300 mg capsule 300 mg PO DAILY Qty: 90 1RF diclofenac sodium 75 mg tablet,delayed release (DR/EC) 75 mg PO BID Qty: 60 0RF hydrocodone-acetaminophen 5-325 mg tablet 1 tablet PO DAILY PRN (Reason: pain) Qty: 30 0RF metoprolol succinate 25 mg tablet extended release 24 hr 12.5 mg PO DAILY nitrofurantoin monohyd/m-cryst [Macrobid] 100 mg capsule 100 mg PO Q12H 7 Days Qty: 14 0RF Rx Instructions: must administer with a meal/food Follow-up/Referrals: Andrade Villalobos MD [Primary Care Provider, Family Practice]
--- OUTSIDE RECORDS SUMMARY | 2024-11-05 18:18 | XMS_ITS | Data Portability ---
Author Organization [facility] [employer], Main Office Address [address] [place] [address] Assessment No assessment recorded. Plan of Treatment Reminders Order Date Submit Date Provider Last Modified By Organization Details Last Modified Time Details Appointments None recorded. Lab CBC w/ auto diff [address] (Lab), [address] [place], [address], 4 09:46:38 BMP, serum or plasma [address] (Lab), [address] [place], [address], 4 09:46:48 lipid panel, serum [address] (Lab), [address] [place], [address], 4 09:46:59 TSH, serum or plasma [address] (Lab), [address] [place], [address], 4 09:47:10 vitamin B12, serum [address] (Lab), [address] [place], [address], 4 09:46:19 folate, serum 2023 024 [email or web address] [address] [place], [address], 4 09:46:29 Referral None recorded. Procedures None recorded. Surgeries None recorded. Imaging None recorded. Medication Orders mupirocin 2 % topical ointment 2023 [facility] #[id number], [address], [place], [id number], 4 09:25:44 doxycycline hyclate 100 mg tablet 2023 [facility] #[id number], [address], [place], [id number], 4 09:25:45 Patient TargetsNo targets recorded. Patient InstructionsNo instructions recorded. Reason for Referral None Reported. Results Created Date Observation Date Name Description Value Unit Range Abnormal Flag Note LastModifiedBy Organization Detail LastModifiedTime 07/18/19 24 07/18/2023 DRUG MONIT OR, PANEL 3, W/CON F, URINE amphetamines NEGATI VE CONFIR MED NG/mL <500 Not Available [facility] [address] [address] [place], [address], 07/18/2023 01:59:01 07/18/19 24 07/18/2023 DRUG MONIT OR, PANEL 3, W/CON F, URINE amphetamine NEGATI VE NG/mL <250 Not Available [facility] [address] [address] [place], [address], 07/18/2023 01:59:01 07/18/19 24 07/18/2023 DRUG MONIT OR, PANEL 3, W/CON F, URINE methamphetam ine NEGATI VE NG/mL <250 Not Available [facility] [address] [place], [address], 07/18/2023 01:59:01 07/18/19 24 07/18/2023 DRUG MONIT OR, PANEL 3, W/CON F, URINE amphetamines comments See LDT Notes Not Available [address] [address] [place], [address], 07/18/2023 01:59:01 07/18/19 24 07/18/2023 DRUG MONIT OR, PANEL 3, W/CON F, URINE benzodiazepi jean-paul NEGATI VE NG/mL <100 Not Available [address] [address] [place], [address], 07/18/2023 01:59:01 07/18/19 24 07/18/2023 DRUG MONIT OR, PANEL 3, W/CON F, URINE cocaine metabolite NEGATI VE NG/mL <150 Not Available [address] [address] [place], [address], 07/18/2023 01:59:01 07/18/19 24 07/18/2023 DRUG MONIT OR, PANEL 3, W/CON F, URINE marijuana metabolite POSITI VE NG/mL <20 abnormal Not Available [address] [address] [place], [address], 07/18/2023 01:59:01 07/18/19 24 07/18/2023 DRUG MONIT OR, PANEL 3, W/CON F, URINE marijuana metabolite 112 NG/mL <5 high Not Available [address] [address] [place], [address], 07/18/2023 01:59:01 07/18/19 24 07/18/2023 DRUG MONIT OR, PANEL 3, W/CON F, URINE marijuana comments See Nesha kim Notes , LDT Notes Not Available [address] [address] [place], [address], 07/18/2023 01:59:01 07/18/19 24 07/18/2023 DRUG MONIT OR, PANEL 3, W/CON F, URINE opiates POSITI VE NG/mL <100 abnormal Not Available [address] [address] [place], [address], 07/18/2023 01:59:01 07/18/19 24 07/18/2023 DRUG MONIT OR, PANEL 3, W/CON F, URINE codeine NEGATI VE NG/mL <50 Not Available [address] [address], [place], [address], 07/18/2023 01:59:01 07/18/19 24 07/18/2023 DRUG MONIT OR, PANEL 3, W/CON F, URINE hydrocodone 411 NG/mL <50 high Not Available [address] [address] [address], [place], [address], 07/18/2023 01:59:01 07/18/19 24 07/18/2023 DRUG MONIT OR, PANEL 3, W/CON F, URINE hydromorphon e 517 NG/mL <50 high Not Available [address] [address], [place], [address], 07/18/2023 01:59:01 07/18/19 24 07/18/2023 DRUG MONIT OR, PANEL 3, W/CON F, URINE morphine NEGATI VE NG/mL <50 Not Available [address] [address] [address], [place], [address], 07/18/2023 01:59:01 07/18/19 24 07/18/2023 DRUG MONIT OR, PANEL 3, W/CON F, URINE norhydrocodo ne 445 NG/mL <50 high Not Available [address] [address], [place], [address], 07/18/2023 01:59:01 07/18/19 24 07/18/2023 DRUG MONIT OR, PANEL 3, W/CON F, URINE opiates comments See Opiat es Notes , LDT Notes Not Available [address] [address], [place], [address], 07/18/2023 01:59:01 07/18/19 24 07/18/2023 DRUG MONIT OR, PANEL 3, W/CON F, URINE oxycodone NEGATI VE NG/mL <100 Not Available [address] [address] [place], [address], 07/18/2023 01:59:01 07/18/19 24 07/18/2023 DRUG MONIT OR, PANEL 3, W/CON F, URINE creatinine 84.7 mg/dL > or = 20.0 Not Available [facility] [address] [address] , [place], [address], 07/18/2023 01:59:01 07/18/19 24 07/18/2023 DRUG MONIT OR, PANEL 3, W/CON F, URINE pH 8.5 4.5-9. 0 Not Available [address] [address] [address] , [place], [address], 07/18/2023 01:59:01 07/18/19 24 07/18/2023 DRUG MONIT OR, PANEL 3, W/CON F, URINE oxidant NEGATI VE mcg/m L <200 Not Available [address] [address] [place], [address], 07/18/2023 01:59:01 07/18/19 24 07/18/2023 DRUG MONIT ORING TEMPL ATE notes and [...] of Marij uana. Opiat es Notes : [place] codon e, Norhy droco done, [place] morph one detec gus is consi stent with the use of the drug [place] codon e. [place] morph one detec gus is consi stent with the use of the drug [place] morph one. [place] morph one can be a presc ribed drug and is also a metab olite of [place] codon e. LDT Notes : Confi rmati on tests were devel oped and their rosibel tical perfo rmanc e barbra cteri stics have been deter mined by [employer] Gal ostic s. It has not been clear [...] M-F, 8am to 10pm EST Not Available [facility] [address] [address] [place], [address], 07/18/2023 01:59:03 07/18/19 24 07/18/2023 DRUG MONIT OR, PANEL 3, W/CON F, URINE amphetamines NEGATI VE CONFIR MED NG/mL <500 Not Available [facility] [address] [address] [place], [address], 07/18/2023 01:59:04 07/18/19 24 07/18/2023 DRUG MONIT OR, PANEL 3, W/CON F, URINE amphetamine NEGATI VE NG/mL <250 Not Available [facility] [address] [place], [address], 07/18/2023 01:59:04 07/18/19 24 07/18/2023 DRUG MONIT OR, PANEL 3, W/CON F, URINE methamphetam ine NEGATI VE NG/mL <250 Not Available [facility] [address] [address] [place], [address], 07/18/2023 01:59:04 07/18/19 24 07/18/2023 DRUG MONIT OR, PANEL 3, W/CON F, URINE amphetamines comments See LDT Notes Not Available [address] [address] [address], [place], [address], 07/18/2023 01:59:04 07/18/19 24 07/18/2023 DRUG MONIT OR, PANEL 3, W/CON F, URINE benzodiazepi jean-paul NEGATI VE NG/mL <100 Not Available [address] [address] [address], [place], [address], 07/18/2023 01:59:04 07/18/19 24 07/18/2023 DRUG MONIT OR, PANEL 3, W/CON F, URINE cocaine metabolite NEGATI VE NG/mL <150 Not Available [address] [address] , [place], [address], 07/18/2023 01:59:04 07/18/19 24 07/18/2023 DRUG MONIT OR, PANEL 3, W/CON F, URINE marijuana metabolite POSITI VE NG/mL <20 abnormal Not Available [address] [address] [address] , [place], [address], 07/18/2023 01:59:04 07/18/19 24 07/18/2023 DRUG MONIT OR, PANEL 3, W/CON F, URINE marijuana metabolite 112 NG/mL <5 high Not Available [address] [address] [place], [address], 07/18/2023 01:59:04 07/18/19 24 07/18/2023 DRUG MONIT OR, PANEL 3, W/CON F, URINE marijuana comments See Nesha kim Notes , LDT Notes Not Available [address] [address] [address], [place], [address], 07/18/2023 01:59:04 07/18/19 24 07/18/2023 DRUG MONIT OR, PANEL 3, W/CON F, URINE opiates POSITI VE NG/mL <100 abnormal Not Available [address] [address] [place], [address], 07/18/2023 01:59:04 07/18/19 24 07/18/2023 DRUG MONIT OR, PANEL 3, W/CON F, URINE codeine NEGATI VE NG/mL <50 Not Available [address], [address], 07/18/2023 01:59:04 07/18/19 24 07/18/2023 DRUG MONIT OR, PANEL 3, W/CON F, URINE hydrocodone 411 NG/mL <50 high Not Available [address], [address], 07/18/2023 01:59:04 07/18/19 24 07/18/2023 DRUG MONIT OR, PANEL 3, W/CON F, URINE hydromorphon e 517 NG/mL <50 high Not Available [address], [address], 07/18/2023 01:59:04 07/18/19 24 07/18/2023 DRUG MONIT OR, PANEL 3, W/CON F, URINE morphine NEGATI VE NG/mL <50 Not Available [address], [address], 07/18/2023 01:59:04 07/18/19 24 07/18/2023 DRUG MONIT OR, PANEL 3, W/CON F, URINE norhydrocodo ne 445 NG/mL <50 high Not Available [address] [place], [address], 07/18/2023 01:59:04 07/18/19 24 07/18/2023 DRUG MONIT OR, PANEL 3, W/CON F, URINE opiates comments See Opiat es Notes , LDT Notes Not Available [address] [address] [place], [address], 07/18/2023 01:59:04 07/18/19 24 07/18/2023 DRUG MONIT OR, PANEL 3, W/CON F, URINE oxycodone NEGATI VE NG/mL <100 Not Available [address] [address] [place], [address], 07/18/2023 01:59:04 07/18/19 24 07/18/2023 DRUG MONIT OR, PANEL 3, W/CON F, URINE creatinine 84.7 mg/dL > or = 20.0 Not Available [address] [address] [place], [address], 07/18/2023 01:59:04 07/18/19 24 07/18/2023 DRUG MONIT OR, PANEL 3, W/CON F, URINE pH 8.5 4.5-9. 0 Not Available [address] [address] [place], [address], 07/18/2023 01:59:04 07/18/19 24 07/18/2023 DRUG MONIT OR, PANEL 3, W/CON F, URINE oxidant NEGATI VE mcg/m L <200 Not Available [address] [address] [place], [address], 07/18/2023 01:59:04 03/10/19 24 03/11/2023 CBC WITH DIFFE RENTI AL/PL ATELE T WBC 6.2 x10e3 /uL 3.4-10 .8 Not Available [facility] ([facility]) [address] [facility], [place], [address], 03/11/2023 16:14:15 03/10/19 24 03/11/2023 CBC WITH DIFFE RENTI AL/PL ATELE T RBC 3.84 x10e6 /uL 4.14-5 .80 below low normal Not Available [facility] ([facility]) [address] [facility], [place], [address], 03/11/2023 16:14:15 03/10/19 24 03/11/2023 CBC WITH DIFFE RENTI AL/PL ATELE T hemoglobin 12.8 g/dL 13.0-1 7.7 below low normal Not Available [facility] ([facility]) [address] [facility], [place], [address], 03/11/2023 16:14:15 03/10/19 24 03/11/2023 CBC WITH DIFFE RENTI AL/PL ATELE T hematocrit 37.3 % 37.5-5 1.0 below low normal Not Available [facility] ([facility]) [address] [facility], [place], [address], 03/11/2023 16:14:15 03/10/19 24 03/11/2023 CBC WITH DIFFE RENTI AL/PL ATELE T MCV 97 fL 79-97 Not Available [facility] ([facility]) [address] [facility], [place], [address], 03/11/2023 16:14:15 03/10/19 24 03/11/2023 CBC WITH DIFFE RENTI AL/PL ATELE T MCH 33.3 pg 26.6-3 3.0 above high normal Not Available [facility] ([facility]) [address] [facility], [place], [address], 03/11/2023 16:14:15 03/10/19 24 03/11/2023 CBC WITH DIFFE RENTI AL/PL ATELE T MCHC 34.3 g/dL 31.5-3 5.7 Not Available [facility] ([facility]) [address] [place], [address], 03/11/2023 16:14:15 03/10/19 24 03/11/2023 CBC WITH DIFFE RENTI AL/PL ATELE T RDW 12.9 % 11.6-1 5.4 Not Available [facility] ([facility]) [address] [facility], [place], [address], 03/11/2023 16:14:15 03/10/19 24 03/11/2023 CBC WITH DIFFE RENTI AL/PL ATELE T platelets 249 x10e3 /uL 150-45 0 Not Available [facility] ([facility]) [address] [facility], [place], [address], 03/11/2023 16:14:15 03/10/19 24 03/11/2023 CBC WITH DIFFE RENTI AL/PL ATELE T neutrophils 74 % not estab. Not Available [facility] ([facility]) [address] [facility], [place], [address], 03/11/2023 16:14:15 03/10/19 24 03/11/2023 CBC WITH DIFFE RENTI AL/PL ATELE T lymphs 14 % not estab. Not Available [facility] ([facility]) [address] [facility], [place], [address], 03/11/2023 16:14:15 03/10/19 24 03/11/2023 CBC WITH DIFFE RENTI AL/PL ATELE T monocytes 11 % not estab. Not Available [facility] ([facility]) [address] [facility], [place], [address], 03/11/2023 16:14:15 03/10/19 24 03/11/2023 CBC WITH DIFFE RENTI AL/PL ATELE T eos 0 % not estab. Not Available [facility] ([facility]) [address] [facility], [place], [address], 03/11/2023 16:14:15 03/10/19 24 03/11/2023 CBC WITH DIFFE RENTI AL/PL ATELE T basos 1 % not estab. Not Available [facility] ([facility]) [address] [facility], [place], [address], 03/11/2023 16:14:15 03/10/19 24 03/11/2023 CBC WITH DIFFE RENTI AL/PL ATELE T immature cells SEED CORE OPERATOR Not Available [facility] ([facility]) [address] [facility], [place], [address], 03/11/2023 16:14:15 03/10/19 24 03/11/2023 CBC WITH DIFFE RENTI AL/PL ATELE T neutrophils (absolute) 4.6 x10e3 /uL 1.4-7. 0 Not Available [facility] ([facility]) [address] [facility], [place], [address], 03/11/2023 16:14:15 03/10/19 24 03/11/2023 CBC WITH DIFFE RENTI AL/PL ATELE T lymphs (absolute) 0.9 x10e3 /uL 0.7-3. 1 Not Available [facility] ([facility]) [address] [facility], [place], [address], 03/11/2023 16:14:15 03/10/19 24 03/11/2023 CBC WITH DIFFE RENTI AL/PL ATELE T monocytes(ab solute) 0.7 x10e3 /uL 0.1-0. 9 Not Available [facility] ([facility]) [address] [facility], [place], [address], 03/11/2023 16:14:15 03/10/19 24 03/11/2023 CBC WITH DIFFE RENTI AL/PL ATELE T eos (absolute) 0.0 x10e3 /uL 0.0-0. 4 Not Available [facility] ([facility]) [address] [facility], [place], [address], 03/11/2023 16:14:15 03/10/19 24 03/11/2023 CBC WITH DIFFE RENTI AL/PL ATELE T baso (absolute) 0.1 x10e3 /uL 0.0-0. 2 Not Available [facility] ([facility]) [address] [place], [address], 03/11/2023 16:14:15 03/10/19 24 03/11/2023 CBC WITH DIFFE RENTI AL/PL ATELE T immature granulocytes 0 % not estab. Not Available [facility] ([facility]) [address], [place], [address], 03/11/2023 16:14:15 03/10/19 24 03/11/2023 CBC WITH DIFFE RENTI AL/PL ATELE T immature grans (abs) 0.0 x10e3 /uL 0.0-0. 1 Not Available [facility] ([facility]) [address] [facility], [place], [address], 03/11/2023 16:14:15 03/10/19 24 03/11/2023 CBC WITH DIFFE RENTI AL/PL ATELE T NRBC SEED CORE OPERATOR Not Available [facility] ([facility]) [address] [facility], [place], [address], 03/11/2023 16:14:15 03/10/19 24 03/11/2023 CBC WITH DIFFE RENTI AL/PL ATELE T hematology comments: SEED CORE OPERATOR Not Available [facility] ([facility]) [address] [facility], [place], [address], 03/11/2023 16:14:15 03/10/19 24 03/11/2023 BASIC METAB OLIC PANEL (8) glucose 113 mg/dL 70-99 above high normal Not Available [facility] ([facility]) [address] [facility], [place], [address], 03/11/2023 16:14:16 03/10/19 24 03/11/2023 BASIC METAB OLIC PANEL (8) BUN 10 mg/dL 8-27 Not Available [facility] ([facility]) [address] [facility], [place], [address], 03/11/2023 16:14:16 03/10/19 24 03/11/2023 BASIC METAB OLIC PANEL (8) creatinine 1.03 mg/dL 0.76-1 .27 Not Available [facility] ([facility]) [address] [facility], [place], [address], 03/11/2023 16:14:16 03/10/19 24 03/11/2023 BASIC METAB OLIC PANEL (8) eGFR 73 mL/mi n/1.7 3 >59 Not Available [facility] ([facility]) [address] [facility], [place], [address], 03/11/2023 16:14:16 03/10/19 24 03/11/2023 BASIC METAB OLIC PANEL (8) BUN/creatini ne ratio 10 10-24 Not Available [facility] ([facility]) [address] [facility], [place], [address], 03/11/2023 16:14:16 03/10/19 24 03/11/2023 BASIC METAB OLIC PANEL (8) sodium 132 mmol/ L 134-14 4 below low normal Not Available [facility] ([facility]) [address] [facility], [place], [address], 03/11/2023 16:14:16 03/10/19 24 03/11/2023 BASIC METAB OLIC PANEL (8) potassium 4.1 mmol/ L 3.5-5. 2 Not Available [facility] ([facility]) [address] [place], [address], 03/11/2023 16:14:16 03/10/19 24 03/11/2023 BASIC METAB OLIC PANEL (8) chloride 94 mmol/ L 96-106 below low normal Not Available [facility] ([facility]) [address] [place], [address], 03/11/2023 16:14:16 03/10/19 24 03/11/2023 BASIC METAB OLIC PANEL (8) carbon dioxide, total 24 mmol/ L 20-29 Not Available [facility] ([facility]) [address] [place], [address], 03/11/2023 16:14:16 03/10/19 24 03/11/2023 BASIC METAB OLIC PANEL (8) calcium 9.1 mg/dL 8.6-10 .2 Not Available [facility] ([facility]) [address] [facility] [place], [address], 03/11/2023 16:14:16 03/10/19 24 03/11/2023 VITAM IN B12 AND FOLAT E vitamin B12 711 pg/mL 232-12 45 Not Available [facility] ([facility]) [address] [facility], [place], [address], 03/11/2023 16:14:18 03/10/19 24 03/11/2023 VITAM IN B12 AND FOLAT E folate (folic acid), serum 3.9 NG/mL >3.0 A serum folat e shay ntrat ion of less than 3.1 ng/mL is consi dered to repre sent clini alex defic iency . Not Available [facility] ([facility]) [address] [facility], [place], [address], 03/11/2023 16:14:18 03/10/19 24 03/11/2023 TSH TSH 1.740 uIU/m L 0.450- 4.500 Not Available [facility] ([facility]) [address] [facility], [place], [address], 03/11/2023 16:14:18 03/10/19 24 03/11/2023 SEDIM ENTAT ION RATE- WESTE RGREN sedimentatio n rate-westerg jessica 5 mm/HR 0-30 Not Available [facility] ([facility]) [address] [facility], [place], [address], 03/11/2023 16:14:19 03/18/19 24 03/19/2023 UA/M W/RFL X CULTU RE, ROUTI NE specific gravity 1.018 1.005- 1.030 Not Available [facility] ([facility]) [address] [facility], [place], [address], 03/20/2023 06:21:42 03/18/19 24 03/19/2023 UA/M W/RFL X CULTU RE, ROUTI NE pH 6.5 5.0-7. 5 Not Available [facility] ([facility]) [address] [place], [address], 03/20/2023 06:21:42 03/18/19 24 03/19/2023 UA/M W/RFL X CULTU RE, ROUTI NE urine-color YELLOW yellow Not Available [facility] ([facility]) [address] [facility], [place], [address], 03/20/2023 06:21:42 03/18/19 24 03/19/2023 UA/M W/RFL X CULTU RE, ROUTI NE appearance CLEAR clear Not Available [facility] ([facility]) [address] [facility], [place], [address], 03/20/2023 06:21:42 03/18/19 24 03/19/2023 UA/M W/RFL X CULTU RE, ROUTI NE WBC esterase TRACE negati ve abnormal Not Available [facility] ([facility]) [address] [place], [address], 03/20/2023 06:21:42 03/18/19 24 03/19/2023 UA/M W/RFL X CULTU RE, ROUTI NE protein NEGATI VE negati ve/tra ce Not Available [facility] ([facility]) [address] [place], [address], 03/20/2023 06:21:42 03/18/19 24 03/19/2023 UA/M W/RFL X CULTU RE, ROUTI NE glucose NEGATI VE negati ve Not Available [facility] ([facility]) [address] [place], [address], 03/20/2023 06:21:42 03/18/19 24 03/19/2023 UA/M W/RFL X CULTU RE, ROUTI NE ketones NEGATI VE negati ve Not Available [facility] ([facility]) [address] [place], [address], 03/20/2023 06:21:42 03/18/19 24 03/19/2023 UA/M W/RFL X CULTU RE, ROUTI NE occult blood NEGATI VE negati ve Not Available [facility] ([facility]) [address] [place], [address], 03/20/2023 06:21:42 03/18/19 24 03/19/2023 UA/M W/RFL X CULTU RE, ROUTI NE bilirubin NEGATI VE negati ve Not Available [facility] ([facility]) [address] [place], [address], 03/20/2023 06:21:42 03/18/19 24 03/19/2023 UA/M W/RFL X CULTU RE, ROUTI NE urobilinogen ,semi-qn 1.0 mg/dL 0.2-1. 0 Not Available [facility] ([facility]) [address] [place], [address], 03/20/2023 06:21:42 03/18/19 24 03/19/2023 UA/M W/RFL X CULTU RE, ROUTI NE nitrite, urine NEGATI VE negati ve Not Available [facility] ([facility]) [address] [place], [address], 03/20/2023 06:21:42 03/18/19 24 03/19/2023 UA/M W/RFL X CULTU RE, ROUTI NE microscopic examination SEE BELOW: Micro scopi c was indic ated and was perfo rmed. Not Available [facility] ([facility]) [address] [place], [address], 03/20/2023 06:21:42 03/18/19 24 03/19/2023 UA/M W/RFL X CULTU RE, ROUTI NE WBC 0-5 /hpf 0 - 5 Not Available [facility] ([facility]) [address], [place], [address], 03/20/2023 06:21:42 03/18/19 24 03/19/2023 UA/M W/RFL X CULTU RE, ROUTI NE RBC 0-2 /hpf 0 - 2 Not Available [facility] ([facility]) [address], [place], [address], 03/20/2023 06:21:42 03/18/19 24 03/19/2023 UA/M W/RFL X CULTU RE, ROUTI NE epithelial cells (non renal) 0-10 /hpf 0 - 10 Not Available [facility] ([facility]) [address] [facility], [place], [address], 03/20/2023 06:21:42 03/18/19 24 03/19/2023 UA/M W/RFL X CULTU RE, ROUTI NE epithelial cells (renal) SEED CORE OPERATOR Not Available [facility] ([facility]) [address] [facility], [place], [address], 03/20/2023 06:21:42 03/18/19 24 03/19/2023 UA/M W/RFL X CULTU RE, ROUTI NE casts NONE SEEN /lpf none seen Not Available [facility] ([facility]) [address] [facility], [place], [address], 03/20/2023 06:21:42 03/18/19 24 03/19/2023 UA/M W/RFL X CULTU RE, ROUTI NE cast type SEED CORE OPERATOR Not Available [facility] ([facility]) [address] [facility], [place], [address], 03/20/2023 06:21:42 03/18/19 24 03/19/2023 UA/M W/RFL X CULTU RE, ROUTI NE crystals SEED CORE OPERATOR Not Available [facility] ([facility]) [address] [facility], [place], [address], 03/20/2023 06:21:42 03/18/19 24 03/19/2023 UA/M W/RFL X CULTU REJOHN crystal type SEED CORE OPERATOR Not Available [facility] ([facility]) [address] [facility], [place], [address], 03/20/2023 06:21:42 03/18/19 24 03/19/2023 UA/M W/RFL X CULTU REJOHN NE mucus threads SEED CORE OPERATOR Not Available [facility] ([facility]) [address] [facility], [place], [address], 03/20/2023 06:21:42 03/18/19 24 03/19/2023 UA/M W/RFL X CULTU REJOHN NE bacteria NONE SEEN none seen/f ew Not Available [facility] ([facility]) [address] [facility], [place], [address], 03/20/2023 06:21:42 03/18/19 24 03/19/2023 UA/M W/RFL X CULTDolores REJOHN yeast SEED CORE OPERATOR Not Available [facility] ([facility]) [address] [facility], [place], [address], 03/20/2023 06:21:42 03/18/19 24 03/19/2023 UA/M W/RFL X CULTDolores REJOHN NE trichomonas SEED CORE OPERATOR Not Available [facility] ([facility]) [address] [facility], [place], [address], 03/20/2023 06:21:42 03/18/19 24 03/19/2023 UA/M W/RFL X CULTU REJOHN comment SEED CORE OPERATOR Not Available [facility] ([facility]) [address] [facility], [place], [address], 03/20/2023 06:21:42 03/18/19 24 03/19/2023 UA/M W/RFL X CULTU RE, ROUTI NE microscopic examination SEED CORE OPERATOR Not Available [facility] ([facility]) [address] [facility], [place], [address], 03/20/2023 06:21:42 03/18/19 24 03/19/2023 UA/M W/RFL X CULTU RE, ROUTI NE urinalysis reflex COMMEN T This speci men has refle xed to a Urine Cultu re. Not Available [facility] ([facility]) [address] [facility], [place], [address], 03/20/2023 06:21:42 03/18/19 24 03/20/2023 UA/M W/RFL X CULTU RE, ROUTI NE urine culture, routine FINAL REPORT Not Available [facility] ([facility]) [address] [facility], [place], [address], 03/20/2023 06:21:42 03/18/19 24 03/20/2023 UA/M W/RFL X CULTU RE, ROUTI NE result 1 COMMEN T Mixed uroge nital yogesh Less than 10,00 0 colon ies/m L Not Available [facility] ([facility]) [address] [facility], [place], [address], 03/20/2023 06:21:42 03/18/19 24 03/18/2023 urina lysis , dipst ick Leukocytes (reference range: negative holden/ l) Negati ve Not Available [facility] [address], [place], [address], 03/17/2023 12:21:37 03/18/19 24 03/18/2023 urina lysis , dipst ick Nitrite (reference rage: negative mg/dl) negati ve Not Available [address], [place], [address], 03/17/2023 12:21:37 03/18/19 24 03/18/2023 urina lysis , dipst ick Urobilinogen (reference range: 0.2-1 mg/dl) 1 Not Available [address], [place], [address], 03/17/2023 12:21:37 03/18/19 24 03/18/2023 urina lysis , dipst ick Protein (reference range: negative mg/dl) Negati ve Not Available [address], [place], [address], 03/17/2023 12:21:37 03/18/19 24 03/18/2023 urina lysis , dipst ick pH (reference range: 5-7) 6.0 Not Available [address], [place], [address], 03/17/2023 12:21:37 03/18/19 24 03/18/2023 urina lysis , dipst ick Blood (reference range: negative Morgan/ l) Negati ve Not Available [address], [place], [address], 03/17/2023 12:21:37 03/18/19 24 03/18/2023 urina lysis , dipst ick Specific Velma (reference range: 1.005-1.030) 1.020 Not Available [address], [place], [address], 03/17/2023 12:21:37 03/18/19 24 03/18/2023 urina lysis , dipst ick Ketone (reference range: negative mg/dl) Negati ve Not Available [address], [place], [address], 03/17/2023 12:21:37 02/08/03/18/2023 urina lysis , dipst ick Bilirubin (reference range: negative mg/dl) Negati ve Not Available [address], [place], [address], 03/17/2023 12:21:37 03/18/19 24 03/18/2023 urina lysis , dipst ick Glucose (reference range: negative mg/dl) Negati ve Not Available [address], [place], [address], 03/17/2023 12:21:37 03/18/19 24 03/18/2023 urina lysis , dipst ick Appearance Clear Not Available [address], [place], [address], 03/17/2023 12:21:37 03/18/19 24 03/18/2023 urina lysis , dipst ick Color Dark Yellow Not Available [address], [place], [address], 03/17/2023 12:21:37 07/26/19 24 07/21/2023 , echoc ardio gram No observ ation record ed. [facility] [address], [place], [address], 08/03/2023 09:29:02 07/26/19 24 07/21/2023 US, echoc ardio gram No observ ation record ed. [facility] [address], [place], [address], 07/28/2023 12:54:18 07/26/19 24 07/26/2023 sleep study , diagn ostic (PROC ) No observ ation record ed. [email or web address] [facility] [address], [place], [address], 08/03/2023 09:29:46 07/26/19 24 07/26/2023 home sleep study No observ ation record ed. [email or web address] [facility] [address], [place], [address], 07/28/2023 12:54:38 Result Notes None recorded. Problems Name Problem SNOMED Code Status Onset Date Resolution Date Notes Provider Name and Address Organization Details Recorded Time Postural dizziness 684725823 Active Not Available [facility] 3 02:04:14 Nocturia 824150933 Active Not Available [facility] 3 02:04:14 Localized, primary osteoarthr itis of the shoulder region 850146610 Active Not Available [facility] 3 02:04:14 Benign prostatic hyperplasi a 644293154 Active Not Available [facility] 3 02:04:14 Syncope 499949721 Active Not Available [facility] 3 02:04:14 Anemia 222719413 Active Not Available [facility] 3 02:04:14 Osteoarthr itis 340327286 Active Not Available [facility] 3 02:04:14 Dysuria 07077894 Active Not Available [facility] 3 02:04:14 Essential hypertensi on 49717887 Active Not Available [facility] 3 02:04:14 Urinary tract infectious disease 16144691 Active Not Available [facility] 3 02:04:14 Degenerati on of interverte bral disc 03802815 Active Not Available [facility] 3 02:04:14 Fatigue 55883756 Active Not Available [facility] 3 02:04:14 Gout 68327702 Active Not Available [facility] 3 02:04:15 Serum vitamin B12 below reference range 291494630 Active 2016 Not Available [facility] 3 02:04:14 Shoulder joint pain 110518330 Active 2016 Not Available [facility] 3 02:04:14 Gastroesop hageal reflux disease 236866418 Active 2018 Not Available [facility] 3 02:04:14 Nonexudati ve age-relate d macular degenerati on 867699051 Active 2019 Not Available [facility] 3 02:04:14 Increased frequency of urination 206769596 Active 2021 Not Available [facility] 3 02:04:14 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 456409805 Active 2021 Not Available [facility] 3 02:04:14 Vitamin B deficiency 72474730 Active 2022 Not Available [facility] 3 02:04:14 Cobalamin deficiency 186773954 Active 2022 Not Available [facility] 3 02:04:14 Degenerati on of lumbar interverte bral disc 12488658 Active 2022 Not Available [facility] 3 02:04:14 Spasm 65131781 Active 2022 Not Available [facility] 3 02:04:14 Hyponatrem ia 54895680 Active 2022 Not Available [facility] 3 02:04:15 Skin lesion 88475344 Active 2022 Not Available [facility] 3 02:04:15 Chronic hyponatrem ia 36786155 Active 2022 Not Available [facility] 3 02:04:14 Orthostati c hypotensio n 37039909 Active 2022 Not Available [facility] 3 02:04:14 Pain of left hip joint 7112164334695 00 Active 2022 Not Available [facility] 3 02:04:14 Edema of lower extremity 860355189 Active 2022 Not Available [facility] 3 02:04:14 Low back pain 123788613 Active 2022 Not Available [facility] 3 02:04:14 Bilateral sacroiliac joint pain 6246869556001 9104 Active 2022 Not Available [facility] 3 02:04:14 Acute urinary tract infection 663547919 Active 2022 Not Available [facility] 3 02:04:14 Lumbar spondylosi s 942928100 Active 2022 Not Available [facility] 3 02:04:14 Compressio n fracture of lumbar spine 067448381 Active 2022 Not Available [facility] 3 02:04:14 Organism isolated in blood by culture 6470640542012 107 Active 2022 ZACH Flores [address], [place], [address] , [employer] [facility] 3 17:03:49 Bilateral hearing loss 58630024 Active 2022 Sharon Lombardi MD [address], [place], [address] , [employer] [facility] 3 10:17:38 Night sweats 32629500 Active 2023 Sharon Lombardi MD [address], [place], [address] , [employer] [facility] 4 14:41:19 Erythrocyt e sedimentat ion rate above reference range 303111382 Active 2023 Sharon Lombardi MD [address], [place], [address] , [employer] [facility] 4 14:42:03 Rib pain 152699921 Active 2023 Sharon Lombardi MD [address], [place], [address] , [employer] [facility] 4 14:21:26 Open wound 937448829 Active 2023 ZACH Flores [address], [place], [address] , [employer] [facility] 4 09:21:14 Problem Notes None recorded. Procedures Surgical History Date Name Laterality Status Provider Name and Address Organization Details Recorded Time 3 Cystoscopy (male) completed Reji Javed MD [address], [address], [place], [address], [facility] [employer] [facility] [employer] [facility] 09/02/2022 12:05:22 3 Ortho - Cortisone Injection completed Bryan Schwab MD [address], [place], [address], [facility] [employer] [facility] [employer] [facility] 06/25/2022 10:59:59 3 Transitional_Ca re_Management completed YULI Stratton [address], [place], [address], [facility] [employer] [facility] [employer] [facility] 06/05/2022 15:42:12 Imaging Results None recorded. Procedure [...] mg by injectio n route. 07/23 completed [facility]: [id number] 4-20 Not Available Not Available Not [...] DateTime 03/18/2023 172.72 cm Kika Jorgensen RN [facility] [employer] 03/18/2023 13:01:30 Date Recorded Body height Provider Name an d Address Organization Details Last Updated DateTime 09/14/2023 172.72 cm Ebony Belle RN [facility] [employer] 09/14/2023 11:56:38 Date Recorded Body height Body mass index (BMI) Body weight Body temperature Heart rate Oxygen saturation Oxygen saturation in Arterial blood by Pulse oximetry Systolic And Diastolic Provider Name and Address Organization Details Last Updated DateTime 172.72 cm 27.5 kg/m2 95545.2 2 g 96.8 [degF] 94 /min 99 % 99 % 138/74 mm[Hg] Melanie Zhao RN [facility] [employer] 09:04:50 Social History Question Answer Notes LastModified by Organizat ion Details LastModified Time Tobacco Smoking Status Never Smoker Not Available [facility] 04/08/2022 02:34:01 What Is Your Level Of Caffeine Consumption? Moderate [id number] Information not available 04/08/2022 In The 14 Days Before Symptom Onset, Have You Had Close Contact With A Laboratory-confirm ed COVID-19 While That Case Was Ill? No [id number] Information not available 04/08/2022 In The 14 Days Before Symptom Onset, Have You Had Close Contact With A Person Who Is Under Investigation For COVID-19 While That Person Was Ill? No [id number] Information not available 04/08/2022 What Type Of Diet Are You Following? REGULAR [id number] Information not available 04/08/2022 Are There Any Guns Present In Your Home? No [id number] Information not available 04/08/2022 Have You Ever Been Counseled For Unhealthy Alcohol Use? No [email or web address] Information not available 06/05/2022 Has Tobacco Cessation Counseling Been Provided? No Information not available 06/05/2022 Do You Have Any Dietary Restrictions? No [id number] Information not available 04/08/2022 Sex: Unknown Functional Status Question Answer Note LastModified by Organizat ion Details LastModified Time Do you use any illicit or recreational drugs? No Information not available 06/05/2022 Do you or have you ever used any other forms of tobacco or nicotine? No [email or web address] Information not available 06/05/2022 What is your level of alcohol consumption? Heavy [email or web address] Information not available 06/25/2022 What is your occupation? retired [id number] Information not available 04/08/2022 What is your exercise level? Occasional [id number].[id number] 026 Information not available 04/08/2022 Mental Status None recorded. Family History Relationship Description Onset Age of this Age Resolved Age Notes LastModified by Organization Details LastModified Time Son Diabetes mellitus [id number] Not available 04/08/2022 02:34:26 Father Hypertensive disorder [email or web address] Not available 2022 10:35:49 Medical History Condition Response URINARY/BLADDER/KIDNEY PROBLEMS Y Immunizations Vaccine Type Date Status Note Provider Nam williams and Address Organization Details Recorded Time Influenza, high-dose, quadrivalent, PF 10/23/2020 completed Not Available [facility] 3 02:04:15 Influenza, high-dose, quadrivalent, PF 01/08/2022 completed Not Available [facility] 3 02:04:15 Influenza, high-dose, quadrivalent, PF 11/15/2019 completed Not Available [facility] 3 02:04:15 Influenza, high-dose, quadrivalent, PF 10/21/2022 completed Stephani Sevilla RN [facility], [place] - [facility] 10/21/2022 09:44:01 Past Encounters Encounter ID Performer Location Encounter Start Date Encounter Closed Date Diagnosis/Indication Diagnosis SNOMED-CT Code Diagnosis ICD10 Code Diagnosis IMO Codes Diagnosis Note [id number] S[facility] [place] [address] [address] [address] [place] [address] 04/24/2020 00:00:00 04/24/2020 16:53:32 [id number] Sharon Lombardi MD [facility] Primary Care [address] [address] 05/08/2020 00:00:00 05/08/2020 09:27:10 [id number] TYRONE Novoa [facility] Primary Care [address] [address] 07/10/2020 00:00:00 07/10/2020 13:52:33 [id number] Reji Javed MD [facility] Urology [address] [address] 10/09/2020 00:00:00 10/09/2020 11:38:12 [id number] Sharon Lombardi MD [facility] Primary [address] [address] 10/23/2020 00:00:00 11/06/2020 08:57:30 [id number] eRji Javed MD [facility] Urology [address] [address] 11/20/2020 00:00:00 11/20/2020 10:48:43 [id number] YULI Stratton [facility] Primary [place] [address] [place] [address] 01/14/2021 00:00:00 01/14/2021 12:10:15 [id number] Sharon Lombardi MD [facility] Primary [place] [address] [place] [address] 02/20/2021 00:00:00 03/09/2021 21:45:58 [id number] Sharon Lombardi MD [facility] Primary Care [place] [address] [place] [address] 08/21/2021 00:00:00 09/05/2021 12:08:52 [id number] Sharon Lombardi MD [facility] Primary Care [place] [address] [place] [address] 01/08/2022 00:00:00 01/08/2022 10:06:00 [id number] Sharon Lombardi MD [facility] Primary Care [place] [address] [place] [address] 02/19/2022 00:00:00 03/04/2022 14:53:31 [id number] Sharon Lombardi MD [facility] Primary Care [place] [address] [place] [address] 04/08/2022 14:36:52 04/09/2022 10:55:47 Adult health examination 380040252 Z00.00 see paper note [id number] Sharon Lombardi MD [facility] Primary Care [place] [address] [place] [address] 05/05/2022 13:58:18 05/05/2022 16:09:37 Degeneration of lumbar intervertebral disc 42285762 M51.36 R29.6 Cobalamin deficiency 190 235571 E53.8 Essential hypertension 84093591 I10 Spasm 76276065 R25.2 check labs [id number] Sharon Lombardi MD [facility] Primary Care [facility] [address] [facility] [address] [place] [address] 05/13/2022 12:13:04 05/13/2022 12:59:53 [id number] TYRONE Novoa [facility] Primary Care [facility] [address] [facility] [address] [place] [address] 05/21/2022 13:58:28 05/21/2022 14:53:18 Skin lesion 95353634 L98.9 New problemLef t abarca (approx) 2cm x 1cmNot painful or itching; however, still very suspicious for melanoma.W ill refer to derm for further evaluation of lesion. Hyponatremia 32690127 E8 7.1 New problemNa 126 (05/13/22)9; 124 (05/05/22); 134 (01/08/22)W ill repeat BMP. Pt to continue with increased sodium intake pending new lab result. [id number] YULI Stratton [facility] Primary Care [facility] [address] [facility] [address] [place] [address] 06/05/2022 14:04:30 06/05/2022 15:50:04 Transition of care 0468685903 [address] [facility] 05/28-. Chronic hyponatremia 503 99865 E87.1 He states while he was at the hospital it stabilized so he stopped taking the tablets. He has been adding salt to apples and different foods to just add salt into his diet.Reche ck BMP today, advised he may need to go back on sodium tablets. Essential hypertension 43578797 I10 He has been out of valsartan for the last week because insurance is not covering it. Will work on getting PA approved. Orthostati c hypotension 59126480 I95.1 Has seen fluctuatio ns mainly with positional changes. Advised to rise slowly from lying/sitt ing. Will check his sodium again today. Continue to monitor blood pressure. Will also plan to get him consult with cardiology due to symptoms for further evaluation . [id number] Sharon Lombardi MD [facility] Primary Care [facility] [address] [facility] [address] [place] [address] 06/18/2022 12:33:38 06/18/2022 13:15:30 Pain of left hip joint 6333850652 87769 M25.552 Degenerati on of lumbar intervertebral disc 96482642 M51.36 R29.6 Renewal of prescription 225461040 Z76.0 Edema of l ower extremity 335250825 R60.0 M79.605 M79.604 I73.9 Cobalamin deficiency 190 239486 E53.8 Hyponatremia 20092413 E8 7.1 Essential hypertension 13841779 I10 [id number] Bryan Schwab MD [facility] [place] [address] [place] [address] 06/25/2022 10:11:59 06/25/2022 10:58:51 Low back pain 741728734 M54.50 Pain of le ft hip joint 9837610607 38488 M25.552 Bilateral sacroiliac joint pain 4813953057 0494033 M53.3 [id number] Sharon Lombardi MD [facility] Primary Care [facility] [address] [facility] [address] [place] [address] 07/13/2022 12:34:36 07/13/2022 14:14:16 [id number] Reji Javed MD [facility] Urology [address] [address] 07/22/2022 12:26:30 07/22/2022 13:08:06 Increased frequency of urination 471313983 R35.0 : 1 Cysto - normal penile [...] which has utilized to this point Nocturia 489820417 R35.1 :Discussed limiting night-time EtOH volume if he wishes to reduce his nocturia -- not bothered enough to limit it at this time Dysuria 31080810 R30.0 :Previous culture was skin contaminan tWill continue to monitor via UA and PVR Urinary tr act infectious disease 39272682 N39.0 :PLAN:-Kermit Miguel as outside prescriber wrote for-RTC for Cysto next available- If has interval UTI events, he will try and get us culture data [id number] Sharon Lombardi MD [facility] Primary Care Jorge jeffery [address] [facility] [address] [place] [address] 07/23/2022 09:17:26 07/23/2022 10:41:19 Degeneration of lumbar intervertebral disc 08976697 M51.36 R29.6 has appt with neurosurge ryrestart gabapentin 300 mg qhs Edema of l ower extremity 442554694 R60.0 M79.605 M79.604 I73.9 resolved Cobalamin deficiency 190 698309 E53.8 Hyponatremia 72222882 E8 7.1 [id number] Bryan Schwab MD [facility] [place] [address] [place] [address] 07/23/2022 11:26:56 07/23/2022 13:00:59 Low back pain 751919584 M54.50 Pain of le ft hip joint 8307186527 66247 M25.552 Bilateral sacroiliac joint pain 4671223443 3390957 M53.3 Lumbar spondylosis 77934 0009 M47.896 Compressio n fracture of lumbar spine 758583501 M48.56XA [id number] Bryan Schwab MD [facility] [place] [address] [place] [address] 08/03/2022 09:40:07 08/03/2022 11:18:03 Low back pain 878708028 M54.50 Pain of le ft hip joint 5225707491 25420 M25.552 Bilateral sacroiliac joint pain 1174362280 6338448 M53.3 Lumbar spondylosis 38034 0009 M47.896 [id number] Reji Javed MD [facility] Urology [address] [address] 09/02/2022 11:36:35 09/02/2022 12:31:28 Urinary tract infectious disease 63845495 N39.0 :PLAN:-Cys to today -- negative, though [...] and documentat ion. Increased frequency of urination 168450592 R35.0 : 1 Cysto - normal penile urethra; 16Fr sarah s urethral narrowing, easily traversed, 40-50cc with [...] which has utilized to this point Nocturia 142497598 R35.1 :Discussed limiting night-time EtOH volume if he wishes to reduce his nocturia -- not bothered enough to limit it at this time Dysuria 98803836 R30.0 :Previous culture was skin contaminan tWill continue to monitor via UA and PVR [id number] Sharon Lombardi MD [facility] Primary Care [facility] [address] [facility] [address] [place] [address] 09/11/2022 10:21:27 09/11/2022 11:01:32 Cobalamin deficiency 704882282 E53.8 Hyponatremia 29267906 E8 7.1 stablechec k labs Essential hypertension 37222421 I10 in excellent control Renewal of prescription 699895648 Z76.0 Lumbar spondylosis 00271 0009 M47.896 refills givenhas second opinion appt upcoming with neurosurge lilia Dorsey [id number] Sharon Lombardi MD [facility] Primary Care [facility] [address] [facility] [address] [place] [address] 10/21/2022 08:47:32 10/21/2022 10:54:28 Hyponatremia 99105709 E87.1 stablechec k labs Administra tion of influenza vaccine 87672207 Z23 Cobalamin deficiency 190 736606 E53.8 Lumbar spondylosis 15221 0009 M47.896 has seen neurosurge ry and pain mgmthe is very active and will continue supportive careincrea se gabapentin 300 mg bidrefill hydrocodon e/apap-he uses this sparinglyc ontinue diclofenac 75 mg bidf/u in 3 months or sooner if needed [id number] Sharon Lombardi MD [facility] Primary Care [facility] [address] [facility] [address] [place] [address] 03/10/2023 14:14:31 03/10/2023 15:36:45 Cobalamin deficiency 018575406 E53.8 Essential hypertension 01961543 I10 monitored daily by cardiology Night sweats 20940395 R6 1 check labs [id number] Grady Malik, FIELD PLACEMENT DIRECTOR-C [facility] [place] [address] [place] [address] 03/18/2023 12:25:42 03/18/2023 13:05:21 [id number] Grady Malik FIELD PLACEMENT DIRECTOR-C [facility] [place] [address] [place] [address] 07/12/2023 10:36:37 07/12/2023 10:47:03 [id number] Grady Malik FIELD PLACEMENT DIRECTOR-C [facility] [place] [address] [place] [address] 07/27/2023 12:12:25 07/27/2023 12:39:54 [id number] YULI Shrestha [facility] [place] [address] [place] [address] 09/14/2023 11:54:56 09/14/2023 14:23:49 [id number] Grady Malik FIELD PLACEMENT DIRECTOR-C [facility] [place] [address] [place] [address] 09/23/2023 08:55:37 09/23/2023 09:27:28 Cobalamin deficiency 938814736 E53.8 chronic, stable Essential hypertension 54902375 I10 chronic, stable with [facility] cardiology f/u was July, next f/u is in Decemberlabs obtained Night sweats 06019856 R6 1 check labs Open wound 141657106 T14 .8XXA noted to right arm after a fallsome possible infection noted Health Concerns Section Related Observation LastModified by Organization Detai ls LastModified Time None Recorded Concern Status LastModified by Organization Details LastModified Time None Recorded Advance Directives Directive None Recorded Payers Insurance Date Sequence Insurance Name Policy Number Policy Ortiz Covered Member ID Ortiz Member ID Guarantor Name 07/12/2023 1 [facility] Vincenzo Glaser [id number] Vincenzo Glaser 07/12/2023 2 [facility] (MEDICARE REPLACEMENT/A DVANTAGE - PPO) Vincenzo Glaser [id number] Vincenzo Lunsford Jailyn 09/23/2023 1 [facility] [id number] Vincenzo Lunsford Jailyn [id number] Vincenzo Lunsford Jailyn 07/12/2023 1 [facility] [id number] Vincenzo Lunsford Jailyn [id number] Vincenzo Lunsford Jailyn 10/13/2023 2 [place] Vincenzo Lunsford Jailyn [id number] Vincenzo Lunsford Jailyn Notes Date Note Type Note Provider Name and Address Organization Details Recorded Time 09/23/2023 text/html Pt is here for f/u ZACH Flores [address], [place] [address], [place], [address], [facility] 09/23/2023 09:26:18
--- OUTSIDE RECORDS SUMMARY | 2024-11-05 18:18 | XMS_ITS | Clinical Summary ---
Author Organization [facility] Address [address] [place] [address] Care Team Providers Care Engraver Signature Name Role Phone Unavailable Primary Care Provider Unavailabl e Source Comments [facility],non-owned Affiliates and Associated Physician Practices is amultiple site organization consisting of ambulatory clinics and hospital sitesin [place], [place], [place] and [place]. This disclosure is being madepursuant to the Care Everywhere program and may not contain all information available regarding this patient. Last updated 17.[facility] [employer] Allergies No known active allergies Medications * [...] and heating? 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 Gender Identity Not on file Sexual Orientation [...] GLASER Subscriber ID:Not on file (Home) Address: [address] [place] [id number] Payer ID:Not on file Group ID:Not on file Type:Self Pay Address: [facility] CARE MEDICARE MEDICARE Member Subscriber Plan / Payer (Ef fective for All Dates) Name:Vincenzo Glaser Member ID:Not on file Relation to Subscriber:Self Name:Vincenzo Glaser Subscriber ID:Not on file Payer ID:Not on file Group ID:Not on file Type:Medicare Address: [place] [phone] MEDICARE Member Subscriber Plan / Payer (Ef fective for All Dates) Name:Vincenzo Glaser Member ID:Not on file Relation to Subscriber:Self Name:Vincenzo Glaser Subscriber ID:Not on file Payer ID:Not on file Group ID:Not on file Type:Medicare Address: [place] [phone] MEDICARE * Guarantor: VILMAEduardoVINCENZO AHMADI Account Type Relation to Patient Date of Phone Billing Address Personal/Family [address] [place] [address] MEDICARE Member Subscriber Plan / Payer (Ef fective for All Dates) Name:Vincenzo Glaser Member ID:[id number] Relation to Subscriber:Self Name:Vincenzo Glaser Subscriber ID:[id number] Payer ID:Not on file Group ID:Not on file Type:Medicare Address: [address] * Guarantor: NEHEMIASVINCENZO Account Type Relation to Patient Date of Phone Billing Address Personal/Family [address] [place] [address] MEDICARE Member Subscriber Plan / Payer (Ef fective for All Dates) Name:Vincenzo Glaser Member ID:[id number] Relation to Subscriber:Self Name:Vincenzo Glaser Subscriber ID:[id number] Payer ID:Not on file Group ID:Not on file Type:Medicare Address: [address] CARE * Guarantor: VINCENZO GLASER Account Type Relation to Patient Date of Phone Billing Address Personal/Family [address] [place] [address] MEDICARE [facility] Advance Directives * Full Code (Latest Code Status on File) Date Activated Date Inactivated Comments 05/28/2022 6:57 PM 05/30/2022 9:34 AM
--- NOTE | 2024-11-05 18:24 | PC.NURSE ---
pt ambulated to the bathroom at this time
[2024-11-05] MEDS: SODIUM CHLORIDE 0.9% IV 1,000 ML 999 ML IV CONT (18:38)
--- NOTE | 2024-11-05 19:16 | PC.NURSE ---
Addendum entered by Claudette Sawyer RN 11/05/24 19:19: Report received from PAUL Tejeda. Assumed care of patient at this time. No sitter on patient, entered in error. Original Note: Report received from PAUL Tejeda. Assumed care of patient at this time. Sitter remains at bedside.
== END 2024-11-05 20:08 | disposition home or self-care (01) ==
PROVIDERS: Emergency Provider Student in an Organized Health Care Education/Training Program; PCP Family Medicine
DX: R42 Dizziness and giddiness (principal); T46.5X5A Adverse effect of other antihypertensive drugs, initial encounter; I48.91 Unspecified atrial fibrillation; K21.9 Gastro-esophageal reflux disease without esophagitis; M19.90 Unspecified osteoarthritis, unspecified site; N40.0 Benign prostatic hyperplasia without lower urinary tract symptoms; I10 Essential (primary) hypertension
CPT/HCPCS: 96360; 99282; J7030

== ENCOUNTER 2024-11-29 11:53 | Outpatient (CLI) | payer OTHER, MEDICARE, SELFPAY ==
[2024-11-29 12:13] LABS: Add Urine Microscopic? YES; Appearance Urine Clear (Clear); Glucose Urine UA Negative (Negative); Leukocyte Esterase Ur Negative LEU/UL (Negative); Nitrate Urine Negative (Negative); Specific Grav Ur 1.012 (1.001-1.035)
--- OUTSIDE RECORDS SUMMARY | 2024-11-29 15:09 | XMS_ITS | Clinical Summary ---
Author Organization [facility] Address [address] [place] [address] Care Team Providers Care Photovoltaic Power Systems Engineer Name Role Phone Unavailable Primary Care Provider [...] Vaccine ( - 2023-2 5 season) 2024 Influenza Adult (#1) 2024 Hepatitis A Vaccines Aged Out No long er eligible based on patient's age to complete this topic Meningococcal B Vaccine Aged Out No l onger eligible based on patient's age to complete this topic Meningococcal Vaccine Aged Out No vonda georgiana eligible based on patient's age to complete this topic RSV Immunizations Under 20 Months Aged Out No longer eligible based on patient's age to complete this topic
--- OUTSIDE RECORDS SUMMARY | 2024-11-29 15:10 | XMS_ITS | Clinical Summary ---
Author Organization [facility] Address [address] [place] [address] Care Team Providers Care Customer Service Associate Name Role Phone Unavailable Primary Care Provider Unavailabl e Source Comments [facility],non-owned Affiliates and Associated Physician Practices is amultiple site organization consisting of ambulatory clinics and hospital sitesin [place], [place], [place] and [place]. This disclosure is being madepursuant to the Care Everywhere program and may not contain all information available regarding this patient. Last updated 17.[facility] [email or web address] Allergies No known active allergies Medications * [...] and heating? Not hard at all 05/30/2022 [facility] [place] [facility] Occupat ional Health - Occupational Stress [...] place to sleep or slept in a prison (including now)? 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 Gender Identity Not on file Sexual Orientation [...] GLASER Subscriber ID:Not on file (Home) Address: [address] [place] [phone] Payer ID:Not on file Group ID:Not on file Type:Self Pay Address: [facility] CARE [facility] CARE MEDICARE MEDICARE Member Subscriber Plan / Payer (Ef fective for All Dates) Name:Vincenzo Glaser Member ID:Not on file Relation to Subscriber:Self Name:Vincenzo Glaser Subscriber ID:Not on file Payer ID:Not on file Group ID:Not on file Type:Medicare Address: [place] [phone] MEDICARE Member Subscriber Plan / Payer (Ef fective for All Dates) Name:Vincenzo Glaser Member ID:Not on file Relation to Subscriber:Self Name:Vincenzo Glaser Subscriber ID:Not on file Payer ID:Not on file Group ID:Not on file Type:Medicare Address: [place] [id number] MEDICARE * Guarantor: VILMAEduardoVINCENZO AHMADI Account Type Relation to Patient Date of Phone Billing Address Personal/Family [address] [place] [address] MEDICARE Member Subscriber Plan / Payer (Ef fective for All Dates) Name:Vincenzo Glaser Member ID:[id number] Relation to Subscriber:Self Name:Vincenzo Glaser Subscriber ID:[id number] Payer ID:Not on file Group ID:Not on file Type:Medicare Address: [address] * Guarantor: NEHEMIASVINCENZO Account Type Relation to Patient Date of Phone Billing Address Personal/Family [address] [place] [address] MEDICARE Member Subscriber Plan / Payer (Ef fective for All Dates) Name:Vincenzo Glaser Member ID:[id number] Relation to Subscriber:Self Name:Vincenzo Glaser Subscriber ID:[id number] Payer ID:Not on file Group ID:Not on file Type:Medicare Address: [address] CARE * Guarantor: VINCENZO GLASER Account Type Relation to Patient Date of Phone Billing Address Personal/Family [address] [place] [address] MEDICARE [facility] Advance Directives * Full Code (Latest Code Status on File) Date Activated Date Inactivated Comments 05/28/2022 6:57 PM 05/30/2022 9:34 AM
--- OUTSIDE RECORDS SUMMARY | 2024-11-29 15:10 | XMS_ITS | Data Portability ---
Author Organization [facility] [employer], Main Office Address [address] [place] [address] Assessment No assessment recorded. Plan of Treatment Reminders Order Date Submit Date Provider Last Modified By Organization Details Last Modified Time Details Appointments None recorded. Lab CBC w/ auto diff [address] (Lab), [address] [place], [address], 4 09:46:38 BMP, serum or plasma [address] (Lab), [address] [place], [address], 4 09:46:48 lipid panel, serum [address] (Lab), [address] [place], [address], 4 09:46:59 TSH, serum or plasma [address] (Lab), [address] [place], [address], 4 09:47:10 vitamin B12, serum [address] (Lab), [address] [place], [address], 4 09:46:19 folate, serum 2023 024 [email or web address] [address] [place], [address], 4 09:46:29 Referral None recorded. Procedures None recorded. Surgeries None recorded. Imaging None recorded. Medication Orders mupirocin 2 % topical ointment 2023 [id number], [address] [place], [place], [id number], 4 09:25:44 doxycycline hyclate 100 mg tablet 2023 [facility][id number], [address], [place], [id number], 4 09:25:45 Patient TargetsNo targets recorded. Patient InstructionsNo instructions recorded. Reason for Referral None Reported. Results Created Date Observation Date Name Description Value Unit Range Abnormal Flag Note LastModifiedBy Organization Detail LastModifiedTime 07/18/19 24 07/18/2023 DRUG MONIT OR, PANEL 3, W/CON F, URINE amphetamines NEGATI VE CONFIR MED NG/mL <500 Not Available [facility] [place] [address] [place], [address], 07/18/2023 01:59:01 07/18/19 24 07/18/2023 DRUG MONIT OR, PANEL 3, W/CON F, URINE amphetamine NEGATI VE NG/mL <250 Not Available [facility] [place] [address] [place], [address], 07/18/2023 01:59:01 07/18/19 24 07/18/2023 DRUG MONIT OR, PANEL 3, W/CON F, URINE methamphetam ine NEGATI VE NG/mL <250 Not Available [facility] [address] [place] [address] [place], [address], 07/18/2023 01:59:01 07/18/19 24 07/18/2023 DRUG MONIT OR, PANEL 3, W/CON F, URINE amphetamines comments See LDT Notes Not Available [address] [address] [place], [address], 07/18/2023 01:59:01 07/18/19 24 07/18/2023 DRUG MONIT OR, PANEL 3, W/CON F, URINE benzodiazepi jean-paul NEGATI VE NG/mL <100 Not Available [address] [address] [place], [address], 07/18/2023 01:59:01 07/18/19 24 07/18/2023 DRUG MONIT OR, PANEL 3, W/CON F, URINE cocaine metabolite NEGATI VE NG/mL <150 Not Available [address] [address] [place], [address], 07/18/2023 01:59:01 07/18/19 24 07/18/2023 DRUG MONIT OR, PANEL 3, W/CON F, URINE marijuana metabolite POSITI VE NG/mL <20 abnormal Not Available [address] [address] [place], [address], 07/18/2023 01:59:01 07/18/19 24 07/18/2023 DRUG MONIT OR, PANEL 3, W/CON F, URINE marijuana metabolite 112 NG/mL <5 high Not Available [address] [address] [place], [address], 07/18/2023 01:59:01 07/18/19 24 07/18/2023 DRUG MONIT OR, PANEL 3, W/CON F, URINE marijuana comments See Nesha kim Notes , LDT Notes Not Available [address] [address] [place], [address], 07/18/2023 01:59:01 07/18/19 24 07/18/2023 DRUG MONIT OR, PANEL 3, W/CON F, URINE opiates POSITI VE NG/mL <100 abnormal Not Available [address] [address] [place], [address], 07/18/2023 01:59:01 07/18/19 24 07/18/2023 DRUG MONIT OR, PANEL 3, W/CON F, URINE codeine NEGATI VE NG/mL <50 Not Available [address] [address], [place], [address], 07/18/2023 01:59:01 07/18/19 24 07/18/2023 DRUG MONIT OR, PANEL 3, W/CON F, URINE hydrocodone 411 NG/mL <50 high Not Available [address], [place], [address], 07/18/2023 01:59:01 07/18/19 24 07/18/2023 DRUG MONIT OR, PANEL 3, W/CON F, URINE hydromorphon e 517 NG/mL <50 high Not Available [address] [address], [place], [address], 07/18/2023 01:59:01 07/18/19 24 07/18/2023 DRUG MONIT OR, PANEL 3, W/CON F, URINE morphine NEGATI VE NG/mL <50 Not Available [address] [address], [place], [address], 07/18/2023 01:59:01 07/18/19 24 07/18/2023 DRUG MONIT OR, PANEL 3, W/CON F, URINE norhydrocodo ne 445 NG/mL <50 high Not Available [address] [address], [place], [address], 07/18/2023 01:59:01 07/18/19 24 07/18/2023 DRUG MONIT OR, PANEL 3, W/CON F, URINE opiates comments See Opiat es Notes , LDT Notes Not Available [address] [address], [place], [address], 07/18/2023 01:59:01 07/18/19 24 07/18/2023 DRUG MONIT OR, PANEL 3, W/CON F, URINE oxycodone NEGATI VE NG/mL <100 Not Available [address] [address] [place], [address], 07/18/2023 01:59:01 07/18/19 24 07/18/2023 DRUG MONIT OR, PANEL 3, W/CON F, URINE creatinine 84.7 mg/dL > or = 20.0 Not Available [facility] [address] [address] [address] , [place], [address], 07/18/2023 01:59:01 07/18/19 24 07/18/2023 DRUG MONIT OR, PANEL 3, W/CON F, URINE pH 8.5 4.5-9. 0 Not Available [address] [address] , [place], [address], 07/18/2023 01:59:01 07/18/19 24 07/18/2023 DRUG MONIT OR, PANEL 3, W/CON F, URINE oxidant NEGATI VE mcg/m L <200 Not Available [address] [address] [place], [address], 07/18/2023 01:59:01 07/18/19 24 07/18/2023 DRUG MONIT [...] of Marij uana. Opiat es Notes : [place] codon e, Norhy droco done, [place] morph one detec gus is consi stent with the use of the drug [place] codon e. [place] morph one detec gus is consi stent with the use of the drug [place] morph one. [place] morph one can be a presc ribed drug and is also a metab olite of [place] codon e. LDT Notes : Confi rmati on tests were devel oped and their rosibel tical perfo rmanc e barbra cteri stics have been deter mined by [employer] ostic s. It has not been clear [...] M-F, 8am to 10pm EST Not Available [facility] [address] [address] [place], [address], 07/18/2023 01:59:03 07/18/19 24 07/18/2023 DRUG MONIT OR, PANEL 3, W/CON F, URINE amphetamines NEGATI VE CONFIR MED NG/mL <500 Not Available [facility] [address] [address] [place], [address], 07/18/2023 01:59:04 07/18/19 24 07/18/2023 DRUG MONIT OR, PANEL 3, W/CON F, URINE amphetamine NEGATI VE NG/mL <250 Not Available [facility] [address] [address] [place], [address], 07/18/2023 01:59:04 07/18/19 24 07/18/2023 DRUG MONIT OR, PANEL 3, W/CON F, URINE methamphetam ine NEGATI VE NG/mL <250 Not Available [facility] [address] [address] [place], [address], 07/18/2023 01:59:04 07/18/19 24 07/18/2023 DRUG MONIT OR, PANEL 3, W/CON F, URINE amphetamines comments See LDT Notes Not Available [address] [address], [place], [address], 07/18/2023 01:59:04 07/18/19 24 07/18/2023 DRUG MONIT OR, PANEL 3, W/CON F, URINE benzodiazepi jean-paul NEGATI VE NG/mL <100 Not Available [address], [place], [address], 07/18/2023 01:59:04 07/18/19 24 07/18/2023 DRUG MONIT OR, PANEL 3, W/CON F, URINE cocaine metabolite NEGATI VE NG/mL <150 Not Available [address] , [place], [address], 07/18/2023 01:59:04 07/18/19 24 07/18/2023 DRUG MONIT OR, PANEL 3, W/CON F, URINE marijuana metabolite POSITI VE NG/mL <20 abnormal Not Available [address] , [place], [address], 07/18/2023 01:59:04 07/18/19 24 07/18/2023 DRUG MONIT OR, PANEL 3, W/CON F, URINE marijuana metabolite 112 NG/mL <5 high Not Available [address] [address] [place], [address], 07/18/2023 01:59:04 07/18/19 24 07/18/2023 DRUG MONIT OR, PANEL 3, W/CON F, URINE marijuana comments See Nesha kim Notes , LDT Notes Not Available [address], [place], [address], 07/18/2023 01:59:04 07/18/19 24 07/18/2023 DRUG MONIT OR, PANEL 3, W/CON F, URINE opiates POSITI VE NG/mL <100 abnormal Not Available [address] [address] [place], [address], 07/18/2023 01:59:04 07/18/19 24 07/18/2023 DRUG MONIT OR, PANEL 3, W/CON F, URINE codeine NEGATI VE NG/mL <50 Not Available [address], [address], 07/18/2023 01:59:04 07/18/19 24 07/18/2023 DRUG MONIT OR, PANEL 3, W/CON F, URINE hydrocodone 411 NG/mL <50 high Not Available [address], [address], 07/18/2023 01:59:04 07/18/19 24 07/18/2023 DRUG MONIT OR, PANEL 3, W/CON F, URINE hydromorphon e 517 NG/mL <50 high Not Available [address], [address], 07/18/2023 01:59:04 07/18/19 24 07/18/2023 DRUG MONIT OR, PANEL 3, W/CON F, URINE morphine NEGATI VE NG/mL <50 Not Available [address], [address], 07/18/2023 01:59:04 07/18/19 24 07/18/2023 DRUG MONIT OR, PANEL 3, W/CON F, URINE norhydrocodo ne 445 NG/mL <50 high Not Available [address] [place], [address], 07/18/2023 01:59:04 07/18/19 24 07/18/2023 DRUG MONIT OR, PANEL 3, W/CON F, URINE opiates comments See Opiat es Notes , LDT Notes Not Available [address] [address] [place], [address], 07/18/2023 01:59:04 07/18/19 24 07/18/2023 DRUG MONIT OR, PANEL 3, W/CON F, URINE oxycodone NEGATI VE NG/mL <100 Not Available [address] [address] [place], [address], 07/18/2023 01:59:04 07/18/19 24 07/18/2023 DRUG MONIT OR, PANEL 3, W/CON F, URINE creatinine 84.7 mg/dL > or = 20.0 Not Available [address] [address] [place], [address], 07/18/2023 01:59:04 07/18/19 24 07/18/2023 DRUG MONIT OR, PANEL 3, W/CON F, URINE pH 8.5 4.5-9. 0 Not Available [address] [address] [place], [address], 07/18/2023 01:59:04 07/18/19 24 07/18/2023 DRUG MONIT OR, PANEL 3, W/CON F, URINE oxidant NEGATI VE mcg/m L <200 Not Available [address] [address] [place], [address], 07/18/2023 01:59:04 03/10/19 24 03/11/2023 CBC WITH DIFFE RENTI AL/PL ATELE T WBC 6.2 x10e3 /uL 3.4-10 .8 Not Available [facility] ([facility]) [address] [facility], [place], [address], 03/11/2023 16:14:15 03/10/19 24 03/11/2023 CBC WITH DIFFE RENTI AL/PL ATELE T RBC 3.84 x10e6 /uL 4.14-5 .80 below low normal Not Available [facility] ([facility]) [address] [facility], [place], [address], 03/11/2023 16:14:15 03/10/19 24 03/11/2023 CBC WITH DIFFE RENTI AL/PL ATELE T hemoglobin 12.8 g/dL 13.0-1 7.7 below low normal Not Available [facility] ([facility]) [address] [facility], [place], [address], 03/11/2023 16:14:15 03/10/19 24 03/11/2023 CBC WITH DIFFE RENTI AL/PL ATELE T hematocrit 37.3 % 37.5-5 1.0 below low normal Not Available [facility] ([facility]) [address] [facility], [place], [address], 03/11/2023 16:14:15 03/10/19 24 03/11/2023 CBC WITH DIFFE RENTI AL/PL ATELE T MCV 97 fL 79-97 Not Available [facility] ([facility]) [address] [facility], [place], [address], 03/11/2023 16:14:15 03/10/19 24 03/11/2023 CBC WITH DIFFE RENTI AL/PL ATELE T MCH 33.3 pg 26.6-3 3.0 above high normal Not Available [facility] ([facility]) [address] [facility], [place], [address], 03/11/2023 16:14:15 03/10/19 24 03/11/2023 CBC WITH DIFFE RENTI AL/PL ATELE T MCHC 34.3 g/dL 31.5-3 5.7 Not Available [facility] ([facility]) [address] [place], [address], 03/11/2023 16:14:15 03/10/19 24 03/11/2023 CBC WITH DIFFE RENTI AL/PL ATELE T RDW 12.9 % 11.6-1 5.4 Not Available [facility] ([facility]) [address] [facility], [place], [address], 03/11/2023 16:14:15 03/10/19 24 03/11/2023 CBC WITH DIFFE RENTI AL/PL ATELE T platelets 249 x10e3 /uL 150-45 0 Not Available [facility] ([facility]) [address] [facility], [place], [address], 03/11/2023 16:14:15 03/10/19 24 03/11/2023 CBC WITH DIFFE RENTI AL/PL ATELE T neutrophils 74 % not estab. Not Available [facility] ([facility]) [address] [facility], [place], [address], 03/11/2023 16:14:15 03/10/19 24 03/11/2023 CBC WITH DIFFE RENTI AL/PL ATELE T lymphs 14 % not estab. Not Available [facility] ([facility]) [address] [facility], [place], [address], 03/11/2023 16:14:15 03/10/19 24 03/11/2023 CBC WITH DIFFE RENTI AL/PL ATELE T monocytes 11 % not estab. Not Available [facility] ([facility]) [address] [facility], [place], [address], 03/11/2023 16:14:15 03/10/19 24 03/11/2023 CBC WITH DIFFE RENTI AL/PL ATELE T eos 0 % not estab. Not Available [facility] ([facility]) [address] [facility], [place], [address], 03/11/2023 16:14:15 03/10/19 24 03/11/2023 CBC WITH DIFFE RENTI AL/PL ATELE T basos 1 % not estab. Not Available [facility] ([facility]) [address] [facility], [place], [address], 03/11/2023 16:14:15 03/10/19 24 03/11/2023 CBC WITH DIFFE RENTI AL/PL ATELE T immature cells REHABILITATION ENGINEER Not Available [facility] ([facility]) [address] [facility], [place], [address], 03/11/2023 16:14:15 03/10/19 24 03/11/2023 CBC WITH DIFFE RENTI AL/PL ATELE T neutrophils (absolute) 4.6 x10e3 /uL 1.4-7. 0 Not Available [facility] ([facility]) [address] [facility], [place], [address], 03/11/2023 16:14:15 03/10/19 24 03/11/2023 CBC WITH DIFFE RENTI AL/PL ATELE T lymphs (absolute) 0.9 x10e3 /uL 0.7-3. 1 Not Available [facility] ([facility]) [address] [facility], [place], [address], 03/11/2023 16:14:15 03/10/19 24 03/11/2023 CBC WITH DIFFE RENTI AL/PL ATELE T monocytes(ab solute) 0.7 x10e3 /uL 0.1-0. 9 Not Available [facility] ([facility]) [address] [facility], [place], [address], 03/11/2023 16:14:15 03/10/19 24 03/11/2023 CBC WITH DIFFE RENTI AL/PL ATELE T eos (absolute) 0.0 x10e3 /uL 0.0-0. 4 Not Available [facility] ([facility]) [address] [facility], [place], [address], 03/11/2023 16:14:15 03/10/19 24 03/11/2023 CBC WITH DIFFE RENTI AL/PL ATELE T baso (absolute) 0.1 x10e3 /uL 0.0-0. 2 Not Available [facility] ([facility]) [address] [place], [address], 03/11/2023 16:14:15 03/10/19 24 03/11/2023 CBC WITH DIFFE RENTI AL/PL ATELE T immature granulocytes 0 % not estab. Not Available [facility] ([facility]) [address], [place], [address], 03/11/2023 16:14:15 03/10/19 24 03/11/2023 CBC WITH DIFFE RENTI AL/PL ATELE T immature grans (abs) 0.0 x10e3 /uL 0.0-0. 1 Not Available [facility] ([facility]) [address] [facility], [place], [address], 03/11/2023 16:14:15 03/10/19 24 03/11/2023 CBC WITH DIFFE RENTI AL/PL ATELE T NRBC REHABILITATION ENGINEER Not Available [facility] ([facility]) [address] [facility], [place], [address], 03/11/2023 16:14:15 03/10/19 24 03/11/2023 CBC WITH DIFFE RENTI AL/PL ATELE T hematology comments: REHABILITATION ENGINEER Not Available [facility] ([facility]) [address] [facility], [place], [address], 03/11/2023 16:14:15 03/10/19 24 03/11/2023 BASIC METAB OLIC PANEL (8) glucose 113 mg/dL 70-99 above high normal Not Available [facility] ([facility]) [address] [facility], [place], [address], 03/11/2023 16:14:16 03/10/19 24 03/11/2023 BASIC METAB OLIC PANEL (8) BUN 10 mg/dL 8-27 Not Available [facility] ([facility]) [address] [facility], [place], [address], 03/11/2023 16:14:16 03/10/19 24 03/11/2023 BASIC METAB OLIC PANEL (8) creatinine 1.03 mg/dL 0.76-1 .27 Not Available [facility] ([facility]) [address] [facility], [place], [address], 03/11/2023 16:14:16 03/10/19 24 03/11/2023 BASIC METAB OLIC PANEL (8) eGFR 73 mL/mi n/1.7 3 >59 Not Available [facility] ([facility]) [address] [facility], [place], [address], 03/11/2023 16:14:16 03/10/19 24 03/11/2023 BASIC METAB OLIC PANEL (8) BUN/creatini ne ratio 10 10-24 Not Available [facility] ([facility]) [address] [facility], [place], [address], 03/11/2023 16:14:16 03/10/19 24 03/11/2023 BASIC METAB OLIC PANEL (8) sodium 132 mmol/ L 134-14 4 below low normal Not Available [facility] ([facility]) [address] [facility], [place], [address], 03/11/2023 16:14:16 03/10/19 24 03/11/2023 BASIC METAB OLIC PANEL (8) potassium 4.1 mmol/ L 3.5-5. 2 Not Available [facility] ([facility]) [address] [place], [address], 03/11/2023 16:14:16 03/10/19 24 03/11/2023 BASIC METAB OLIC PANEL (8) chloride 94 mmol/ L 96-106 below low normal Not Available [facility] ([facility]) [address] [place], [address], 03/11/2023 16:14:16 03/10/19 24 03/11/2023 BASIC METAB OLIC PANEL (8) carbon dioxide, total 24 mmol/ L 20-29 Not Available [facility] ([facility]) [address] [place], [address], 03/11/2023 16:14:16 03/10/19 24 03/11/2023 BASIC METAB OLIC PANEL (8) calcium 9.1 mg/dL 8.6-10 .2 Not Available [facility] ([facility]) [address] [facility] [place], [address], 03/11/2023 16:14:16 03/10/19 24 03/11/2023 VITAM IN B12 AND FOLAT E vitamin B12 711 pg/mL 232-12 45 Not Available [facility] ([facility]) [address] [facility], [place], [address], 03/11/2023 16:14:18 03/10/19 24 03/11/2023 VITAM IN B12 AND FOLAT E folate (folic acid), serum 3.9 NG/mL >3.0 A serum folat e shay ntrat ion of less than 3.1 ng/mL is consi dered to repre sent clini alex defic iency . Not Available [facility] ([facility]) [address] [facility], [place], [address], 03/11/2023 16:14:18 03/10/19 24 03/11/2023 TSH TSH 1.740 uIU/m L 0.450- 4.500 Not Available [facility] ([facility]) [address] [facility], [place], [address], 03/11/2023 16:14:18 03/10/19 24 03/11/2023 SEDIM ENTAT ION RATE- WESTE RGREN sedimentatio n rate-westerg jessica 5 mm/HR 0-30 Not Available [facility] ([facility]) [address] [facility], [place], [address], 03/11/2023 16:14:19 03/18/19 24 03/19/2023 UA/M W/RFL X CULTU RE, ROUTI NE specific gravity 1.018 1.005- 1.030 Not Available [facility] ([facility]) [address] [facility], [place], [address], 03/20/2023 06:21:42 03/18/19 24 03/19/2023 UA/M W/RFL X CULTU RE, ROUTI NE pH 6.5 5.0-7. 5 Not Available [facility] ([facility]) [address] [place], [address], 03/20/2023 06:21:42 03/18/19 24 03/19/2023 UA/M W/RFL X CULTU RE, ROUTI NE urine-color YELLOW yellow Not Available [facility] ([facility]) [address] [facility], [place], [address], 03/20/2023 06:21:42 03/18/19 24 03/19/2023 UA/M W/RFL X CULTU RE, ROUTI NE appearance CLEAR clear Not Available [facility] ([facility]) [address] [facility], [place], [address], 03/20/2023 06:21:42 03/18/19 24 03/19/2023 UA/M W/RFL X CULTU RE, ROUTI NE WBC esterase TRACE negati ve abnormal Not Available [facility] ([facility]) [address] [place], [address], 03/20/2023 06:21:42 03/18/19 24 03/19/2023 UA/M W/RFL X CULTU RE, ROUTI NE protein NEGATI VE negati ve/tra ce Not Available [facility] ([facility]) [address] [place], [address], 03/20/2023 06:21:42 03/18/19 24 03/19/2023 UA/M W/RFL X CULTU RE, ROUTI NE glucose NEGATI VE negati ve Not Available [facility] ([facility]) [address] [place], [address], 03/20/2023 06:21:42 03/18/19 24 03/19/2023 UA/M W/RFL X CULTU RE, ROUTI NE ketones NEGATI VE negati ve Not Available [facility] ([facility]) [address] [place], [address], 03/20/2023 06:21:42 03/18/19 24 03/19/2023 UA/M W/RFL X CULTU RE, ROUTI NE occult blood NEGATI VE negati ve Not Available [facility] ([facility]) [address] [place], [address], 03/20/2023 06:21:42 03/18/19 24 03/19/2023 UA/M W/RFL X CULTU RE, ROUTI NE bilirubin NEGATI VE negati ve Not Available [facility] ([facility]) [address] [place], [address], 03/20/2023 06:21:42 03/18/19 24 03/19/2023 UA/M W/RFL X CULTU RE, ROUTI NE urobilinogen ,semi-qn 1.0 mg/dL 0.2-1. 0 Not Available [facility] ([facility]) [address] [place], [address], 03/20/2023 06:21:42 03/18/19 24 03/19/2023 UA/M W/RFL X CULTU RE, ROUTI NE nitrite, urine NEGATI VE negati ve Not Available [facility] ([facility]) [address] [place], [address], 03/20/2023 06:21:42 03/18/19 24 03/19/2023 UA/M W/RFL X CULTU RE, ROUTI NE microscopic examination SEE BELOW: Micro scopi c was indic ated and was perfo rmed. Not Available [facility] ([facility]) [address] [place], [address], 03/20/2023 06:21:42 03/18/19 24 03/19/2023 UA/M W/RFL X CULTU RE, ROUTI NE WBC 0-5 /hpf 0 - 5 Not Available [facility] ([facility]) [address], [place], [address], 03/20/2023 06:21:42 03/18/19 24 03/19/2023 UA/M W/RFL X CULTU RE, ROUTI NE RBC 0-2 /hpf 0 - 2 Not Available [facility] ([facility]) [address], [place], [address], 03/20/2023 06:21:42 03/18/19 24 03/19/2023 UA/M W/RFL X CULTU RE, ROUTI NE epithelial cells (non renal) 0-10 /hpf 0 - 10 Not Available [facility] ([facility]) [address] [facility], [place], [address], 03/20/2023 06:21:42 03/18/19 24 03/19/2023 UA/M W/RFL X CULTU RE, ROUTI NE epithelial cells (renal) REHABILITATION ENGINEER Not Available [facility] ([facility]) [address] [facility], [place], [address], 03/20/2023 06:21:42 03/18/19 24 03/19/2023 UA/M W/RFL X CULTU RE, ROUTI NE casts NONE SEEN /lpf none seen Not Available [facility] ([facility]) [address] [facility], [place], [address], 03/20/2023 06:21:42 03/18/19 24 03/19/2023 UA/M W/RFL X CULTU RE, ROUTI NE cast type REHABILITATION ENGINEER Not Available [facility] ([facility]) [address] [facility], [place], [address], 03/20/2023 06:21:42 03/18/19 24 03/19/2023 UA/M W/RFL X CULTU RE, ROUTI NE crystals REHABILITATION ENGINEER Not Available [facility] ([facility]) [address] [facility], [place], [address], 03/20/2023 06:21:42 03/18/19 24 03/19/2023 UA/M W/RFL X CULTU REJOHN crystal type REHABILITATION ENGINEER Not Available [facility] ([facility]) [address] [facility], [place], [address], 03/20/2023 06:21:42 03/18/19 24 03/19/2023 UA/M W/RFL X CULTU REJOHN NE mucus threads REHABILITATION ENGINEER Not Available [facility] ([facility]) [address] [facility], [place], [address], 03/20/2023 06:21:42 03/18/19 24 03/19/2023 UA/M W/RFL X CULTU REJOHN NE bacteria NONE SEEN none seen/f ew Not Available [facility] ([facility]) [address] [facility], [place], [address], 03/20/2023 06:21:42 03/18/19 24 03/19/2023 UA/M W/RFL X CULTDolores REJOHN yeast REHABILITATION ENGINEER Not Available [facility] ([facility]) [address] [facility], [place], [place], [id number], 03/20/2023 06:21:42 03/18/19 24 03/19/2023 UA/M W/RFL X CULTDolores REJOHN NE trichomonas REHABILITATION ENGINEER Not Available [facility] ([facility]) [address] [facility], [place], [address], 03/20/2023 06:21:42 03/18/19 24 03/19/2023 UA/M W/RFL X CULTU REJOHN comment REHABILITATION ENGINEER Not Available [facility] ([facility]) [address] [facility], [place], [address], 03/20/2023 06:21:42 03/18/19 24 03/19/2023 UA/M W/RFL X CULTU RE, ROUTI NE microscopic examination REHABILITATION ENGINEER Not Available [facility] ([facility]) [address] [facility], [place], [address], 03/20/2023 06:21:42 03/18/19 24 03/19/2023 UA/M W/RFL X CULTU RE, ROUTI NE urinalysis reflex COMMEN T This speci men has refle xed to a Urine Cultu re. Not Available [facility] ([facility]) [address] [facility], [place], [address], 03/20/2023 06:21:42 03/18/19 24 03/20/2023 UA/M W/RFL X CULTU RE, ROUTI NE urine culture, routine FINAL REPORT Not Available [facility] ([facility]) [address] [facility], [place], [address], 03/20/2023 06:21:42 03/18/19 24 03/20/2023 UA/M W/RFL X CULTU RE, ROUTI NE result 1 COMMEN T Mixed uroge nital yogesh Less than 10,00 0 colon ies/m L Not Available [facility] ([facility]) [address] [facility], [place], [address], 03/20/2023 06:21:42 03/18/19 24 03/18/2023 urina lysis , dipst ick Leukocytes (reference range: negative holden/ l) Negati ve Not Available [facility] [address], [place], [address], 03/17/2023 12:21:37 03/18/19 24 03/18/2023 urina lysis , dipst ick Nitrite (reference rage: negative mg/dl) negati ve Not Available [address], [place], [address], 03/17/2023 12:21:37 03/18/19 24 03/18/2023 urina lysis , dipst ick Urobilinogen (reference range: 0.2-1 mg/dl) 1 Not Available [address], [place], [address], 03/17/2023 12:21:37 03/18/19 24 03/18/2023 urina lysis , dipst ick Protein (reference range: negative mg/dl) Negati ve Not Available [address], [place], [address], 03/17/2023 12:21:37 03/18/19 24 03/18/2023 urina lysis , dipst ick pH (reference range: 5-7) 6.0 Not Available [address], [place], [address], 03/17/2023 12:21:37 03/18/19 24 03/18/2023 urina lysis , dipst ick Blood (reference range: negative Morgan/ l) Negati ve Not Available [address], [place], [address], 03/17/2023 12:21:37 03/18/19 24 03/18/2023 urina lysis , dipst ick Specific [place] (reference range: 1.005-1.030) 1.020 Not Available [address], [place], [address], 03/17/2023 12:21:37 03/18/19 24 03/18/2023 urina lysis , dipst ick Ketone (reference range: negative mg/dl) Negati ve Not Available [address], [place], [address], 03/17/2023 12:21:37 02/08/03/18/2023 urina lysis , dipst ick Bilirubin (reference range: negative mg/dl) Negati ve Not Available [address], [place], [address], 03/17/2023 12:21:37 03/18/19 24 03/18/2023 urina lysis , dipst ick Glucose (reference range: negative mg/dl) Negati ve Not Available [address], [place], [address], 03/17/2023 12:21:37 03/18/19 24 03/18/2023 urina lysis , dipst ick Appearance Clear Not Available [address], [place], [address], 03/17/2023 12:21:37 03/18/19 24 03/18/2023 urina lysis , dipst ick Color Dark Yellow Not Available [address], [place], [address], 03/17/2023 12:21:37 07/26/19 24 07/21/2023 , echoc ardio gram No observ ation record ed. [email or web address] [facility] [address], [place], [address], 08/03/2023 09:29:02 07/26/19 24 07/21/2023 US, echoc ardio gram No observ ation record ed. [email or web address] [facility] [address], [place], [address], 07/28/2023 12:54:18 07/26/19 24 07/26/2023 sleep study , diagn ostic (PROC ) No observ ation record ed. [email or web address] [facility] [address], [place], [address], 08/03/2023 09:29:46 07/26/19 24 07/26/2023 home sleep study No observ ation record ed. [email or web address] [facility] [address], [place], [address], 07/28/2023 12:54:38 Result Notes None recorded. Problems Name Problem SNOMED Code Status Onset Date Resolution Date Notes Provider Name and Address Organization Details Recorded Time Postural dizziness 230790541 Active Not Available [facility] 3 02:04:14 Nocturia 467961983 Active Not Available [facility] 3 02:04:14 Localized, primary osteoarthr itis of the shoulder region 727984487 Active Not Available [facility] 3 02:04:14 Benign prostatic hyperplasi a 368244253 Active Not Available [facility] 3 02:04:14 Syncope 591240010 Active Not Available [facility] 3 02:04:14 Anemia 718380665 Active Not Available [facility] 3 02:04:14 Osteoarthr itis 333823380 Active Not Available [facility] 3 02:04:14 Dysuria 90529270 Active Not Available [facility] 3 02:04:14 Essential hypertensi on 84581168 Active Not Available [facility] 3 02:04:14 Urinary tract infectious disease 41805587 Active Not Available [facility] 3 02:04:14 Degenerati on of interverte bral disc 11392766 Active Not Available [facility] 3 02:04:14 Fatigue 65696039 Active Not Available [facility] 3 02:04:14 Gout 37097653 Active Not Available [facility] 3 02:04:15 Serum vitamin B12 below reference range 268718947 Active 2016 Not Available [facility] 3 02:04:14 Shoulder joint pain 637008910 Active 2016 Not Available [facility] 3 02:04:14 Gastroesop hageal reflux disease 913838616 Active 2018 Not Available [facility] 3 02:04:14 Nonexudati ve age-relate d macular degenerati on 279402955 Active 2019 Not Available [facility] 3 02:04:14 Increased frequency of urination 600544293 Active 2021 Not Available [facility] 3 02:04:14 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 998250748 Active 2021 Not Available [facility] 3 02:04:14 Vitamin B deficiency 17731604 Active 2022 Not Available [facility] 3 02:04:14 Cobalamin deficiency 695865959 Active 2022 Not Available [facility] 3 02:04:14 Degenerati on of lumbar interverte bral disc 56494702 Active 2022 Not Available [facility] 3 02:04:14 Spasm 65745355 Active 2022 Not Available [facility] 3 02:04:14 Hyponatrem ia 44798385 Active 2022 Not Available [facility] 3 02:04:15 Skin lesion 12442557 Active 2022 Not Available [facility] 3 02:04:15 Chronic hyponatrem ia 50359878 Active 2022 Not Available [facility] 3 02:04:14 Orthostati c hypotensio n 29066226 Active 2022 Not Available [facility] 3 02:04:14 Pain of left hip joint 5148320557982 00 Active 2022 Not Available [facility] 3 02:04:14 Edema of lower extremity 225778107 Active 2022 Not Available [facility] 3 02:04:14 Low back pain 148997327 Active 2022 Not Available [facility] 3 02:04:14 Bilateral sacroiliac joint pain 5353243305600 9104 Active 2022 Not Available [facility] 3 02:04:14 Acute urinary tract infection 254349745 Active 2022 Not Available [facility] 3 02:04:14 Lumbar spondylosi s 966169287 Active 2022 Not Available [facility] 3 02:04:14 Compressio n fracture of lumbar spine 651134932 Active 2022 Not Available [facility] 3 02:04:14 Organism isolated in blood by culture 2711532336716 107 Active 2022 ZACH Flores [address], [place], [address] , [facility] 3 17:03:49 Bilateral hearing loss 39683671 Active 2022 Sharon Lombardi MD [address], [place], [address] , [facility] 3 10:17:38 Night sweats 92107472 Active 2023 Sharon Lombardi MD [address], [place], [address] , [facility] 4 14:41:19 Erythrocyt e sedimentat ion rate above reference range 456434863 Active 2023 Sharon Lombardi MD [address], [place], [address] , [facility] 4 14:42:03 Rib pain 641079390 Active 2023 Sharon Lombardi MD [address], [place], [address] , [facility] 4 14:21:26 Open wound 765818164 Active 2023 ZACH Flores [address], [place], [address] , [employer] [facility] 4 09:21:14 Problem Notes None recorded. Procedures Surgical History Date Name Laterality Status Provider Name and Address Organization Details Recorded Time 3 Cystoscopy (male) completed Reji Javed MD [address], [address], [place], [address], [facility] [employer] [facility] 09/02/2022 12:05:22 3 Ortho - Cortisone Injection completed Bryan Schwab MD [address], [address], [place], [address], [facility] [employer] [facility] 06/25/2022 10:59:59 3 Transitional_Ca re_Management completed YULI Stratton [address], [place], [address], [facility] [employer] [facility] 06/05/2022 15:42:12 Imaging Results None recorded. [...] mg by injectio n route. 07/23 completed [facility]: [phone] 4-20 Not Available Not Available Not [...] DateTime 03/18/2023 172.72 cm Kika Jorgensen RN [facility] [employer] 03/18/2023 13:01:30 Date Recorded Body height Provider Name an d Address Organization Details Last Updated DateTime 09/14/2023 172.72 cm Ebony Belle RN [facility] [employer] 09/14/2023 11:56:38 Date Recorded Body height Body mass index (BMI) Body weight Body temperature Heart rate Oxygen saturation Oxygen saturation in Arterial blood by Pulse oximetry Systolic And Diastolic Provider Name and Address Organization Details Last Updated DateTime 172.72 cm 27.5 kg/m2 63077.2 2 g 96.8 [degF] 94 /min 99 % 99 % 138/74 mm[Hg] Melanie Zhao RN [facility] [employer] 09:04:50 Social History Question Answer Notes LastModified by Organizat ion Details LastModified Time Tobacco Smoking Status Never Smoker Not Available [facility] 04/08/2022 02:34:01 What Is Your Level Of Caffeine Consumption? Moderate [id number] Information not available 04/08/2022 In The 14 Days Before Symptom Onset, Have You Had Close Contact With A Laboratory-confirm ed COVID-19 While That Case Was Ill? No [id number] Information not available 04/08/2022 In The 14 Days Before Symptom Onset, Have You Had Close Contact With A Person Who Is Under Investigation For COVID-19 While That Person Was Ill? No [id number] Information not available 04/08/2022 What Type Of Diet Are You Following? REGULAR [id number] Information not available 04/08/2022 Are There Any Guns Present In Your Home? No [id number] Information not available 04/08/2022 Have You Ever Been Counseled For Unhealthy Alcohol Use? No Information not available 06/05/2022 Has Tobacco Cessation Counseling Been Provided? No Information not available 06/05/2022 Do You Have Any Dietary Restrictions? No [id number] Information not available 04/08/2022 Sex: Unknown Functional Status Question Answer Note LastModified by Organizat ion Details LastModified Time Do you use any illicit or recreational drugs? No [email or web address] Information not available 06/05/2022 Do you or have you ever used any other forms of tobacco or nicotine? No [email or web address] Information not available 06/05/2022 What is your level of alcohol consumption? Heavy [email or web address] Information not available 06/25/2022 What is your occupation? retired [id number] Information not available 04/08/2022 What is your exercise level? Occasional [id number] Information not available 04/08/2022 Mental Status None recorded. Family History Relationship Description Onset Age of this Age Resolved Age Notes LastModified by Organization Details LastModified Time Son Diabetes mellitus [id number] Not available 04/08/2022 02:34:26 Father Hypertensive disorder [email or web address] Not available 2022 10:35:49 Medical History Condition Response URINARY/BLADDER/KIDNEY PROBLEMS Y Immunizations Vaccine Type Date Status Note Provider Nam williams and Address Organization Details Recorded Time Influenza, high-dose, quadrivalent, PF 10/23/2020 completed Not Available [facility] 3 02:04:15 Influenza, high-dose, quadrivalent, PF 01/08/2022 completed Not Available [facility] 3 02:04:15 Influenza, high-dose, quadrivalent, PF 11/15/2019 completed Not Available [facility] 3 02:04:15 Influenza, high-dose, quadrivalent, PF 10/21/2022 completed Stephani Sevilla RN [facility], [place] - [facility] 10/21/2022 09:44:01 Past Encounters Encounter ID Performer Location Encounter Start Date Encounter Closed Date Diagnosis/Indication Diagnosis SNOMED-CT Code Diagnosis ICD10 Code Diagnosis IMO Codes Diagnosis Note [id number] S[facility] [place] [address] [facility] [address] [place] [address] 04/24/2020 00:00:00 04/24/2020 16:53:32 [id number] Sharon Lombardi MD [facility] Primary Care [address] [address] 05/08/2020 00:00:00 05/08/2020 09:27:10 [id number] TYRONE Novoa [facility] Primary Care [address] [address] 07/10/2020 00:00:00 07/10/2020 13:52:33 [id number] Reji Javed MD [facility] Urology [address] [address] 10/09/2020 00:00:00 10/09/2020 11:38:12 [id number] Sharon Lombardi MD [facility] Primary [address] [address] 10/23/2020 00:00:00 11/06/2020 08:57:30 [id number] Reji Javed MD [facility] Urology [address] [address] 11/20/2020 00:00:00 11/20/2020 10:48:43 [id number] YULI Stratton [facility] Primary [place] [address] [place] [address] 01/14/2021 00:00:00 01/14/2021 12:10:15 [id number] Sharon Lombardi MD [facility] Primary Care [place] [address] [place] [address] 02/20/2021 00:00:00 03/09/2021 21:45:58 [id number] Sharon Lombardi MD [facility] Primary Care [place] [address] [place] [address] 08/21/2021 00:00:00 09/05/2021 12:08:52 [id number] Sharon Lombardi MD [facility] Primary Care [place] [address] [place] [address] 01/08/2022 00:00:00 01/08/2022 10:06:00 [id number] Sharon Lombardi MD [facility] Primary Care [place] [address] [place] [address] 02/19/2022 00:00:00 03/04/2022 14:53:31 [id number] Sharon Lombardi MD [facility] Primary Care [place] [address] [place] [address] 04/08/2022 14:36:52 04/09/2022 10:55:47 Adult health examination 835928899 Z00.00 see paper note [id number] Sharon Lombardi MD [facility] Primary Care [place] [address] [place] [address] 05/05/2022 13:58:18 05/05/2022 16:09:37 Degeneration of lumbar intervertebral disc 72363930 M51.36 R29.6 Cobalamin deficiency 190 032621 E53.8 Essential hypertension 40609945 I10 Spasm 76429924 R25.2 check labs [id number] Sharon Lombardi MD [facility] Primary [facility] [address] [facility] [address] [place] [address] 05/13/2022 12:13:04 05/13/2022 12:59:53 [id number] TYRONE Novoa [facility] Primary Care [facility] [address] [facility] [address] [facility] [place] [address] 05/21/2022 13:58:28 05/21/2022 14:53:18 Skin lesion 86283401 L98.9 New problemLef t abarca (approx) 2cm x 1cmNot painful or itching; however, still very suspicious for melanoma.W ill refer to derm for further evaluation of lesion. Hyponatremia 47506230 E8 7.1 New problemNa 126 (05/13/22)9; 124 (05/05/22); 134 (01/08/22)W ill repeat BMP. Pt to continue with increased sodium intake pending new lab result. [id number] YULI Stratton [facility] Primary Care [facility] [address] [facility] [address] [facility] [place] [address] 06/05/2022 14:04:30 06/05/2022 15:50:04 Transition of care 7336957985 105 Z75.8 [facility] 05/28-. Chronic hyponatremia 503 22785 E87.1 He states while he was at the hospital it stabilized so he stopped taking the tablets. He has been adding salt to apples and different foods to just add salt into his diet.Reche ck BMP today, advised he may need to go back on sodium tablets. Essential hypertension 14716608 I10 He has been out of valsartan for the last week because insurance is not covering it. Will work on getting PA approved. Orthostati c hypotension 55063381 I95.1 Has seen fluctuatio ns mainly with positional changes. Advised to rise slowly from lying/sitt ing. Will check his sodium again today. Continue to monitor blood pressure. Will also plan to get him consult with cardiology due to symptoms for further evaluation . [id number] Sharon Lombardi MD [facility] Primary Care [facility] [address] [facility] [address] [facility] [place] [address] 06/18/2022 12:33:38 06/18/2022 13:15:30 Pain of left hip joint 3190181174 72213 M25.552 Degenerati on of lumbar intervertebral disc 81939726 M51.36 R29.6 Renewal of prescription 371614639 Z76.0 Edema of l ower extremity 538502713 R60.0 M79.605 M79.604 I73.9 Cobalamin deficiency 190 974967 E53.8 Hyponatremia 66664044 E8 7.1 Essential hypertension 56118913 I10 [id number] Bryan Schwab MD [facility] [place] [address] [place] [address] 06/25/2022 10:11:59 06/25/2022 10:58:51 Low back pain 773677870 M54.50 Pain of le ft hip joint 6841482447 64924 M25.552 Bilateral sacroiliac joint pain 5796679973 2633816 M53.3 [id number] Sharon Lombardi MD [facility] Primary Care [facility] [address] [facility] [address] [place] [address] 07/13/2022 12:34:36 07/13/2022 14:14:16 [id number] Reji Javed MD [facility] Urology [address] [address] 07/22/2022 12:26:30 07/22/2022 13:08:06 Increased frequency of urination 066375167 R35.0 : 1 Cysto - normal penile [...] which has utilized to this point Nocturia 981606619 R35.1 :Discussed limiting night-time EtOH volume if he wishes to reduce his nocturia -- not bothered enough to limit it at this time Dysuria 79231336 R30.0 :Previous culture was skin contaminan tWill continue to monitor via UA and PVR Urinary tr act infectious disease 34061773 N39.0 :PLAN:-Kermit Miguel as outside prescriber wrote for-RTC for Cysto next available- If has interval UTI events, he will try and get us culture data [id number] Sharon Lombardi MD [facility] Primary Care Jorge jeffery [address] [facility] [address] [place] [address] 07/23/2022 09:17:26 07/23/2022 10:41:19 Degeneration of lumbar intervertebral disc 82925857 M51.36 R29.6 has appt with neurosurge ryrestart gabapentin 300 mg qhs Edema of l ower extremity 181143268 R60.0 M79.605 M79.604 I73.9 resolved Cobalamin deficiency 190 562523 E53.8 Hyponatremia 08101262 E8 7.1 [id number] Bryan Schwab MD [facility] [place] [address] [place] [address] 07/23/2022 11:26:56 07/23/2022 13:00:59 Low back pain 207442188 M54.50 Pain of le ft hip joint 6162415278 28717 M25.552 Bilateral sacroiliac joint pain 5201060337 9483879 M53.3 Lumbar spondylosis 44643 0009 M47.896 Compressio n fracture of lumbar spine 325360191 M48.56XA [id number] Bryan Schwab MD [facility] [place] [address] [place] [address] 08/03/2022 09:40:07 08/03/2022 11:18:03 Low back pain 439216153 M54.50 Pain of le ft hip joint 8801665946 15959 M25.552 Bilateral sacroiliac joint pain 1117294489 0988605 M53.3 Lumbar spondylosis 48739 0009 M47.896 [id number] Reji Javed MD [facility] Urology [address] [address] 09/02/2022 11:36:35 09/02/2022 12:31:28 Urinary tract infectious disease 34684428 N39.0 :PLAN:-Cys to today -- negative, though [...] and documentat ion. Increased frequency of urination 812500877 R35.0 : 1 Cysto - normal penile [...] which has utilized to this point Nocturia 042582937 R35.1 :Discussed limiting night-time EtOH volume if he wishes to reduce his nocturia -- not bothered enough to limit it at this time Dysuria 33132754 R30.0 :Previous culture was skin contaminan tWill continue to monitor via UA and PVR [id number] Sharon Lombardi MD [facility] Primary Care [facility] [address] [facility] [address] [place] [address] 09/11/2022 10:21:27 09/11/2022 11:01:32 Cobalamin deficiency 551790257 E53.8 Hyponatremia 14147142 E8 7.1 stablechec k labs Essential hypertension 97848002 I10 in excellent control Renewal of prescription 851717634 Z76.0 Lumbar spondylosis 15272 0009 M47.896 refills givenhas second opinion appt upcoming with neurosurge lilia Dorsey [id number] Sharon Lombardi MD [facility] Primary Care [facility] [address] [facility] [address] [facility] [place] [address] 10/21/2022 08:47:32 10/21/2022 10:54:28 Hyponatremia 83468405 E87.1 stablechec k labs Administra tion of influenza vaccine 83102420 Z23 Cobalamin deficiency 190 795314 E53.8 Lumbar spondylosis 85396 0009 M47.896 has seen neurosurge ry and pain mgmthe is very active and will continue supportive careincrea se gabapentin 300 mg bidrefill hydrocodon e/apap-he uses this sparinglyc ontinue diclofenac 75 mg bidf/u in 3 months or sooner if needed [id number] Sharon Lombardi MD [facility] Primary Care [facility] [address] [facility] [address] [facility] [address] 03/10/2023 14:14:31 03/10/2023 15:36:45 Cobalamin deficiency 612438087 E53.8 Essential hypertension 86214146 I10 monitored daily by cardiology Night sweats 65463178 R6 1 check labs [id number] Grady Malik, STORE OPERATIONS SPECIALIST-C [facility] [place] [address] [place] [address] 03/18/2023 12:25:42 03/18/2023 13:05:21 [id number] Grady Malik STORE OPERATIONS SPECIALIST-C [facility] [place] [address] [place] [address] 07/12/2023 10:36:37 07/12/2023 10:47:03 [id number] Grady Malik STORE OPERATIONS SPECIALIST-C [facility] [place] [address] [place] [address] 07/27/2023 12:12:25 07/27/2023 12:39:54 [id number] YULI Shrestha [facility] [place] [address] [place] [address] 09/14/2023 11:54:56 09/14/2023 14:23:49 [id number] Grady Malik STORE OPERATIONS SPECIALIST-C [facility] [place] [address] [place] [address] 09/23/2023 08:55:37 09/23/2023 09:27:28 Cobalamin deficiency 087100650 E53.8 chronic, stable Essential hypertension 88961924 I10 chronic, stable with [facility] cardiology f/u was July, next f/u is in Decemberlabs obtained Night sweats 00868354 R6 1 check labs Open wound 251744104 T14 .8XXA noted to right arm after a fallsome possible infection noted Health Concerns Section Related Observation LastModified by Organization Detai ls LastModified Time None Recorded Concern Status LastModified by Organization Details LastModified Time None Recorded Advance Directives Directive None Recorded Payers Insurance Date Sequence Insurance Name Policy Number Policy Ortiz Covered Member ID Ortiz Member ID Guarantor Name 07/12/2023 1 [facility] Vincenzo Glaser [id number] Vincenzo Glaser 07/12/2023 2 [facility] (MEDICARE REPLACEMENT/A DVANTAGE - PPO) Vincenzo Glaser [id number] Vincenzo Lunsford Jailyn 09/23/2023 1 [facility] [id number] Vincenzo Lunsford Jailyn [id number] Vincenzo Lunsford Jailyn 07/12/2023 1 [facility] [id number] Vincenzo Lunsford Jailyn [id number] Vincenzo Lunsford Jailyn 10/13/2023 2 [employer] Vincenzo Lunsford Jailyn [id number] Vincenzo Lunsford Jailyn Notes Date Note Type Note Provider Name and Address Organization Details Recorded Time 09/23/2023 text/html Pt is here for f/u ZACH Flores [address] [facility], [place] [address], [place], [address], [facility] 09/23/2023 09:26:18
== END 2024-11-29 11:54 | disposition home or self-care (01) ==
PROVIDERS: PCP Family Medicine; Visit Provider Family Medicine
DX: N30.00 Acute cystitis without hematuria (principal)
CPT/HCPCS: 81001; 87086